=== PATIENT | male | born 1945 | race Caucasian/White ===

== ENCOUNTER 2019-06-15 11:59 | Inpatient (IN) | payer MEDICARE, BC ==
[2019-06-15] MEDS: NS 0.9% 1000 ML** 1,000 ML IV SCH (04:15)
--- OUTSIDE RECORDS SUMMARY | 2019-06-15 14:34 | XMS REPORT | Continuity of Care Document ---
:1945 External Reference #:[id number] Author Name Ji Harding M.D. 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 Onset: 06/02/2019 Social History Type Date Description Comments Sex Unknown ETOH Use Occasionally consumes alcohol Tobacco Use Start: Unknown Patient is a current 2 cigarettes a week smoker, smokes some days Recreational Drug Use Marijuana Licensed for liquid marijuana Smoking Status Reviewed: 05/20/19 Patient is a current 2 cigarettes a week smoker, smokes some days Allergies, Adverse Reactions, Alerts Description No Known Drug Allergies Medications Active Medications SIG Qnty Indications Ordering Date Provider Fluoxetine HCL Take One Tablet Unknown 60mg Tablets By Mouth Every Day Maximum Daily Dose 1 Tablet Tamsulosin HCL Take One Capsule Unknown 0.4mg Capsules By Mouth Every Day Amantadine HCL Take One Capsule Unknown 100mg Capsules By Mouth Every Morning For 1 Week Then Take One Capsule By [place] Morning And Take One Capsule By Mouth Every Day AT N Bupropion Hydrochloride ER Take One Tablet Unknown (SR) By Mouth Every 150mg Tablets ER 12HR Morning Hydrochlorothiazide Take One Capsule Unknown 12.5mg By Mouth Every Capsules Day Vitamin D 1 by mouth every Unknown 2000Unit Capsules day Tecfidera 1 tablet by mouth Unknown 240mg Capsules DR twice a day Magnesium 1 by mouth every Unknown 500mg Capsules day Vitamin B 6 take one by mouth Unknown 50mg Tablets daily. Vitamin E Unknown 200Unit Capsules Baclofen take one tablet Unknown 20mg Tablets by mouth three times a day as needed for muscle spasms, may cause drowsiness Immunizations Description No Information Available Vital Signs Date Vital Result Comment 06/02/2019 3:23pm BP Systolic 127 mmHg BP Diastolic 68 mmHg Body Temperature 98.5 F Heart Rate 94 /min Respiratory Rate 16 /min Height 66 inches 5'6" per pt Weight 193.12 lb BMI (Body Mass Index) 31.2 kg/m2 BSA (Body Surface Area) 1.97 m2 [place] body weight in kilograms 64 kg O2 % BldC Oximetry 95 % Pain Level 0 05/19/2019 2:14pm Body Temperature 97.0 F Heart Rate 95 /min Respiratory Rate 20 /min Height 66 inches 5'6" per pt Weight 199.00 lb BMI (Body Mass Index) 32.1 kg/m2 BSA (Body Surface Area) 2.00 m2 [place] body weight in kilograms 64 kg O2 % BldC Oximetry 97 % Results Description No Information Available Procedures Date Code Description Status 05/19/2019 57912 voiding pressure study vp informatics intra abdominal voiding pressure Completed ap 05/19/2019 34675 emg studies of urethral sphincter, other than needle, any Completed tech 05/19/2019 97877 Cystometrogram complex w/ voiding and urethral pressure Completed studies 05/19/2019 12153 Bladder Catheterization Completed 05/10/2019 58809 Insert Of Temporary Indwelling Bladder Catheter,Simple Completed Medical Devices Description No Information Available Encounters Type Date Location Provider Dx Diagnosis Office Visit 05/10/2019 Urology Harsh Garcia, R33.9 Retention of urine, 11:15a PA unspecified Z87.440 Personal history of urinary (tract) infections G35 Multiple sclerosis Assessments Date Code Description Provider 06/02/2019 R33.9 Retention of urine, unspecified Ji Harding M.D. 05/19/2019 R30.0 Dysuria Ji Harding M.D. 05/19/2019 R39.14 Feeling of incomplete bladder emptying Ji Harding M.D. 05/10/2019 R33.9 Retention of urine, unspecified Harsh Garcia, PA 05/10/2019 Z87.440 Personal history of urinary (tract) Harsh Garcia PA infections 05/10/2019 G35 Multiple sclerosis Harsh Garcia PA 04/28/2019 R45.1 Restlessness and agitation Ellie Waterman NPP, SHOP TAILOR 04/28/2019 R33.9 Retention of urine, unspecified Ji Harding M.D. 04/28/2019 R41.82 Altered mental status, unspecified Ellie Waterman NPP, SHOP TAILOR 04/28/2019 N39.0 Urinary tract infection, site not Ellie Waterman NPP, SHOP TAILOR specified Plan of Treatment Future Appointment(s):06/09/2019 11:15 am - Harsh Garcia PA at Urology Functional Status Description No Information Available Mental Status Description No Information Available Referrals Description No Information Available
--- OUTSIDE RECORDS SUMMARY | 2019-06-15 14:34 | XMS REPORT | Continuity of Care Document ---
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 Onset: 06/02/2019 Social History Type Date Description Comments Sex Unknown ETOH Use Occasionally consumes alcohol Tobacco Use Start: Unknown Patient is a current 2 cigarettes a week smoker, smokes some days Recreational Drug Use Marijuana Licensed for liquid marijuana Smoking Status Reviewed: 06/06/19 Patient is a current 2 cigarettes a [...] Unknown 240mg Capsules DR twice a day Vitamin B 6 take one by mouth Unknown 50mg Tablets daily. Vitamin E Unknown 200Unit Capsules Baclofen take one tablet Unknown 20mg Tablets by mouth three times a day as needed for muscle spasms, may cause drowsiness Immunizations Description No Information Available Vital Signs Date Vital Result Comment 06/09/2019 11:28am BP Systolic 148 mmHg BP Diastolic 79 mmHg Body Temperature 98.0 F Heart Rate 100 /min Respiratory Rate 16 /min Height 66 inches 5'6" per pt [place] body weight in kilograms 64 kg O2 % BldC Oximetry 95 % Pain Level 0 06/02/2019 3:23pm BP Systolic 127 mmHg BP Diastolic 68 mmHg Body Temperature 98.5 F Heart Rate 94 /min Respiratory Rate 16 /min Height 66 inches 5'6" per pt Weight 193.12 lb BMI (Body Mass Index) 31.2 kg/m2 BSA (Body Surface Area) 1.97 m2 [place] body weight in kilograms 64 kg O2 % BldC Oximetry 95 % Pain Level 0 Results Description No Information Available Procedures Date Code Description Status 05/19/2019 97389 voiding pressure study vp information technology intra abdominal voiding pressure Completed ap 05/19/2019 32141 emg studies of urethral sphincter, other than needle, any Completed tech 05/19/2019 33596 Cystometrogram complex w/ voiding and urethral pressure Completed studies 05/19/2019 02966 Bladder Catheterization Completed 05/10/2019 18925 Insert Of Temporary Indwelling Bladder Catheter,Simple Completed Medical Devices Description No Information Available Encounters Type Date Location Provider Dx Diagnosis Office Visit 06/09/2019 Urology Harsh Garcia, R33.9 Retention of urine, 11:15a PA unspecified N39.0 Urinary tract infection, site not specified Office Visit 06/02/2019 3:30p Urology Ji Harding R33.9 Retention of urine, M.D. unspecified Office Visit 05/10/2019 11:15a Urology Harsh Garcia R33.9 Retention of urine, PA unspecified Z87.440 Personal history of urinary (tract) infections G35 Multiple sclerosis Assessments Date Code Description Provider 06/09/2019 R33.9 Retention of urine, unspecified Harsh Garcia PA 06/09/2019 N39.0 Urinary tract infection, site not Harsh Garcia, PA specified 06/02/2019 R33.9 Retention of urine, unspecified Ji Harding M.D. 05/19/2019 R30.0 Dysuria Ji Harding M.D. 05/19/2019 R39.14 Feeling of incomplete bladder emptying Ji Harding M.D. 05/10/2019 R33.9 Retention of urine, unspecified Harsh Garcia PA 05/10/2019 Z87.440 Personal history of urinary (tract) Harsh Garcia PA infections 05/10/2019 G35 Multiple sclerosis Harsh Garcia PA 04/28/2019 R45.1 Restlessness and agitation Ellie Waterman NPP, LYNNE 04/28/2019 R33.9 Retention of urine, unspecified Ji Harding M.D. 04/28/2019 R41.82 Altered mental status, unspecified Ellie Waterman NPP, LYNNE 04/28/2019 N39.0 Urinary tract infection, site not Ellie Waterman NPP, DIRECTOR [employer] specified Plan of Treatment Future Appointment(s):12/08/2019 11:00 am - Harsh Garcia PA at Urology Functional Status Description No Information Available Mental Status Description No Information Available Referrals Description No Information Available
--- OUTSIDE RECORDS SUMMARY | 2019-06-15 14:34 | XMS REPORT | Continuity of Care Document ---
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 Problems Active Problems Provider Date Localized, primary osteoarthritis Onset: 09/19/2003 Social History Type Date Description Comments Sex Unknown Allergies, Adverse Reactions, Alerts Description No Information Available Medications Description No Information Available Immunizations Description No Information Available Vital Signs Description No Information Available Results Description No Information Available Procedures Description No Information Available Medical Devices Description No Information Available Encounters Description No Information Available Assessments Date Code Description Provider 05/10/2019 R33.9 Retention of urine, unspecified Harsh Garcia PA 04/28/2019 R45.1 Restlessness and agitation Ellie Waterman NPP, LYNNE 04/28/2019 R33.9 Retention of urine, unspecified Ji Harding M.D. 04/28/2019 R41.82 Altered mental status, unspecified Ellie Waterman NPP, FNP 04/28/2019 N39.0 Urinary tract infection, site not Ellie Waterman NPP, JAVA SOFTWARE ENGINEER specified Plan of Treatment Future Appointment(s):05/19/2019 2:15 pm - Ji Harding M.D. at Urology Functional Status Description No Information Available Mental Status Description No Information Available Referrals Description No Information Available
[2019-06-15] MEDS ORDERED: NS 0.9% 50 ML* 50 ML ONE (16:13)
[2019-06-15] MEDS: cefTRIAXone(*) 1 GM in NS 0.9% 50 ML* 50 ML IVPB SCH (16:15)
--- NOTE | 2019-06-15 17:53 | CONS ---
NEUROLOGY CONSULTATION NOTE: DATE OF CONSULT: 06/15/19 CONSULTING PROVIDER: Dr. Karissa Barksdale. REASON FOR CONSULT: Sudden onset confusion. CHIEF COMPLAINT: Confusion. HISTORY OF PRESENT ILLNESS: Mr. Malachi Bolton is a 73-year-old man with relapsing- remitting multiple sclerosis, who is followed up closely at [facility] Neurology. The patient was last seen by Shantanu Coleman NP, on 04/07/19. At that time, the patient was complaining of worsening left lower extremity weakness and left footdrop. He had a fall at that time. The patient was using a cane and a quad wheel seated walker. He was complaining of progressive symptoms related to his multiple sclerosis, which are heat intolerance as well as left lower extremity weakness. He had a footdrop reported in March 2019. He is currently taking Tecfidera 240 mg twice a day. He is also on amantadine 100 mg 3 times daily; baclofen, which was increased to 20 mg in the morning, 10 mg in the afternoon and 20 mg at night, just recently increased to that dose; Wellbutrin was increased from 75 to 150 mg recently; and he was kept on fluoxetine as an antidepressant. The patient had an MRI of the brain with and without contrast, and an MRI of the cervical spine with and without contrast that was completed in March 2019 that were ordered to evaluate the patient's left lower extremity weakness. The MRI of the brain noted multiple white matter lesions most consistent with demyelinating plaques, but there was no associated abnormal enhancement to suggest active inflammation and there has been no significant change when compared to a study from 09/30/17. An MRI of the cervical spine was also obtained and showed abnormal cord signal opposite of C4-C5 most consistent with demyelinating plaque, but there is again no associated abnormal enhancement to suggest active inflammation. The appearance is similar to the 09/30/17 examination. The history today was mostly obtained by Beau, the patient's son, who was at bedside. Mr. Bolton was hospitalized at [facility] 2 to 2-1/2 months ago for urinary tract infection. He was hallucinating at that time. He was discharged home the same day, but to come back a day later with worsening hallucinations. The patient was hospitalized eventually for 4 days and had to be discharged to a rehab facility for 2 weeks. Following the rehabilitation period, the patient was able to be discharged home and resumed his activities of daily living. The patient is independent, lives alone, and is able to operate a vehicle. He was driving just approximately 10 days ago. However, over the last 3 to 6 months, the family has noticed deterioration in his gait as well as the left leg weakness. The patient was ambulating with occasionally using a cane 1 year ago , but now he is unable to ambulate without a walker. Last 06/10/19, the patient began developing symptoms of increasing confusion, falls, hallucinations, and irritability. Family members were checking up on him on a daily basis and it was not until Thursday when the patient was forced to go to the ER for further evaluation. He was admitted to [facility] for a urinary tract infection. He was started on ciprofloxacin. Although the urinary tract infection was reported to be improving according to the providers at [facility], the patient's mentation was deteriorating. Today, the patient was last seen normal at 7:30 a.m., during that time he was communicating and conversing with the bedside nurse. At 8 a.m., the patient became suddenly unresponsive. He was not following commands, his eyes were closed, and he was not moving the left lower extremity. The CT machine was apparently malfunctioning at [facility] and the patient instead had a stat MRI of the brain. I personally reviewed the study. There was no evidence of any acute intracranial abnormalities seen. The patient received 2 mg of Ativan for presumed subclinical seizures. Reviewing the records from [facility], the patient has also received risperidone 0.25 mg starting 06/13/19. He received 1 dose that day and 3 different dosages of risperidone on 06/14/19. He was also receiving ciprofloxacin at that time and he was also receiving the home dose of baclofen, Tecfidera, and Prozac. Due to the concern that he may be having subclinical seizures, the patient was accepted to [facility] and was transferred to our facility for further evaluation. Today, the patient is awake, but confused and inappropriate. He is able to recognize that he is in the hospital, family members, as well as nursing staff. He denied any headaches or visual disturbance. He reported intermittent double vision when looking towards either side, but has not experienced that today. He has not had any fevers or chills. I do not see any rash as well as he does not report any rash. According to Beau, the patient was having trouble talking last night, but that was on and off, and it is not unusual for him to have that at night. PAST MEDICAL HISTORY: Multiple sclerosis, depression, right knee arthroscopy, hernia operation, appendectomy, tonsillectomy, left ankle ORIF, benign prostatic hyperplasia. MEDICATIONS: 1. Vitamin E. 2. Vitamin D3. 3. Magnesium. 4. Hydrochlorothiazide 25 mg p.o. daily. 5. Colace 100 mg p.o. b.i.d. 6. Cyanocobalamin 2500 mcg p.o. daily. 7. Risperidone 0.25 mg p.o. b.i.d. 8. Wellbutrin 150 mg p.o. daily. 9. Amantadine 100 mg p.o. at 7 a.m. and 1200. 10. Tamsulosin 0.4 mg p.o. daily. 11. Fluoxetine 60 mg p.o. daily. 12. Baclofen 20 mg p.o. t.i.d. 13. Tecfidera 240 mg p.o. b.i.d. ALLERGIES: No known drug allergies. FAMILY HISTORY: No family history of stroke or seizures. SOCIAL HISTORY: The patient lives independently. He performs all activities of daily living. There is no reported history of alcohol use. REVIEW OF SYSTEMS: The patient is unable to provide an accurate review of systems at this time due to encephalopathy. PHYSICAL EXAM: Vitals: Temperature 98.9, pulse of 71, respiratory rate of 15, oxygen saturation of 96%, blood pressure of 149/74. Ill-appearing frail man, in no acute distress. Head: Atraumatic, normocephalic without any obvious abnormality. Eyes: Conjunctivae/corneas are clear. Neck is supple and symmetrical with no carotid bruits. Cardiovascular: Regular rate and rhythm with normal S1, S2. Respiratory: Clear to auscultation bilaterally with no wheezing or rhonchi. Extremities: Flail left leg. Otherwise, no hammertoes or high arches. Skin: No skin lesions or lacerations. There are some scabs in the lower extremities, specifically on the right medial aspect of the knee. Psych: Flat affect, depressed mood. He does not interact well with the examiner. Neurological Examination: Drowsy, but wakes up to loud voice command. He is alert to self, but not place or time. He did recognize his son. He has mild spastic dysarthria. No aphasia. Cranial Nerves: Pupils are equal, round, and reactive to light. No APD. Normal confrontation testing. Normal sensation in the face. No facial droop. Tongue is symmetrical and midline with no atrophy or fasciculation. The patient has extensive moderate psychomotor slowing and bradykinesia. Motor Examination: He has got flaccid left lower extremity, especially in the distal lower extremity. He is able to lift the right lower extremity above off the bed. He moves both upper limbs, but very bradykinetic. Sensation is intact throughout. Reflexes trace throughout with mute plantar responses bilaterally. Coordination and gait were unable to be assessed as the patient cannot cooperate. DIAGNOSTIC STUDIES/LAB DATA: Labs and imaging studies were not obtained during this visit as of yet. ASSESSMENT AND RECOMMENDATIONS: Mr. Malachi Bolton is a 73-year-old man who has history of relapsing-remitting multiple sclerosis, who has deteriorated over the past 3 months. He was a transfer from [facility] on 06/15/19 due to a sudden onset of reduced alertness and minimally conscious state. Please note that the patient has been in [facility] since 06/11/19, for the treatment of increased agitation, confusion, and hallucination that was thought to be related to urinary tract infection. The patient was treated with ciprofloxacin. He has been receiving risperidone and had received Ativan prior to the transfer today. MRI of the brain was obtained and showed no evidence of acute ischemic infarction. 1. Acute encephalopathy of unclear etiology at this time. Likely cause includes toxic encephalopathy versus seizure with postictal state. Patients with multiple sclerosis have increased risk for seizures. Wellbutrin and ciprofloxacin may both reduce the threshold for seizures. We will evaluate for metabolic encephalopathy. Recommendations: Please check a vitamin B12, TSH, ammonia. Please discontinue ciprofloxacin. Hold the Wellbutrin at this time. Neuro checks every 2 hours for the next 24 hours. Keep his blood pressure at a normotensive range. He has no evidence of fevers, chills, or nuchal rigidity to suspect a central nervous system infection. Obtain an EEG to evaluate for subclinical seizures. If the patient has any clinical symptoms of seizures, treat with 2 mg IV Ativan and then load with levetiracetam 1000 mg IV x1 and continue on a dose of 500 mg twice daily. 2. Hallucinations - most likely related to underlying infection, ciprofloxacin and amantadine. Please reduce amantadine to 100 mg daily. We will have to consider getting him off the amantadine in the near future. 3. Bradykinesia - I suspect this could be related to antipsychotic therapy. Please discontinue the risperidone. If the patient becomes agitated, consider Seroquel 25 mg nightly. 4. Left leg weakness - this could be related to a thoracic lesion or degenerative disc in the lumbosacral region. Hold off on any imaging of the spine until the patient's mentation improves. I do recommend an MRI of the thoracic and lumbar spine during this hospitalization to further evaluate the left leg weakness. We have ruled out any demyelinating lesions in the brain or C-spine from the MRIs that were done in March for the same problem. 5. Multiple sclerosis - continue his home dose of Tecfidera. He has no evidence of progressive multifocal leukoencephalopathy on the MRI study. CRITICAL CARE TIME: 60 minutes, of which more than 50% was spent obtaining history, examining the patient, discussing the treatment plan with the patient and his son, Beau, at bedside. I will continue to follow. [id number]/[facility] #: [id number] [facility]PITALGood
[2019-06-15 17:55] LABS: TSH (Thyroid Stimulating Horm) 1.31 mcIU/mL (0.34-5.60)
--- NOTE | 2019-06-15 19:03 | EEG ---
ELECTROENCEPHALOGRAPHY: DATE OF STUDY: 06/15/19 - ROOM #ICU-09 DATE READ: 06/15/19 ORDERED BY: Dr. Karissa Barksdale. CLINICAL PROBLEM: Mr. Bolton is a 73-year-old man, who comes in with confusion. This EEG was requested to evaluate for epileptiform discharges or electrographic seizures. MEDICATIONS: Ativan recently given this morning. CLINICAL STATE: Awake and drowsy. REPORT: The waking background consisted of a mixed frequency slowing in the delta and theta range with appropriate organization and clearly defined anterior - posterior voltage. There was low voltage, poorly sustained background rhythm of 10 Hz, which was symmetrical and showed normal reactivity. Anteriorly, there was an expected pattern of lower voltage, irregular, mixed faster frequency. Attenuation of the occipital rhythm accompanied drowsiness. Hyperventilation and photic stimulation were not performed. Single electrode EKG showed normal sinus rhythm with a rate of 70 beats per minute. Throughout the recording, there were no epileptiform discharges or electrographic seizures. Throughout the recording, the patient had right leg movements, left hand twitching, mouth movements that did not correlate with any abnormalities on EEG. CLINICAL IMPRESSION: This is an abnormal awake and drowsy EEG due to a poorly sustained posterior dominant rhythm, low voltage alpha, and diffuse slowing. These findings are suggestive of nonspecific mild-moderate diffuse encephalopathy. During the recording, the patient had episode of right and left arm twitching as well as abnormal mouth movements that did not correlate with any EEG abnormalities. [id number]/[facility] #: [id number] MTDD
--- NOTE | 2019-06-15 19:24 | HP ---
CC: Dr. Lund; Dr. Srinivasan * HISTORY AND PHYSICAL: DATE OF ADMISSION: 06/15/19 PRIMARY CARE PROVIDER: Dr. Lund NEUROLOGIST: Dr. Srinivasan. CHIEF COMPLAINT: Unresponsive episode. HISTORY OF PRESENT ILLNESS: Mr. Bolton is a 73-year-old male who has a history of multiple sclerosis and neurogenic bladder as well as depression and anxiety who presented initially to [facility] on 06/11/19 after he was found on the floor at home. He was down for approximately 8 hours. He was diagnosed with rhabdomyolysis and a urinary tract infection and was being treated for both of these conditions. The patient had been improving and stable until the morning of 06/15/19 when he was found unresponsive by the nursing staff. Just prior to being found unresponsive, the patient underwent straight catheterization. He was behaving usually at that time. The patient remained unresponsive for a couple hours. There was concern for ongoing seizure activity or seizure and a postictal state, and therefore, the patient was given Ativan 2 mg IV x1. The patient continued to be unresponsive, at which time I was contacted to accept the patient in transfer from [facility] [place] [facility]. On arrival, the patient was alert and talking. He was generally a poor historian. Reviewing outpatient records indicate that the patient typically is able to hold a full conversation and is alert and oriented. He had been driving just up until a few days prior to his admission at [facility]. He does tell me that he is not having any pain. He denies any shortness of breath. He does not recall the events of the morning. PAST MEDICAL HISTORY: 1. Multiple sclerosis. 2. Neurogenic bladder with urinary retention requiring straight catheterization. 3. Depression and anxiety. MEDICATIONS: 1. Flomax 0.4 mg p.o. q.h.s. 2. Baclofen 20 mg p.o. t.i.d. 3. Prozac 60 mg p.o. daily. 4. Wellbutrin extended release 150 mg p.o. daily. 5. Resinoidal 0.25 mg p.o. twice daily. 6. Amantadine 100 mg p.o. in the morning and at noon. 7. Magnesium chloride 64 mg p.o. daily. 8. Hydrochlorothiazide 25 mg p.o. daily. 9. Colace 100 mg p.o. twice daily. 10. Vitamin B12 2500 mcg p.o. daily. 11. Vitamin D3 1000 units p.o. daily. 12. Vitamin E 400 units p.o. daily. 13. Tecfidera 240 mg p.o. twice daily. ALLERGIES: No known drug allergies. FAMILY HISTORY: Positive for coronary artery disease in his father as well as diabetes. His mom had a history of coronary artery disease. SOCIAL HISTORY: The patient is a former heavy smoker. He smokes very rarely at this time. He does not drink alcohol. He lives with his family and has caregiver help. REVIEW OF SYSTEMS: An attempt at 11-system review of systems is made; however, the patient is unable to answer questions appropriately. PHYSICAL EXAMINATION GENERAL: The patient is a well-developed elderly male who appears older than his stated age, sitting up in the bed, in no acute distress. VITAL SIGNS: Blood pressure 137/85, pulse 70, respirations 25, temp 98.9, O2 sat 95% on room air. HEENT: Pupils are equal and round. Extraocular muscles are intact. Oropharynx is clear. Oral mucosa is dry. There is no submandibular, cervical, or supraclavicular adenopathy. PULMONARY: Lungs are clear to auscultation anteriorly and at the lateral bases. CARDIAC: Normal S1, S2. Regular rate and rhythm. I do not appreciate any murmurs. There is no lower extremity edema. ABDOMEN: Bowel sounds are present. Abdomen is soft, nontender, nondistended. MUSCULOSKELETAL: There is no cyanosis or clubbing of the digits. NEURO: Upper extremity strength is normal. The patient has 0/5 strength on the left. Right lower extremity strength is 4+/5. Sensation is intact throughout. SKIN: Visible areas of skin are warm and dry. There are no rashes. There are abrasions noted to the patient's right knee and right foot. DIAGNOSTIC STUDIES/LAB DATA: WBC 4.3, hemoglobin 11.8, hematocrit 35.2, platelets 219. Glucose 119, BUN 18, creatinine 1.1, sodium 142, potassium 3.9, chloride 102, CO2 of 34, calcium 9.6. ASSESSMENT AND PLAN: Mr. Bolton is a 73-year-old male with a history of multiple sclerosis followed by Dr. Srinivasan who over the last several months has had increased left-sided weakness, now needing to ambulate with a walker when he previously used a cane as well as increasing hallucinations is reported by the patient's son, who was initially admitted to [facility] for concern of fall with subsequent rhabdomyolysis ultimately determined to be secondary to urinary tract infection with Citrobacter freundii, who was transferred to [facility] on 06/15/19 after having an unresponsive episode. 1. Unresponsive episode. My suspicion is this may have been a seizure with prolonged postictal state. EEG was obtained at the time of the patient's arrival to the ICU. At that point, he showed encephalopathic changes on the EEG , but no clear epileptiform discharges. The patient was alert and talking, though not at his baseline. He did receive 2 mg of IV Ativan earlier today and perhaps this is still causing effect. The patient will be monitored in the ICU overnight for any recurrent episodes of unresponsiveness. If he is stable tomorrow, he can likely be transferred to the floor. I am going to change his antibiotic from ciprofloxacin to ceftriaxone as perhaps Cipro reduced his seizure threshold. I will also be discontinuing his Wellbutrin which can also lower the seizure threshold. 2. Multiple sclerosis. The patient will continue on his Tecfidera as well as his baclofen. He may need lumbar spine MRI imaging per Dr. Sexton who was present at the time of the patient's arrival to the ICU. This would be to evaluate for active MS flare. The patient did undergo MRI of the brain and cervical spine in March due to these concerns noted above and those 2 MRIs did not show any active disease. 3. Depression and anxiety. We will continue Prozac. I am going to hold his Risperdal while he is recovering from this unresponsive episode. 4. Neurogenic bladder. We will continue Flomax for BPH and the patient will need straight catheterizing 4 times daily. 5. DVT prophylaxis: According to the Adult Thrombosis Prophylaxis Risk Factor Assessment Guide, the patient has a total risk factor score of 3, making him high risk. Heparin will be utilized as DVT prophylaxis. 4. Code status is full. TIME SPENT: Sixty-five minutes was spent admitting this patient. [id number]/[facility] #: [id number] LISA
[2019-06-15] MEDS: Baclofen TAB* 20 MG PO SCH (21:24)
[2019-06-15] MEDS: DIMETHYL FUMARATE 240 MG PO SCH (21:24)
[2019-06-15] MEDS: Docusate CAP* 100 MG PO SCH (21:25)
[2019-06-15] MEDS: Heparin VIAL(*) 5000 UNITS/ML VIAL (FIVE THOUSAND) SUBCUT SCH (21:25)
[2019-06-15] MEDS: Tamsulosin CAP* 0.4 MG PO SCH (21:25)
[2019-06-16] MEDS: Heparin VIAL(*) 5000 UNITS/ML VIAL (FIVE THOUSAND) SUBCUT SCH ×3 (05:13→20:46)
[2019-06-16] MEDS: NS 0.9% 1000 ML** 1,000 ML IV SCH ×2 (06:09→20:48)
[2019-06-16] MEDS ORDERED: Amantadine CAP* 100 MG PO SCH ×2 (07:00)
[2019-06-16] MEDS ORDERED: BuPROPion XL* 150 MG TAB.XL PO SCH (09:00)
[2019-06-16] MEDS: Vitamin E CAP* 400 UNIT PO SCH (10:19)
[2019-06-16] MEDS: FLUoxetine CAP* 20 MG PO SCH (10:19)
[2019-06-16] MEDS: Cholecalciferol TAB* 1000 UNITS PO SCH (10:20)
[2019-06-16] MEDS: Docusate CAP* 100 MG PO SCH ×2 (10:20→20:46)
[2019-06-16] MEDS: Baclofen TAB* 20 MG PO SCH ×3 (10:21→20:46)
[2019-06-16] MEDS: DIMETHYL FUMARATE 240 MG PO SCH ×2 (10:21→20:47)
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
[2019-06-16] MEDS: Cyanocobalamin TAB* 500 MCG PO SCH (11:28)
--- NOTE | 2019-06-16 13:34 | PN ---
Subjective Date of Service: 06/16/19 Length of Stay: 1 Days Neurology is following for encephalopathy. Interval History: He is awake this morning. He was reported to still be slightly confused and agitated, but was calm when I assessed him. He still has some compulsive behavior and trying to get out of bed. He is easily directed though. He does not recall what happened yesterday. He denied any headaches or visual disturbance. He does not complain of any new weakness. He is incontinence of urine. This is new for him. He has no urgency. He denied any dysuria. Review of Systems: Denied CP, SOB, or palpitations. Objective Active Medications: Amantadine HCl (Symmetrel Cap*) 100 mg PO 0700 [facility] Last Admin: 06/16/19 10:21 Dose: 100 mg Baclofen (Lioresal Tab*) 20 mg PO TID [facility] Last Admin: 06/16/19 10:21 Dose: 20 mg Cholecalciferol (Vitamin D Tab*) 1,000 units PO DAILY [facility] Last Admin: 06/16/19 10:20 Dose: 1,000 units Cyanocobalamin (Vitamin B12 Tab*) 2,500 mcg PO DAILY [facility] Last Admin: 06/16/19 11:28 Dose: 2,500 mcg Dimethyl Fumarate (Tecfidera(Nf)) 240 mg PO BID [facility] Last Admin: 06/16/19 10:21 Dose: 240 mg Docusate Sodium (Colace Cap*) 100 mg PO BID [facility] Last Admin: 06/16/19 10:20 Dose: 100 mg Fluoxetine HCl (Prozac Cap*) 60 mg PO DAILY [facility] Last Admin: 06/16/19 10:19 Dose: 60 mg Heparin Sodium (Porcine) (Heparin Vial(*)) 5,000 units SUBCUT Q8HR [facility] Last Admin: 06/16/19 05:13 Dose: 5,000 units Sodium Chloride (Ns 0.9% 1000 Ml) 1,000 mls @ 75 mls/hr IV PER RATE [facility] Last Admin: 06/16/19 06:09 Dose: 75 mls/hr Ceftriaxone Sodium 1 gm/ (Sodium Chloride) 50 mls @ 100 mls/hr IVPB Q24H [facility] Last Admin: 06/15/19 16:15 Dose: 100 mls/hr Tamsulosin HCl (Flomax Cap*) 0.4 mg PO BEDTIME [facility] Last Admin: 06/15/19 21:25 Dose: 0.4 mg Vitamin E (Vitamin E Cap*) 400 unit PO DAILY [facility] Last Admin: 06/16/19 10:19 Dose: 400 unit Vital Signs 06/16/19 06/16/19 06/16/19 08:02 09:01 10:00 Temperature 98.0 F Pulse Rate 99 103 Respiratory 20 18 Rate Blood Pressure 173/76 (mmHg) O2 Sat by Pulse 95 93 Oximetry 06/16/19 06/16/19 10:01 11:46 Temperature 97.9 F Pulse Rate 92 80 Respiratory 22 16 Rate Blood Pressure 122/73 (mmHg) O2 Sat by Pulse 95 100 Oximetry Intake and Output Last 24 Hours 06/14/19 06/15/19 06/16/19 06/17/19 06:59 06:59 06:59 06:59 Intake Total 1456 659 Output Total 840 800 Balance 616 -141 Weight 186 lb 1.122 oz Intake: IV Fluids 936 459 NS 936 459 IVPB 50 ABX - CEFTRIAXONE 50 Oral 470 200 Output: Urine 90 200 Straight Cath 750 600 Oxygen Devices in Use Now: None Neurology Exam: General: Well nourished, well developed, and in no acute distress HEENT: Normocephelic/atraumatic, sclera anicteric, mucous membranes moist Neck: Supple Chest: Clear to auscultation bilaterally Cardiovascular: Regular rate and rhythm without murmurs, rubs, gallops Abdomen: Soft, non-tender/non-distended Extremities: No clubbing, cyanosis, or edema Neurological Findings: Awake, alert, and oriented to person, place, and time. Speech: mild spastic dysarthria Cranial Nerve: PERRL, EOM intact, VFF, no nystagmus, face symmetric bilaterally Motor: generalized 4/5 weakness on the proximal upper extremity, 3/5 in the right lower and 1-2/5 in the left lower extremity. He has a flail foot on the left. Sensation: reduced sensation at the medial leg on the left Deep Tendon Reflex: trace throughout, absent at the left knee and ankle. Finger to nose, rapid alternating movements intact without tremor, no dysdiadochokinesia Gait: n/a Microbiology and Other Data: Microbiology 06/15/19 14:44 Nasal Screen MRSA (PCR) - Final Nasal Mrsa Not Detected Assessment/Plan 1. Acute encephalopathy- slowly improving. Suspect toxic encephalopathy or seizures with post-ictal confusion. The triggering factors are: the combination of ciprofloxacin, risperidone, Wellbutrin. Ammonia, B12, and TSH. EEG showed no seizures. Recommendations: - Neuro checks every 4 hours - Continue to hold off on Cipro and Resperidone - Agree with transfer to - Continue supportive care - Please consult PT/OT to evaluate and treat - No need for seizure medications as this may have been a provoked event - He has no sign of [employer] infection; no need for an LP at this time 2. Hx of MS: continue Tecfidera 3. Subacute-chronic incontinence and left leg weakness- localized to the lumbar spine. - Obtain an MRI of the L wo contrast and MRI of T spine with and without contrast. Evaluate for cauda equina I will continue to follow. I discussed the care with Beau (son) and Dr. Barksdale.
[2019-06-16] MEDS: cefTRIAXone(*) 1 GM in NS 0.9% 50 ML* 50 ML IVPB SCH (15:29)
[2019-06-16] MEDS ORDERED: Gadoteridol* (CONTRAST) 279.3 MG/ML 10 ML IV ONE (19:42)
[2019-06-16] MEDS: Tamsulosin CAP* 0.4 MG PO SCH (20:46)
[2019-06-17 06:00] LABS: ABS Basophils 0.1 10^3/ul (0-0.2); ABS Eosinophils 0.5 10^3/ul (0-0.6); ABS Lymphocytes 0.6 10^3/ul (1.0-4.8); ABS Monocytes 0.6 10^3/ul (0-0.8); ABS Neutrophils 5.5 10^3/ul (1.5-7.7); Eosinophil % 6.8 %; Hematocrit 37 % (42-52); Hemoglobin 12.5 g/dL (14.0-18.0); Lymphocyte % 8.4 %; Mean Corpuscular HGB Conc 34 g/dL (31-36); Mean Corpuscular Hemoglobin 32 pg (27-31); Mean Corpuscular Volume 96 fL (80-94); Mean Platelet Volume 8.6 fL (7.4-10.4); Platelet Count 223 10^3/uL (150-450); Red Blood Count 3.87 10^6 /uL (4.18-5.48); Red Cell Distribution Width 15 % (10-15); White Blood Count 7.2 10^3/uL (3.5-10.8)
[2019-06-17 06:07] LABS: BUN/Creatinine Ratio 18.7 (8-20); Calcium 9.2 mg/dL (8.6-10.3); EGFR African American 98.8 (>60); EGFR Non-African American 81.7 (>60); Potassium 3.9 mmol/L (3.5-5.0)
[2019-06-17] MEDS: Heparin VIAL(*) 5000 UNITS/ML VIAL (FIVE THOUSAND) SUBCUT SCH ×3 (06:21→22:01)
[2019-06-17] MEDS: Cholecalciferol TAB* 1000 UNITS PO SCH (08:51)
[2019-06-17] MEDS: FLUoxetine CAP* 20 MG PO SCH (08:51)
[2019-06-17] MEDS: Docusate CAP* 100 MG PO SCH ×2 (08:52→21:59)
[2019-06-17] MEDS: Cyanocobalamin TAB* 500 MCG PO SCH (08:52)
[2019-06-17] MEDS: Vitamin E CAP* 400 UNIT PO SCH (08:53)
[2019-06-17] MEDS: Baclofen TAB* 20 MG PO SCH ×3 (08:53→22:00)
[2019-06-17] MEDS: NS 0.9% 1000 ML** 1,000 ML IV SCH (08:54)
[2019-06-17] MEDS: DIMETHYL FUMARATE 240 MG PO SCH ×2 (08:54→22:00)
[2019-06-17] MEDS ORDERED: Thiamine INJ* 100 MG/ML 2 ML VIAL IV ONE (13:31)
--- NOTE | 2019-06-17 13:44 | PN ---
Subjective Date of Service: 06/17/19 Length of Stay: 2 Days Neurology is following for confusion, hallucination, and chronic left leg weakness. Interval History: I was contacted several times by the bedside nurse. The patient's confusion persists and he is now seeing objects in the room. He thinks the hospital is a restaurant and he imagines himself fighting with the waitresses and getting them fired. He stated, " I feel bad they are getting fired." He knows the date , year, time, and the president. He is slightly tremerous this morning. He denied any headache or visual disturbance. He denied any worsening weakness. He is moving the left leg a little more than before. He reported alcohol intake, 2 bottles of wine Workup so far: WBC: 7 Platelet count: 223 B12: 1450 Ammonia: 33 TSH: 1.31 MRI L spine without contrast: advanced multilevel spondylotic changes of the L spine, most pronounced at L3-4 with severe canal narrowing. MRI T Spine: no acute finding MRI Brain done at [facility]: films are in the paper chart. There is no evidence of acute infarction. He has extensive white matter lesions consistent with his MS diagnosis. The study was not done with contrast. EEG done 06/15: mild-moderate encephalopathy. Review of Systems: Denied CP, SOB, or palpitations. Objective Active Medications: Baclofen (Lioresal Tab*) 20 mg PO TID [facility] Last Admin: 06/17/19 08:53 Dose: 20 mg Cholecalciferol (Vitamin D Tab*) 1,000 units PO DAILY [facility] Last Admin: 06/17/19 08:51 Dose: 1,000 units Cyanocobalamin (Vitamin B12 Tab*) 2,500 mcg PO DAILY [facility] Last Admin: 06/17/19 08:52 Dose: 2,500 mcg Dimethyl Fumarate (Tecfidera(Nf)) 240 mg PO BID [facility] Last Admin: 06/17/19 08:54 Dose: 240 mg Docusate Sodium (Colace Cap*) 100 mg PO BID [facility] Last Admin: 06/17/19 08:52 Dose: 100 mg Fluoxetine HCl (Prozac Cap*) 60 mg PO DAILY [facility] Last Admin: 06/17/19 08:51 Dose: 60 mg Heparin Sodium (Porcine) (Heparin Vial(*)) 5,000 units SUBCUT Q8HR [facility] Last Admin: 06/17/19 06:21 Dose: 5,000 units Sodium Chloride (Ns 0.9% 1000 Ml) 1,000 mls @ 75 mls/hr IV PER RATE [facility] Last Admin: 06/17/19 08:54 Dose: 75 mls/hr Ceftriaxone Sodium 1 gm/ (Sodium Chloride) 50 mls @ 100 mls/hr IVPB Q24H [facility] Last Admin: 06/16/19 15:29 Dose: 100 mls/hr Quetiapine Fumarate (Seroquel Tab*) 25 mg PO BID [facility] Tamsulosin HCl (Flomax Cap*) 0.4 mg PO BEDTIME [facility] Last Admin: 06/16/19 20:46 Dose: 0.4 mg Thiamine HCl (Vitamin B1 Inj*) 500 mg IV ONCE ONE Stop: 06/17/19 13:32 Vitamin E (Vitamin E Cap*) 400 unit PO DAILY [facility] Last Admin: 06/17/19 08:53 Dose: 400 unit Vital Signs 06/16/19 06/16/19 06/16/19 15:15 19:15 20:00 Temperature 97.8 F 98.5 F Pulse Rate 76 86 Respiratory 17 17 16 Rate Blood Pressure 151/65 126/57 (mmHg) O2 Sat by Pulse 98 96 Oximetry 06/16/19 06/17/19 06/17/19 23:15 03:15 07:46 Temperature 97.5 F 97.8 F 98.1 F Pulse Rate 93 59 104 Respiratory 18 18 20 Rate Blood Pressure 149/68 150/86 148/63 (mmHg) O2 Sat by Pulse 95 96 96 Oximetry 06/17/19 06/17/19 08:00 11:37 Temperature 97.7 F Pulse Rate 101 Respiratory 20 20 Rate Blood Pressure 153/66 (mmHg) O2 Sat by Pulse 96 Oximetry Intake and Output Last 24 Hours 06/15/19 06/16/19 06/17/19 06/18/19 06:59 06:59 06:59 06:59 Intake Total 1456 1721 Output Total 840 3550 Balance 616 -1829 Weight 186 lb 1.122 oz 186 lb 1.122 oz Intake: IV Fluids 936 1471 NS 936 1471 IVPB 50 50 ABX - CEFTRIAXONE 50 50 Oral 470 200 Output: Urine 90 2200 Straight Cath 750 1350 Other: # Bowel Movements 0 # Voids 2 Oxygen Devices in Use Now: None Neurology Exam: General: Ill appearing man who is pleasantly confused. HEENT: Normocephelic/atraumatic, sclera anicteric, mucous membranes moist Neck: Supple Chest: Clear to auscultation bilaterally Cardiovascular: Regular rate and rhythm without murmurs, rubs, gallops Extremities: No clubbing, cyanosis, or edema Neurological Findings: Awake, alert, and oriented to person, time, president, but not place. He thinks the hospital is a restaurant. Speech: mild spastic dysarthria. Cranial Nerve: PERRL, EOM intact, VFF, no nystagmus, face symmetric bilaterally , facial sensation intact, hearing intact to finger rub bilaterally, palate elevates symmetrically, tongue midline, SCM and Trapezius s/s. Motor: generalized 4/5 weakness on the proximal upper extremity, 3/5 in the right lower and 1-2/5 in the left lower extremity. He is now dorsiflexing the foot 1/5, and plantar flexion 3/5. He has fast tremors in the upper extremities bilaterally. Sensation:reduced sensation to light touch and pinprick on the left leg. Deep Tendon Reflex: trace in the uppers, absent on the left lower, and trace in the right lower extremities. Finger to nose, rapid alternating movements intact without tremor, no dysdiadochokinesia Gait: n/a Result Diagrams: 06/17/19 05:36 06/17/19 05:36 Microbiology and Other Data: Microbiology 06/15/19 14:44 Nasal Screen MRSA (PCR) - Final Nasal Mrsa Not Detected Assessment/Plan 1. Acute encephalopathy- manifesting as delirium with mild agitation, delusional thoughts, and visual hallucination. Suspect toxic encephalopathy or seizures with post-ictal confusion. The triggering factors could be: the combination of ciprofloxacin, risperidone, Wellbutrin therapies. Ammonia, B12 , and TSH are normal. EEG showed no seizures. MRI brain without contrast done at [facility] on 06/15/2019 The patient's worsening hallucinations could be due to hospital related delirium , abrupt discontinuation of antipsychotic therapy, and/or alcohol withdrawal ( less likely). Amantadine can cause visual hallucination; hence, it was discontinued. He has no fevers, chills, or leukocytosis to suspect encephalitis. The episode of unresponsiveness that he had at [facility] has resolved. Recommendations: - Start Seroquel 25 mg twice daily - Consult PT/OT to evaluate and treat - No need for seizure medications as this may have been a provoked event - If the patient's mentation does not improve with antipsychotic therapy, then an MRI with contrast and an LP to assess for underlying new MS lesions or viral encephalitis should be considered. - Give Thiamine 500 mg IV x 1. - Neuro checks every 4 hours - Continue supportive care 2. Hx of MS: continue Tecfidera and Baclofen therapy 3. Subacute-chronic incontinence and left leg weakness due to severe spinal canal narrowing with nerve root compression in the L spine (most pronounced at L3-4). - Consult neurosurgery. Patient may not be a good candidate for surgery at this time, but may be a candidate once his mentation improves. Discussed the case with Dr. Srinivasan who will see the patient this week.
[2019-06-17] MEDS ORDERED: Thiamine IV 500 MG in NS 0.9% 250 ML (Wernicke-Korsakoff) IV ONE (14:00)
--- NOTE | 2019-06-17 15:04 | PN ---
Subjective Date of Service: 06/17/19 Interval History: Pt is feeling well. He notes he has b/l LE weakness that has worsened significantly in the last 1 month. He also notes occasional incontinence of urine. No loss of bowel function. Denies saddle anaesthesia. He continues to have hallucinations, but notes that they are "smaller," giving example that he used to see spiders and now sees ants. Objective Active Medications: Baclofen (Lioresal Tab*) 20 mg PO TID EWELINA Cholecalciferol (Vitamin D Tab*) 1,000 units PO DAILY EWELNIA Cyanocobalamin (Vitamin B12 Tab*) 2,500 mcg PO DAILY EWELINA Dimethyl Fumarate (Tecfidera(Nf)) 240 mg PO BID EWELINA Docusate Sodium (Colace Cap*) 100 mg PO BID EWELINA Fluoxetine HCl (Prozac Cap*) 60 mg PO DAILY EWELINA Heparin Sodium (Porcine) (Heparin Vial(*)) 5,000 units SUBCUT Q8HR EWELINA Sodium Chloride (Ns 0.9% 1000 Ml) 1,000 mls @ 75 mls/hr IV PER RATE EWELINA Ceftriaxone Sodium 1 gm/ (Sodium Chloride) 50 mls @ 100 mls/hr IVPB Q24H EWELINA Quetiapine Fumarate (Seroquel Tab*) 25 mg PO BID EWELINA Tamsulosin HCl (Flomax Cap*) 0.4 mg PO BEDTIME EWELINA Vitamin E (Vitamin E Cap*) 400 unit PO DAILY EWELINA Vital Signs: Temp Pulse Resp BP Pulse Ox 98 F 88 18 143/61 97 06/17/19 15:30 06/17/19 15:30 06/17/19 15:30 06/17/19 15:30 06/17/19 15:30 Oxygen Devices in Use Now: None Appearance: Pt is sitting up in bed, NAD. Eyes: No Scleral Icterus, PERRLA Ears/Nose/Mouth/Throat: NL Teeth, Lips, Gums, Clear Oropharnyx, - - Dry Neck: NL Appearance and Movements; NL JVP, Trachea Midline Respiratory: Symmetrical Chest Expansion and Respiratory Effort, Clear to Auscultation Cardiovascular: NL Sounds; No Murmurs; No JVD, RRR Abdominal: NL Sounds; No Tenderness; No Distention, No Hepatosplenomegaly Extremities: No Clubbing, Cyanosis, - - 1+ edema Neurological: Alert and Oriented x 3, - - 5/5 b/l UE strength. RLE 4/5; pt can lift leg inches off bed, but cannot hold it up; L foot drop Result Diagrams: 06/17/19 05:36 06/17/19 05:36 Microbiology and Other Data: Microbiology 06/15/19 14:44 Nasal Screen MRSA (PCR) - Final Nasal Mrsa Not Detected Assess/Plan/Problems-Billing Mr Bolton is a 73 yo M who has a h/o MS who presented to [place] after being found on the floor and was admitted for treatment of UTI and rhabdomyolysis and subsequently [place] [facility] [place]. - Patient Problems (1) Left-sided weakness Comment: -MRI L spine reveals L3-L4 spondylitic changes with severe canal narrowing -Neurosurgery consulted, notified (2) Unresponsive episode Comment: -Unclear cause. Possible seizure with subsequent post ictal state vs medication induced unresponsiveness (he had 3 doses of risperdal the day before). -Yesterday pt paranoid and confused, but overall improved and able to carry on a conversation. -Tele -Monitor for recurrent unresponsive episodes. -He will likely need STR on discharge. (3) Hallucination Comment: -Pt continues to have episodes of hallucinations; he is aware that these are hallucinations -Possibly due to cipro, risperidone, both of which have been d/c's -Start seroquel 25 BID and monitor (4) Urinary tract infection Comment: -Pt transfered with UTI, previously treated with Cipro, which is suspected to have caused hallucinations -Cipro discontinued -Ceftriaxone day 3 (5) Multiple sclerosis Comment: -Continue baclofen and tecfidera. -Follow up with Dr. Srinivasan after discharge. (6) Neurogenic bladder Comment: -Continue flomax and straighth catheterize 4x daily. (7) Anxiety and depression Comment: -Continue prozac. -Wellbutrin discontinued as it can lower the seizure threshold. (8) DVT prophylaxis Comment: -heparin SQ (9) Full code status Status and Disposition: Inpatient. Discharge when stable.
[2019-06-17] MEDS: cefTRIAXone(*) 1 GM in NS 0.9% 50 ML* 50 ML IVPB SCH (15:57)
[2019-06-17] MEDS: Tamsulosin CAP* 0.4 MG PO SCH (21:58)
[2019-06-17] MEDS: QUEtiapine TAB* 25 MG PO SCH (22:00)
--- NOTE | 2019-06-17 23:06 | CONS ---
CONSULTATION REPORT: DATE OF CONSULT: 06/17/19 HISTORY OF PRESENT ILLNESS: Mr. Bolton is a 73-year-old male with complaint of progressive gait and balance disturbance over the last 6 months. He has noticed progressive weakness in the left lower extremity. He has history of multiple sclerosis. He also complains of axial low-back pain with bilateral lower extremity radicular pain as well. He reports having multiple fall episodes recently. He was previously seen at [facility] for UTI and for low-back pain. He was admitted to [facility], and was seen by Neurology, who noticed the patient had a possible foot drop. MRI studies were completed of the thoracic and lumbar spine, which had normal findings and Neurosurgery was consulted to evaluate the patient. Currently, the patient denies any issues with loss of control of bladder or bowel. He does admit to have chronic issues with urinary retention and does self-catheterization. PAST MEDICAL HISTORY: Significant for hallucinations, urinary tract infection, left-sided weakness, multiple sclerosis, anxiety and depression, neurogenic bladder. PAST SURGICAL HISTORY: Includes right knee replacement. MEDICATIONS: 1. Vitamin E. 2. Flomax. 3. Magnesium chloride EC tab. 4. Hydrochlorothiazide. 5. Fluoxetine. 6. Docusate. 7. Dimethyl fumarate NF. 8. Vitamin D3 1000. 9. Wellbutrin XL. 10. Baclofen. 11. Vitamin B12. 12. Risperdal. 13. Amantadine. SOCIAL HISTORY: The patient reports some occasional alcohol use, 1 to 2 times a week. Also reports tobacco use and reports using some marijuana. OBJECTIVE: Vitals: Temperature is 98.3, heart rate is 91, respiratory rate 18 , O2 saturation 96, blood pressure systolic ranges 143 to 153, diastolic is 61 to 66. General: The patient is lying flat in bed. He is calm, in no acute distress. Neuro: The patient's GCS is 15, alert and oriented x3. EOMs intact. Cranial nerves II through XII are grossly intact, has some tongue fasciculations noted. Mild facial tremor seen as well. Upper extremity motor strength 5/5 bilaterally with elbow flexion and extension, also shoulder abduction and adduction. Handgrip is 5/5 as well. Sensation is intact throughout. Lower extremity motor strength: Right extremity 5/5 with hip flexion and extension, also with plantar flexion 5/5. He has decreased motor strength with EHL, 4/5. Left in lower extremity motor strength 1-2, unable to do flexion or extension of hip. has minimal ability to plantar or dorsiflex foot. Sensation is intact. Negative for clonus or Babinski's. He had inversion of the left foot. IMAGING: MRI completed, 06/16/19, of the thoracic spine. There is severe motion artifact seen, imaging is not clear. Does not appear to have any significant central canal stenosis or foraminal stenosis, but again, imaging is unclear due to marked motion artifact. MRI of the lumbar spine, completed 06/16/19, has significant motion artifact, able to see that there is marked to severe degenerative changes with loss of disk space at L3-L4 with spondylodesis at L4-L5. L2-L3, there is a broad based disk bulge with severe central canal stenosis, bilateral recess stenosis, with severe bilateral foraminal stenosis. L3-L4 broad based disk bulge with bilateral recess stenosis, right greater than left. Moderate central canal stenosis with moderate bilateral foraminal stenosis. L4-L5, there is broad based disk bulge with central disk protrusion, right lateral recess stenosis, bilateral foraminal stenosis, bilateral facet hypertrophy. L5-S1 broad based disk bulge, small central disk protrusion. No central canal stenosis. Moderate bilateral foraminal stenosis. MRI of the C-spine, completed 04/08/19, shows moderate to severe degenerative changes with the most significant degenerative changes at C3-C4. There is some right-sided foraminal stenosis with a right-sided disk bulge with mild central canal stenosis. MRI of the brain completed as well, does not show any midline shift or acute injury. ASSESSMENT: A 73-year-old male with history of multiple sclerosis, with complaint of progressive left lower extremity weakness and gait and balance disturbances, has moderate to severe degenerative changes seen in the lumbar spine, but imaging is less than optimal due to motion artifact. This could possibly be related to stenosis or it could possibly be related to his multiple sclerosis. I would recommend the patient have repeat imaging of the thoracic and lumbar spine to see if we can get better quality for reevaluation. We will follow up once the imaging is complete and see if surgery is indicated at that time. Thank you for allowing me to be a part of this patient's care. JAME SEGURA [id number]/[facility] #: [id number] [facility]ITALGood
[2019-06-18] MEDS: Heparin VIAL(*) 5000 UNITS/ML VIAL (FIVE THOUSAND) SUBCUT SCH ×3 (05:32→21:19)
[2019-06-18] MEDS: NS 0.9% 1000 ML** 1,000 ML IV SCH ×2 (06:01→19:50)
[2019-06-18] MEDS: Cyanocobalamin TAB* 500 MCG PO SCH (09:54)
[2019-06-18] MEDS: FLUoxetine CAP* 20 MG PO SCH (09:54)
[2019-06-18] MEDS: Baclofen TAB* 20 MG PO SCH (09:54)
[2019-06-18] MEDS: QUEtiapine TAB* 25 MG PO SCH ×2 (09:54→21:19)
[2019-06-18] MEDS: Docusate CAP* 100 MG PO SCH ×2 (09:55→21:19)
[2019-06-18] MEDS: DIMETHYL FUMARATE 240 MG PO SCH ×2 (09:55→21:20)
[2019-06-18] MEDS: Cholecalciferol TAB* 1000 UNITS PO SCH (09:55)
[2019-06-18] MEDS: Vitamin E CAP* 400 UNIT PO SCH (09:55)
--- NOTE | 2019-06-18 12:59 | PN ---
Progress Note - Progress Note Date of Service: 06/18/19 Note: Neurosurgery team spoke with Mr. Bolton with his family at bedside this morning, he reports he was able to walk up until about a week ago. There is some question if his current state is related to possible lesions in the brain, cervical and thoracic spine. We spoke with Dr. Srinivasan about this concern, the recommendation was made to get MRI with and with contrast of the brain, Cervical and thoracic spine and repeat MRI of lumbar spine with out contrast. Neurosurgery will follow up imaging.
--- NOTE | 2019-06-18 13:43 | CONS ---
NEUROLOGY CONSULT FOLLOWUP: DATE OF FOLLOWUP: 06/18/19 LOCATION: He is an inpatient in room 437. HOSPITALIST: Dr. Barksdale. CHIEF COMPLAINT: Weakness, hallucinations. INTERVAL HISTORY: Since yesterday, Mr. Bolton feels he is having a good day. His son and daughter-i n-law are present. We went over the history. He has been having hallucinations since at least this past summer. He was hospitalized with a urinary tract infection in April about a month after he was seen in our office in followup for his multiple sclerosis. He may have had hallucinations even befo re that. He sees people and he sometimes sees things that seem to be moving. He sees bugs at times. He gets disoriented as to where he is. Today, he feels pretty lucid, but goes off on telling us so me pretty fantastic stories about what he thinks he sees. He has had progressive weakness of his left leg for at least months. MEDICATIONS: Reviewed and he is on: 1. Baclofen 20 mg p.o. t.i.d., which was increased this past April, I believe at [facility]. 2. Ceftriaxone 1 g IV q.24 hours. 3. Tecfidera 240 mg p.o. b.i.d. 4. Colace 100 mg p.o. b.i.d. 5. Fluoxetine 60 mg p.o. daily. 6. Subcutaneous heparin 5000 units q.8 hours. 7. Seroquel 25 mg p.o. b.i.d. 8. Flomax 0.4 mg p.o. daily. PHYSICAL EXAM: He has been afebrile for over 24 hours, most recently 97.9 orally. Blood pressure is running between about 140 to 150 systolic over 50 to 70 diastolic. Heart rate is in the 80s and regu lar, respiratory rate is 16. Oxygen saturation is 97% on room air. Heart is in a regular rhythm wit hout murmurs. There are no cervical bruits. There are some bruises on his right knee more than his l eft from being on the floor. Neurological Exam: Eye movements are full, but choppy. Visual [place] are full to confrontation. Fa cial musculature is symmetric. Speech is clear. Motor exam reveals mild proximal weakness in the upper extremities. He has barely antigravity weakne ss in the left proximal lower extremity and grade 4 to 4- weakness in the proximal right lower extrem ity. He has grade 4 right ankle dorsiflexor weakness with good plantarflexion. He has less than ant igravity left ankle dorsiflexor weakness. He also has weak plantarflexion on the left in the grade 4 range. Reflexes are trace in the upper extremities and at the knees and absent at the ankles. He has left B abinski sign with a right plantar flexor. He has high frequency sustention tremor in the outstretched hands symmetrically. There is also little multifocal myoclonus in the arms and shoulders. DIAGNOSTIC STUDIES/LAB DATA: Laboratory data is reviewed. Last chemistries from 06/17/19 notable fo r glucose of 108, otherwise unremarkable. He had a normal TSH on 06/15/19 and an elevated vitamin B1 2. Ammonia level on 06/15/19 was normal at 33. CBC is notable for mild anemia with hematocrit of 37 . White blood cell count is normal. Records from [facility] reviewed and he had a Citrobacter urinary tract infecti on, greater than 100,000 colony counts. IMPRESSION AND PLAN: Impression is that of encephalopathy, which has been fluctuating for months and seems to be improved today. He was on amantadine, which can cause hallucinations and that has been stopped. Recommend decreasing his baclofen back to 10 mg 3 times per day and also decreasing his flu oxetine to 40 mg per day as both can cause encephalopathy and myoclonus. He has pretty severe lumbar stenosis on his imaging and I spoke with Dr. Wild. I think his lef t footdrop at least if not other distal lower extremity weakness is probably from his lumbar stenosis and he would benefit from decompressive surgery. He has not had a fever in a while and his white bl ood cell count is normal, so if Anesthesia feels that he is cleared for surgery, I think he can proba ashely have it this coming week. I discussed this all with Malachi and his family and they are in agree ment. I also asked Malachi about his MOLST form and he does not want to be resuscitated if he were t o have a cardiopulmonary arrest and so I will sign that as well. I will continue to follow him along with you. [id number]/[facility] #: [id number]
[2019-06-18] MEDS: Baclofen TAB* 10 MG PO SCH ×2 (14:51→21:19)
--- NOTE | 2019-06-18 16:33 | PN ---
Subjective Date of Service: 06/18/19 Interval History: Pt continues to have hallucinations. He is aware of hallucinations when they are unrealistic, for instance when he sees numerous spiders or ants crawling over a room. He thought he was at a alliance party with nursing staff last night, and was told this was not the case. He is frustrated and feels he is "going crazy. " He continues to have b/l LE weakness, L>R. No other complaints today. Objective Active Medications: Baclofen (Lioresal Tab*) 10 mg PO TID EWELINA Cholecalciferol (Vitamin D Tab*) 1,000 units PO DAILY EWELINA Cyanocobalamin (Vitamin B12 Tab*) 2,500 mcg PO DAILY EWELINA Dimethyl Fumarate (Tecfidera(Nf)) 240 mg PO BID EWELINA Docusate Sodium (Colace Cap*) 100 mg PO BID EWELINA Fluoxetine HCl (Prozac Cap*) 40 mg PO DAILY EWELINA Heparin Sodium (Porcine) (Heparin Vial(*)) 5,000 units SUBCUT Q8HR EWELINA Sodium Chloride (Ns 0.9% 1000 Ml) 1,000 mls @ 75 mls/hr IV PER RATE EWELINA Quetiapine Fumarate (Seroquel Tab*) 25 mg PO BID EWELINA Tamsulosin HCl (Flomax Cap*) 0.4 mg PO BEDTIME EWELINA Vitamin E (Vitamin E Cap*) 400 unit PO DAILY EWELINA Vital Signs: Temp Pulse Resp BP Pulse Ox 98.1 F 75 18 126/55 96 06/18/19 15:35 06/18/19 15:35 06/18/19 15:35 06/18/19 15:35 06/18/19 15:35 Oxygen Devices in Use Now: None Appearance: Pt is sitting in bed, HOB elevated. He has mildly depressed mood and is frustrated. Otherwise in no acute distress. Eyes: No Scleral Icterus, PERRLA Ears/Nose/Mouth/Throat: NL Teeth, Lips, Gums, Clear Oropharnyx, Mucous Membranes Moist Neck: NL Appearance and Movements; NL JVP, Trachea Midline Respiratory: Symmetrical Chest Expansion and Respiratory Effort, Clear to Auscultation Cardiovascular: NL Sounds; No Murmurs; No JVD, RRR, No Edema Abdominal: NL Sounds; No Tenderness; No Distention, No Hepatosplenomegaly Extremities: No Edema, No Clubbing, Cyanosis Neurological: Alert and Oriented x 3, - - B/l UE strength 5/5 and equal. RLE able to lift off bed, resists gravity and some downward force. Pt able to lift LLE only cm off bed for seconds. L foot drop. Result Diagrams: 06/17/19 05:36 06/17/19 05:36 Microbiology and Other Data: Microbiology 06/15/19 14:44 Nasal Screen MRSA (PCR) - Final Nasal Mrsa Not Detected Assess/Plan/Problems-Billing Mr Bolton is a 73 yo M who has a h/o MS who presented to [place] after being found on the floor and was admitted for treatment of UTI and rhabdomyolysis and subsequently transferred to the ICU at [facility] [place] for an unresponsive episode. - Patient Problems (1) Left-sided weakness Comment: -MRI L spine reveals L3-L4 spondylitic changes with severe canal narrowing -Neurosurgery consulted, notified -Repeat MRI T, L spine recommended, ordered -Likely surgical intervention this week for canal stenosis (2) Hallucination Comment: -Pt continues to have episodes of hallucinations; he is aware that these are hallucinations -Possibly due to cipro, risperidone, both of which have been d/c'd -Amantadine d/c'd -Start seroquel 25 BID 06/17/2019 -Decrease baclofen to 10 TID, decrease fluoxetine to 40 today (3) Unresponsive episode Comment: -Unclear cause. Possible seizure with subsequent post ictal state vs medication induced unresponsiveness (he had 3 doses of risperdal the day before). -Pt paranoid and confused at admission; frequent hallucinations; able to carry on conversation and aware of hallucinations most of the time -Tele -Monitor for recurrent unresponsive episodes. -He will likely need STR on discharge. (4) Urinary tract infection Comment: -Pt transfered with UTI, previously treated with Cipro, which is suspected to have caused hallucinations -Cipro discontinued -Received ceftriaxone x3 doses -Resolved (5) Multiple sclerosis Comment: -Continue baclofen and tecfidera. -Follow up with Dr. Srinivasan after discharge. (6) Neurogenic bladder Comment: -Continue flomax and straighth catheterize 4x daily. (7) Anxiety and depression Comment: -Continue prozac at decreased dose -Wellbutrin discontinued as it can lower the seizure threshold. (8) DVT prophylaxis Comment: -heparin SQ (9) Full code status Status and Disposition: Inpatient. Discharge when stable.
[2019-06-18] MEDS: cefTRIAXone(*) 1 GM in NS 0.9% 50 ML* 50 ML IVPB SCH (16:57)
[2019-06-18 18:07] LABS: Urine Appearance Clear; Urine Bilirubin Negative (Negative); Urine Blood Negative (Negative); Urine Color Yellow; Urine Glucose Negative (Negative); Urine Ketones Negative (Negative); Urine Nitrite Negative (Negative); Urine Protein Negative (Negative); Urine Specific Gravity 1.013 (1.010-1.030); Urine Urobilinogen Negative (Negative)
[2019-06-18] MEDS: Tamsulosin CAP* 0.4 MG PO SCH (21:19)
[2019-06-19] MEDS: Heparin VIAL(*) 5000 UNITS/ML VIAL (FIVE THOUSAND) SUBCUT SCH ×3 (05:57→21:38)
[2019-06-19] MEDS: NS 0.9% 1000 ML** 1,000 ML IV SCH (10:09)
[2019-06-19] MEDS: Vitamin E CAP* 400 UNIT PO SCH (10:10)
[2019-06-19] MEDS: Cyanocobalamin TAB* 500 MCG PO SCH (10:10)
[2019-06-19] MEDS: FLUoxetine CAP* 20 MG PO SCH (10:10)
[2019-06-19] MEDS: DIMETHYL FUMARATE 240 MG PO SCH ×2 (10:10→21:38)
[2019-06-19] MEDS: Cholecalciferol TAB* 1000 UNITS PO SCH (10:10)
[2019-06-19] MEDS: QUEtiapine TAB* 25 MG PO SCH ×2 (10:10→21:38)
[2019-06-19] MEDS: Baclofen TAB* 10 MG PO SCH ×3 (10:10→21:38)
[2019-06-19] MEDS: Docusate CAP* 100 MG PO SCH ×2 (10:10→21:38)
--- NOTE | 2019-06-19 14:52 | PN ---
Subjective Date of Service: 06/19/19 Interval History: Patient tells me he feels better from a mental status today. He endorses that he feels more mentally clear. He continues to hallucinate ants in his hospital room, but he tells me this is less frequent and less stressful. His left LE weakness is unchanged. Denies dysuria or hematuria with straight caths. Denies fever/chills, abd pain, chest pain, difficulty breathing. Objective Active Medications: Baclofen (Lioresal Tab*) 10 mg PO TID [facility] Last Admin: 06/19/19 10:10 Dose: 10 mg Cholecalciferol (Vitamin D Tab*) 1,000 units PO DAILY [facility] Last Admin: 06/19/19 10:10 Dose: 1,000 units Cyanocobalamin (Vitamin B12 Tab*) 2,500 mcg PO DAILY [facility] Last Admin: 06/19/19 10:10 Dose: 2,500 mcg Dimethyl Fumarate (Tecfidera(Nf)) 240 mg PO BID [facility] Last Admin: 06/19/19 10:10 Dose: 240 mg Docusate Sodium (Colace Cap*) 100 mg PO BID [facility] Last Admin: 06/19/19 10:10 Dose: 100 mg Fluoxetine HCl (Prozac Cap*) 40 mg PO DAILY [facility] Last Admin: 06/19/19 10:10 Dose: 40 mg Heparin Sodium (Porcine) (Heparin Vial(*)) 5,000 units SUBCUT Q8HR [facility] Last Admin: 06/19/19 05:57 Dose: 5,000 units Quetiapine Fumarate (Seroquel Tab*) 25 mg PO BID [facility] Last Admin: 06/19/19 10:10 Dose: 25 mg Tamsulosin HCl (Flomax Cap*) 0.4 mg PO BEDTIME [facility] Last Admin: 06/18/19 21:19 Dose: 0.4 mg Vitamin E (Vitamin E Cap*) 400 unit PO DAILY [facility] Last Admin: 06/19/19 10:10 Dose: 400 unit Vital Signs - 8 hr 06/19/19 06/19/19 06/19/19 07:52 08:00 11:51 Temperature 98.2 F 98.3 F Pulse Rate 70 64 Respiratory 16 16 16 Rate Blood Pressure 136/61 131/57 (mmHg) O2 Sat by Pulse 97 98 Oximetry Oxygen Devices in Use Now: None Appearance: Elderly male, laying in bed, appearing in NAD Eyes: No Scleral Icterus, PERRLA Ears/Nose/Mouth/Throat: Mucous Membranes Moist Neck: NL Appearance and Movements; NL JVP Respiratory: Symmetrical Chest Expansion and Respiratory Effort, Clear to Auscultation Cardiovascular: NL Sounds; No Murmurs; No JVD, RRR Abdominal: - - abd soft, nontender, nondistended; no suprapubic tenderness Extremities: No Edema Skin: No Rash or Ulcers Neurological: - - alert and oriented x4; left sided foot drop; RLE strength 5/5 ; bilateral UEs strength 5/5 Result Diagrams: 06/17/19 05:36 06/17/19 05:36 Microbiology and Other Data: Microbiology 06/15/19 14:44 Nasal Screen MRSA (PCR) - Final Nasal Mrsa Not Detected Diagnostic Imaging: MRI Lumbar Spine impression: Although examination is markedly limited by motion artifact, there is advanced multilevel spondylotic changes of the lumbar spine, most pronounced at L3-L4 with severe canal narrowing, as detailed above. MRI Thoracic Spine impression: No acute findings. Limited by motion artifact. Assess/Plan/Problems-Billing Mr Bolton is a 73 yo M who has a h/o MS who presented to [facility] after being found on the floor and was admitted for treatment of UTI and rhabdomyolysis. At [facility], he was found to be unresponsive by nursing staff and transferred to [facility] for admission to the ICU. Subsequently, he has been transferred to the medical floor and experiencing LE weakness and hallucinations. - Patient Problems (1) Left leg weakness Current Visit: Yes Status: Acute Code(s): R29.898 - OTH SYMPTOMS AND SIGNS INVOLVING THE MUSCULOSKELETAL SYSTEM SNOMED Code(s): 060131062 Comment: -initially with bilateral LE weakness, R>L. Left sided foot drop -MRIs of thoracic and lumbar spine during this hospitalization as above. MRIs of cervical spine and brain performed in March which effectively ruled out active demyelinating lesions at that time -Neurosurgery is involved and plans for likely surgery this week pending repeat MRIs of spine -continue PT (2) Hallucination Current Visit: Yes Status: Acute Code(s): R44.3 - HALLUCINATIONS, UNSPECIFIED SNOMED Code(s): 5173987 Comment: -Pt continues to have episodes of hallucinations of bugs crawling in his room. He is aware these are hallucinations and is not distressed by this. He tells me this is less frequent today. -Possibly due to cipro, amantadine, or risperidone, all of which have been d/c'd -baclofen and fluoxetine have been decreased as well -Continue seroquel 25 BID 06/17/2019 (3) Unresponsive episode Current Visit: Yes Status: Acute Comment: -No further events since arriving to [facility]. -Unclear cause. Possible seizure with subsequent post ictal state as he was on multiple medications that lower seizure threshold. Medication induced unresponsiveness is also a possibility as he had 3 doses of risperdal the day before event at [facility]. -EEG with nonspecific findings -Tele without abnormalities -Monitor for recurrent unresponsive episodes. Continuing seizure precautions (4) Multiple sclerosis Current Visit: Yes Status: Acute Code(s): G35 - MULTIPLE SCLEROSIS SNOMED Code(s): 79646040 Comment: -Continue baclofen and tecfidera -amantadine discontinued -Follow up with Dr. Srinivasan after discharge (5) Anxiety and depression Current Visit: Yes Status: Acute Code(s): F41.9 - ANXIETY DISORDER, UNSPECIFIED; F32.9 - MAJOR DEPRESSIVE DISORDER, SINGLE EPISODE, UNSPECIFIED SNOMED Code(s): 982613666 Comment: -Continue prozac at decreased dose -Wellbutrin discontinued as it can lower the seizure threshold. (6) Neurogenic bladder Current Visit: Yes Status: Acute Code(s): N31.9 - NEUROMUSCULAR DYSFUNCTION OF BLADDER, UNSPECIFIED SNOMED Code(s): 511501161 Comment: -Continue flomax and straighth catheterize 4x daily. (7) Urinary tract infection Current Visit: Yes Status: Acute Comment: -Pt transfered with UTI, previously treated with Cipro, which is suspected to have caused hallucinations. Cipro discontinued at [facility] -Received ceftriaxone x3 doses -Resolved. Afebrile and without leukocytosis since arrival. UA negative 06/18/19 (8) DVT prophylaxis Current Visit: Yes Status: Acute Code(s): Z29.9 - ENCOUNTER FOR PROPHYLACTIC MEASURES, UNSPECIFIED SNOMED Code(s): 170390030 Comment: -heparin SQ (9) Full code status Current Visit: Yes Status: Acute Code(s): Z78.9 - OTHER SPECIFIED HEALTH STATUS SNOMED Code(s): 502754591 Status and Disposition: Inpatient. Will likely need subacute rehab at discharge.
[2019-06-19] MEDS: Tamsulosin CAP* 0.4 MG PO SCH (21:38)
--- NOTE | 2019-06-20 01:10 | PN ---
Progress Note - Progress Note Date of Service: 06/19/19 Note: Patient seen and examined earlier today No events ON AAOx3 , CN II-XII grossly intact Motor 5/5 UEs, 3-4/5 RLE, 1-2/5 LLE Awaiting MRI brain, C/T/L spine Will plan for surgical decompression if imaging confirms lumbar stenosis as the most possible explanation for patient's LE weakness. Discussed yesterday in extend with Patient and his family, including his son and daughter in law. Appreciate Dr Srinivasan's , care. Hai Wild MD
[2019-06-20] MEDS: Heparin VIAL(*) 5000 UNITS/ML VIAL (FIVE THOUSAND) SUBCUT SCH ×3 (05:26→22:16)
[2019-06-20] MEDS ORDERED: LORazepam INJ* 2 MG/ML 1 ML VIAL IV PUSH ONE ×3 (07:44→21:01)
[2019-06-20] MEDS ORDERED: Lorazepam PYXIS KEY PRN ×2 (07:44→21:01)
[2019-06-20] MEDS: Cyanocobalamin TAB* 500 MCG PO SCH (09:02)
[2019-06-20] MEDS: FLUoxetine CAP* 20 MG PO SCH (09:02)
[2019-06-20] MEDS: QUEtiapine TAB* 25 MG PO SCH ×2 (09:03→22:17)
[2019-06-20] MEDS: Docusate CAP* 100 MG PO SCH ×2 (09:03→22:17)
[2019-06-20] MEDS: Baclofen TAB* 10 MG PO SCH ×3 (09:03→22:17)
[2019-06-20] MEDS: Cholecalciferol TAB* 1000 UNITS PO SCH (09:03)
[2019-06-20] MEDS: DIMETHYL FUMARATE 240 MG PO SCH ×2 (09:04→22:16)
[2019-06-20] MEDS: Vitamin E CAP* 400 UNIT PO SCH (09:04)
--- NOTE | 2019-06-20 16:17 | PN ---
Subjective Date of Service: 06/20/19 Interval History: When I walked into patient room, patient was anxious-appearing. He tells me he was trying to get the attention of the wardrobe specialist because he thought someone was in his room. He told me someone was standing behind him while in bed. Then told me he felt someone tickling his legs. As we discussed this, he tells me he no longer feels this sensation and eventually agrees there is no one else in his room. No longer hallucinating ants in his room today. He denies abd pain, chest pain, difficulty breathing, headache, vision changes. Objective Active Medications: Baclofen (Lioresal Tab*) 10 mg PO TID [facility] Last Admin: 06/20/19 14:40 Dose: 10 mg Cholecalciferol (Vitamin D Tab*) 1,000 units PO DAILY [facility] Last Admin: 06/20/19 09:03 Dose: 1,000 units Cyanocobalamin (Vitamin B12 Tab*) 2,500 mcg PO DAILY [facility] Last Admin: 06/20/19 09:02 Dose: 2,500 mcg Dimethyl Fumarate (Tecfidera(Nf)) 240 mg PO BID [facility] Last Admin: 06/20/19 09:04 Dose: 240 mg Docusate Sodium (Colace Cap*) 100 mg PO BID [facility] Last Admin: 06/20/19 09:03 Dose: 100 mg Fluoxetine HCl (Prozac Cap*) 40 mg PO DAILY [facility] Last Admin: 06/20/19 09:02 Dose: 40 mg Heparin Sodium (Porcine) (Heparin Vial(*)) 5,000 units SUBCUT Q8HR [facility] Last Admin: 06/20/19 14:40 Dose: 5,000 units Lorazepam (Ativan Inj*) 0.5 mg IV PUSH UC ONCE ONE Stop: 06/20/19 17:01 Miscellaneous (Ativan Pyxis Travis) 1 ea N/A .ATIVAN IV TRAVIS PRN PRN Reason: PYXIS TRAVIS Quetiapine Fumarate (Seroquel Tab*) 25 mg PO BID [facility] Last Admin: 06/20/19 09:03 Dose: 25 mg Tamsulosin HCl (Flomax Cap*) 0.4 mg PO BEDTIME [facility] Last Admin: 06/19/19 21:38 Dose: 0.4 mg Vitamin E (Vitamin E Cap*) 400 unit PO DAILY [facility] Last Admin: 06/20/19 09:04 Dose: 400 unit Vital Signs - 8 hr 06/20/19 06/20/19 06/20/19 09:14 12:05 15:20 Temperature 98.4 F 99.5 F Pulse Rate 84 93 Respiratory 21 20 20 Rate Blood Pressure 113/62 142/81 (mmHg) O2 Sat by Pulse 97 96 Oximetry Oxygen Devices in Use Now: None Appearance: Elderly white male, laying upright in hospital bed, appearing anxious Eyes: No Scleral Icterus, PERRLA Ears/Nose/Mouth/Throat: Mucous Membranes Moist Neck: NL Appearance and Movements; NL JVP Respiratory: Symmetrical Chest Expansion and Respiratory Effort, Clear to Auscultation Cardiovascular: NL Sounds; No Murmurs; No JVD, RRR Abdominal: - - abd soft, nontender, nondistended Extremities: No Edema, No Clubbing, Cyanosis Skin: No Rash or Ulcers Neurological: - - alert, oriented to self and time but not location; strength in LLE diminished which is unchanged Result Diagrams: 06/17/19 05:36 06/17/19 05:36 Microbiology and Other Data: Microbiology 06/15/19 14:44 Nasal Screen MRSA (PCR) - Final Nasal Mrsa Not Detected Diagnostic Imaging: MRI Lumbar Spine impression: Although examination is markedly limited by motion artifact, there is advanced multilevel spondylotic changes of the lumbar spine, most pronounced at L3-L4 with severe canal narrowing, as detailed above. MRI Thoracic Spine impression: No acute findings. Limited by motion artifact. Assess/Plan/Problems-Billing Mr Bolton is a 73 yo M who has a h/o MS who presented to [place] after being found on the floor and was admitted for treatment of UTI and rhabdomyolysis. At [facility], he was found to be unresponsive by nursing staff and transferred to [facility] for admission to the ICU. Subsequently, he has been transferred to the medical floor and experiencing LE weakness and hallucinations. - Patient Problems (1) Left leg weakness Current Visit: Yes Status: Acute Code(s): R29.898 - OTH SYMPTOMS AND SIGNS INVOLVING THE MUSCULOSKELETAL SYSTEM SNOMED Code(s): 892957257 Comment: -initially with bilateral LE weakness, R>L. Left sided foot drop -MRIs of thoracic and lumbar spine during this hospitalization as above. Because of artifact, repeating today along with cervical spine MRI and brain MRI w and w/o contrast to investigate new MS lesions -Neurosurgery is involved and plans for likely surgery this week pending repeat MRIs of spine -continue PT (2) Hallucination Current Visit: Yes Status: Acute Code(s): R44.3 - HALLUCINATIONS, UNSPECIFIED SNOMED Code(s): 6561591 Comment: -Possibly due to cipro, amantadine, or risperidone, all of which have been d/c'd -baclofen and fluoxetine have been decreased as well -Continue seroquel 25 BID 06/17/2019 -Pt continues to have varying episodes of hallucinations despite medication changes -it is perhaps a possibility that this may be related to an MS flare though is not typical. Awaiting MRIs today, if no new MS lesions then will consult psychiatry (3) Unresponsive episode Current Visit: Yes Status: Acute Comment: -No further events since arriving to [facility]. -Unclear cause. Possible seizure with subsequent post ictal state as he was on multiple medications that lower seizure threshold. Medication induced unresponsiveness is also a possibility as he had 3 doses of risperdal the day before event at [place]. -EEG with nonspecific findings -Tele without abnormalities -Monitor for recurrent unresponsive episodes. Continuing seizure precautions (4) Multiple sclerosis Current Visit: Yes Status: Acute Code(s): G35 - MULTIPLE SCLEROSIS SNOMED Code(s): 97185816 Comment: -Continue baclofen and tecfidera -amantadine discontinued -Follow up with Dr. Srinivasan after discharge (5) Anxiety and depression Current Visit: Yes Status: Acute Code(s): F41.9 - ANXIETY DISORDER, UNSPECIFIED; F32.9 - MAJOR DEPRESSIVE DISORDER, SINGLE EPISODE, UNSPECIFIED SNOMED Code(s): 686100337 Comment: -Continue prozac at decreased dose -Wellbutrin discontinued as it can lower the seizure threshold. (6) Neurogenic bladder Current Visit: Yes Status: Acute Code(s): N31.9 - NEUROMUSCULAR DYSFUNCTION OF BLADDER, UNSPECIFIED SNOMED Code(s): 095448934 Comment: -Continue flomax and straighth catheterize 4x daily. (7) Urinary tract infection Current Visit: Yes Status: Acute Comment: -Pt transfered with UTI, previously treated with Cipro, which is suspected to have caused hallucinations. Cipro discontinued at [facility] -Received ceftriaxone x3 doses -Resolved per urine on 06/18/19. Afebrile and without leukocytosis since arrival. UA negative 06/18/19 (8) DVT prophylaxis Current Visit: Yes Status: Acute Code(s): Z29.9 - ENCOUNTER FOR PROPHYLACTIC MEASURES, UNSPECIFIED SNOMED Code(s): 008888223 Comment: -heparin SQ (9) Full code status Current Visit: Yes Status: Acute Code(s): Z78.9 - OTHER SPECIFIED HEALTH STATUS SNOMED Code(s): 263433051 Status and Disposition: Inpatient. Will likely need subacute rehab at discharge after neurosurgery.
[2019-06-20] MEDS ORDERED: Gadoteridol* (CONTRAST) 279.3 MG/ML 10 ML IV ONE (20:10)
[2019-06-20] MEDS: Tamsulosin CAP* 0.4 MG PO SCH (22:17)
[2019-06-21 04:10] LABS: Urine Appearance Clear; Urine Bilirubin Negative (Negative); Urine Blood Negative (Negative); Urine Color Yellow; Urine Glucose Negative (Negative); Urine Ketones Negative (Negative); Urine Nitrite Negative (Negative); Urine Protein Negative (Negative); Urine Specific Gravity 1.013 (1.010-1.030); Urine Urobilinogen Negative (Negative)
[2019-06-21] MEDS: Heparin VIAL(*) 5000 UNITS/ML VIAL (FIVE THOUSAND) SUBCUT SCH ×3 (05:38→20:12)
[2019-06-21] MEDS: DIMETHYL FUMARATE 240 MG PO SCH ×2 (09:19→20:12)
[2019-06-21] MEDS: Vitamin E CAP* 400 UNIT PO SCH (09:19)
[2019-06-21] MEDS: Baclofen TAB* 10 MG PO SCH ×3 (09:20→20:12)
[2019-06-21] MEDS: FLUoxetine CAP* 20 MG PO SCH (09:20)
[2019-06-21] MEDS: Docusate CAP* 100 MG PO SCH ×2 (09:20→20:12)
[2019-06-21] MEDS: Cholecalciferol TAB* 1000 UNITS PO SCH (09:20)
[2019-06-21] MEDS: QUEtiapine TAB* 25 MG PO SCH (09:21)
[2019-06-21] MEDS: Cyanocobalamin TAB* 500 MCG PO SCH (09:21)
[2019-06-21] MEDS: Acetaminophen TAB* 325 MG PO PRN (15:17)
--- NOTE | 2019-06-21 16:00 | CONS ---
CONSULTATION REPORT: DATE OF CONSULT: 06/21/19 ATTENDING CLINICIAN: JAME Decker CONSULTING PHYSICIAN: Dr. Michael Quinn REASON FOR CONSULT: Visual hallucinations. SUBJECTIVE HISTORY: The patient is a 73-year-old white male with a history of multiple sclerosis and depression, who was transferred from the [facility] following unresponsiveness. He was briefly transferred to the ICU, but he is now on the [address] [place] [address] telemetry unit. The patient has been experiencing bizarre visual hallucinations that had not resolved despite neuroleptic therapy with quetiapine. Prior to meeting with the patient, I spoke with [address] [place] [address] staff, who are now fairly familiar with the patient given the fact that he has been on their service for close to a week. They note that he tends to have these hallucinations throughout the day, demonstrating some insight in that he will sometimes ask him if visions in his room are real or not. Examples of visual hallucinations include seeing ants on the wall, seeing football games on the television that is actually turned off, and having people come in and tickle his feet at the end of the bed. The patient's hallucinations tend to be fairly benign as he does not become irritable or act out aggressively. When I meet with him, he seems to indicate that these hallucinations are fairly new and his understanding is that several of his medications have been switched to try to alleviate the problem. I understand that his Risperdal was discontinued in favor of low-dose quetiapine, amantadine was discontinued, whereas baclofen and fluoxetine were both reduced in dosage. Despite these interventions, he continues to see odd things from time to time in his room. Currently, he is denying hallucinations. He denies current depressed mood, suicidal or homicidal thoughts. I asked him the nature of his Risperdal prescription and he states that neurologist, Dr. Cam Srinivasan started this as an adjunctive treatment for depression. Later, I was able to speak with Dr. 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 The patient is calm, cooperative, and safe throughout my interaction with him and according to staff he has been adherent with treatment expectations while on the unit. PAST PSYCHIATRIC HISTORY: The patient does endorse depression, for which he takes fluoxetine, this was at 60 mg but was recently reduced to 40. His feeling is that risperidone was added at the dose of 0.25 mg twice daily to help with depression, although this may have actually been started for visual hallucinations. SUBSTANCE ABUSE HISTORY: The patient states that he used to smoke 2 cigarettes a week and drink 2 bottles of wine per week, but gave these up several years ago. He denies any other illicit drug abuse. PAST MEDICAL HISTORY: Significant for multiple sclerosis, neurogenic bladder with urinary retention. MEDICATIONS AT HOME: Include: 1. Vitamin E. 2. Flomax. 3. Magnesium chloride. 4. Hydrochlorothiazide. 5. Prozac. 6. Colace. 7. Tecfidera. 8. Vitamin D3. 9. Wellbutrin XL. 10. Baclofen. 11. Vitamin B12. 12. Risperdal. 13. Amantadine. ALLERGIES: He has no known drug allergies. FAMILY HISTORY: Noncontributory. SOCIAL HISTORY: The patient was born in [place], [place], but raised in [place]. 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 He was for several decades; however, his 18 years ago and he never remarried. He does have 3 children, who all live within an hour of him who are supportive. He has never had any significant legal issues. MENTAL STATUS EXAM: The patient is somewhat overweight, aging white male, who is dressed in a patient gown with IVs placed in his left upper extremity. He is calm, cooperative, easy to establish a rapport with. Speech has a normal rate, tone, and volume. Mood is euthymic with a full affect. Thought process is linear and goal- directed. Thought content is significant for his desire to resolve his hallucinations. He denies suicidal or homicidal ideations. He is endorsing some visual and tactile hallucinations at times, but not currently. He denies auditory hallucinations. Insight and judgment appear to be fair given the fact that he understands that these images are not real. Cognitively , he is awake and alert. He is completely oriented at this time to person, place , time, and situation. DIAGNOSES: Alba 1: Delirium with hallucinations secondary to multiple sclerosis , unspecified depressive disorder by history. Alba 2: Deferred. 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 After discussion with Neurology, it would appear that these symptoms have been going on for longer than the patient is able to endorse in his history. Given the fact that risperidone is a more effective antipsychotic at lower doses than quetiapine, Psychiatry recommends switching back to risperidone therapy. RECOMMENDATIONS TO PRIMARY TEAM: Psychiatry will discontinue quetiapine and resume risperidone at the low dose of 0.25 mg p.o. b.i.d. We will follow up with him tomorrow and if symptoms have not improved, we may consider increasing this to 0.50 mg twice a day. The patient is in no behavioral risk either to himself nor others and does not require extended observation status or hospitalization in the behavioral science unit. Psychiatry will continue to follow. Thank you for the consult. [id number]/[facility] #: [id number] LISA
[2019-06-21] MEDS: Ibuprofen TAB* 600 MG PO PRN (18:04)
--- NOTE | 2019-06-21 18:42 | PN ---
Subjective Date of Service: 06/21/19 Interval History: Yesterday evening, he was paranoid and agitated in the MRI scanner. He reportedly attempted to barricade himself inside the scanner after ativan wore off. Today he tells me he is not having hallucinations of ants crawling around the room anymore. No bowel or bladder incontinence. Denies difficulty breathing, fever/chills, chest pain, abd pain. Objective Active Medications: Acetaminophen (Tylenol Tab*) 650 mg PO Q6H PRN PRN Reason: PAIN - MILD Last Admin: 06/21/19 15:17 Dose: 650 mg Baclofen (Lioresal Tab*) 10 mg PO TID [facility] Last Admin: 06/21/19 15:17 Dose: 10 mg Cholecalciferol (Vitamin D Tab*) 1,000 units PO DAILY [facility] Last Admin: 06/21/19 09:20 Dose: 1,000 units Cyanocobalamin (Vitamin B12 Tab*) 2,500 mcg PO DAILY [facility] Last Admin: 06/21/19 09:21 Dose: 2,500 mcg Dimethyl Fumarate (Tecfidera(Nf)) 240 mg PO BID [facility] Last Admin: 06/21/19 09:19 Dose: 240 mg Docusate Sodium (Colace Cap*) 100 mg PO BID [facility] Last Admin: 06/21/19 09:20 Dose: 100 mg Fluoxetine HCl (Prozac Cap*) 40 mg PO DAILY [facility] Last Admin: 06/21/19 09:20 Dose: 40 mg Heparin Sodium (Porcine) (Heparin Vial(*)) 5,000 units SUBCUT Q8HR [facility] Last Admin: 06/21/19 15:16 Dose: 5,000 units Ibuprofen (Motrin Tab*) 600 mg PO Q8H PRN PRN Reason: PAIN - MILD Last Admin: 06/21/19 18:04 Dose: 600 mg Miscellaneous (Ativan Pyxis Moss) 1 ea N/A .ATIVAN IV MOSS PRN PRN Reason: PYXIS MOSS Nystatin (Nystatin Top Powder*) 1 applic TOPICAL TID [facility] Risperidone (Risperdal) 0.25 mg PO BID [facility] Tamsulosin HCl (Flomax Cap*) 0.4 mg PO BEDTIME [facility] Last Admin: 06/20/19 22:17 Dose: 0.4 mg Vitamin E (Vitamin E Cap*) 400 unit PO DAILY [facility] Last Admin: 06/21/19 09:19 Dose: 400 unit Vital Signs - 8 hr 06/21/19 15:24 Temperature 98.2 F Pulse Rate 87 Respiratory 18 Rate Blood Pressure 129/52 (mmHg) O2 Sat by Pulse 97 Oximetry Oxygen Devices in Use Now: None Appearance: Elderly white male, laying in bed, appearing in NAD Eyes: No Scleral Icterus, PERRLA Ears/Nose/Mouth/Throat: Mucous Membranes Moist Neck: NL Appearance and Movements; NL JVP Respiratory: Symmetrical Chest Expansion and Respiratory Effort, Clear to Auscultation Cardiovascular: NL Sounds; No Murmurs; No JVD, RRR Abdominal: - - abd soft, nontender, nondistended Extremities: No Edema, No Clubbing, Cyanosis Skin: No Rash or Ulcers Neurological: Alert and Oriented x 3, - - left foot drop, continued weakness of LLE; sensation equal in bilateral LEs Result Diagrams: 06/17/19 05:36 06/17/19 05:36 Microbiology and Other Data: Microbiology 06/15/19 14:44 Nasal Screen MRSA (PCR) - Final Nasal Mrsa Not Detected Diagnostic Imaging: MRI Lumbar Spine impression: Although examination is markedly limited by motion artifact, there is advanced multilevel spondylotic changes of the lumbar spine, most pronounced at L3-L4 with severe canal narrowing, as detailed above. MRI Thoracic Spine impression: No acute findings. Limited by motion artifact. Assess/Plan/Problems-Billing Mr Bolton is a 73 yo M who has a h/o MS who presented to [place] after being found on the floor and was admitted for treatment of UTI and rhabdomyolysis. At [facility], he was found to be unresponsive by nursing staff and transferred to [facility] for admission to the ICU. Subsequently, he has been transferred to the medical floor and experiencing LE weakness and hallucinations. - Patient Problems (1) Left leg weakness Current Visit: Yes Status: Acute Code(s): R29.898 - OTH SYMPTOMS AND SIGNS INVOLVING THE MUSCULOSKELETAL SYSTEM SNOMED Code(s): 076790686 Comment: -initially with bilateral LE weakness, R>L. Left sided foot drop -MRIs of brain, cervical spine, and lumbar spine completed and pending input for neurosurgery and neurology teams. Appreciate input. -Neurosurgery is involved and plans for likely surgery this week depending on utility of MRIs yesterday evening despite motion artifact -continue PT (2) Hallucination Current Visit: Yes Status: Acute Code(s): R44.3 - HALLUCINATIONS, UNSPECIFIED SNOMED Code(s): 9046984 Comment: -Possibly due to cipro, amantadine, or risperidone, all of which have been d/c' d previously. Patient's amantadine was stopped at [facility] it appears -baclofen and fluoxetine have been decreased as well -Continue seroquel 25 BID 06/17/2019 -Pt continues to have varying episodes of hallucinations and paranoia despite medication changes -consulted psychiatry, appreciate Dr. Quinn's input. Restarting risperidone per his rec (3) Unresponsive episode Current Visit: Yes Status: Acute Comment: -No further events since arriving to [facility]. -Unclear cause. Possible seizure with subsequent post ictal state as he was on multiple medications that lower seizure threshold. Medication induced unresponsiveness is also a possibility as he had 3 doses of risperdal the day before event at [place]. -EEG with nonspecific findings -Tele without abnormalities -Monitor for recurrent unresponsive episodes. Continuing seizure precautions (4) Multiple sclerosis Current Visit: Yes Status: Acute Code(s): G35 - MULTIPLE SCLEROSIS SNOMED Code(s): 52430374 Comment: -Continue baclofen and tecfidera -amantadine discontinued -Follow up with Dr. Srinivasan after discharge (5) Anxiety and depression Current Visit: Yes Status: Acute Code(s): F41.9 - ANXIETY DISORDER, UNSPECIFIED; F32.9 - MAJOR DEPRESSIVE DISORDER, SINGLE EPISODE, UNSPECIFIED SNOMED Code(s): 753186135 Comment: -Continue prozac at decreased dose -Wellbutrin discontinued as it can lower the seizure threshold. (6) Neurogenic bladder Current Visit: Yes Status: Acute Code(s): N31.9 - NEUROMUSCULAR DYSFUNCTION OF BLADDER, UNSPECIFIED SNOMED Code(s): 449821820 Comment: -Continue flomax and straighth catheterize 4x daily. (7) Urinary tract infection Current Visit: Yes Status: Acute Comment: -Pt transfered with UTI, previously treated with Cipro, which is suspected to have caused hallucinations. Cipro discontinued at [facility] -Received ceftriaxone x3 doses -Resolved per urine on 06/18/19. Afebrile and without leukocytosis since arrival. UA negative 9/21/19 (8) DVT prophylaxis Current Visit: Yes Status: Acute Code(s): Z29.9 - ENCOUNTER FOR PROPHYLACTIC MEASURES, UNSPECIFIED SNOMED Code(s): 027555528 Comment: -heparin SQ (9) Full code status Current Visit: Yes Status: Acute Code(s): Z78.9 - OTHER SPECIFIED HEALTH STATUS SNOMED Code(s): 150635128 Status and Disposition: Inpatient. Will likely need subacute rehab at discharge after neurosurgery.
[2019-06-21] MEDS: Nystatin TOP POWDER* 15 GM BTL TOPICAL SCH (20:12)
[2019-06-21] MEDS: Tamsulosin CAP* 0.4 MG PO SCH (20:12)
[2019-06-22] MEDS: Heparin VIAL(*) 5000 UNITS/ML VIAL (FIVE THOUSAND) SUBCUT SCH ×2 (05:14→14:41)
[2019-06-22 08:25] LABS: BUN/Creatinine Ratio 26.3 (8-20); Calcium 9.1 mg/dL (8.6-10.3); EGFR African American 121.6 (>60); EGFR Non-African American 100.5 (>60); Potassium 3.8 mmol/L (3.5-5.0)
[2019-06-22] MEDS: Docusate CAP* 100 MG PO SCH ×2 (09:27→20:11)
[2019-06-22] MEDS: Baclofen TAB* 10 MG PO SCH ×3 (09:27→20:11)
[2019-06-22] MEDS: Cyanocobalamin TAB* 500 MCG PO SCH (09:28)
[2019-06-22] MEDS: Cholecalciferol TAB* 1000 UNITS PO SCH (09:28)
[2019-06-22] MEDS: DIMETHYL FUMARATE 240 MG PO SCH ×2 (09:30→20:11)
[2019-06-22] MEDS: FLUoxetine CAP* 20 MG PO SCH (09:30)
[2019-06-22] MEDS: Nystatin TOP POWDER* 15 GM BTL TOPICAL SCH ×3 (09:31→20:11)
[2019-06-22] MEDS: Vitamin E CAP* 400 UNIT PO SCH (09:31)
--- NOTE | 2019-06-22 12:04 | CONSULT ---
Identification - Patient Identification Reason for Psychiatric Consultation: Incapacitating Symptoms -: Patient is a 73 year old, M admitted on 06/15/19. - MHU Identification Employment Status: Disabled Hx Psychiatric Hospitalization: No History - Objective HPI: Malachi is seen for psychiatric follow up today on . He remains pleasant and cooperative. The patient continues to experience visual hallucinations. "This morning I saw a man smoking a cigarette in my bathroom." Mr. Bolton understood that this image wasn't real and was not particularly distressed. "I know the hospital wouldn't allow that kind of thing these days so I knew it wasn't the truth." He continues to deny thoughts of harming himself or others. Exam Appearance: Obese Hygiene: Normal Grooming: Fairly Well Kept Psychomotor Activities: Normal Exhibits Abnormal Movement: No Attitude and Relatedness: Cooperative Eye Contact: Good - Speech Quality: Unpressured Latencies: Normal Quantity: Appropriate Patient's Decription of Mood: "Okay" Observed Affect: Fair Affect Consistent with: Euthymia Patient's Thought Process: Coherent Thought Content: No Passive Wish, No Suicidal Planning, No Homicidal Ideation, No Paranoid Ideation Experiencing Hallucinations: Yes Type of Hallucinations: Visual: Yes, Auditory: No, Command: No Level of Consciousness: Alert Orientation: Yes Intact, Yes Orientated to Time, Yes Orientated to Place, Yes Orientated to Person Impulse Control: Intact Insight and Judgement: Good Impression - Impression Clinical Impression: 73 y.o. , white male with a history of multiple sclerosis and depression transferred from [facility] following an episode of losing consciousness and now treated on the 4th floor for complications of MS. 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 Inpatient DSM-V Dx: R44.3 BSU: Problem List - Patient Problems (1) Hallucination Current Visit: Yes Status: Acute Code(s): R44.3 - HALLUCINATIONS, UNSPECIFIED SNOMED Code(s): 8202664 Comment: -Possibly due to cipro, amantadine, or risperidone, all of which have been d/c' d previously. Patient's amantadine was stopped at [facility] it appears -baclofen and fluoxetine have been decreased as well -Continue seroquel 25 BID 06/17/2019 -Pt continues to have varying episodes of hallucinations and paranoia despite medication changes -consulted psychiatry, appreciate Dr. Quinn's input. Restarting risperidone per his rec Plan - Treatment Plan Treatment Plan: We have switched quetiapine back to risperidone. We will increase this from 0.25 to 0.5mg PO BID. Psychiatry will continue to follow. Continued Medication Management: Different Medication Medications: Current Medications Acetaminophen (Tylenol Tab*) 650 mg PO Q6H PRN PRN Reason: PAIN - MILD Last Admin: 06/21/19 15:17 Dose: 650 mg Baclofen (Lioresal Tab*) 10 mg PO TID [facility] Last Admin: 06/22/19 09:27 Dose: 10 mg Cholecalciferol (Vitamin D Tab*) 1,000 units PO DAILY [facility] Last Admin: 06/22/19 09:28 Dose: 1,000 units Cyanocobalamin (Vitamin B12 Tab*) 2,500 mcg PO DAILY [facility] Last Admin: 06/22/19 09:28 Dose: 2,500 mcg Dimethyl Fumarate (Tecfidera(Nf)) 240 mg PO BID [facility] Last Admin: 06/22/19 09:30 Dose: 240 mg Docusate Sodium (Colace Cap*) 100 mg PO BID [facility] Last Admin: 06/22/19 09:27 Dose: 100 mg Fluoxetine HCl (Prozac Cap*) 40 mg PO DAILY [facility] Last Admin: 06/22/19 09:30 Dose: 40 mg Heparin Sodium (Porcine) (Heparin Vial(*)) 5,000 units SUBCUT Q8HR [facility] Last Admin: 06/22/19 05:14 Dose: 5,000 units Ibuprofen (Motrin Tab*) 600 mg PO Q8H PRN PRN Reason: PAIN - MILD Last Admin: 06/21/19 18:04 Dose: 600 mg Miscellaneous (Ativan Pyxis Travis) 1 ea N/A .ATIVAN IV TRAVIS PRN PRN Reason: PYXIS TRAVIS Nystatin (Nystatin Top Powder*) 1 applic TOPICAL TID [facility] Last Admin: 06/22/19 09:31 Dose: 1 applic Tamsulosin HCl (Flomax Cap*) 0.4 mg PO BEDTIME [facility] Last Admin: 06/21/19 20:12 Dose: 0.4 mg Vitamin E (Vitamin E Cap*) 400 unit PO DAILY [facility] Last Admin: 06/22/19 09:31 Dose: 400 unit
--- NOTE | 2019-06-22 14:38 | PN ---
Progress Note - Progress Note Date of Service: 06/22/19 Note: Neurosurgery has reviewed new imaging, we will recommend with proceeding with surgery at this time. We are planing for surgery tomorrow morning, patient needs medical clearance and need all appropriate labs completed. Also need to be NPO after midnight. I have spoken with the medicine team this morning about the plan.
--- NOTE | 2019-06-22 15:32 | PN ---
Subjective Date of Service: 06/22/19 Interval History: Patient reported visual hallucination to Dr. Quinn this morning. Denies them to me this morning. RN Bradley has not observed the patient hallucinating or having paranoid behavior thus far today. Patient tells me he feels well and calm. Denies change in bowel/bladder habits. Denies abd pain, chest pain, difficulty breathing. Objective Active Medications: Acetaminophen (Tylenol Tab*) 650 mg PO Q6H PRN PRN Reason: PAIN - MILD Last Admin: 06/21/19 15:17 Dose: 650 mg Baclofen (Lioresal Tab*) 10 mg PO TID [facility] Last Admin: 06/22/19 14:41 Dose: 10 mg Cholecalciferol (Vitamin D Tab*) 1,000 units PO DAILY [facility] Last Admin: 06/22/19 09:28 Dose: 1,000 units Cyanocobalamin (Vitamin B12 Tab*) 2,500 mcg PO DAILY [facility] Last Admin: 06/22/19 09:28 Dose: 2,500 mcg Dimethyl Fumarate (Tecfidera(Nf)) 240 mg PO BID [facility] Last Admin: 06/22/19 09:30 Dose: 240 mg Docusate Sodium (Colace Cap*) 100 mg PO BID [facility] Last Admin: 06/22/19 09:27 Dose: 100 mg Fluoxetine HCl (Prozac Cap*) 40 mg PO DAILY [facility] Last Admin: 06/22/19 09:30 Dose: 40 mg Heparin Sodium (Porcine) (Heparin Vial(*)) 5,000 units SUBCUT Q8HR [facility] Last Admin: 06/22/19 14:41 Dose: 5,000 units Ibuprofen (Motrin Tab*) 600 mg PO Q8H PRN PRN Reason: PAIN - MILD Last Admin: 06/21/19 18:04 Dose: 600 mg Miscellaneous (Ativan Pyxis Moss) 1 ea N/A .ATIVAN IV MOSS PRN PRN Reason: PYXIS MOSS Nystatin (Nystatin Top Powder*) 1 applic TOPICAL TID [facility] Last Admin: 06/22/19 15:16 Dose: 1 applic Risperidone (Risperdal) 0.5 mg PO BID [facility] Tamsulosin HCl (Flomax Cap*) 0.4 mg PO BEDTIME [facility] Last Admin: 06/21/19 20:12 Dose: 0.4 mg Vitamin E (Vitamin E Cap*) 400 unit PO DAILY [facility] Last Admin: 06/22/19 09:31 Dose: 400 unit Vital Signs - 8 hr 06/22/19 06/22/19 08:00 08:04 Temperature 98.5 F Pulse Rate 81 Respiratory 19 19 Rate Blood Pressure 123/44 (mmHg) O2 Sat by Pulse 95 Oximetry Oxygen Devices in Use Now: None Appearance: Obese, elderly white male, sitting in recliner, appearing in NAD Eyes: No Scleral Icterus, PERRLA Ears/Nose/Mouth/Throat: Mucous Membranes Moist Neck: NL Appearance and Movements; NL JVP Respiratory: Symmetrical Chest Expansion and Respiratory Effort, Clear to Auscultation Cardiovascular: NL Sounds; No Murmurs; No JVD, RRR Abdominal: - - abd soft, nontender, nondistneded Extremities: No Edema, No Clubbing, Cyanosis Skin: No Rash or Ulcers Neurological: Alert and Oriented x 3, - - left foot drop; LE weakness, left worse than right; psych: not responding to internal stimuli Result Diagrams: 06/17/19 05:36 06/22/19 07:50 Microbiology and Other Data: Microbiology 06/15/19 14:44 Nasal Screen MRSA (PCR) - Final Nasal Mrsa Not Detected Diagnostic Imaging: MRI Lumbar Spine impression: Although examination is markedly limited by motion artifact, there is advanced multilevel spondylotic changes of the lumbar spine, most pronounced at L3-L4 with severe canal narrowing, as detailed above. MRI Thoracic Spine impression: No acute findings. Limited by motion artifact. Assess/Plan/Problems-Billing Mr Bolton is a 73 yo M who has a h/o MS who presented to [place] after being found on the floor and was admitted for treatment of UTI and rhabdomyolysis. At [facility], he was found to be unresponsive by nursing staff and transferred to [facility] for admission to the ICU. Subsequently, he has been transferred to the medical floor and experiencing LE weakness and hallucinations. - Patient Problems (1) Left leg weakness Current Visit: Yes Status: Acute Code(s): R29.898 - OTH SYMPTOMS AND SIGNS INVOLVING THE MUSCULOSKELETAL SYSTEM SNOMED Code(s): 830097788 Comment: -initially with bilateral LE weakness, left worse than right. Left sided foot drop -MRI lumbar spine as above -Dr. Srinivasan reviewed MRI brain and does not believe patient has new MS lesion, therefore LE weakness is likely entirely related to lumbar pathology -Neurosurgery planning for surgery tomorrow -Patient is medically optimized for surgery at this point. He has an RCRI risk score of 0, indicating 3.9% 30-day risk of , UT, or cardiac arrest. Per NSQIP surgical risk calculator, patient has a below average risk of cardiac complication (average is 0.3%). EKG reviewed and I have no concerns. The patient is high risk for post-operative delirium, especially considering his ongoing issues with hallucinations. (2) Hallucination Current Visit: Yes Status: Acute Code(s): R44.3 - HALLUCINATIONS, UNSPECIFIED SNOMED Code(s): 6844121 Comment: -Possibly due to cipro, amantadine, or risperidone, all of which have been d/c' d previously. Patient's amantadine was stopped at [facility] it appears -baclofen and fluoxetine have been decreased as well -consulted psychiatry, appreciate Dr. Quinn's input. Discontinuing seroquel and increasing risperidone. -it seems the patient's frequency of hallucinations has diminished today (3) Unresponsive episode Current Visit: Yes Status: Acute Comment: -No further events since arriving to [facility]. -Unclear cause. Possible seizure with subsequent post ictal state as he was on multiple medications that lower seizure threshold. Medication induced unresponsiveness is also a possibility as he had 3 doses of risperdal the day before event at [place]. -EEG with nonspecific findings -Tele without abnormalities -Monitor for recurrent unresponsive episodes. Continuing seizure precautions (4) Multiple sclerosis Current Visit: Yes Status: Acute Code(s): G35 - MULTIPLE SCLEROSIS SNOMED Code(s): 87998833 Comment: -Continue baclofen and tecfidera -amantadine discontinued -Follow up with Dr. Srinivasan after discharge (5) Anxiety and depression Current Visit: Yes Status: Acute Code(s): F41.9 - ANXIETY DISORDER, UNSPECIFIED; F32.9 - MAJOR DEPRESSIVE DISORDER, SINGLE EPISODE, UNSPECIFIED SNOMED Code(s): 455994150 Comment: -Continue prozac at decreased dose -Wellbutrin discontinued as it can lower the seizure threshold. (6) Neurogenic bladder Current Visit: Yes Status: Acute Code(s): N31.9 - NEUROMUSCULAR DYSFUNCTION OF BLADDER, UNSPECIFIED SNOMED Code(s): 365733977 Comment: -Continue flomax and straighth catheterize 4x daily. (7) Urinary tract infection Current Visit: Yes Status: Acute Comment: -Pt transfered with UTI, previously treated with Cipro, which is suspected to have caused hallucinations. Cipro discontinued at [facility] -Received ceftriaxone x3 doses -Resolved per urine on 06/18/19. Afebrile and without leukocytosis since arrival. UA negative 06/18/19 (8) DVT prophylaxis Current Visit: Yes Status: Acute Code(s): Z29.9 - ENCOUNTER FOR PROPHYLACTIC MEASURES, UNSPECIFIED SNOMED Code(s): 751377601 Comment: -heparin SQ (9) Full code status Current Visit: Yes Status: Acute Code(s): Z78.9 - OTHER SPECIFIED HEALTH STATUS SNOMED Code(s): 158725460 Status and Disposition: Inpatient. Will likely need subacute rehab at discharge after neurosurgery.
[2019-06-22] MEDS ORDERED: Buffered Lidocaine 1% SYRIN* 1 ML/SYRINGE INTRADERM ONE (16:03)
--- NOTE | 2019-06-22 20:05 | CONS ---
NEUROLOGY FOLLOWUP CONSULTATION: DATE OF FOLLOWUP: 06/22/19 LOCATION: He is an inpatient, 437. HOSPITALIST: JAME Decker CHIEF COMPLAINT: Multiple sclerosis, weakness, hallucinations. INTERVAL HISTORY: Since last visit, Mr. Bolton saw Dr. Quinn who recommended switching his Seroquel to Risperdal. He noted that Rich could bear Risperdal previously and had been switched to Seroquel and sometimes that could be a trigger for hallucinations. Dr. Wild and his physician assistant inventory manager, Jean Shah, have seen Mr. Bolton and are planning on doing a decompressive lumbar surgery tomorrow. Today, Mr. Bolton states his hallucinations are not as bad as they were yesterday. He has no new symptoms to report. MEDICATIONS: Currently consist of: 1. Risperdal 0.5 mg p.o. b.i.d. 2. Tamsulosin 0.4 mg p.o. q.h.s. 3. Famotidine 20 mg IV daily. 4. Heparin 5000 units subcu q.8 hours. 5. Dimethyl fumarate 240 mg p.o. b.i.d. 6. Baclofen 10 mg p.o. t.i.d. PHYSICAL EXAMINATION: On exam, he is well nourished and well hydrated. Temperature 98.1, blood pressure 145/58, heart rate 70 and regular, respiratory rate is 18, oxygen saturation is 97% on room air. Neurologically, he is alert and cooperative, in good spirits. He states he is not actively hallucinating. He is eating his dinner, so I did not interrupt him further. 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 He is no longer on amantadine and his Seroquel has been switched to Risperdal, which I will agree with. He is scheduled for decompressive lumbar surgery tomorrow and hopefully with that and subsequent rehabilitation, he will be able to get some of his strength back in his legs. He will definitely need some fairly prolonged rehab because of his multiple sclerosis in combination with his recent deconditioning from prolonged bedrest. I will follow him along after the surgery. [id number]/[facility] #: [id number] [facility]
[2019-06-22] MEDS: Tamsulosin CAP* 0.4 MG PO SCH (20:11)
--- NOTE | 2019-06-22 20:53 | PN ---
Progress Note - Progress Note Date of Service: 06/22/19 SOAP: Subjective: [] Patient seen and examined. No events ON. Patient not able to ambulate for more than one week. Prior to that he was using a walker for two months and a cane for the previous several months. Intermitent straight cath. Patient has been having urinary incontinence for three months as he reports. Objective: []VSS AAOx3 , CN II-XII grossly intact Motor 5/5 UEs, RLE 3/5, LLE 1-2 /5 Sensory: Decreased bellow L3 on the left Assessment: []73 yom severe lumbar stenosis, urinary incontinence, profound LE weakness, hx OF MS, UTIs Plan: [] MRI of Brain, Cervical, Thoracic spine do not reveal significant changes. Patient has known cervical spine lesion, possibly MS MRI of L spine reveals severe stenosis in multiple levels. Based on his presentation and MRI imaging surgical intervention for lumbar decompression may be resonable. Discussed with Dr Srinivasan who has kindly reviewed images. No further etiology for patient's symptoms is identified at this time. Discussed in extend with patient regarding possible surgical intervention , expectations, limitation and possible complications with complications including but not limited to bleeding, infection, risk of injury to adjacent structures, coma, paralysis, ,stroke, blindness, cancer, instability, spinal fluid leak, injury to intrabdominal contents, loss of bladder or bowel control, scar formation, postoperative hematoma, need for additional procedures , anesthesia risks. Patient understands that his condition may not improve and in fact may be worsened after surgery and that surgical plan may be modified according to intraoperative findings and conditions and that the case may be aborted or done in more than one stages. He also understands that he may require prolonged rehabilitation, prolonged hospitalization, prolonged ICU stay and possible need for tracheostomy or gastrostomy. The same were discussed at the initial consultation with the patient and his family including his son and daughter in law. Patient understands and would like to proceed with surgery. NPO after midnight. Medical clearance by the IM team. Appreciate , Neurology care. Hai Wild MD
[2019-06-23 05:34] LABS: BUN/Creatinine Ratio 27.5 (8-20); Calcium 9.2 mg/dL (8.6-10.3); EGFR Non-African American 112.4 (>60); Potassium 3.8 mmol/L (3.5-5.0)
[2019-06-23] MEDS: Lactated Ringers 1000 ML Bag* 1,000 ML IV SCH ×3 (05:40→17:35)
[2019-06-23] MEDS ORDERED: Dexamethasone IV* 4 MG/ML 1 ML (4 MG) IV SLOW PU ONE (06:00)
[2019-06-23] MEDS ORDERED: Ondansetron INJ* 2 MG/ML VIAL IV ONE (06:00)
[2019-06-23] MEDS ORDERED: Famotidine IV* 10 MG/ML 2 ML (20 mg) IV ONE (06:00)
[2019-06-23] MEDS ORDERED: Buffered Lidocaine 1% SYRIN* 1 ML/SYRINGE INTRADERM ONE (06:00)
[2019-06-23] MEDS ORDERED: Bupivacaine 0.25% EPI 200,000* 30 ML SDV ONE (06:49)
[2019-06-23] MEDS ORDERED: Thrombin 5,000 UNITS* 1 APPLIC KIT - topical use - TOPICAL ONE (06:49)
[2019-06-23] MEDS ORDERED: Bacitracin INJECTION* 50,000 UNITS ONE ×2 (06:50→11:18)
[2019-06-23] MEDS ORDERED: KETAMINE HCL* 50 MG/ML 10 ML VIAL ONE (07:18)
[2019-06-23] MEDS ORDERED: Midazolam* 1 MG/ML 5 ML VIAL (5 MG) ONE (07:18)
[2019-06-23] MEDS ORDERED: fentaNYL* 50 MCG/ML 2 ML VIAL (100 MCG VIAL) ONE ×2 (07:18→08:30)
[2019-06-23] MEDS ORDERED: Rocuronium* 10 MG/ML VIAL ONE ×2 (07:18→08:30)
[2019-06-23] MEDS ORDERED: ceFAZolin 2 GM PREMIX in ORs 2 GM/50 ML BAG ONE (07:36)
[2019-06-23] MEDS ORDERED: HYDROmorphone INJ1* 1 MG/ML SYRINGE ONE (10:20)
[2019-06-23] MEDS ORDERED: HYDROmorphone INJ1* 1 MG/ML SYRINGE IV PRN (10:24)
[2019-06-23] MEDS ORDERED: fentaNYL* 50 MCG/ML 2 ML VIAL (100 MCG VIAL) IV PRN (10:24)
[2019-06-23] MEDS ORDERED: PROCHLORPERAZINE INJ 5 MG/ML 2 ML VIAL IV PRN (10:24)
[2019-06-23] MEDS ORDERED: DiMENhydriNATE IV* 50 MG/ML VIAL IV PUSH PRN (10:24)
[2019-06-23] MEDS ORDERED: Naloxone* 0.4 MG/ML 1 ML VIAL IV PRN (10:24)
[2019-06-23] MEDS ORDERED: Sugammadex * 200 MG/2 ML VIAL IV PUSH ONE (11:24)
[2019-06-23] MEDS ORDERED: Dexamethasone IV* 4 MG/ML 1 ML (4 MG) ONE (11:24)
[2019-06-23] MEDS ORDERED: Norepinephrine VIAL* 1 MG/ML 4 ML VIAL ONE (11:24)
[2019-06-23] MEDS ORDERED: Lidocaine 2% PF * 5 ML VIAL ONE (11:24)
[2019-06-23] MEDS ORDERED: Ondansetron INJ* 2 MG/ML VIAL ONE (11:24)
[2019-06-23] MEDS ORDERED: Propofol* 10 MG/ML 20 ML BTL ONE (11:24)
[2019-06-23] MEDS ORDERED: Labetalol IV* 5 MG/ML 20 ML VIAL ONE (11:55)
[2019-06-23] MEDS: Vitamin E CAP* 400 UNIT PO SCH ×2 (13:40→15:22)
[2019-06-23] MEDS: Nystatin TOP POWDER* 15 GM BTL TOPICAL SCH ×3 (13:40→20:28)
[2019-06-23] MEDS: Cyanocobalamin TAB* 500 MCG PO SCH ×2 (13:40→15:21)
[2019-06-23] MEDS: Baclofen TAB* 10 MG PO SCH ×3 (13:40→20:27)
[2019-06-23] MEDS: Docusate CAP* 100 MG PO SCH ×3 (13:40→20:27)
[2019-06-23] MEDS: DIMETHYL FUMARATE 240 MG PO SCH ×3 (13:40→20:27)
[2019-06-23] MEDS: FLUoxetine CAP* 20 MG PO SCH ×2 (13:40→15:21)
[2019-06-23] MEDS: Cholecalciferol TAB* 1000 UNITS PO SCH ×2 (13:40→15:21)
--- NOTE | 2019-06-23 14:48 | PN ---
Subjective Date of Service: 06/23/19 Interval History: Pt is seen post-operatively in his room; he states that he feels groggy and his mouth is dry, but otherwise without complaints. ROS attempted, but patient states that he is too groggy to think straight. Family believes that hallucinations have been less frequent recently. Objective Active Medications: Acetaminophen (Tylenol Tab*) 650 mg PO Q6H PRN Baclofen (Lioresal Tab*) 10 mg PO TID [facility] Cholecalciferol (Vitamin D Tab*) 1,000 units PO DAILY@0900 [facility] Cyanocobalamin (Vitamin B12 Tab*) 2,500 mcg PO DAILY@0900 [facility] Dimethyl Fumarate (Tecfidera(Nf)) 240 mg PO BID@0900,2100 [facility] Docusate Sodium (Colace Cap*) 100 mg PO BID@0900,2100 [facility] Fluoxetine HCl (Prozac Cap*) 40 mg PO DAILY@0900 [facility] Lactated Ringer's (Lactated Ringers 1000 Ml Bag*) 1,000 mls @ 125 mls/hr IV PER RATE [facility] Ibuprofen (Motrin Tab*) 600 mg PO Q8H PRN Nystatin (Nystatin Top Powder*) 1 applic TOPICAL TID [facility] Risperidone (Risperdal) 0.5 mg PO BID [facility] Tamsulosin HCl (Flomax Cap*) 0.4 mg PO BEDTIME [facility] Vitamin E (Vitamin E Cap*) 400 unit PO DAILY@0900 [facility] Vital Signs: Temp Pulse Resp BP Pulse Ox 97 F 80 17 125/66 99 06/23/19 13:00 06/23/19 15:00 06/23/19 15:00 06/23/19 15:00 06/23/19 15:00 Oxygen Devices in Use Now: None Appearance: Pt is laying in bed. Appears sleepy, but pleasant, cooperative, appropriate. In no acute distress. Eyes: No Scleral Icterus, PERRLA Ears/Nose/Mouth/Throat: NL Teeth, Lips, Gums, Clear Oropharnyx, - - Dry mucous membranes Neck: NL Appearance and Movements; NL JVP, Trachea Midline Respiratory: Symmetrical Chest Expansion and Respiratory Effort, Clear to Auscultation - anteriorly Cardiovascular: NL Sounds; No Murmurs; No JVD, RRR, No Edema Abdominal: NL Sounds; No Tenderness; No Distention, No Hepatosplenomegaly Extremities: No Edema, No Clubbing, Cyanosis Neurological: Alert and Oriented x 3, - - L drop foot, but able to move toes on b/l feet. Sensation intact to b/l LE with R>L. Result Diagrams: 06/17/19 05:36 06/23/19 04:42 Microbiology and Other Data: Microbiology 06/15/19 14:44 Nasal Screen MRSA (PCR) - Final Nasal Mrsa Not Detected Diagnostic Imaging: MRI Lumbar Spine impression: Although examination is markedly limited by motion artifact, there is advanced multilevel spondylotic changes of the lumbar spine, most pronounced at L3-L4 with severe canal narrowing, as detailed above. MRI Thoracic Spine impression: No acute findings. Limited by motion artifact. Assess/Plan/Problems-Billing Mr Bolton is a 73 yo M who has a h/o MS who presented to [place] after being found on the floor and was admitted for treatment of UTI and rhabdomyolysis. At [facility], he was found to be unresponsive by nursing staff and transferred to [facility] for admission to the [place]. Subsequently, he has been transferred to the medical floor and experiencing LE weakness and hallucinations. - Patient Problems (1) S/P laminectomy Comment: -POD 0 L2-L5 decompressive laminectomy due to spinal stenosis, LLE weakness -Management per neurosurgery (2) Left leg weakness Comment: -initially with bilateral LE weakness, left worse than right, left sided foot drop -MRI lumbar spine: mod to severe narrowing of central canal at L3-L4 -Dr. Srinivasan reviewed MRI brain and does not believe patient has new MS lesion, therefore LE weakness is likely entirely related to lumbar pathology -POD 0 L2-L5 decompressive laminectomy -Patient is medically optimized for surgery at this point. He has an RCRI risk score of 0, indicating 3.9% 30-day risk of , [place], or cardiac arrest. Per NSQIP surgical risk calculator, patient has a below average risk of cardiac complication (average is 0.3%). EKG reviewed and I have no concerns. The patient is high risk for post-operative delirium, especially considering his ongoing issues with hallucinations. (3) Hallucination Comment: -Possibly due to cipro, amantadine, or risperidone, all of which have been d/c' d previously. Patient's amantadine was stopped at [facility] it appears -baclofen and fluoxetine have been decreased as well -consulted psychiatry, appreciate Dr. Quinn's input. Discontinuing seroquel and increasing risperidone. -it seems the patient's frequency of hallucinations has decreased over last 48h (4) Unresponsive episode Comment: -No further events since arriving to [facility]. -Unclear cause. Possible seizure with subsequent post ictal state as he was on multiple medications that lower seizure threshold. Medication induced unresponsiveness is also a possibility as he had 3 doses of risperdal the day before event at [place]. -EEG with nonspecific findings -Tele without abnormalities -Monitor for recurrent unresponsive episodes. Continuing seizure precautions (5) Multiple sclerosis Comment: -Continue baclofen and tecfidera -amantadine discontinued -Follow up with Dr. Srinivasan after discharge (6) Neurogenic bladder Comment: -Continue flomax and straight catheterize 4x daily. (7) Anxiety and depression Comment: -Continue prozac at decreased dose -Wellbutrin discontinued as it can lower the seizure threshold. (8) DVT prophylaxis Comment: -Restart heparin per neurosurgery -SCDs (9) Full code status Status and Disposition: Inpatient. Will likely need subacute rehab at discharge after neurosurgery.
--- NOTE | 2019-06-23 15:19 | OP ---
DATE OF OPERATION: 06/23/19 - ROOM #ICU-11 DATE OF : 45 SURGEON: Aisha Wild MD PROFESSOR OF ENVIRONMENTAL STUDIES: JAME Alfaro. The case was done with the assistance of surgical PA because of the complexity of the case. ANESTHESIA: General. PRE-OP DIAGNOSES: 1. Lumbar stenosis. 2. Urinary incontinence. 3. Degenerative disk disease. POST-OP DIAGNOSES: 1. Lumbar stenosis. 2. Urinary incontinence. 3. Degenerative disk disease. OPERATIVE PROCEDURE: The patient underwent L2 to L5 decompressive laminectomies through left approach with ipsi-contralateral approach. ESTIMATED BLOOD LOSS: 75 cc. COMPLICATIONS: None. SUMMARY: The patient is a very pleasant 73-year-old gentleman with history of MS. The patient had progressive difficulty with ambulation, progressed from not being able to ambulate independently to using the cane for 2 months and then walker for 2 months and was not able to ambulate for approximately 1 week prior to his presentation. The patient was transferred from [facility] because of lower extremity paralysis. He was admitted for urinary tract infection. MRI of the lumbar spine revealed severe stenosis with more profound levels at L3-4 and L4-5. After extensive diagnostic workup, the patient was found to be a candidate for surgical intervention. After explaining expectations, limitations, and possible complications of the procedure to the patient and his family including his two sons and his [id number] with complications included, but not limited to bleeding, infection, risk of injury to adjacent structures, coma, paralysis, , need for additional procedures, anesthesia risks, stroke, blindness, cancer, instability, hardware failure, adjacent level disease, spinal fluid leak, progression of spondylolisthesis, need for additional procedures in the future, loss of bladder or bowel control, possibility of hematoma, scar formation, need for prolonged ICU stay, need for prolonged hospitalization or prolonged rehabilitation, need for tracheostomy or gastrostomy; the patient and his family were agreeable to proceed with surgery and informed consent was obtained. The patient understood that operative plan may be modified according to intraoperative findings and conditions and that the procedure may be aborted or done in more than 1 stages. The patient understood that his condition may not improve and in fact may get worse after surgery and that he may need to have additional procedures in the future. DESCRIPTION OF PROCEDURE: The patient was brought to the operating room and was placed under general anesthesia by the anesthesia team. He was carefully positioned prone on the Manuel frame on the Shaan table and all bony prominences were meticulously padded. His skin was prepped and draped in the standard fashion. After appropriate surgical pause and patient identification, a midline incision over the spinous process of L2 to almost S1 was marked on the skin. The skin incision site was infiltrated with local anesthetic and a # 10 surgical blade was used to incise the skin. The incision was carried down to the dorsal fascia with use of Bovie cautery. Self-retaining retractors were introduced into the field. The dorsal fascia was then divided to the left side of the midline with Bovie cautery and paraspinal musculature was elevated with periosteal elevator and Bovie cautery in subperiosteal fashion. Self-retaining retractors were introduced further into the field and after appropriate level identification with intraoperative fluoroscopic imaging and second time out, the laminectomy part of the procedure was performed. High-speed drill was used under microscopic magnification for ipsi-contralateral laminectomy through the left side approach. The left hemilamina and the ventral part of the right hemilamina of L4, L3, L2 and the superior part of L5 were gently removed with high- speed drill and Kerrison punches and the ligamentum flavum was then removed with use of Kerrison punches. The thecal sac was initially found to be under significant compression, but at the end of the procedure, no compression phenomenon was identified. Foraminotomies were performed also and at the end of the procedure, the thecal sac and neural foramina were found to be extremely patent. After copious irrigation, confirmation of meticulous hemostasis and meticulous inspection, the self-retaining retractors were removed from the field and the wound was closed over a Jp drain, which was tunneled through a separate stab wound incision. 0 interrupted Vicryl suture was used to approximate the dorsal fascia while the subcutaneous tissue was approximated with inverted interrupted 2-0 interrupted Vicryl sutures. The skin was then approximated with #1 Prolene in a running interrupted fashion. At the end of the procedure, all counts were reported to be correct. The patient remained hemodynamically stable throughout the case. The patient was then turned supine , was extubated and was transferred to Recovery in excellent condition. The case was done with the assistance of surgical PA because of the complexity of the case. [id number]/[facility] #: [id number] MTDD
[2019-06-23] MEDS: Tamsulosin CAP* 0.4 MG PO SCH (20:28)
[2019-06-23] MEDS: Acetaminophen TAB* 325 MG PO PRN (21:47)
[2019-06-24] MEDS: Lactated Ringers 1000 ML Bag* 1,000 ML IV SCH (01:39)
[2019-06-24] MEDS ORDERED: Haloperidol INJ IV/IM* 5 MG/ML AMP ONE (02:54)
[2019-06-24] MEDS ORDERED: Haloperidol INJ IV/IM* 5 MG/ML AMP IV SLOW PU ONE (03:00)
[2019-06-24 06:24] LABS: ABS Eosinophils 0.1 10^3/ul (0-0.6); ABS Lymphocytes 0.6 10^3/ul (1.0-4.8); ABS Monocytes 1.3 10^3/ul (0-0.8); ABS Neutrophils 7.4 10^3/ul (1.5-7.7); Eosinophil % 0.8 %; Hematocrit 34 % (42-52); Hemoglobin 11.6 g/dL (14.0-18.0); Lymphocyte % 6.2 %; Mean Corpuscular HGB Conc 34 g/dL (31-36); Mean Corpuscular Hemoglobin 32 pg (27-31); Mean Corpuscular Volume 96 fL (80-94); Mean Platelet Volume 8.7 fL (7.4-10.4); Platelet Count 248 10^3/uL (150-450); Red Cell Distribution Width 14 % (10-15); White Blood Count 9.4 10^3/uL (3.5-10.8)
[2019-06-24 06:40] LABS: BUN/Creatinine Ratio 23.2 (8-20); Calcium 9.2 mg/dL (8.6-10.3); EGFR Non-African American 112.4 (>60); Potassium 4.1 mmol/L (3.5-5.0)
[2019-06-24] MEDS: FLUoxetine CAP* 20 MG PO SCH (07:30)
[2019-06-24] MEDS: Docusate CAP* 100 MG PO SCH ×2 (07:30→21:15)
[2019-06-24] MEDS: Baclofen TAB* 10 MG PO SCH ×3 (07:30→21:15)
[2019-06-24] MEDS: Vitamin E CAP* 400 UNIT PO SCH (07:30)
[2019-06-24] MEDS: Cholecalciferol TAB* 1000 UNITS PO SCH (07:30)
[2019-06-24] MEDS: Nystatin TOP POWDER* 15 GM BTL TOPICAL SCH ×3 (07:31→21:15)
[2019-06-24] MEDS: DIMETHYL FUMARATE 240 MG PO SCH ×2 (07:31→21:14)
[2019-06-24] MEDS: Acetaminophen TAB* 325 MG PO PRN ×2 (07:45→21:15)
[2019-06-24] MEDS: Cyanocobalamin TAB* 500 MCG PO SCH (09:13)
--- NOTE | 2019-06-24 09:26 | PN ---
Subjective Date of Service: 06/24/19 Interval History: Pt continues to have hallucinations, but notes that they are only overnight. He states he did not sleep well, due to hallucinations of people in room. He reports no hallucinations during the day. He states he has minimal back pain, rated at 3-4/10. He has not been out of bed yet. He states he is eating ok, had a BM yesterday. He reports LE muscle and joint pain, which he states is chronic. He continues to have b/l LE weakness, L>R. No other complaints today. Objective Active Medications: Acetaminophen (Tylenol Tab*) 650 mg PO Q6H PRN Baclofen (Lioresal Tab*) 10 mg PO TID [facility] Cholecalciferol (Vitamin D Tab*) 1,000 units PO DAILY@0900 [facility] Cyanocobalamin (Vitamin B12 Tab*) 2,500 mcg PO DAILY@0900 [facility] Dimethyl Fumarate (Tecfidera(Nf)) 240 mg PO BID@0900,2100 [facility] Docusate Sodium (Colace Cap*) 100 mg PO BID@0900,2100 [facility] Fluoxetine HCl (Prozac Cap*) 40 mg PO DAILY@0900 [facility] Lactated Ringer's (Lactated Ringers 1000 Ml Bag*) 1,000 mls @ 125 mls/hr IV PER RATE [facility] Ibuprofen (Motrin Tab*) 600 mg PO Q8H PRN Nystatin (Nystatin Top Powder*) 1 applic TOPICAL TID [facility] Risperidone (Risperdal) 0.5 mg PO BID [facility] Tamsulosin HCl (Flomax Cap*) 0.4 mg PO BEDTIME [facility] Vitamin E (Vitamin E Cap*) 400 unit PO DAILY@0900 [facility] Vital Signs: Temp Pulse Resp BP Pulse Ox 100.1 F 101 18 136/52 99 06/24/19 07:28 06/24/19 08:01 06/24/19 08:01 06/24/19 08:00 06/24/19 08:01 Oxygen Devices in Use Now: None Appearance: Pt is sitting up in bed. He appears somewhat tired. He is in no acute distress. Eyes: No Scleral Icterus, PERRLA Ears/Nose/Mouth/Throat: NL Teeth, Lips, Gums, Clear Oropharnyx, Mucous Membranes Moist Neck: NL Appearance and Movements; NL JVP, Trachea Midline Respiratory: Symmetrical Chest Expansion and Respiratory Effort, Clear to Auscultation Cardiovascular: NL Sounds; No Murmurs; No JVD, RRR, - - Trace b/l pedal edema Abdominal: NL Sounds; No Tenderness; No Distention, No Hepatosplenomegaly Extremities: No Edema, No Clubbing, Cyanosis Neurological: Alert and Oriented x 3, - - CDI dressing in place to left lateral lower spine; ANAND in place with blood-tinged drainage in bulb. Result Diagrams: 06/24/19 06:09 06/24/19 06:09 Microbiology and Other Data: Microbiology 06/15/19 14:44 Nasal Screen MRSA (PCR) - Final Nasal Mrsa Not Detected Diagnostic Imaging: MRI Lumbar Spine impression: Although examination is markedly limited by motion artifact, there is advanced multilevel spondylotic changes of the lumbar spine, most pronounced at L3-L4 with severe canal narrowing, as detailed above. MRI Thoracic Spine impression: No acute findings. Limited by motion artifact. Assess/Plan/Problems-Billing Mr Bolton is a 73 yo M who has a h/o MS who presented to [place] after being found on the floor and was admitted for treatment of UTI and rhabdomyolysis. At [facility], he was found to be unresponsive by nursing staff and transferred to [facility] for admission to the ICU. Subsequently, he has been transferred to the medical floor and experiencing LE weakness and hallucinations. - Patient Problems (1) S/P laminectomy Comment: -POD 1 L2-L5 decompressive laminectomy due to spinal stenosis, LLE weakness -Management per neurosurgery -May transfer from ICU to floor (2) Left leg weakness Comment: -Initially with bilateral LE weakness, left worse than right, left foot drop -MRI lumbar spine: mod to severe narrowing of central canal at L3-L4 -Dr. Srinivasan reviewed MRI brain and does not believe patient has new MS lesion, therefore LE weakness is likely entirely related to lumbar pathology -L2-L5 decompressive laminectomy performed 06/24 (3) Hallucination Comment: -Possibly due to cipro, amantadine, or risperidone, all of which were d/c'd previously; patient's amantadine was stopped at [facility] it appears -baclofen and fluoxetine have been decreased as well -Consulted psychiatry, appreciate Dr. Quinn's input. Discontinuing seroquel and increasing risperidone. -Initially decreased hallucinations; now with hallucinations reported at night only (4) Unresponsive episode Comment: -No further events since arriving to [facility]. -Unclear cause. Possible seizure with subsequent post ictal state as he was on multiple medications that lower seizure threshold. Medication induced unresponsiveness is also a possibility as he had 3 doses of risperdal the day before event at [place]. -EEG with nonspecific findings -Tele without abnormalities -Monitor for recurrent unresponsive episodes. Continuing seizure precautions (5) Multiple sclerosis Comment: -Continue baclofen and tecfidera -amantadine discontinued -Follow up with Dr. Srinivasan after discharge (6) Neurogenic bladder Comment: -Continue flomax and straight catheterize 4x daily. (7) Anxiety and depression Comment: -Continue prozac at decreased dose -Wellbutrin discontinued as it can lower the seizure threshold. (8) DVT prophylaxis Comment: -Restart neurosurgery per neurosurgery -SCDs in the meantime (9) Full code status Status and Disposition: Inpatient. Will likely need subacute rehab at discharge after neurosurgery.
[2019-06-24] MEDS ORDERED: Senna TAB 8.6 mg* TAB PO PRN (10:50)
--- NOTE | 2019-06-24 13:48 | CONSULT ---
Identification - Patient Identification Reason for Psychiatric Consultation: Incapacitating Symptoms -: Patient is a 73 year old, M admitted on 06/15/19. - MHU Identification Employment Status: Disabled Hx Psychiatric Hospitalization: No History - Objective HPI: Malachi is seen for psychiatric follow up today on the [facility] where he is recovering from a back surgery. He remains pleasant and cooperative but continues to endorse visual and auditory hallucinations, now relegated to nighttime only. "It's only happening at night...I couldn't sleep. These men kept coming in and out of my room." He seems upset by this. The patient otherwise is tolerating resumption of risperidone well. He's uncertain about how long he'll be in the hospital but knows he will need subacute rehab before going home. Exam Appearance: Obese Hygiene: Normal Grooming: Fairly Well Kept Psychomotor Activities: Normal Exhibits Abnormal Movement: No Attitude and Relatedness: Cooperative Eye Contact: Good - Speech Quality: Unpressured Latencies: Normal Quantity: Appropriate Patient's Decription of Mood: "Okay" Observed Affect: Fair Affect Consistent with: Euthymia Patient's Thought Process: Coherent Thought Content: No Passive Wish, No Suicidal Planning, No Homicidal Ideation, No Paranoid Ideation Experiencing Hallucinations: Yes Type of Hallucinations: Visual: Yes, Auditory: Yes, Command: No Level of Consciousness: Alert Orientation: Yes Intact, Yes Orientated to Time, Yes Orientated to Place, Yes Orientated to Person Impulse Control: Intact Insight and Judgement: Good Impression - Impression Clinical Impression: 73 y.o. , white male with a history of multiple sclerosis and depression transferred from [facility] following an episode of losing consciousness and now treated on the 4th floor for complications of MS. 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 Inpatient DSM-V Dx: R44.3 BSU: Problem List - Patient Problems (1) Hallucination Current Visit: Yes Status: Acute Code(s): R44.3 - HALLUCINATIONS, UNSPECIFIED SNOMED Code(s): 6939000 Comment: -Possibly due to cipro, amantadine, or risperidone, all of which were d/c'd previously; patient's amantadine was stopped at [facility] it appears -baclofen and fluoxetine have been decreased as well -Consulted psychiatry, appreciate Dr. Quinn's input. Discontinuing seroquel and increasing risperidone. -Initially decreased hallucinations; now with hallucinations reported at night only Plan - Treatment Plan Treatment Plan: We have switched quetiapine back to risperidone. Given the fact that his hallucinations are distressing to him and perhaps affecting his sleep, we will increase risperidone from 0.5 to 0.75mg PO BID. This clinician will be off service for the weekend but will return on June 27 to follow up with Mr. Bolton. Continued Medication Management: Different Medication Medications: Current Medications Acetaminophen (Tylenol Tab*) 650 mg PO Q6H PRN PRN Reason: PAIN - MILD Last Admin: 06/24/19 07:45 Dose: 650 mg Baclofen (Lioresal Tab*) 10 mg PO TID [facility] Last Admin: 06/24/19 07:30 Dose: 10 mg Cholecalciferol (Vitamin D Tab*) 1,000 units PO DAILY@0900 [facility] Last Admin: 06/24/19 07:30 Dose: 1,000 units Cyanocobalamin (Vitamin B12 Tab*) 2,500 mcg PO DAILY@0900 [facility] Last Admin: 06/24/19 09:13 Dose: 2,500 mcg Dimethyl Fumarate (Tecfidera(Nf)) 240 mg PO BID@0900,2100 [facility] Last Admin: 06/24/19 07:31 Dose: 240 mg Docusate Sodium (Colace Cap*) 100 mg PO BID@0900,2100 [facility] Last Admin: 06/24/19 07:30 Dose: 100 mg Fluoxetine HCl (Prozac Cap*) 40 mg PO DAILY@0900 [facility] Last Admin: 06/24/19 07:30 Dose: 40 mg Ibuprofen (Motrin Tab*) 600 mg PO Q8H PRN PRN Reason: PAIN - MILD Last Admin: 06/21/19 18:04 Dose: 600 mg Magnesium Hydroxide (Milk Of Magnesia Liq*) 30 ml PO BID PRN PRN Reason: CONSTIPATION Nystatin (Nystatin Top Powder*) 1 applic TOPICAL TID [facility] Last Admin: 06/24/19 07:31 Dose: 1 applic Polyethylene Glycol/Electrolytes (Miralax*) 17 gm PO DAILY PRN PRN Reason: CONSTIPATION Risperidone (Risperdal) 0.5 mg PO BID [facility] Last Admin: 06/24/19 07:46 Dose: 0.5 mg Senna (Senokot 8.6 Mg Tab*) 1 tab PO BEDTIME PRN PRN Reason: CONSTIPATION Tamsulosin HCl (Flomax Cap*) 0.4 mg PO BEDTIME [facility] Last Admin: 06/23/19 20:28 Dose: 0.4 mg Vitamin E (Vitamin E Cap*) 400 unit PO DAILY@0900 [facility] Last Admin: 06/24/19 07:30 Dose: 400 unit
[2019-06-24] MEDS: Magnesium Hydroxide LIQ* 30 ML UDC PO PRN (14:20)
[2019-06-24] MEDS: Polyethylene Glycol 3350* 17 GM PACKET PO PRN (14:20)
--- NOTE | 2019-06-24 16:44 | PN ---
Progress Note - Progress Note Date of Service: 06/24/19 SOAP: Subjective: [] 73 y/o male post L2-L5 decompression and laminectomies POD #1 patient has some hallucination overnight, which has been his baseline presentation, but otherwise has been stable overnight. He reports that his back has improved since having the surgery. He feels the movement in his left leg has improved. ANAND drain put out 290 ml over night Objective: [] General: Patient laying flat in bed comfortable. Neuro: A&O x 3 CN II -XII intact, EOMS intact, Upper extremity motor strength 5/ 5 through out. Left lower extremity motor strength 1/5 with hip flexion, with plantar flexion. right lower extremity motor strength 5/5. Sensation intact with light touch. Derm: dressings clean, drain intact Assessment: [] 73 y/o male post L2 - L5 decompression POD #1, patient doing well, axial low back pain has improved, his left lower motor strength has not changed. Plan: [] 1) Follow medicine recommendation, Patient can return to regular floor if cleared by medicine team 2) Continue to monitor drain out put 3) pain control as needed 4) Encourage IS use
[2019-06-24] MEDS: Ibuprofen TAB* 600 MG PO PRN (21:15)
[2019-06-24] MEDS: Tamsulosin CAP* 0.4 MG PO SCH (21:15)
[2019-06-25] MEDS: Baclofen TAB* 10 MG PO SCH ×3 (08:54→19:58)
[2019-06-25] MEDS: Cholecalciferol TAB* 1000 UNITS PO SCH (08:54)
[2019-06-25] MEDS: FLUoxetine CAP* 20 MG PO SCH (08:54)
[2019-06-25] MEDS: Ibuprofen TAB* 600 MG PO PRN (08:55)
[2019-06-25] MEDS: Cyanocobalamin TAB* 500 MCG PO SCH (08:56)
[2019-06-25] MEDS: Docusate CAP* 100 MG PO SCH ×2 (08:56→19:58)
[2019-06-25] MEDS: DIMETHYL FUMARATE 240 MG PO SCH ×2 (08:57→19:58)
[2019-06-25] MEDS: Nystatin TOP POWDER* 15 GM BTL TOPICAL SCH ×3 (08:57→19:58)
[2019-06-25] MEDS: Polyethylene Glycol 3350* 17 GM PACKET PO PRN (08:57)
[2019-06-25] MEDS: Vitamin E CAP* 400 UNIT PO SCH (08:57)
[2019-06-25] MEDS: Magnesium Hydroxide LIQ* 30 ML UDC PO PRN (09:58)
--- NOTE | 2019-06-25 10:09 | PN ---
Progress Note - Progress Note Date of Service: 06/25/19 SOAP: Subjective: [] Patient is doing well this morning, he is POD #2. Today he feels well rested , was able to sleep last night and denies any issues with hallucinations. Patient reports that his back pain has improved and feels that he is able to move left leg a little more. He has been working with PT on transferring. He still has not moved is bowels, but has a lot flatulence. His drained was removed by Dr. Wild yesterday. Patient has been stable with no acute event overnight. Objective: [] Vital Signs: Temp Pulse Resp BP Pulse Ox 98.6 F 91 18 139/51 94 06/25/19 07:14 06/25/19 07:14 06/25/19 07:14 06/25/19 07:14 06/25/19 07:14 General: patient sitting up in bed comfortable has finished eating breakfast, NAD Neuro: A&O x3 CN II - XII intact, pupils equal in size, EOMs intact. Upper motor strength 5/5 through out, Lower extremity motor strength 1/5 through out Right lower extremity motor strength 4/5 with hip flexion, decreased EHL 3-4/5. sensation intact. Wound: CDI retention sutures intact no active drainage or swelling seen. Assessment: [] 73 y/o s/p L2 -L5 decompression POD #2 he is recovering well, back pain has improved since surgery, left lower extremity is unchanged. Plan: [] 1) Pain management as needed 2) Continue to work with PT/OT 3) Follow medicine recommendations 4) Pain management as needed
[2019-06-25] MEDS: Acetaminophen TAB* 325 MG PO PRN ×2 (13:01→19:57)
[2019-06-25] MEDS ORDERED: Bisacodyl SUPP* 10 MG SUPP PR ONE (13:36)
--- NOTE | 2019-06-25 15:19 | PN ---
Subjective Date of Service: 06/25/19 Interval History: Pt states that he is feeling pretty well today. He notes that he has less lower back pain than he anticipated. He c/o tingling in b/l LE and weakness in b/l LE, L>R, both of which are chronic. He notes that he had his best night of sleep so far last night. He notes that he has had non-disturbing hallucinations throughout the day and denies paranoia. He has an occasional cough, which is chronic. He complains of constipation. Objective Active Medications: Acetaminophen (Tylenol Tab*) 650 mg PO Q6H PRN Baclofen (Lioresal Tab*) 10 mg PO TID [facility] Cholecalciferol (Vitamin D Tab*) 1,000 units PO DAILY@0900 [facility] Cyanocobalamin (Vitamin B12 Tab*) 2,500 mcg PO DAILY@0900 [facility] Dimethyl Fumarate (Tecfidera(Nf)) 240 mg PO BID@0900,2100 [facility] Docusate Sodium (Colace Cap*) 100 mg PO BID@0900,2100 [facility] Fluoxetine HCl (Prozac Cap*) 40 mg PO DAILY@0900 [facility] Ibuprofen (Motrin Tab*) 600 mg PO Q8H PRN Magnesium Hydroxide (Milk Of [place] Liq*) 30 ml PO BID PRN Nystatin (Nystatin Top Powder*) 1 applic TOPICAL TID [facility] Polyethylene Glycol/Electrolytes (Miralax*) 17 gm PO DAILY PRN Risperidone (Risperdal) 0.75 mg PO BID [facility] Senna (Senokot 8.6 Mg Tab*) 1 tab PO BEDTIME PRN Tamsulosin HCl (Flomax Cap*) 0.4 mg PO BEDTIME [facility] Vitamin E (Vitamin E Cap*) 400 unit PO DAILY@0900 [facility] Vital Signs: Temp Pulse Resp BP Pulse Ox 98.3 F 92 18 116/52 97 06/25/19 10:58 06/25/19 10:58 06/25/19 10:58 06/25/19 10:58 06/25/19 10:58 Oxygen Devices in Use Now: None Appearance: Pt is sitting in chair, LE at ground, family in room. He is in no acute distress, appears well. Eyes: No Scleral Icterus Ears/Nose/Mouth/Throat: NL Teeth, Lips, Gums, Clear Oropharnyx, Mucous Membranes Moist Neck: NL Appearance and Movements; NL JVP, Trachea Midline Respiratory: Symmetrical Chest Expansion and Respiratory Effort, Clear to Auscultation Cardiovascular: NL Sounds; No Murmurs; No JVD, RRR, No Edema Abdominal: NL Sounds; No Tenderness; No Distention, No Hepatosplenomegaly Extremities: No Edema, No Clubbing, Cyanosis, - - B/l LE weakness, L>R: able to move toes on L, and faint movement of LLE. Neurological: Alert and Oriented x 3, - - Low back with CDI dressing in place. Drain has been removed. Result Diagrams: 06/24/19 06:09 06/24/19 06:09 Microbiology and Other Data: Microbiology 06/15/19 14:44 Nasal Screen MRSA (PCR) - Final Nasal Mrsa Not Detected Diagnostic Imaging: MRI Lumbar Spine impression: Although examination is markedly limited by motion artifact, there is advanced multilevel spondylotic changes of the lumbar spine, most pronounced at L3-L4 with severe canal narrowing, as detailed above. MRI Thoracic Spine impression: No acute findings. Limited by motion artifact. Assess/Plan/Problems-Billing Mr Bolton is a 73 yo M who has a h/o MS who presented to [facility] after being found on the floor and was admitted for treatment of UTI and rhabdomyolysis. At [facility], he was found to be unresponsive by nursing staff and transferred to [facility] [place] admission to the ICU. Subsequently, he has been transferred to the medical floor and experiencing LE weakness and hallucinations. - Patient Problems (1) S/P laminectomy Comment: -POD 2 L2-L5 decompressive laminectomy due to spinal stenosis, LLE weakness -Management per neurosurgery (2) Left leg weakness Comment: -Initially with bilateral LE weakness, left worse than right, left foot drop -MRI lumbar spine: mod to severe narrowing of central canal at L3-L4 -Dr. Srinivasan reviewed MRI brain and does not believe patient has new MS lesion, therefore LE weakness is likely entirely related to lumbar pathology -L2-L5 decompressive laminectomy performed 06/23 (3) Hallucination Comment: -Possibly due to cipro, amantadine, or risperidone, all of which were d/c'd previously; patient's amantadine was stopped at [facility] it appears -baclofen and fluoxetine have been decreased as well -Consulted psychiatry, appreciate Dr. Quinn's input. -Discontinuing seroquel and increasing risperidone -Resperidone increased to 0.75 06/24 -Continues to have hallucinations, but reporting less often and less paranoia (4) Unresponsive episode Comment: -No further events since arriving to [facility]. -Unclear cause. Possible seizure with subsequent post ictal state as he was on multiple medications that lower seizure threshold. Medication induced unresponsiveness is also a possibility as he had 3 doses of risperdal the day before event at [place]. -EEG with nonspecific findings -Tele without abnormalities -Monitor for recurrent unresponsive episodes. Continuing seizure precautions (5) Multiple sclerosis Comment: -Continue baclofen and tecfidera -amantadine discontinued -Follow up with Dr. Srinivasan after discharge (6) Neurogenic bladder Comment: -Continue flomax -Remove thompson and return to straight jonh qid (7) Anxiety and depression Comment: -Continue prozac at decreased dose -Wellbutrin discontinued as it can lower the seizure threshold. (8) DVT prophylaxis Comment: -Heparin, SCDs (9) Full code status Status and Disposition: Inpatient. Awaiting [facility] placement.
[2019-06-25 17:23] LABS: Activated Partial Thrombo Time 31.3 seconds (26.0-38.0); INR 1.08 (0.82-1.09)
[2019-06-25 17:34] LABS: EGFR African American 118.1 (>60); EGFR Non-African American 97.6 (>60)
[2019-06-25] MEDS: Tamsulosin CAP* 0.4 MG PO SCH (19:58)
[2019-06-25] MEDS: Heparin VIAL(*) 5000 UNITS/ML VIAL (FIVE THOUSAND) SUBCUT SCH (22:13)
[2019-06-26] MEDS: Acetaminophen TAB* 325 MG PO PRN ×2 (06:10→19:38)
[2019-06-26] MEDS: Heparin VIAL(*) 5000 UNITS/ML VIAL (FIVE THOUSAND) SUBCUT SCH ×3 (06:11→21:41)
--- NOTE | 2019-06-26 09:25 | PN ---
Progress Note - Progress Note Date of Service: 06/26/19 SOAP: Subjective: [] Patient doing well, his back pain is much less since surgery. He feels that he is able to wiggle his left more, but is unable to lift it. He denies having any episodes of hallucinations overnight. Patient has been stable, currently pending evaluation for rehab. Objective: [] General: patient sitting up in bed comfortable has finished eating breakfast, NAD Neuro: A&O x3 CN II - XII intact, pupils equal in size, EOMs intact. Upper motor strength 5/5 through out, Lower extremity motor strength 1/5 through out Right lower extremity motor strength 4/5 with hip flexion, decreased EHL 3-4/5. sensation intact Derm: dressing small amount of discharge/ Assessment: [] 73 y/o male post L2- L5 decompression POD # 3, recovering well, back pain has improved lower extremity weakness unchanged. Plan: [] 1) Pain control as needed 2) Continue to work with rehab 3) Follow medicine recommendations
[2019-06-26] MEDS: Baclofen TAB* 10 MG PO SCH ×3 (09:50→21:48)
[2019-06-26] MEDS: Cholecalciferol TAB* 1000 UNITS PO SCH (09:51)
[2019-06-26] MEDS: Vitamin E CAP* 400 UNIT PO SCH (09:51)
[2019-06-26] MEDS: FLUoxetine CAP* 20 MG PO SCH (09:52)
[2019-06-26] MEDS: Docusate CAP* 100 MG PO SCH ×2 (09:52→21:48)
[2019-06-26] MEDS: Cyanocobalamin TAB* 500 MCG PO SCH (09:53)
[2019-06-26] MEDS: DIMETHYL FUMARATE 240 MG PO SCH ×2 (09:54→21:47)
[2019-06-26] MEDS: Nystatin TOP POWDER* 15 GM BTL TOPICAL SCH ×3 (10:17→21:44)
--- NOTE | 2019-06-26 13:42 | PN ---
Subjective Date of Service: 06/26/19 Interval History: Pt states that he feels tired and notes that he has had poor sleep x3day, but slept better last night. He c/o frontal headache intermittently x2days that is relieved with Tylenol. He also c/o post-nasal drainage and occasional cough due to irritation in the throat. He c/o dry mouth. He had a BM today. He denies hallucinations x2 days. He has no other complaints today. Objective Active Medications: Acetaminophen (Tylenol Tab*) 650 mg PO Q6H PRN Baclofen (Lioresal Tab*) 10 mg PO TID [facility] Cholecalciferol (Vitamin D Tab*) 1,000 units PO DAILY@0900 [facility] Cyanocobalamin (Vitamin B12 Tab*) 2,500 mcg PO DAILY@0900 [facility] Dimethyl Fumarate (Tecfidera(Nf)) 240 mg PO BID@0900,2100 [facility] Docusate Sodium (Colace Cap*) 100 mg PO BID@0900,2100 [facility] Fluoxetine HCl (Prozac Cap*) 40 mg PO DAILY@0900 [facility] Heparin Sodium (Porcine) (Heparin Vial(*)) 5,000 units SUBCUT Q8HR [facility] Ibuprofen (Motrin Tab*) 600 mg PO Q8H PRN Magnesium Hydroxide (Milk Of Magnesia Liq*) 30 ml PO BID PRN Nystatin (Nystatin Top Powder*) 1 applic TOPICAL TID [facility] Polyethylene Glycol/Electrolytes (Miralax*) 17 gm PO DAILY PRN Risperidone (Risperdal) 0.75 mg PO BID [facility] Senna (Senokot 8.6 Mg Tab*) 1 tab PO BEDTIME PRN Tamsulosin HCl (Flomax Cap*) 0.4 mg PO BEDTIME [facility] Vitamin E (Vitamin E Cap*) 400 unit PO DAILY@0900 [facility] Vital Signs: Temp Pulse Resp BP Pulse Ox 98.4 F 80 17 140/61 98 06/26/19 12:33 06/26/19 12:33 06/26/19 12:33 06/26/19 12:33 06/26/19 12:33 Oxygen Devices in Use Now: None Appearance: Pt is sitting in chair, LE at floor. He appears tired, but in no acute distress. Ears/Nose/Mouth/Throat: NL Teeth, Lips, Gums, Clear Oropharnyx, Mucous Membranes Moist, - - Frontal, maxillary area nontender to palpation. Neck: NL Appearance and Movements; NL JVP, Trachea Midline Respiratory: Symmetrical Chest Expansion and Respiratory Effort, Clear to Auscultation Cardiovascular: NL Sounds; No Murmurs; No JVD, RRR, - - Trace LE edema b/l Abdominal: NL Sounds; No Tenderness; No Distention, No Hepatosplenomegaly Extremities: No Clubbing, Cyanosis, - - Pt able to move RLE; LLE with trace movement; able to move toes. Sensation intact. Neurological: Alert and Oriented x 3 Result Diagrams: 06/24/19 06:09 06/25/19 17:09 Microbiology and Other Data: Microbiology 06/15/19 14:44 Nasal Screen MRSA (PCR) - Final Nasal Mrsa Not Detected Diagnostic Imaging: MRI Lumbar Spine impression: Although examination is markedly limited by motion artifact, there is advanced multilevel spondylotic changes of the lumbar spine, most pronounced at L3-L4 with severe canal narrowing, as detailed above. MRI Thoracic Spine impression: No acute findings. Limited by motion artifact. Assess/Plan/Problems-Billing Mr Bolton is a 73 yo M who has a h/o MS who presented to [place] after being found on the floor and was admitted for treatment of UTI and rhabdomyolysis. At [facility], he was found to be unresponsive by nursing staff and transferred to [facility] for admission to the ICU. Subsequently, he has been transferred to the medical floor and experiencing LE weakness and hallucinations. - Patient Problems (1) S/P laminectomy Comment: -POD 3 L2-L5 decompressive laminectomy due to spinal stenosis, LLE weakness -Management per neurosurgery -Continue PT/OT -Awaiting [facility] placement (2) Spinal stenosis Comment: -Initially with bilateral LE weakness, left worse than right, left foot drop -MRI lumbar spine: mod to severe narrowing of central canal at L3-L4 -Dr. Srinivasan reviewed MRI brain and does not believe patient has new MS lesion, therefore LE weakness is likely entirely related to lumbar pathology -L2-L5 decompressive laminectomy performed 06/23 (3) Hallucination Comment: -Possibly due to cipro, amantadine, or risperidone, all of which were d/c'd previously; patient's amantadine was stopped at [facility] it appears -baclofen and fluoxetine have been decreased as well -Consulted psychiatry, appreciate Dr. Quinn's input. -Discontinuing seroquel and increasing risperidone -Resperidone increased to 0.75 06/24 -Pt states no hallucinations in last 2d (4) Headache Comment: -Frontal headache, PND -Suspect viral sinusitis -Offered symptomatic treatment, patient declined -Will order prn (5) Unresponsive episode Comment: -No further events since arriving to [facility]. -Unclear cause. Possible seizure with subsequent post ictal state as he was on multiple medications that lower seizure threshold. Medication induced unresponsiveness is also a possibility as he had 3 doses of risperdal the day before event at [place]. -EEG with nonspecific findings -Tele without abnormalities -Monitor for recurrent unresponsive episodes. Continuing seizure precautions (6) Multiple sclerosis Comment: -Continue baclofen and tecfidera -amantadine discontinued -Follow up with Dr. Srinivasan after discharge (7) Neurogenic bladder Comment: -Continue flomax -Straight cath qid (8) Anxiety and depression Comment: -Continue prozac at decreased dose -Wellbutrin discontinued as it can lower the seizure threshold. (9) DVT prophylaxis Comment: -Heparin, SCDs (10) Full code status Status and Disposition: Inpatient. Awaiting [facility] placement.
[2019-06-26] MEDS ORDERED: Saline NASAL SPRAY 0.65%* BTL BOTH NARES PRN (14:29)
[2019-06-26] MEDS ORDERED: guaiFENesin ER TAB 600 MG PO PRN (14:31)
[2019-06-26] MEDS: Tamsulosin CAP* 0.4 MG PO SCH (21:45)
[2019-06-27] MEDS: Heparin VIAL(*) 5000 UNITS/ML VIAL (FIVE THOUSAND) SUBCUT SCH ×3 (05:45→21:49)
[2019-06-27 05:50] LABS: ABS Basophils 0.1 10^3/ul (0-0.2); ABS Eosinophils 0.5 10^3/ul (0-0.6); ABS Lymphocytes 0.9 10^3/ul (1.0-4.8); ABS Monocytes 0.7 10^3/ul (0-0.8); ABS Neutrophils 6.4 10^3/ul (1.5-7.7); Eosinophil % 5.6 %; Hematocrit 31 % (42-52); Hemoglobin 10.5 g/dL (14.0-18.0); Lymphocyte % 10.6 %; Mean Corpuscular HGB Conc 34 g/dL (31-36); Mean Corpuscular Hemoglobin 33 pg (27-31); Mean Corpuscular Volume 96 fL (80-94); Mean Platelet Volume 8.4 fL (7.4-10.4); Platelet Count 346 10^3/uL (150-450); Red Blood Count 3.19 10^6 /uL (4.18-5.48); Red Cell Distribution Width 14 % (10-15); White Blood Count 8.6 10^3/uL (3.5-10.8)
[2019-06-27 06:02] LABS: BUN/Creatinine Ratio 22.9 (8-20); Calcium 9.1 mg/dL (8.6-10.3); EGFR African American 133.8 (>60); EGFR Non-African American 110.5 (>60); Potassium 3.9 mmol/L (3.5-5.0)
[2019-06-27] MEDS: Docusate CAP* 100 MG PO SCH ×2 (08:11→20:23)
[2019-06-27] MEDS: FLUoxetine CAP* 20 MG PO SCH (08:11)
[2019-06-27] MEDS: Baclofen TAB* 10 MG PO SCH ×3 (08:12→20:23)
[2019-06-27] MEDS: Cholecalciferol TAB* 1000 UNITS PO SCH (08:12)
[2019-06-27] MEDS: Cyanocobalamin TAB* 500 MCG PO SCH (08:12)
[2019-06-27] MEDS: DIMETHYL FUMARATE 240 MG PO SCH ×2 (08:13→20:23)
[2019-06-27] MEDS: Nystatin TOP POWDER* 15 GM BTL TOPICAL SCH ×4 (08:14→21:40)
[2019-06-27] MEDS: Vitamin E CAP* 400 UNIT PO SCH (08:16)
[2019-06-27] MEDS: Acetaminophen TAB* 325 MG PO PRN ×3 (08:19→23:07)
--- NOTE | 2019-06-27 12:18 | CONSULT ---
Identification - Patient Identification Reason for Psychiatric Consultation: Incapacitating Symptoms -: Patient is a 73 year old, M admitted on 06/15/19. - MHU Identification Employment Status: Disabled Hx Psychiatric Hospitalization: No History - Objective HPI: Malachi has now gone 3 days without hallucinations since increasing risperidone to 0.75mg twice daily. He is calm and cooperative and looking forward to subacute rehab placement following his recent back surgery. 3-[facility] nursing staff has no concerns. Exam Appearance: Obese Hygiene: Normal Grooming: Fairly Well Kept Psychomotor Activities: Normal Exhibits Abnormal Movement: No Attitude and Relatedness: Cooperative Eye Contact: Good - Speech Quality: Unpressured Latencies: Normal Quantity: Appropriate Patient's Decription of Mood: "Okay" Observed Affect: Fair Affect Consistent with: Euthymia Patient's Thought Process: Coherent Thought Content: No Passive Wish, No Suicidal Planning, No Homicidal Ideation, No Paranoid Ideation Experiencing Hallucinations: Yes Type of Hallucinations: Visual: No, Auditory: No, Command: No Level of Consciousness: Alert Orientation: Yes Intact, Yes Orientated to Time, Yes Orientated to Place, Yes Orientated to Person Impulse Control: Intact Insight and Judgement: Good Impression - Impression Clinical Impression: 73 y.o. , white male with a history of multiple sclerosis and depression transferred from [facility] following an episode of losing consciousness and now treated on the 4th floor for complications of MS. 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 Inpatient DSM-V Dx: R44.3 Merits Inpatient Hospitalization: No BSU: Problem List - Patient Problems (1) Hallucination Current Visit: Yes Status: Acute Code(s): R44.3 - HALLUCINATIONS, UNSPECIFIED SNOMED Code(s): 8429219 Comment: -Possibly due to cipro, amantadine, or risperidone, all of which were d/c'd previously; patient's amantadine was stopped at [facility] it appears -baclofen and fluoxetine have been decreased as well -Consulted psychiatry, appreciate Dr. Quinn's input. -Discontinuing seroquel and increasing risperidone -Resperidone increased to 0.75 06/24 -Pt states no hallucinations in last 2d Plan - Treatment Plan Treatment Plan: We have switched quetiapine back to risperidone and titrated the dose to efficacy at 0.75mg PO BID. Psychiatry is signing off and the patient can follow up with the outpatient neurology service. Thank you for the consult. Continued Medication Management: Different Medication Medications: Current Medications Acetaminophen (Tylenol Tab*) 650 mg PO Q6H PRN PRN Reason: PAIN - MILD Last Admin: 06/27/19 08:19 Dose: 650 mg Baclofen (Lioresal Tab*) 10 mg PO TID [facility] Last Admin: 06/27/19 08:12 Dose: 10 mg Cholecalciferol (Vitamin D Tab*) 1,000 units PO DAILY@0900 [facility] Last Admin: 06/27/19 08:12 Dose: 1,000 units Cyanocobalamin (Vitamin B12 Tab*) 2,500 mcg PO DAILY@899 [facility] Last Admin: 06/27/19 08:12 Dose: 2,500 mcg Dimethyl Fumarate (Tecfidera(Nf)) 240 mg PO BID@899,2099 [facility] Last Admin: 06/27/19 08:13 Dose: 240 mg Docusate Sodium (Colace Cap*) 100 mg PO BID@899,2099 [facility] Last Admin: 06/27/19 08:11 Dose: 100 mg Fluoxetine HCl (Prozac Cap*) 40 mg PO DAILY@899 [facility] Last Admin: 06/27/19 08:11 Dose: 40 mg Guaifenesin (Mucinex*) 600 mg PO BID PRN PRN Reason: congestion, cough Heparin Sodium (Porcine) (Heparin Vial(*)) 5,000 units SUBCUT Q8HR [facility] Last Admin: 06/27/19 05:45 Dose: 5,000 units Ibuprofen (Motrin Tab*) 600 mg PO Q8H PRN PRN Reason: PAIN - MILD Last Admin: 06/25/19 08:55 Dose: 600 mg Magnesium Hydroxide (Milk Of Magnesia Liq*) 30 ml PO BID PRN PRN Reason: CONSTIPATION Last Admin: 06/25/19 09:58 Dose: 30 ml Nystatin (Nystatin Top Powder*) 1 applic TOPICAL TID [facility] Last Admin: 06/27/19 08:14 Dose: 1 applic Polyethylene Glycol/Electrolytes (Miralax*) 17 gm PO DAILY PRN PRN Reason: CONSTIPATION Last Admin: 06/25/19 08:57 Dose: 17 gm Risperidone (Risperdal) 0.75 mg PO BID [facility] Last Admin: 06/27/19 08:14 Dose: 0.75 mg Senna (Senokot 8.6 Mg Tab*) 1 tab PO BEDTIME PRN PRN Reason: CONSTIPATION Last Admin: 06/24/19 14:20 Dose: 1 tab Sodium Chloride (Sodium Chloride 0.65% Nasal [place]*) 1 spray BOTH NARES Q4H PRN PRN Reason: CONGESTION Tamsulosin HCl (Flomax Cap*) 0.4 mg PO BEDTIME [facility] Last Admin: 06/26/19 21:45 Dose: 0.4 mg Vitamin E (Vitamin E Cap*) 400 unit PO DAILY@0900 [facility] Last Admin: 06/27/19 08:16 Dose: 400 unit
--- NOTE | 2019-06-27 12:58 | PN ---
Subjective Date of Service: 06/27/19 Interval History: Pt feeling tired today. He continues to have frontal/temporal headache that is relieved with tylenol. He denies sneeze, congestion, cough, fevers, chills, sweats. He states he has had no hallucinations in 3 days. Had a BM overnight. Low back pain is 5/10. He has been working with PT. No other complaints. Objective Active Medications: Acetaminophen (Tylenol Tab*) 650 mg PO Q6H PRN Baclofen (Lioresal Tab*) 10 mg PO TID [facility] Cholecalciferol (Vitamin D Tab*) 1,000 units PO DAILY@0900 [facility] Cyanocobalamin (Vitamin B12 Tab*) 2,500 mcg PO DAILY@0900 [facility] Dimethyl Fumarate (Tecfidera(Nf)) 240 mg PO BID@0900,2100 [facility] Docusate Sodium (Colace Cap*) 100 mg PO BID@0900,2100 [facility] Fluoxetine HCl (Prozac Cap*) 40 mg PO DAILY@0900 [facility] Guaifenesin (Mucinex*) 600 mg PO BID PRN Heparin Sodium (Porcine) (Heparin Vial(*)) 5,000 units SUBCUT Q8HR [facility] Ibuprofen (Motrin Tab*) 600 mg PO Q8H PRN Magnesium Hydroxide (Milk Of Magnesia Liq*) 30 ml PO BID PRN Nystatin (Nystatin Top Powder*) 1 applic TOPICAL TID [facility] Polyethylene Glycol/Electrolytes (Miralax*) 17 gm PO DAILY PRN Risperidone (Risperdal) 0.75 mg PO BID [facility] Senna (Senokot 8.6 Mg Tab*) 1 tab PO BEDTIME PRN Sodium Chloride (Sodium Chloride 0.65% Nasal [place]*) 1 spray BOTH NARES Q4H PRN Tamsulosin HCl (Flomax Cap*) 0.4 mg PO BEDTIME [facility] Vitamin E (Vitamin E Cap*) 400 unit PO DAILY@0900 [facility] Vital Signs: Temp Pulse Resp BP Pulse Ox 98.5 F 90 16 155/60 96 06/27/19 11:28 06/27/19 11:28 06/27/19 11:28 06/27/19 11:28 06/27/19 11:28 Oxygen Devices in Use Now: None Appearance: Pt is sitting chair with LE elevated. He appears tired, in no acute distress. Eyes: No Scleral Icterus, PERRLA Ears/Nose/Mouth/Throat: NL Teeth, Lips, Gums, Clear Oropharnyx, - - Mildly dry oral mucosa Neck: NL Appearance and Movements; NL JVP, Trachea Midline Respiratory: Symmetrical Chest Expansion and Respiratory Effort, Clear to Auscultation Cardiovascular: NL Sounds; No Murmurs; No JVD, RRR, - - Trace b/l pedal edema. Abdominal: NL Sounds; No Tenderness; No Distention, No Hepatosplenomegaly Neurological: Alert and Oriented x 3, NL Sensation, - - Pt with trace movements of LLE. Able to lift RLE. Result Diagrams: 06/27/19 05:18 06/27/19 05:18 Microbiology and Other Data: Microbiology 06/15/19 14:44 Nasal Screen MRSA (PCR) - Final Nasal Mrsa Not Detected Diagnostic Imaging: MRI Lumbar Spine impression: Although examination is markedly limited by motion artifact, there is advanced multilevel spondylotic changes of the lumbar spine, most pronounced at L3-L4 with severe canal narrowing, as detailed above. MRI Thoracic Spine impression: No acute findings. Limited by motion artifact. Assess/Plan/Problems-Billing Mr Bolton is a 73 yo M who has a h/o MS who presented to [place] after being found on the floor and was admitted for treatment of UTI and rhabdomyolysis. At [facility], he was found to be unresponsive by nursing staff and transferred to [facility] for admission to the ICU. Subsequently, he has been transferred to the medical floor and experiencing LE weakness and hallucinations. - Patient Problems (1) S/P laminectomy Comment: -POD 4 L2-L5 decompressive laminectomy on 06/23 due to spinal stenosis, LLE weakness -Management per neurosurgery -Continue PT/OT -Awaiting [facility] placement (2) Spinal stenosis Comment: -Initially with bilateral LE weakness, left worse than right, left foot drop -MRI lumbar spine: mod to severe narrowing of central canal at L3-L4 -Dr. Srinivasan reviewed MRI brain and does not believe patient has new MS lesion, therefore LE weakness is likely entirely related to lumbar pathology -L2-L5 decompressive laminectomy performed 06/23 -Pt continuing to work with PT, awaiting [facility] placement -PMRU consult in (3) Headache Comment: -No leukocytosis, afebrile -Frontal headache, PND -Suspect viral sinusitis -Offered symptomatic treatment, patient declined -Will order prn (4) Hallucination Comment: -Possibly due to cipro, amantadine, or risperidone, all of which were d/c'd previously; patient's amantadine was stopped at [facility] it appears -baclofen and fluoxetine have been decreased as well -Consulted psychiatry, appreciate Dr. Quinn's input. -Discontinuing seroquel and increasing risperidone -Appears to have resolved with increase in risperidone to 0.75; pt reports no hallucinations in 3d (5) Unresponsive episode Comment: -No further events since arriving to [facility]. -Unclear cause. Possible seizure with subsequent post ictal state as he was on multiple medications that lower seizure threshold. Medication induced unresponsiveness is also a possibility as he had 3 doses of risperdal the day before event at [place]. -EEG with nonspecific findings -Tele without abnormalities -Monitor for recurrent unresponsive episodes. Continuing seizure precautions (6) Multiple sclerosis Comment: -Continue baclofen and tecfidera -amantadine discontinued -Follow up with Dr. Srinivasan after discharge (7) Neurogenic bladder Comment: -Continue flomax -Straight cath qid (8) Anxiety and depression Comment: -Continue prozac at decreased dose -Wellbutrin discontinued as it can lower the seizure threshold. (9) DVT prophylaxis Comment: -Heparin, SCDs (10) Full code status Status and Disposition: Inpatient. Awaiting [facility] placement.
[2019-06-27] MEDS: Tamsulosin CAP* 0.4 MG PO SCH (20:25)
[2019-06-28] MEDS: Heparin VIAL(*) 5000 UNITS/ML VIAL (FIVE THOUSAND) SUBCUT SCH (05:44)
[2019-06-28 06:27] LABS: ABS Basophils 0.1 10^3/ul (0-0.2); ABS Eosinophils 0.6 10^3/ul (0-0.6); ABS Monocytes 0.7 10^3/ul (0-0.8); ABS Neutrophils 4.4 10^3/ul (1.5-7.7); Eosinophil % 8.8 %; Hematocrit 32 % (42-52); Hematocrit 34 % (42-52); Hemoglobin 11.2 g/dL (14.0-18.0); Mean Corpuscular HGB Conc 34 g/dL (31-36); Mean Corpuscular Hemoglobin 32 pg (27-31); Mean Corpuscular Volume 97 fL (80-94); Mean Platelet Volume 8.8 fL (7.4-10.4); Platelet Count 342 10^3/uL (150-450); Red Blood Count 3.48 10^6 /uL (4.18-5.48); Red Cell Distribution Width 14 % (10-15); White Blood Count 6.8 10^3/uL (3.5-10.8)
[2019-06-28 07:39] VITALS: BP 126/52
[2019-06-28] MEDS: Acetaminophen TAB* 325 MG PO PRN (10:12)
[2019-06-28] MEDS: Baclofen TAB* 10 MG PO SCH (10:12)
[2019-06-28] MEDS: Cyanocobalamin TAB* 500 MCG PO SCH (10:13)
[2019-06-28] MEDS: Docusate CAP* 100 MG PO SCH (10:14)
[2019-06-28] MEDS: FLUoxetine CAP* 20 MG PO SCH (10:14)
[2019-06-28] MEDS: Cholecalciferol TAB* 1000 UNITS PO SCH (10:14)
[2019-06-28] MEDS: DIMETHYL FUMARATE 240 MG PO SCH (10:15)
[2019-06-28] MEDS: Vitamin E CAP* 400 UNIT PO SCH (10:15)
[2019-06-28] MEDS: Nystatin TOP POWDER* 15 GM BTL TOPICAL SCH (11:07)
--- NOTE | 2019-06-28 12:55 | DS ---
CC: Dr. Lund; Dr. Quinn; Dr. Srinivasan; Dr. Wild * DISCHARGE SUMMARY: DATE OF ADMISSION: 06/15/19 DATE OF DISCHARGE: 06/28/19 PROVIDER: JAME Decker ATTENDING PHYSICIAN WHILE IN THE HOSPITAL: Dr. Matias Kennedy * (dictated by JAME Decker) PRIMARY CARE PROVIDER: Dr. Lund. CONSULTING PSYCHIATRIST WHILE IN THE HOSPITAL: Dr. Quinn. CONSULTING NEUROLOGIST: Dr. Srinivasan. CONSULTING NEUROSURGEON: Dr. Wild. PROCEDURES WHILE IN THE HOSPITAL: 06/23/19, L2-L5 decompressive laminectomy with ipsi-contralateral approach with Dr. Wild. STUDIES WHILE IN THE HOSPITAL: Thoracic spine MRI on 06/20/19, limited study. Within limitations of the study, there is no abnormal cord signal or neural foraminal narrowing or central canal stenosis. Lumbar spine MRI on 06/20/19, limited study. Within limitations of study, there is moderate to severe narrowing of the central canal at L3-L4 with neural foraminal narrowing. Cervical spine MRI on 06/20/19, limited study. Within limitations of study, there is stable correlation at C5 consistent with demyelinating, without new cord signal abnormalities, degenerative disk disease and osteoarthritis. There is no appreciable high-grade stenosis. MRI of the brain on 06/20/19, impression: Multifocal elevated T2/FLAIR signal in the periventricular and subcortical white matter consistent with demyelinating given history of multiple sclerosis. There is left frontal periventricular lesion that is not clearly seen on the previous examination concerning for progression of disease. HISTORY OF PRESENT ILLNESS/HOSPITAL COURSE: Malachi Bolton is a 73-year-old male with past medical history significant for neurogenic bladder, multiple sclerosis, depression and anxiety, who presented to emergency department via EMS as a transfer from [facility] on 06/15/19. The patient was initially admitted to [facility] on 06/11/19 due to being found on the floor at home. During his hospital stay at [facility], he was found to be unresponsive and there was a concern for ongoing seizure activity and postictal state and the patient was then transferred to [facility]. During his hospitalization at [facility], he had no further unresponsive episodes. He had an EEG on 06/15/19, which did not correlate with any EEG abnormalities. He was seen in consultation with Dr. Srinivasan, who is also the patient's outpatient neurologist, who also reviewed this EEG. It was believed that the cause of the patient's fall is due to left lower extremity weakness which was persistent throughout his hospital stay, ultimately initiating consultation with neurosurgeon, Dr. Wild. Multiple studies of the spine were needed due to motion, but ultimately the patient was found to have lumbar stenosis and the patient underwent surgery as described on the date above. Dr. Srinivasan reviewed the patient's MRI and did not believe that there was concern for new MS lesion. After the patient's neurosurgical intervention, his left lower extremity weakness did improve and he participated well with physical therapy. Ultimately, he was found to be safe for transfer to [facility] for further rehab. He had good pain control with just Tylenol. Additionally, throughout the patient's hospital stay, he had persistent hallucinations. The patient and his family tells us that he had hallucinations leading up to this hospital stay at home. The patient was previously on Risperdal which was stopped when he came to the hospital due to concern for unresponsive episode. Dr. Quinn saw this patient and believed that his possible hallucinations were further worsening due to sudden cessation of Risperdal, and he restarted the Risperdal. On day of discharge, he is without hallucinations for total of 4 days. Previously, he was on Seroquel which was not helping to suppress his hallucinations. There was also concern that possibly his amantadine was causing his hallucinations, this was also stopped. Additionally, his home wellbutrin was stopped upon arrival to this facility due to concern for lowering seizure threshold. He was initially admitted for UTI which he underwent treatment for and he had no leukocytosis or fevers during his hospital stay. He was initially receiving ciprofloxacin at [facility] which was discontinued at his arrival here with concern for contribution to his hallucinations. He did receive 3 doses of ceftriaxone and his urinalysis was negative on 06/18/19. For the patient's neurogenic bladder, he received 4 times daily straight catheterizations and for his MS, as previously mentioned, his amantadine was discontinued, his baclofen was decreased and his Tecfidera was continued. Regarding the patient's home hydrochlorothiazide, this was stopped during his hospital stay and his blood pressure was normotensive. PHYSICAL EXAM: General: Elderly white male lying in hospital bed, appearing comfortable in no acute distress. Eyes: PERRL. Sclerae anicteric. ENT: Mucous membranes moist. Lungs: Clear to auscultation. Cardio: Regular rate and rhythm without murmurs, rubs, or gallops. Abdomen: Soft, nontender, nondistended. Extremities: No clubbing or cyanosis. Trace pedal edema bilaterally. Neuro: The patient is able to wiggle his toes bilaterally. Strength is diminished on the left lower extremity, approximately 2/5 strength, able to move all extremities otherwise. The patient is alert and oriented x3. Psych: Not responding to internal stimuli. DISCHARGE PLAN: Diet: The patient may have a regular unrestricted diet. Activity: The patient may return to normal activities as tolerated and directed by physical therapy at the [facility]. The patient will be proceeding with therapy as inpatient rehab at [facility] at [facility]. He should return to emergency department if he is experiencing fever, chills, difficulty breathing, loss of bowel or bladder control, paraesthesias, or anesthesias. The patient should follow up with Dr. Wild as well as his outpatient neurologist, Dr. Srinivasan. DISCHARGE MEDICATIONS: Continued Home Medications: 1. Vitamin E cap 400 units p.o. daily. 2. Tamsulosin 0.4 mg p.o. daily. 3. Cyanocobalamin 2500 mcg p.o. daily. 4. Vitamin D 1000 units p.o. daily. 5. Tecfidera 240 mg p.o. b.i.d. New Medications: 1. Risperdal 0.75 mg p.o. b.i.d.(previous home dose was 0.25 mg p.o. b.i.d.) 2. Senna 1 tab p.o. at bedtime p.r.n. constipation. 3. Nystatin 1 application topically t.i.d. 4. Milk of magnesia 30 mL p.o. b.i.d. p.r.n. constipation. 5. Ibuprofen 600 mg p.o. q.8 hours p.r.n. mild pain. 6. Tylenol 650 mg p.o. q.6 hours p.r.n. mild pain. 7. Baclofen 10 mg p.o. t.i.d. (previously home dose was 20 mg p.o. t.i.d.) 8. Fluoxetine 40 mg p.o. daily (previous home dose was 60 mg p.o. daily). CONDITION ON DISCHARGE: Stable. DISPOSITION: PMRU at [facility]. TIME SPENT: Approximately 35 minutes was spent on this discharge, approximately half of this time spent at bedside evaluating the patient and discussing the plan of discharge. JAME DECKER [id number]/[facility] #: [id number] MTDD
--- NOTE | 2019-07-22 23:42 | DS ---
CC: Dr. Lund in [place] * DISCHARGE SUMMARY: DATE OF ADMISSION: 06/28/19 DATE OF DISCHARGE: 07/22/19 DISCHARGE DIAGNOSES: 1. Multiple sclerosis. 2. Spinal stenosis. 3. Depression. 4. Anxiety. 5. Neurogenic bladder. 6. L2 to L5 decompressive laminectomies for lumbar spinal stenosis. HISTORY OF ILLNESS AND HOSPITAL COURSE: For complete history of the events leading up to his rehab stay, please see the history and physical dictated by me on 06/28/19. While on the rehab unit, the patient remained fairly stable from a medical point of view. He had no hallucinations. His risperidone dose was slowly tapered while on the rehab unit. The patient did develop a urinary tract infection while on the rehab unit. He grew out citrobacter and was treated with a 6-day course of Bactrim for this. He was sent home on a daily dose of nitrofurantoin to prevent urinary tract infections in the future. The patient was seen by Physical Therapy and Occupational Therapy and made very good gains with both disciplines. With physical therapy at the time of admission , the patient required max assist to do a transfer. He was unable to ambulate. The patient was max assist for bed mobility. With occupational therapy at the time of admission, the patient was max assist for lower body dressing, max assist for bathing, dependent for toileting, dependent for catheterization. By the time of discharge, the patient was independent with bed mobility, independent in transfers, independent ambulating 150 feet supervision for going up and down 5 steps with 2 rails. He was independent in dressing upper body and lower body, independent in getting his brace on and off, independent in toileting and toilet transfers and independent with bathing. The patient was discharged home on 07/22/19. CONDITION AT DISCHARGE: Stable. DISPOSITION: To home. DISCHARGE DIET: Regular. DISCHARGE MEDICATIONS: 1. Vitamin C 500 mg daily. 2. Macrodantin 50 mg daily. 3. Baclofen 10 mg 3 times a day. 4. Vitamin D 1000 units daily. 5. Vitamin B12 2500 units daily. 6. Voltaren gel topically to both hand 3 times a day as needed. 7. Tecfidera 240 mg twice daily. 8. Prozac 40 mg daily. 9. Motrin 400 mg every 6 hours as needed. 10. Claritin D 10 mg at bedtime. 11. Flomax 0.4 mg at bedtime. SERVICES AFTER DISCHARGE: Through [facility], he will have home physical therapy and a home health aide. Followup will Dr. Lund, his primary care doctor. He will follow up with Dr. Cam Srinivasan, his neurologist, and Dr. Wild who did his back surgery. [id number]/[facility] #: [id number] LISA
== END 2019-06-28 11:25 | DRG 41 ==
LOC: ICU 14:30 → MEDTELE 06-16 11:28 → ICU 06-23 12:28 → SSU 06-24 08:56
PROVIDERS: ADMIT Hospitalist; ATTEND Internal Medicine
PROC: 4A00X4Z Measurement of Central Nervous Electrical Activity, External Approach (ICD-10-PCS; 2019-06-15)
PROC: 01NB0ZZ Release Lumbar Nerve, Open Approach (ICD-10-PCS; principal; 2019-06-23 07:30)
DX: G93.40 Encephalopathy, unspecified (principal); N39.0 Urinary tract infection, site not specified; M47.816 Spondylosis without myelopathy or radiculopathy, lumbar region; R44.1 Visual hallucinations; G35 Multiple sclerosis; F32.9 Major depressive disorder, single episode, unspecified; F41.9 Anxiety disorder, unspecified; N31.9 Neuromuscular dysfunction of bladder, unspecified; M21.372 Foot drop, left foot; R25.8 Other abnormal involuntary movements; Z96.651 Presence of right artificial knee joint; M43.16 Spondylolisthesis, lumbar region; M48.061 Spinal stenosis, lumbar region without neurogenic claudication; N40.1 Benign prostatic hyperplasia with lower urinary tract symptoms; R05 Cough; R33.8 Other retention of urine; R32 Unspecified urinary incontinence; E66.9 Obesity, unspecified; K59.00 Constipation, unspecified; R51 Headache; Z83.3 Family history of diabetes mellitus; Z82.49 Family history of ischemic heart disease and other diseases of the circulatory system; Z87.891 Personal history of nicotine dependence; Z72.89 Other problems related to lifestyle; Z68.32 Body mass index [BMI] 32.0-32.9, adult
CPT/HCPCS: 36415; 70551; 70553; 72141; 72146; 72148; 72156; 72157; 76000; 80048; 81003; 82140; 82565; 82607; 84443; 85014; 85018; 85025; 85610; 85730; 86850; 86900; 86901; 87641; 93005; 95816; A9270-GY; A9579; G8978-GP-CL; G8978-GP-CM; G8979-GP-CI; G8979-GP-CJ; G8987-GO-CL; G8988-GO-CI; J0690; J0696; J1100; J1170; J1630; J1644; J2060; J2250; J2405; J2704; J3010; J3411

== ENCOUNTER 2019-06-28 10:43 | Inpatient (IN) | payer MEDICARE, BC ==
[2019-06-28] MEDS ORDERED: Magnesium Hydroxide LIQ* 30 ML UDC PO PRN (11:46)
[2019-06-28] MEDS: Heparin VIAL(*) 5000 UNITS/ML VIAL (FIVE THOUSAND) SUBCUT SCH ×2 (16:14→21:28)
[2019-06-28] MEDS: Baclofen TAB* 10 MG PO SCH ×2 (16:14→21:27)
--- NOTE | 2019-06-28 16:33 | PN ---
Progress Note - Progress Note Date of Service: 06/28/19 Note: Patient is doing well, he was discharged to [facility] yesterday. He has been working on transferring with PT/OT. He reports that his back pain has improved, but his left leg motor strength has been unchanged since surgery. Overall patient is recovering well has no complaints at this time.
--- NOTE | 2019-06-28 20:49 | HP ---
ADMISSION HISTORY AND PHYSICAL: DATE OF ADMISSION: 06/28/19 REASON FOR ADMISSION: Multiple sclerosis; status post decompressive laminectomies L2 through L5. HISTORY OF PRESENT ILLNESS: Malachi Bolton is a 73-year-old male. He has had relapsing-remitting multiple sclerosis for at least the past 20 years. He is followed by Dr. Srinivasan and normally takes Tecfidera for this. He has had difficulty with left leg weakness for some time and has a brace for his left leg , a left knee-ankle foot orthosis. He was complaining of more left lower extremity weakness over the summer and had fallen. He did have an MRI of his cervical spine with and without contrast in March 2019 as well as an MRI of the brain showing multiple white matter lesions consistent with demyelinating plaques, but no significant change from September 2017. The patient has had trouble with urinary tract infections over the summer as well as hallucinations. He was hospitalized in [facility] over the summer for urinary tract infection as well as hallucinations and has been using risperidone. On 06/10/19, he had increased confusion, falls, hallucinations, and irritability. On Thursday, the patient was brought to the emergency room at [facility] and he was admitted for urinary tract infection and started on ciprofloxacin. His mentation unfortunately got worse. He became unresponsive on 06/15/19. He had a new MRI of his lumbar spine. He was given Ativan 2 mg for probable seizures. He was transferred to [facility] for further evaluation. He was evaluated by Dr. Sexton from Neurology. It was felt that possibly some of this was medication related. The patient had a new EEG study done. The patient had a new MRI of his low back and pretty severe lumbar stenosis was seen. He was noted to have a left footdrop. In the meantime, the patient was still having hallucinations and he saw Dr. Quinn. He had been taken off his risperidone and put on Seroquel, but Dr. Quinn recommended putting him back on risperidone. He was started at 0.25 mg twice a day and slowly increased to 0.75 mg twice daily. His baclofen was cut back from 20 mg 3 times a day to 10 mg 3 times a day. In addition, his ciprofloxacin was stopped as it was felt that that might be contributing to his hallucinations. The patient was seen by Dr. Wild, who advised for him to have decompressive laminectomies. He was taken to the operating room on and underwent decompressive laminectomies from L2 through L5. The patient's strength in his left leg did not improve initially. He was on intermittent catheterization prior to surgery and his Song was removed and this was resumed. The patient was started on heparin for DVT prophylaxis. He was felt to have physical therapy and occupational therapy needs. He is now being admitted for inpatient rehab so that he might return to independent living. PAST MEDICAL HISTORY: Significant for the aforementioned multiple sclerosis as well as spinal stenosis. He has a history of hallucinations over the summer which were felt to be due to his multiple sclerosis. He has a history of depression and anxiety. CURRENT MEDICATIONS: Include: 1. Prozac. 2. He is on baclofen 10 mg 3 times a day. 3. Tecfidera. 4. Risperidone. 5. Flomax. ALLERGIES: The patient has no known drug allergies. SOCIAL HISTORY: He is a nonsmoker, nondrinker. He lives alone with a few steps to enter. Apparently, he was walking with a left KAFO as well as a four- wheeled walker. REVIEW OF SYSTEMS: The patient reports no current shortness of breath or chest pain. PHYSICAL EXAMINATION VITAL SIGNS: The patient's temperature is 98.2, blood pressure is 135/50, pulse 86, respirations 20. HEENT: His extraocular movements were intact. Tongue is midline. NECK: Supple. LUNGS: Sound clear to auscultation bilaterally. HEART: Sounds are regular, S1 and S2 are audible. ABDOMEN: Soft and nontender. EXTREMITIES: His left lower extremity has decreased tone. He may have slightly increased tone in his right lower extremity. NEUROLOGIC: Sensation appears to be slightly diminished in his legs, particularly the left lower extremity. Muscle strength in his upper extremities appears to be close to 5/5, right lower extremity is about 4 to 4+/ 5. Left lower extremity, he has about 2/5 hip flexion, 2/5 quadriceps. Dorsiflexion seems to me trace to 1/5, plantar flexion perhaps 2/5. FUNCTIONAL EXAM: His transfers are dependent at this time. ASSESSMENT: 1. Multiple sclerosis. 2. Left leg weakness with left footdrop, status post decompressive laminectomies from L2 through L5. PLAN: Integrate him into a comprehensive and therapeutic rehab program with the following goals: 1. Physical Therapy will see the patient. They are going to work on functional transfer training, ambulation training with a walker. 2. Occupational Therapy will see the patient, work on his activities of daily living including toileting and toilet transfers. 3. Heparin for DVT prophylaxis. 4. We are going to have Speech Therapy evaluate him and evaluate his cognition. 5. For his multiple sclerosis, we will continue his Tecfidera as well as his baclofen. 6. For his hallucinations, we will continue risperidone. Psychiatry followup is needed. 7. For depression, we will continue Prozac. 8. business services specialist sales will be closely involved to make sure that any services and equipment that the patient requires are in place to prior to discharge. 9. Family training as appropriate. 10. Home with appropriate services. ESTIMATED LENGTH OF STAY: 12 to 14 days. [id number]/[facility] #: [id number] LISA
[2019-06-28] MEDS: PTO:Dimethyl Fumarate(NF) 240 MG CAP PO SCH (21:18)
[2019-06-28] MEDS: Nystatin TOP POWDER* 15 GM BTL TOPICAL SCH (21:26)
[2019-06-28] MEDS: Tamsulosin CAP* 0.4 MG PO SCH (21:27)
[2019-06-28] MEDS: Senna TAB 8.6 mg* TAB PO SCH (21:27)
[2019-06-28] MEDS: Docusate CAP* 100 MG PO SCH (21:27)
[2019-06-29] MEDS: Acetaminophen TAB* 325 MG PO PRN ×3 (00:15→17:50)
[2019-06-29 04:39] LABS: ABS Basophils 0.1 10^3/ul (0-0.2); ABS Eosinophils 0.7 10^3/ul (0-0.6); ABS Lymphocytes 1.1 10^3/ul (1.0-4.8); ABS Monocytes 0.8 10^3/ul (0-0.8); ABS Neutrophils 5.8 10^3/ul (1.5-7.7); Eosinophil % 8.2 %; Hematocrit 30 % (42-52); Hemoglobin 10.2 g/dL (14.0-18.0); Lymphocyte % 12.5 %; Mean Corpuscular HGB Conc 34 g/dL (31-36); Mean Corpuscular Hemoglobin 32 pg (27-31); Mean Corpuscular Volume 95 fL (80-94); Platelet Count 371 10^3/uL (150-450); Red Blood Count 3.15 10^6 /uL (4.18-5.48); Red Cell Distribution Width 14 % (10-15); White Blood Count 8.5 10^3/uL (3.5-10.8)
[2019-06-29 05:10] LABS: BUN/Creatinine Ratio 27.5 (8-20); Calcium 8.7 mg/dL (8.6-10.3); EGFR Non-African American 112.4 (>60); Globulin 3.1 g/dL (2-4); Potassium 3.8 mmol/L (3.5-5.0); Total Bilirubin 0.3 mg/dL (0.2-1.0); Total Protein 6.1 g/dL (6.4-8.9)
[2019-06-29] MEDS: Heparin VIAL(*) 5000 UNITS/ML VIAL (FIVE THOUSAND) SUBCUT SCH ×3 (05:59→22:23)
[2019-06-29] MEDS: Cyanocobalamin TAB* 500 MCG PO SCH (10:20)
[2019-06-29] MEDS: Cholecalciferol TAB* 1000 UNITS PO SCH (10:20)
[2019-06-29] MEDS: Nystatin TOP POWDER* 15 GM BTL TOPICAL SCH ×2 (10:20→22:27)
[2019-06-29] MEDS: Baclofen TAB* 10 MG PO SCH ×3 (10:20→22:18)
[2019-06-29] MEDS: FLUoxetine CAP* 20 MG PO SCH (10:20)
[2019-06-29] MEDS: PTO:Dimethyl Fumarate(NF) 240 MG CAP PO SCH ×2 (10:20→22:20)
[2019-06-29] MEDS: Docusate CAP* 100 MG PO SCH ×2 (10:20→22:17)
[2019-06-29] MEDS: Vitamin E CAP* 400 UNIT PO SCH (10:21)
--- NOTE | 2019-06-29 20:11 | PN ---
Progress Note Date of Service: 06/29/19 Note: RODO VALENTINE was visited. Therapy notes read and reviewed. Patient was able to stand with max assist, unable to progress left leg at this time. In good spirits. Current Medications: Active Medications Generic Name Dose Route Start Last Admin Trade Name Freq PRN Reason Stop Dose Admin Acetaminophen 650 mg 06/28/19 11:46 06/29/19 17:50 Tylenol Tab* PO 650 mg Q6H PRN Administration MILD PAIN or TEMP > 100.4 Baclofen 10 mg 06/28/19 14:00 06/29/19 14:56 Lioresal Tab* PO 10 mg TID EWELINA Administration Cholecalciferol 1,000 units 06/29/19 09:00 06/29/19 10:20 Vitamin D Tab* PO 1,000 units DAILY EWELINA Administration Cyanocobalamin 2,500 mcg 06/29/19 09:00 06/29/19 10:20 Vitamin B12 Tab* PO 2,500 mcg DAILY EWELINA Administration Dimethyl Fumarate 240 mg 06/28/19 21:00 06/29/19 10:20 Tecfidera(Nf) PO 240 mg BID EWELINA Administration Docusate Sodium 100 mg 06/28/19 21:00 06/29/19 10:20 Colace Cap* PO 100 mg BID EWELINA Administration Fluoxetine HCl 40 mg 06/29/19 09:00 06/29/19 10:20 Prozac Cap* PO 40 mg DAILY EWELINA Administration Heparin Sodium (Porcine) 5,000 units 06/28/19 14:00 06/29/19 14:56 Heparin Vial(*) SUBCUT 5,000 units Q8HR EWELINA Administration Magnesium Hydroxide 30 ml 06/28/19 11:46 Milk Of Magnesia Liq* PO Q6H PRN CONSTIPATION Non-Formulary Medication 10 mg 06/29/19 21:00 Claritin D PO BEDTIME EWELINA Nystatin 1 applic 06/28/19 21:00 06/29/19 10:20 Nystatin Top Powder* TOPICAL 1 applic BID EWELINA Administration Risperidone 0.75 mg 06/28/19 21:00 06/29/19 10:21 Risperdal PO 0.75 mg BID EWELINA Administration Senna 2 tab 06/28/19 21:00 06/28/19 21:27 Senokot 8.6 Mg Tab* PO 2 tab BEDTIME EWELINA Administration Tamsulosin HCl 0.4 mg 06/28/19 21:00 06/28/19 21:27 Flomax Cap* PO 0.4 mg BEDTIME EWELINA Administration Vitamin E 400 unit 06/29/19 09:00 06/29/19 10:21 Vitamin E Cap* PO 400 unit DAILY EWELINA Administration Vital Signs: Vital Signs Temp Pulse Resp BP Pulse Ox 98.2 F 88 18 149/62 97 06/29/19 16:00 06/29/19 16:00 06/29/19 18:57 06/29/19 16:00 06/29/19 18:57 Lab Results: Laboratory Results - last 24 hr 06/29/19 06/29/19 04:26 04:26 WBC 8.5 RBC 3.15 L Hgb 10.2 L Hct 30 L MCV 95 H MCH 32 H MCHC 34 RDW 14 Plt Count 371 MPV 8.0 Neut % (Auto) 68.7 Lymph % (Auto) 12.5 [place] % (Auto) 9.4 Eos % (Auto) 8.2 Baso % (Auto) 1.2 Absolute Neuts (auto) 5.8 Absolute Lymphs (auto) 1.1 Absolute Monos (auto) 0.8 Absolute Eos (auto) 0.7 H Absolute Basos (auto) 0.1 Absolute Nucleated RBC 0.0 Nucleated RBC % 0.0 Sodium 140 Potassium 3.8 Chloride 106 Carbon Dioxide 28 Anion Gap 6 BUN 19 Creatinine 0.69 Est GFR ( Amer) 136.0 Est GFR (Non-Af Amer) 112.4 BUN/Creatinine Ratio 27.5 H Glucose 132 H Calcium 8.7 Total Bilirubin 0.30 AST 37 ALT 87 H Alkaline Phosphatase 116 H Total Protein 6.1 L Albumin 3.0 L Globulin 3.1 Albumin/Globulin Ratio 1.0 Exam: GENERAL: In no distress LUNGS: Clear HEART: regular rhythm ABDOMEN: Soft, +BS EXTREMITIES: LLE has decreased tone NEUROLOGIC: alert, oriented. LLE 2/5 strength, DF trace, PF trace. RLE 4/5. Sensation intact Assessment/Plan: 1. Multiple Sclerosis: PT/OT. Tecfidera. Baclofen 2. Decompressive laminectomies, L2-L5: PT/OT. Left leg remains weak 3. Depression: Prozac 4. Hallucinations: none at present. Risperadal 0.75 mg BID 5. DVT Prophylaxis: Heparin S/Q 6. Advance Directives: DNR 06/29/19 20:13 06/29/19 20:14 06/29/19 20:16
[2019-06-29] MEDS: Tamsulosin CAP* 0.4 MG PO SCH (22:18)
[2019-06-29] MEDS: Senna TAB 8.6 mg* TAB PO SCH (22:18)
[2019-06-29] MEDS: [UNRECOGNIZED DRUG - OTHER] PO SCH (22:19)
[2019-06-30] MEDS: Heparin VIAL(*) 5000 UNITS/ML VIAL (FIVE THOUSAND) SUBCUT SCH ×3 (05:59→21:17)
[2019-06-30] MEDS: Vitamin E CAP* 400 UNIT PO SCH (10:32)
[2019-06-30] MEDS: Cyanocobalamin TAB* 500 MCG PO SCH (10:33)
[2019-06-30] MEDS: Baclofen TAB* 10 MG PO SCH ×3 (10:34→19:36)
[2019-06-30] MEDS: FLUoxetine CAP* 20 MG PO SCH (10:34)
[2019-06-30] MEDS: Nystatin TOP POWDER* 15 GM BTL TOPICAL SCH ×2 (10:34→19:33)
[2019-06-30] MEDS: Docusate CAP* 100 MG PO SCH ×2 (10:34→19:36)
[2019-06-30] MEDS: PTO:Dimethyl Fumarate(NF) 240 MG CAP PO SCH ×2 (10:34→19:33)
[2019-06-30] MEDS: Cholecalciferol TAB* 1000 UNITS PO SCH (10:34)
[2019-06-30] MEDS: Acetaminophen TAB* 325 MG PO PRN (16:44)
--- NOTE | 2019-06-30 17:35 | PN ---
Progress Note Date of Service: 06/30/19 Note: RODO VALENTINE was visited. Therapy notes read and reviewed. Working hard but requires substantial help to get up from sitting. Pain is ok, no hallucinations reported Current Medications: Active Medications Generic Name Dose Route Start Last Admin Trade Name Freq PRN Reason Stop Dose Admin Acetaminophen 650 mg 06/28/19 11:46 06/30/19 16:44 Tylenol Tab* PO 650 mg Q6H PRN Administration MILD PAIN or TEMP > 100.4 Baclofen 10 mg 06/28/19 14:00 06/30/19 13:51 Lioresal Tab* PO 10 mg TID EWELINA Administration Cholecalciferol 1,000 units 06/29/19 09:00 06/30/19 10:34 Vitamin D Tab* PO 1,000 units DAILY EWELINA Administration Cyanocobalamin 2,500 mcg 06/29/19 09:00 06/30/19 10:33 Vitamin B12 Tab* PO 2,500 mcg DAILY EWELINA Administration Dimethyl Fumarate 240 mg 06/28/19 21:00 06/30/19 10:34 Tecfidera(Nf) PO 240 mg BID EWELINA Administration Docusate Sodium 100 mg 06/28/19 21:00 06/30/19 10:34 Colace Cap* PO 100 mg BID EWELINA Administration Fluoxetine HCl 40 mg 06/29/19 09:00 06/30/19 10:34 Prozac Cap* PO 40 mg DAILY EWELINA Administration Heparin Sodium (Porcine) 5,000 units 06/28/19 14:00 06/30/19 13:52 Heparin Vial(*) SUBCUT 5,000 units Q8HR EWELINA Administration Magnesium Hydroxide 30 ml 06/28/19 11:46 Milk Of Magnesia Liq* PO Q6H PRN CONSTIPATION Pto:Nft* (Claritin-D 10 mg 06/29/19 21:00 06/29/19 22:19 24 Hour Tablet) PO 10 mg BEDTIME EWELINA Administration Nystatin 1 applic 06/28/19 21:00 06/30/19 10:34 Nystatin Top Powder* TOPICAL 1 applic BID EWELINA Administration Risperidone 0.75 mg 06/28/19 21:00 06/30/19 10:32 Risperdal PO 0.75 mg BID EWELINA Administration Senna 2 tab 06/28/19 21:00 06/29/19 22:18 Senokot 8.6 Mg Tab* PO 2 tab BEDTIME EWELINA Administration Tamsulosin HCl 0.4 mg 06/28/19 21:00 06/29/19 22:18 Flomax Cap* PO 0.4 mg BEDTIME EWELINA Administration Vitamin E 400 unit 06/29/19 09:00 06/30/19 10:32 Vitamin E Cap* PO 400 unit DAILY EWELINA Administration Vital Signs: Vital Signs Temp Pulse Resp BP Pulse Ox 100.1 F 92 18 128/58 97 06/30/19 16:20 06/30/19 16:20 06/30/19 16:20 06/30/19 16:20 06/30/19 16:20 Exam: GENERAL: In no distress LUNGS: Clear HEART: regular rhythm ABDOMEN: Soft, +BS EXTREMITIES: LLE has decreased tone NEUROLOGIC: alert, oriented. LLE 2/5 strength, DF trace, PF trace. RLE 4/5. Sensation intact Assessment/Plan: 1. Multiple Sclerosis: PT/OT. Tecfidera. Baclofen 2. Decompressive laminectomies, L2-L5: PT/OT. Left leg remains weak 3. Depression: Prozac 4. Hallucinations: none at present. Risperadal 0.75 mg BID 5. DVT Prophylaxis: Heparin S/Q 6. Advance Directives: DNR 06/30/19 17:36
[2019-06-30] MEDS: Tamsulosin CAP* 0.4 MG PO SCH (19:34)
[2019-06-30] MEDS: [UNRECOGNIZED DRUG - OTHER] PO SCH (19:36)
[2019-06-30] MEDS: Senna TAB 8.6 mg* TAB PO SCH (19:36)
[2019-07-01] MEDS: Acetaminophen TAB* 325 MG PO PRN ×2 (04:24→10:25)
[2019-07-01] MEDS: Heparin VIAL(*) 5000 UNITS/ML VIAL (FIVE THOUSAND) SUBCUT SCH ×3 (04:25→22:33)
[2019-07-01] MEDS: Cyanocobalamin TAB* 500 MCG PO SCH (10:25)
[2019-07-01] MEDS: Cholecalciferol TAB* 1000 UNITS PO SCH (10:26)
[2019-07-01] MEDS: FLUoxetine CAP* 20 MG PO SCH (10:26)
[2019-07-01] MEDS: Docusate CAP* 100 MG PO SCH ×2 (10:26→20:20)
[2019-07-01] MEDS: PTO:Dimethyl Fumarate(NF) 240 MG CAP PO SCH ×2 (10:27→20:19)
[2019-07-01] MEDS: Baclofen TAB* 10 MG PO SCH ×3 (10:27→20:18)
[2019-07-01] MEDS: Vitamin E CAP* 400 UNIT PO SCH (10:27)
--- NOTE | 2019-07-01 12:43 | PMRUTEAM ---
PMRU: Team Meeting Current Status: Physical Therapy: Current Status Current Rolling Status Substantial/Maximal Current Supine <-> Sit Status Substantial/Maximal Current Sit <-> Stand Status Partial/Moderate Current Bed <-> Chair Status Dependent Transfer/Bed Mobility EZ Stand Recommended Devices Current Car Transfer Status Not attempted Current Ambulation Assistance Dependent Status Current Ambulation Distance 10 Manual Wheelchair Control/ Bilateral UE's Technique Current Wheelchair Propulsion Supervision/Touching Ability Status Wheelchair Distance (ft) 120 Current Stair Climbing Status Not attempted Objective Comments pt able to don/doff leg rests and brakes of w/c with verbal cues. Occupational Therapy: Current Status Current Upper Body Dressing Partial/Moderate Status Current Lower Body Dressing Dependent Status Current Footwear Status Substantial/Maximal Current Bathing Status Dependent Current Grooming Status Setup or Clean-up Assist Current Toileting Status Dependent Current Toilet Transfer Status Dependent Current Eating Status Setup or Clean-up Assist Nursing: Current Status Skin Deviations [Abrasions to Abrasion R knee, L elbow] Skin Deviations [multiple toes Abrasion ] Skin Deviations [Bilateral Rash Groin] Skin Deviations [Midline Back] Incision Skin Deviation Description [ healing Abrasions to R knee, L elbow] Skin Deviation Description [ healing multiple toes] Skin Deviation Description [ nystatin Bilateral Groin] Skin Deviation Description [ drsg in place Midline Back] Rec Therapy: Current Status Summary of Assessment and Pt. was open to conversation - engaged and social Clinical Impression throughout with a sense of humor. Pt. identified with interests and active involvement in most of them prior to admission. Pt. states he has some leisure material in his room. Pt. was open to continued leisure visits and pet therapy while on the unit. Treatment Goals Pt. will engage in leisure activities while on the unit. Treatment Plan Provide recreation therapy services and encourage involvement. Goals: Physical Therapy: Goals Goals to Be Accomplished in ( 21 Days) Goal: Rolling Assistance Independent Goal Supine <-> Sit Status Independent Goal Sit <-> Stand Status Independent Goal Bed <-> Chair Status Independent Transfer/Bed Mobility EZ Stand Recommended Devices Goal: Picking Up Object Independent Goal: Car Transfer Status Setup or Clean-up Assist Goal: Ambulation Assistance Independent Ambulation Assistive Devices Railings Ambulation Distance (ft) 150 Goal: Wheelchair Propulsion Independent Ability Wheelchair Distance (ft) 150 Goal: Stairs Assistance Independent Stairs Recommended Devices Two Rails Number of Stairs 4 Goal: Curb Assistance Independent Occupational Therapy: Goals Goals to be Completed in (Days 21 ) Goal Upper Body Dressing Independent Routine Goal Lower Body Dressing Independent Routine Goal Footwear Status Independent Goal Bathing Routine (OT) Independent Goal Grooming Routine Independent Goal Toilet Hygiene and Independent Clothing Management Routine Goal Toilet Transfer Routine Independent Goal Functional Transfers for Independent ADL Goal Feeding Routine Independent Goal Light Housekeeping Tasks Partial/Moderate Care Plan: Care Plan ADL's - Improve/Maintain Start: 06/28/19 13:51 Freq: [id number] Status: Active Target: 06/29/19 Protocol: Activity Type Activity Date Activity User E-Sign Co-Sign Detail Recorded Client Recorded Date Recorded By Document 06/30/19 16:44 [id number] [id number] 06/30/19 16:44 [id number] 06/30/19 16:44 PMRU Outcome: ADL's/ADL Transfers Orders/Interventions Occupational Therapy Evaluation & Treatment Communication Tool in Patient Room Device Yes Address Deficits Secondary To: L2-5 decompression/ lami and MS exacerbation Patient to receive OT 5x/wk for 60-120 Therex min/day Self Care Management Group Therapy Neuromuscular ReEducation UE/LE ADL's with Assist Yes: independent ADL Transfers with Assist Yes: independent Toileting: Transfers,Clothing Management Yes: ,Hygeine w/Assist independent Light Kitchen/Laundry w/Assist Yes: Dimitrios Other Outcome/Goals Pt participated well in treatment session, able to don knee brace and KAFO for first time since surgery for use in later PT session, but required increased assist and time to complete. Progression Toward Outcome/Goals Progressing Coping/Psych-Improve/Maintain Start: 06/28/19 12:56 Freq: DAILY@ Status: Active Target: 07/12/19 Protocol: Activity Type Activity Date Activity User E-Sign Co-Sign Detail Recorded Client Recorded Date Recorded By Document 07/01/19 03:33 [id number] [email or web address] 07/01/19 03:34 [id number] 07/01/19 03:33 PMRU Outcome: Coping/Psychosocial Current Coping Outcome/Goals Verbalization of Acceptance of Rehab Admit Verbalization of Sense of Control Over Health Status Utilization of Appropriate Problem Solving Techniques Willingness to Participate in Treatment Plan and Basic Needs Progression Toward Outcome/Goals Progressing Current Psychosocial Outcome/Goals Maintain/ Improve Emotional Health Demonstrates Knowledge of Healthy Coping Mechanisms Available Cooperate/ Participate in Plan Progression Toward Outcome/Goals Progressing DVT Prophylaxis- Improve/Maintain Start: 06/28/19 12:56 Freq: [id number] Status: Active Target: 07/12/19 Protocol: Activity Type Activity Date Activity User E-Sign Co-Sign Detail Recorded Client Recorded Date Recorded By Document 07/01/19 03:33 [id number] [id number] 07/01/19 03:34 [id number] 07/01/19 03:33 PMRU Outcome: DVT Prophylaxis Current DVT Outcome/Goals Remains Free of DVT Complies with DVT Prophylaxis /Treatment Demonstrates Knowledge of DVT Prevention/ Treatment TEDS Stockings on Every AM, Off at HS Progression Toward Outcome/Goals Progressing Discharge Planning - Improve/Maintain Start: 06/28/19 12:56 Freq: DAILY@ Status: Active Target: 07/12/19 Protocol: Activity Type Activity Date Activity User E-Sign Co-Sign Detail Recorded Client Recorded Date Recorded By Document 07/01/19 03:33 [id number] [email or web address] 07/01/19 03:34 [id number] 07/01/19 03:33 PMRU Outcome: Discharge Planning Update Patient Family No Current Discharge Planning Outcome/Goals Demonstrates Understanding of Discharge Plan Progression Toward Outcome/Goals Progressing Education-Improve/Maintain Start: 06/28/19 12:56 Freq: DAILY@ Status: Active Target: 07/12/19 Protocol: Activity Type Activity Date Activity User E-Sign Co-Sign Detail Recorded Client Recorded Date Recorded By Document 07/01/19 03:33 [id number] [email or web address] 07/01/19 03:34 [id number] 07/01/19 03:33 PMRU Outcome: Education Current Education Outcome/Goals Demonstrate/ Verbalize Understanding of Written Discharge Instructions Demonstrates Skills Encourage Questions Progression Toward Outcome/Goals Progressing /GI-Improve/Maintain Start: 06/28/19 12:56 Freq: [id number] Status: Active Target: 07/12/19 Protocol: Activity Type Activity Date Activity User E-Sign Co-Sign Detail Recorded Client Recorded Date Recorded By Document 07/01/19 03:33 [id number] 07/01/19 03:34 [id number] 07/01/19 03:33 PMRU Outcome: Genitourinary/ Gastrointestinal Current Gastrointestinal Outcome/Goals Maintain/ Achieve Bowel Regularity in Accordance with Pt's Baseline Remain Free of Emesis Prevent Constipation Bowel Regularity at Home Laxatives as Ordered Progression Toward Outcome/Goals Progressing Current Genitourinary Outcome/Goals Maintain/ Achieve Urinary Continence Maintain/ Achieve Adequate Urinary Output Remain Free of Hospital- Acquired UTI Progression Toward Outcome/Goals Progressing Outcome/Goals Met Comment straight cath q8 Medication Administration Start: 06/28/19 12:56 Freq: DAILY@0700,1900 Status: Active Target: 07/12/19 Protocol: Activity Type Activity Date Activity User E-Sign Co-Sign Detail Recorded Client Recorded Date Recorded By Document 07/01/19 03:33 [id number] [email or web address] 07/01/19 03:34 [id number] 07/01/19 03:33 PMRU Outcome: Medication Administration Assess Patient Knowledge/Teach Med Yes Education for all Meds Current [employer] Practitioner Outcome/Goals Patient Independent with Medication Administration at Home Family/ Caregiver Administer Medications at Home Demonstrates Understanding Progression Towards Outcome/Goals Progressing Is Patient Going Home on Lovenox? No Mobility- Improve/Maintain Start: 06/28/19 18:34 Freq: DAILY@[id number] Status: Active Target: 06/29/19 Protocol: Activity Type Activity Date Activity User E-Sign Co-Sign Detail Recorded Client Recorded Date Recorded By Document 06/30/19 16:32 [id number] [email or web address] 06/30/19 16:32 [id number] 06/30/19 16:32 PMRU Outcome: Mobility Physical Therapy Evaluation and Yes Treatment Activity OOB with Assistance Yes WBAT Yes Device Yes Assistance Yes Patient to be seen 5x/wk for 60-120 min/ Therex day for: Mobility Training Gait Training W/C Mobility Balance Current Mobility Outcome/Goals Maintain/ Achieve Baseline Mobility Status Improve Mobility Status Demonstrates Proper Use of Assistive Devices Free from Complications of Immobility Progression Toward Outcome/Goals Progressing Bed Mobility Yes: independent Transfers Yes: independent with rolling walker. Gait x ft Yes: independent with rolling walker 150' W/C Mobility x ft Yes: independent with BUE to 150 ' Up/Down Stairs Yes: independnet up/ down 5 stairs. Neurological- Improve/Maintain Start: 06/28/19 12:56 Freq: DAILY@0700,1900 Status: Active Target: 07/12/19 Protocol: Activity Type Activity Date Activity User E-Sign Co-Sign Detail Recorded Client Recorded Date Recorded By Document 07/01/19 03:33 [id number] [email or web address] 07/01/19 03:34 [id number] 07/01/19 03:33 PMRU Outcome: Neurological Weakness/Aphasia Weakness Weakness/Aphasia Comment s/p MS Current Neurological Outcome/Goals Maintain/ Achieve Baseline Neurological Status Improve Neurological Status Prevent Avoidable Neurological Decline Demonstrate Knowledge of Prevention/Tx of Neuro Disorders/ Complication Maintain/ Improve Strength/ROM Progression Toward Outcome/Goals Progressing Pain/Comfort- Improve/Maintain Start: 06/28/19 12:56 Freq: DAILY@0700,1900 Status: Active Target: 07/12/19 Protocol: Activity Type Activity Date Activity User E-Sign Co-Sign Detail Recorded Client Recorded Date Recorded By Document 07/01/19 03:33 [id number] 07/01/19 03:34 [id number] 07/01/19 03:33 PMRU Outcome: Pain/Comfort Current Pain/Comfort Outcome/Goals Demonstrates Knowledge and Use of Available Comfort Measures Achieves Acceptable Comfort/Pain Level as Determined by Patient/Condit Maintain Comfort Level Allowing Patient to Fully Participate in Rehab Progression Toward Outcome/Goals Progressing Outcome/Goals Met Comment pt resting Rec Therapy- Improve/Maintain Start: 06/28/19 16:28 Freq: DAILY@0700,1900 Status: Active Target: 07/05/19 Protocol: Activity Type Activity Date Activity User E-Sign Co-Sign Detail Recorded Client Recorded Date Recorded By Document 06/29/19 16:27 [id number] [email or web address] 06/29/19 16:28 [id number] 06/29/19 16:27 PMRU Outcome: Recreation Therapy Current Rec Ther Outcome/Goals Complete Rec Therapy Assessment Meet with Patient Regularly for Support Encourage Leisure Involvement Progression Toward Outcome/Goals Progressing Lack of Progression Comment pt. has been social and engaged in leisure visits, con't to provide RT services. Outcome/Goals Met Complete Rec Therapy Assessment Safety- Improve/Maintain Start: 06/28/19 11:29 Freq: DAILY@0700,1900 Status: Active Target: 07/12/19 Protocol: Activity Type Activity Date Activity User E-Sign Co-Sign Detail Recorded Client Recorded Date Recorded By Document 07/01/19 03:33 [id number] [email or web address] 07/01/19 03:34 [id number] 07/01/19 03:33 PMRU Outcome: Safety Current Safety Outcome/Goals Remain Free of Injury or Harm Cooperates with Safety Measures for Least Restrictive Environment Prevent Falls/ Injury Progression Toward Outcome/Goals Progressing Outcome/Goals Met Comment JIMI armed Skin- Improve/Maintain Start: 06/28/19 12:56 Freq: DAILY@0700,1900 Status: Active Target: 07/12/19 Protocol: Activity Type Activity Date Activity User E-Sign Co-Sign Detail Recorded Client Recorded Date Recorded By Document 07/01/19 03:33 [id number] 07/01/19 03:34 [id number] 07/01/19 03:33 PMRU Outcome: Skin Skin Risk Level Mild Risk Skin Orders Turn/Position q2hr While in Bed Current Skin Outcome/Goals Maintain/ Improve Skin Integrity Free from Pressure Injury Surgical Incisions Healing Progression Toward Outcome/Goals Progressing - Interdisciplinary Staff Present Viner Operator/Social Work Staff Present: Shereen Ospina IMPORT AND EXPORT CLERK Nursing Staff Present: Breanna Hall RN OT Staff Present: Chiquita Davis PT Staff Present: Deirdre Sosa Medicine Note: Length of Stay: 3 weeks Anticipated Discharge Destination: Tentative Discharge Date: 07/22/19 Discharged to: Home
[2019-07-01] MEDS: Nystatin TOP POWDER* 15 GM BTL TOPICAL SCH ×2 (12:51→20:20)
--- NOTE | 2019-07-01 19:54 | PN ---
Progress Note Date of Service: 07/01/19 Note: RODO VALENTINE was visited. Therapy notes read and reviewed. He was discussed in interdisciplinary plan of care rounds. He is quite weak in the left leg. Current Medications: Active Medications Generic Name Dose Route Start Last Admin Trade Name Freq PRN Reason Stop Dose Admin Acetaminophen 650 mg 06/28/19 11:46 07/01/19 10:25 Tylenol Tab* PO 650 mg Q6H PRN Administration MILD PAIN or TEMP > 100.4 Baclofen 10 mg 06/28/19 14:00 07/01/19 14:06 Lioresal Tab* PO 10 mg TID EWELINA Administration Cholecalciferol 1,000 units 06/29/19 09:00 07/01/19 10:26 Vitamin D Tab* PO 1,000 units DAILY EWELINA Administration Cyanocobalamin 2,500 mcg 06/29/19 09:00 07/01/19 10:25 Vitamin B12 Tab* PO 2,500 mcg DAILY EWELINA Administration Dimethyl Fumarate 240 mg 06/28/19 21:00 07/01/19 10:27 Tecfidera(Nf) PO 240 mg BID EWELINA Administration Docusate Sodium 100 mg 06/28/19 21:00 07/01/19 10:26 Colace Cap* PO 100 mg BID EWELINA Administration Fluoxetine HCl 40 mg 06/29/19 09:00 07/01/19 10:26 Prozac Cap* PO 40 mg DAILY EWELINA Administration Heparin Sodium (Porcine) 5,000 units 06/28/19 14:00 07/01/19 14:06 Heparin Vial(*) SUBCUT 5,000 units Q8HR EWELINA Administration Magnesium Hydroxide 30 ml 06/28/19 11:46 Milk Of Magnesia Liq* PO Q6H PRN CONSTIPATION Pto:Nft* (Claritin-D 10 mg 06/29/19 21:00 06/30/19 19:36 24 Hour Tablet) PO 10 mg BEDTIME EWELINA Administration Nystatin 1 applic 06/28/19 21:00 07/01/19 12:51 Nystatin Top Powder* TOPICAL 1 applic BID EWELINA Administration Risperidone 0.75 mg 06/28/19 21:00 07/01/19 10:27 Risperdal PO 0.75 mg BID EWELINA Administration Senna 2 tab 06/28/19 21:00 06/30/19 19:36 Senokot 8.6 Mg Tab* PO 2 tab BEDTIME EWELINA Administration Tamsulosin HCl 0.4 mg 06/28/19 21:00 06/30/19 19:34 Flomax Cap* PO 0.4 mg BEDTIME EWELINA Administration Vitamin E 400 unit 06/29/19 09:00 07/01/19 10:27 Vitamin E Cap* PO 400 unit DAILY EWELINA Administration Vital Signs: Vital Signs Temp Pulse Resp BP Pulse Ox 98.5 F 87 18 154/66 97 07/01/19 18:31 07/01/19 18:31 07/01/19 18:31 07/01/19 18:31 07/01/19 18:31 Exam: GENERAL: In no distress LUNGS: Clear HEART: regular rhythm ABDOMEN: Soft, +BS EXTREMITIES: LLE has decreased tone NEUROLOGIC: alert, oriented. LLE 2/5 strength, DF trace, PF trace. RLE 4/5. Sensation intact Assessment/Plan: 1. Multiple Sclerosis: PT/OT. Tecfidera. Baclofen 2. Decompressive laminectomies, L2-L5: PT/OT. Left leg remains weak 3. Depression: Prozac 4. Hallucinations: none at present. Risperadal 0.75 mg BID 5. DVT Prophylaxis: Heparin S/Q 6. Advance Directives: DNR 07/01/19 19:55
[2019-07-01] MEDS: [UNRECOGNIZED DRUG - OTHER] PO SCH (20:19)
[2019-07-01] MEDS: Senna TAB 8.6 mg* TAB PO SCH (20:21)
[2019-07-01] MEDS: Tamsulosin CAP* 0.4 MG PO SCH (20:22)
[2019-07-02] MEDS: Acetaminophen TAB* 325 MG PO PRN ×2 (03:40→13:00)
[2019-07-02] MEDS: Heparin VIAL(*) 5000 UNITS/ML VIAL (FIVE THOUSAND) SUBCUT SCH ×3 (05:40→22:16)
[2019-07-02] MEDS: Baclofen TAB* 10 MG PO SCH ×3 (10:19→22:04)
[2019-07-02] MEDS: Cholecalciferol TAB* 1000 UNITS PO SCH (10:19)
[2019-07-02] MEDS: Cyanocobalamin TAB* 500 MCG PO SCH (10:19)
[2019-07-02] MEDS: Ibuprofen TAB* 400 MG PO PRN (10:21)
[2019-07-02] MEDS: FLUoxetine CAP* 20 MG PO SCH (10:22)
[2019-07-02] MEDS: Docusate CAP* 100 MG PO SCH ×2 (10:22→22:04)
[2019-07-02] MEDS: Nystatin TOP POWDER* 15 GM BTL TOPICAL SCH ×2 (10:23→22:05)
[2019-07-02] MEDS: PTO:Dimethyl Fumarate(NF) 240 MG CAP PO SCH ×2 (10:24→22:05)
--- NOTE | 2019-07-02 10:24 | PN ---
Progress Note Date of Service: 07/02/19 Note: RODO VALENTINE was visited. Therapy notes read and reviewed. He notes his right hand has some swelling and normally takes ibuprofen. He is ok otherwise Current Medications: Active Medications Generic Name Dose Route Start Last Admin Trade Name Freq PRN Reason Stop Dose Admin Acetaminophen 650 mg 06/28/19 11:46 07/02/19 03:40 Tylenol Tab* PO 650 mg Q6H PRN Administration MILD PAIN or TEMP > 100.4 Acetaminophen/Codeine Phosphate 1 tab 07/02/19 09:38 Tylenol/Codeine 30 Mg Tab* PO Q6H PRN PAIN - MODERATE Baclofen 10 mg 06/28/19 14:00 07/02/19 10:19 Lioresal Tab* PO 10 mg TID EWELINA Administration Cholecalciferol 1,000 units 06/29/19 09:00 07/02/19 10:19 Vitamin D Tab* PO 1,000 units DAILY EWELINA Administration Cyanocobalamin 2,500 mcg 06/29/19 09:00 07/02/19 10:19 Vitamin B12 Tab* PO 2,500 mcg DAILY EWELINA Administration Dimethyl Fumarate 240 mg 06/28/19 21:00 07/01/19 20:19 Tecfidera(Nf) PO 240 mg BID EWELINA Administration Docusate Sodium 100 mg 06/28/19 21:00 07/01/19 20:20 Colace Cap* PO 100 mg BID EWELINA Administration Fluoxetine HCl 40 mg 06/29/19 09:00 07/01/19 10:26 Prozac Cap* PO 40 mg DAILY EWELINA Administration Heparin Sodium (Porcine) 5,000 units 06/28/19 14:00 07/02/19 05:40 Heparin Vial(*) SUBCUT 5,000 units Q8HR EWELINA Administration Ibuprofen 400 mg 07/02/19 09:37 07/02/19 10:21 Motrin Tab* PO 400 mg Q6H PRN Administration PAIN - MILD Magnesium Hydroxide 30 ml 06/28/19 11:46 Milk Of Magnesia Liq* PO Q6H PRN CONSTIPATION Pto:Nft* (Claritin-D 10 mg 06/29/19 21:00 07/01/19 20:19 24 Hour Tablet) PO 10 mg BEDTIME EWELINA Administration Nystatin 1 applic 06/28/19 21:00 07/01/19 20:20 Nystatin Top Powder* TOPICAL 1 applic BID EWELINA Administration Risperidone 0.75 mg 06/28/19 21:00 07/01/19 20:20 Risperdal PO 0.75 mg BID EWELINA Administration Senna 2 tab 06/28/19 21:00 07/01/19 20:21 Senokot 8.6 Mg Tab* PO 2 tab BEDTIME EWELINA Administration Tamsulosin HCl 0.4 mg 06/28/19 21:00 07/01/19 20:22 Flomax Cap* PO 0.4 mg BEDTIME EWELINA Administration Vitamin E 400 unit 06/29/19 09:00 07/01/19 10:27 Vitamin E Cap* PO 400 unit DAILY EWELINA Administration Vital Signs: Vital Signs Temp Pulse Resp BP Pulse Ox 97.7 F 88 20 132/53 95 07/02/19 05:38 07/02/19 05:38 07/02/19 05:40 07/02/19 05:38 07/02/19 05:38 Exam: GENERAL: In no distress LUNGS: Clear HEART: regular rhythm ABDOMEN: Soft, +BS EXTREMITIES: LLE has decreased tone NEUROLOGIC: alert, oriented. LLE 2/5 strength, DF trace, PF trace. RLE 4/5. Sensation intact Assessment/Plan: 1. Multiple Sclerosis: PT/OT. Tecfidera. Baclofen 2. Decompressive laminectomies, L2-L5: PT/OT. Left leg remains weak 3. Depression: Prozac 4. Hallucinations: none at present. Risperadal 0.75 mg BID 5. DVT Prophylaxis: Heparin S/Q 6. Advance Directives: DNR 07/02/19 10:24
[2019-07-02] MEDS: Vitamin E CAP* 400 UNIT PO SCH (10:26)
[2019-07-02] MEDS: Acetaminophen / Codeine* #3 (300 MG/30 MG) TAB PO PRN ×2 (13:00→22:10)
[2019-07-02] MEDS: Senna TAB 8.6 mg* TAB PO SCH (22:03)
[2019-07-02] MEDS: Tamsulosin CAP* 0.4 MG PO SCH (22:04)
[2019-07-02] MEDS: [UNRECOGNIZED DRUG - OTHER] PO SCH (22:05)
[2019-07-03] MEDS: Acetaminophen / Codeine* #3 (300 MG/30 MG) TAB PO PRN (04:20)
[2019-07-03] MEDS: Heparin VIAL(*) 5000 UNITS/ML VIAL (FIVE THOUSAND) SUBCUT SCH ×3 (05:46→21:22)
[2019-07-03] MEDS: Baclofen TAB* 10 MG PO SCH ×3 (08:07→21:19)
[2019-07-03] MEDS: Ibuprofen TAB* 400 MG PO PRN ×3 (08:07→21:19)
[2019-07-03] MEDS: Cyanocobalamin TAB* 500 MCG PO SCH (08:08)
[2019-07-03] MEDS: Cholecalciferol TAB* 1000 UNITS PO SCH (08:08)
[2019-07-03] MEDS: PTO:Dimethyl Fumarate(NF) 240 MG CAP PO SCH ×2 (08:08→21:20)
[2019-07-03] MEDS: FLUoxetine CAP* 20 MG PO SCH (08:09)
[2019-07-03] MEDS: Docusate CAP* 100 MG PO SCH ×2 (08:09→21:20)
[2019-07-03] MEDS: Nystatin TOP POWDER* 15 GM BTL TOPICAL SCH ×2 (08:09→21:20)
[2019-07-03] MEDS: Vitamin E CAP* 400 UNIT PO SCH (08:10)
--- NOTE | 2019-07-03 13:12 | PN ---
Progress Note Date of Service: 07/03/19 Note: RODO VALENTINE was visited. Nursing notes read and reviewed. He has swelling in his right hand he thinks is from OA. On ibuprofen Current Medications: Active Medications Generic Name Dose Route Start Last Admin Trade Name Freq PRN Reason Stop Dose Admin Acetaminophen 650 mg 06/28/19 11:46 07/02/19 13:00 Tylenol Tab* PO 650 mg Q6H PRN Administration MILD PAIN or TEMP > 100.4 Acetaminophen/Codeine Phosphate 1 tab 07/02/19 09:38 07/03/19 04:20 Tylenol/Codeine 30 Mg Tab* PO 1 tab Q6H PRN Administration PAIN - MODERATE Baclofen 10 mg 06/28/19 14:00 07/03/19 08:07 Lioresal Tab* PO 10 mg TID EWELINA Administration Cholecalciferol 1,000 units 06/29/19 09:00 07/03/19 08:08 Vitamin D Tab* PO 1,000 units DAILY EWELINA Administration Cyanocobalamin 2,500 mcg 06/29/19 09:00 07/03/19 08:08 Vitamin B12 Tab* PO 2,500 mcg DAILY EWELINA Administration Dimethyl Fumarate 240 mg 06/28/19 21:00 07/03/19 08:08 Tecfidera(Nf) PO 240 mg BID EWELINA Administration Docusate Sodium 100 mg 06/28/19 21:00 07/03/19 08:09 Colace Cap* PO 100 mg BID WEELINA Administration Fluoxetine HCl 40 mg 06/29/19 09:00 07/03/19 08:09 Prozac Cap* PO 40 mg DAILY EWELINA Administration Heparin Sodium (Porcine) 5,000 units 06/28/19 14:00 07/03/19 05:46 Heparin Vial(*) SUBCUT 5,000 units Q8HR EWELINA Administration Ibuprofen 400 mg 07/02/19 09:37 07/03/19 08:07 Motrin Tab* PO 400 mg Q6H PRN Administration PAIN - MILD Magnesium Hydroxide 30 ml 06/28/19 11:46 Milk Of Magnesia Liq* PO Q6H PRN CONSTIPATION Pto:Nft* (Claritin-D 10 mg 06/29/19 21:00 07/02/19 22:05 24 Hour Tablet) PO 10 mg BEDTIME EWELINA Administration Nystatin 1 applic 06/28/19 21:00 07/03/19 08:09 Nystatin Top Powder* TOPICAL Not Given BID EWELINA Risperidone 0.75 mg 06/28/19 21:00 07/03/19 08:10 Risperdal PO 0.75 mg BID EWELINA Administration Senna 2 tab 06/28/19 21:00 07/02/19 22:03 Senokot 8.6 Mg Tab* PO 2 tab BEDTIME EWELINA Administration Tamsulosin HCl 0.4 mg 06/28/19 21:00 07/02/19 22:04 Flomax Cap* PO 0.4 mg BEDTIME EWELINA Administration Vitamin E 400 unit 06/29/19 09:00 07/03/19 08:10 Vitamin E Cap* PO 400 unit DAILY EWELINA Administration Vital Signs: Vital Signs Temp Pulse Resp BP Pulse Ox 98.5 F 88 18 129/65 94 07/03/19 04:18 07/03/19 04:18 07/03/19 08:00 07/03/19 04:18 07/03/19 08:00 Exam: GENERAL: In no distress LUNGS: Clear HEART: regular rhythm ABDOMEN: Soft, +BS EXTREMITIES: LLE has decreased tone NEUROLOGIC: alert, oriented. LLE 2/5 strength, DF trace, PF trace. RLE 4/5. Sensation intact Assessment/Plan: 1. Multiple Sclerosis: PT/OT. Tecfidera. Baclofen 2. Decompressive laminectomies, L2-L5: PT/OT. Left leg remains weak 3. Depression: Prozac 4. Hallucinations: none at present. Risperadal 0.75 mg BID 5. DVT Prophylaxis: Heparin S/Q 6. Advance Directives: DNR 7. 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
[2019-07-03] MEDS: Senna TAB 8.6 mg* TAB PO SCH (21:17)
[2019-07-03] MEDS: Tamsulosin CAP* 0.4 MG PO SCH (21:18)
[2019-07-03] MEDS: [UNRECOGNIZED DRUG - OTHER] PO SCH (21:20)
[2019-07-04] MEDS: Heparin VIAL(*) 5000 UNITS/ML VIAL (FIVE THOUSAND) SUBCUT SCH ×3 (06:04→21:19)
[2019-07-04] MEDS: Ibuprofen TAB* 400 MG PO PRN ×3 (09:04→22:06)
[2019-07-04] MEDS: Cholecalciferol TAB* 1000 UNITS PO SCH (09:04)
[2019-07-04] MEDS: Vitamin E CAP* 400 UNIT PO SCH (09:04)
[2019-07-04] MEDS: PTO:Dimethyl Fumarate(NF) 240 MG CAP PO SCH ×3 (09:04→21:16)
[2019-07-04] MEDS: FLUoxetine CAP* 20 MG PO SCH (09:04)
[2019-07-04] MEDS: Cyanocobalamin TAB* 500 MCG PO SCH (09:06)
[2019-07-04] MEDS: Docusate CAP* 100 MG PO SCH ×2 (09:06→20:40)
[2019-07-04] MEDS: Baclofen TAB* 10 MG PO SCH ×3 (09:09→21:17)
[2019-07-04] MEDS: Nystatin TOP POWDER* 15 GM BTL TOPICAL SCH ×2 (09:10→21:21)
--- NOTE | 2019-07-04 16:04 | PN ---
Progress Note Date of Service: 07/04/19 Note: RODO VALENTINE was visited. Therapy notes read and reviewed. He had some trouble with diarrhea today. Otherwise no complaints. Current Medications: Active Medications Generic Name Dose Route Start Last Admin Trade Name Freq PRN Reason Stop Dose Admin Acetaminophen 650 mg 06/28/19 11:46 07/02/19 13:00 Tylenol Tab* PO 650 mg Q6H PRN Administration MILD PAIN or TEMP > 100.4 Acetaminophen/Codeine Phosphate 1 tab 07/02/19 09:38 07/03/19 04:20 Tylenol/Codeine 30 Mg Tab* PO 1 tab Q6H PRN Administration PAIN - MODERATE Baclofen 10 mg 06/28/19 14:00 07/04/19 15:27 Lioresal Tab* PO 10 mg TID EWELINA Administration Cholecalciferol 1,000 units 06/29/19 09:00 07/04/19 09:04 Vitamin D Tab* PO 1,000 units DAILY EWELINA Administration Cyanocobalamin 2,500 mcg 06/29/19 09:00 07/04/19 09:06 Vitamin B12 Tab* PO 2,500 mcg DAILY EWELINA Administration Dimethyl Fumarate 240 mg 06/28/19 21:00 07/04/19 09:09 Tecfidera(Nf) PO Not Given BID EWELINA Docusate Sodium 100 mg 06/28/19 21:00 07/04/19 09:06 Colace Cap* PO 100 mg BID EWELINA Administration Fluoxetine HCl 40 mg 06/29/19 09:00 07/04/19 09:04 Prozac Cap* PO 40 mg DAILY EWELINA Administration Heparin Sodium (Porcine) 5,000 units 06/28/19 14:00 07/04/19 15:27 Heparin Vial(*) SUBCUT 5,000 units Q8HR EWELINA Administration Ibuprofen 400 mg 07/02/19 09:37 07/04/19 09:04 Motrin Tab* PO 400 mg Q6H PRN Administration PAIN - MILD Magnesium Hydroxide 30 ml 06/28/19 11:46 Milk Of Magnesia Liq* PO Q6H PRN CONSTIPATION Pto:Nft* (Claritin-D 10 mg 06/29/19 21:00 07/03/19 21:20 24 Hour Tablet) PO Not Given BEDTIME EWELINA Nystatin 1 applic 06/28/19 21:00 07/04/19 09:10 Nystatin Top Powder* TOPICAL Not Given BID EWELINA Risperidone 0.75 mg 06/28/19 21:00 07/04/19 09:06 Risperdal PO 0.75 mg BID EWELINA Administration Senna 2 tab 06/28/19 21:00 07/03/19 21:17 Senokot 8.6 Mg Tab* PO 2 tab BEDTIME EWELINA Administration Tamsulosin HCl 0.4 mg 06/28/19 21:00 07/03/19 21:18 Flomax Cap* PO 0.4 mg BEDTIME EWELINA Administration Vitamin E 400 unit 06/29/19 09:00 07/04/19 09:04 Vitamin E Cap* PO 400 unit DAILY EWELINA Administration Vital Signs: Vital Signs Temp Pulse Resp BP Pulse Ox 97.8 F 86 16 125/64 96 07/04/19 04:38 07/04/19 04:38 07/04/19 12:32 07/04/19 04:38 07/04/19 04:38 Exam: GENERAL: no acute distress. alert and appropriate. LUNGS: clear to auscultation bilaterally. HEART: regular rate and rhythm ABDOMEN: + bowel sounds, soft, non-tender, slightly distended and tympanic. EXTREMITIES: no edema. Left elbow/forearm with still small resolving hematoma at lateral elbow improved from 2 weeks ago. Ecchymoses on legs resolving. NEUROLOGIC: Left facial droop. Motor has some left shoulder shrug, trace adduction, biceps and triceps. LLE motor hip flex 2-3, knee ext 3, DF 4. Right 5/5. Sensation intact. Assessment/Plan: 1. Multiple Sclerosis: PT/OT. Tecfidera. Baclofen 2. Decompressive laminectomies, L2-L5: PT/OT. Left leg remains weak 3. Depression: Prozac 4. Hallucinations: none at present. Risperadal 0.75 mg BID 5. DVT Prophylaxis: Heparin S/Q 6. Advance Directives: DNR 7. 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
[2019-07-04] MEDS: Senna TAB 8.6 mg* TAB PO SCH (20:41)
[2019-07-04] MEDS: Tamsulosin CAP* 0.4 MG PO SCH (21:17)
[2019-07-04] MEDS: [UNRECOGNIZED DRUG - OTHER] PO SCH (21:22)
[2019-07-05] MEDS: Heparin VIAL(*) 5000 UNITS/ML VIAL (FIVE THOUSAND) SUBCUT SCH ×3 (05:22→21:01)
[2019-07-05] MEDS: Ibuprofen TAB* 400 MG PO PRN ×2 (05:22→13:54)
[2019-07-05] MEDS: Docusate CAP* 100 MG PO SCH ×2 (10:10→21:03)
[2019-07-05] MEDS: Cholecalciferol TAB* 1000 UNITS PO SCH (10:10)
[2019-07-05] MEDS: Baclofen TAB* 10 MG PO SCH ×3 (10:10→20:56)
[2019-07-05] MEDS: Cyanocobalamin TAB* 500 MCG PO SCH (10:10)
[2019-07-05] MEDS: PTO:Dimethyl Fumarate(NF) 240 MG CAP PO SCH ×2 (10:10→20:58)
[2019-07-05] MEDS: FLUoxetine CAP* 20 MG PO SCH (10:11)
[2019-07-05] MEDS: Vitamin E CAP* 400 UNIT PO SCH (10:11)
[2019-07-05] MEDS: Nystatin TOP POWDER* 15 GM BTL TOPICAL SCH ×2 (10:12→21:04)
--- NOTE | 2019-07-05 12:42 | PMRUTEAM ---
PMRU: Team Meeting Current Status: Physical Therapy: Current Status Current Rolling Status Partial/Moderate Current Supine <-> Sit Status Partial/Moderate Current Sit <-> Stand Status Partial/Moderate Current Bed <-> Chair Status Dependent Transfer/Bed Mobility Rolling Walker,EZ Stand Recommended Devices Current Car Transfer Status Not attempted Current Ambulation Assistance Dependent Status Ambulation Assistive Device Rolling Walker Current Ambulation Distance 10 Manual Wheelchair Control/ Bilateral UE's Technique Current Wheelchair Propulsion Supervision/Touching Ability Status Wheelchair Distance (ft) 150 Current Stair Climbing Status Not attempted Objective Comments pt able to don/doff leg rests and brakes of w/c with verbal cues. Occupational Therapy: Current Status Current Upper Body Dressing Partial/Moderate Status Current Lower Body Dressing Dependent Status Current Footwear Status Substantial/Maximal Current Bathing Status Dependent Current Grooming Status Setup or Clean-up Assist Current Toileting Status Dependent Current Toilet Transfer Status Dependent Current Eating Status Setup or Clean-up Assist Nursing: Current Status Skin Deviations [Abrasions to Abrasion R knee, L elbow] Skin Deviations [multiple toes Abrasion ] Skin Deviations [Right Hand] Other Skin Deviations [Bilateral Other Groin] Skin Deviations [Midline Back] Incision Skin Deviation Description [ healing Abrasions to R knee, L elbow] Skin Deviation Description [ scabbed multiple toes] Skin Deviation Description [ sweling Right Hand] Skin Deviation Description [ redness Bilateral Groin] Skin Deviation Description [ drsg in place Midline Back] Rec Therapy: Current Status Summary of Assessment and Recreation Therapy Assessment complete and pt. is Clinical Impression aware of services. Pt. has been engaged in leisure visits, pet therapy, and joined recreation group yesterday 07/04/19. Treatment Goals Pt. will engage in leisure activities while on the unit. Treatment Plan Provide recreation therapy services and encourage involvement. Nutrition: Current Status Monitoring 73 yo M admitted to [facility] s/p L2-L5 decompression; hx MS. Maintained on regular unrestricted diet conusming 80-100% at meals. Denies n/v/c/abd pain; noted diarrhea 07/04 per progress note. Last BM . Skin intact. Labs/meds rev'd. Current diet remains appropriate; no nutrition intervention indicated at this time. Will cont to monitor and f /u per facility protocol. Goals: Physical Therapy: Goals Goals to Be Accomplished in ( 21 Days) Goal: Rolling Assistance Independent Goal Supine <-> Sit Status Independent Goal Sit <-> Stand Status Independent Goal Bed <-> Chair Status Independent Transfer/Bed Mobility Rolling Walker Recommended Devices Goal: Picking Up Object Independent Goal: Car Transfer Status Setup or Clean-up Assist Goal: Ambulation Assistance Independent Ambulation Assistive Devices Platform Walker Ambulation Distance (ft) 150 Goal: Wheelchair Propulsion Independent Ability Wheelchair Distance (ft) 150 Goal: Stairs Assistance Independent Stairs Recommended Devices Two Rails Number of Stairs 4 Goal: Curb Assistance Independent Occupational Therapy: Goals Goals to be Completed in (Days 21 ) Goal Upper Body Dressing Independent Routine Goal Lower Body Dressing Independent Routine Goal Footwear Status Independent Goal Bathing Routine (OT) Independent Goal Grooming Routine Independent Goal Toilet Hygiene and Independent Clothing Management Routine Goal Toilet Transfer Routine Independent Goal Functional Transfers for Independent ADL Goal Feeding Routine Independent Goal Light Housekeeping Tasks Partial/Moderate Nutrition: Goals Intervention Goals 1. adequate intake to support hydration and lean body mass without significant wt change 2. regulation of bowel pattern; no c/o constipation (or diarrhea) Care Plan: Care Plan ADL's - Improve/Maintain Start: 06/28/19 13:51 Freq: DAILY@0700,1900 Status: Active Target: 06/29/19 Protocol: Activity Type Activity Date Activity User E-Sign Co-Sign Detail Recorded Client Recorded Date Recorded By Document 07/04/19 15:58 [id number] [id number] 07/04/19 15:58 [id number] 07/04/19 15:58 PMRU Outcome: ADL's/ADL Transfers Orders/Interventions Occupational Therapy Evaluation & Treatment Communication Tool in Patient Room Device Yes Address Deficits Secondary To: L2-5 decompression/ lami and MS exacerbation Patient to receive OT 5x/wk for 60-120 Therex min/day Self Care Management Group Therapy Neuromuscular ReEducation UE/LE ADL's with Assist Yes: independent ADL Transfers with Assist Yes: independent Toileting: Transfers,Clothing Management Yes: ,Hygeine w/Assist independent Light Kitchen/Laundry w/Assist Yes: Dimitrios Other Outcome/Goals Pt participated well in treatment session, slightly limited due to right thumb/ hand pain, pt reports physician is aware, RN in to assess in therapy gym during session, will continue to monitor, ice appears to have helped earlier this am and encouraged pt to continue to elevate and apply ice as able throughout the day, pt/ nursing in agreement. Progression Toward Outcome/Goals Progressing Coping/Psych-Improve/Maintain Start: 06/28/19 12:56 Freq: DAILY@0700,1900 Status: Active Target: 07/12/19 Protocol: Activity Type Activity Date Activity User E-Sign Co-Sign Detail Recorded Client Recorded Date Recorded By Document 07/05/19 07:00 [id number] [id number] 07/05/19 07:55 [id number] 07/05/19 07:00 PMRU Outcome: Coping/Psychosocial Current Coping Outcome/Goals Verbalization of Acceptance of Rehab Admit Verbalization of Sense of Control Over Health Status Utilization of Appropriate Problem Solving Techniques Willingness to Participate in Treatment Plan and Basic Needs Utilization of Available Support Systems Progression Toward Outcome/Goals Progressing Current Psychosocial Outcome/Goals Maintain/ Improve Emotional Health Demonstrates Knowledge of Healthy Coping Mechanisms Available Cooperate/ Participate in Plan Progression Toward Outcome/Goals Progressing DVT Prophylaxis- Improve/Maintain Start: 06/28/19 12:56 Freq: DAILY@0700,1900 Status: Active Target: 07/12/19 Protocol: Activity Type Activity Date Activity User E-Sign Co-Sign Detail Recorded Client Recorded Date Recorded By Document 07/05/19 07:00 [id number] 07/05/19 07:55 [id number] 07/05/19 07:00 PMRU Outcome: DVT Prophylaxis Current DVT Outcome/Goals Remains Free of DVT Complies with DVT Prophylaxis /Treatment Demonstrates Knowledge of DVT Prevention/ Treatment TEDS Stockings on Every AM, Off at HS Progression Toward Outcome/Goals Progressing Discharge Planning - Improve/Maintain Start: 06/28/19 12:56 Freq: DAILY@0700,1900 Status: Active Target: 07/12/19 Protocol: Activity Type Activity Date Activity User E-Sign Co-Sign Detail Recorded Client Recorded Date Recorded By Document 07/05/19 07:00 [id number] 07/05/19 07:55 [id number] 07/05/19 07:00 PMRU Outcome: Discharge Planning Update Patient Family No Current Discharge Planning Outcome/Goals Demonstrates Understanding of Discharge Plan Progression Toward Outcome/Goals Progressing Education-Improve/Maintain Start: 06/28/19 12:56 Freq: DAILY@0700,1900 Status: Active Target: 07/12/19 Protocol: Activity Type Activity Date Activity User E-Sign Co-Sign Detail Recorded Client Recorded Date Recorded By Document 07/05/19 07:00 [id number] [id number] 07/05/19 07:55 [id number] 07/05/19 07:00 PMRU Outcome: Education Current Education Outcome/Goals Demonstrate/ Verbalize Understanding of Written Discharge Instructions Demonstrates Skills Encourage Questions Progression Toward Outcome/Goals Progressing /GI-Improve/Maintain Start: 06/28/19 12:56 Freq: DAILY@699,[id number] Status: Active Target: 07/12/19 Protocol: Activity Type Activity Date Activity User E-Sign Co-Sign Detail Recorded Client Recorded Date Recorded By Document 07/05/19 07:00 [id number] 07/05/19 07:55 [id number] 07/05/19 07:00 PMRU Outcome: Genitourinary/ Gastrointestinal Current Gastrointestinal Outcome/Goals Maintain/ Achieve Bowel Regularity in Accordance with Pt's Baseline Remain Free of Emesis Prevent Constipation Bowel Regularity at Home Laxatives as Ordered Progression Toward Outcome/Goals Progressing Current Genitourinary Outcome/Goals Maintain/ Achieve Adequate Urinary Output Remain Free of Hospital- Acquired UTI Progression Toward Outcome/Goals Progressing Outcome/Goals Met Comment straight catherized Medication Administration Start: 06/28/19 12:56 Freq: DAILY@ Status: Active Target: 07/12/19 Protocol: Activity Type Activity Date Activity User E-Sign Co-Sign Detail Recorded Client Recorded Date Recorded By Document 07/05/19 07:00 [id number] 07/05/19 07:55 [id number] 07/05/19 07:00 PMRU Outcome: Medication Administration Assess Patient Knowledge/Teach Med Yes Education for all Meds Current Bingo Worker Outcome/Goals Patient Independent with Medication Administration at Home Family/ Caregiver Administer Medications at Home Demonstrates Understanding Progression Towards Outcome/Goals Progressing Is Patient Going Home on Lovenox? No Mobility- Improve/Maintain Start: 06/28/19 18:34 Freq: DAILY@699,[id number] Status: Active Target: 06/29/19 Protocol: Activity Type Activity Date Activity User E-Sign Co-Sign Detail Recorded Client Recorded Date Recorded By Document 06/30/19 16:32 [id number] 06/30/19 16:32 [id number] 06/30/19 16:32 PMRU Outcome: Mobility Physical Therapy Evaluation and Yes Treatment Activity OOB with Assistance Yes WBAT Yes Device Yes Assistance Yes Patient to be seen 5x/wk for 60-120 min/ Therex day for: Mobility Training Gait Training W/C Mobility Balance Current Mobility Outcome/Goals Maintain/ Achieve Baseline Mobility Status Improve Mobility Status Demonstrates Proper Use of Assistive Devices Free from Complications of Immobility Progression Toward Outcome/Goals Progressing Bed Mobility Yes: independent Transfers Yes: independent with rolling walker. Gait x ft Yes: independent with rolling walker 150' W/C Mobility x ft Yes: independent with BUE to 150 ' Up/Down Stairs Yes: independnet up/ down 5 stairs. Neurological- Improve/Maintain Start: 06/28/19 12:56 Freq: DAILY@0700,1900 Status: Active Target: 07/12/19 Protocol: Activity Type Activity Date Activity User E-Sign Co-Sign Detail Recorded Client Recorded Date Recorded By Document 07/05/19 07:00 [id number] 07/05/19 07:55 [id number] 07/05/19 07:00 PMRU Outcome: Neurological Weakness/Aphasia Weakness Weakness/Aphasia Comment s/p MS Current Neurological Outcome/Goals Maintain/ Achieve Baseline Neurological Status Improve Neurological Status Prevent Avoidable Neurological Decline Demonstrate Knowledge of Prevention/Tx of Neuro Disorders/ Complication Maintain/ Improve Strength/ROM Progression Toward Outcome/Goals Progressing Pain/Comfort- Improve/Maintain Start: 06/28/19 12:56 Freq: DAILY@0700,1900 Status: Active Target: 07/12/19 Protocol: Activity Type Activity Date Activity User E-Sign Co-Sign Detail Recorded Client Recorded Date Recorded By Document 07/05/19 07:00 [id number] 07/05/19 07:55 [id number] 07/05/19 07:00 PMRU Outcome: Pain/Comfort Current Pain/Comfort Outcome/Goals Demonstrates Knowledge and Use of Available Comfort Measures Achieves Acceptable Comfort/Pain Level as Determined by Patient/Condit Maintain Comfort Level Allowing Patient to Fully Participate in Rehab Progression Toward Outcome/Goals Progressing Outcome/Goals Met Comment ice pack placed Rec Therapy- Improve/Maintain Start: 06/28/19 16:28 Freq: DAILY@0700,1900 Status: Active Target: 07/22/19 Protocol: Activity Type Activity Date Activity User E-Sign Co-Sign Detail Recorded Client Recorded Date Recorded By Document 07/05/19 11:31 [id number] 07/05/19 11:31 [id number] 07/05/19 11:31 PMRU Outcome: Recreation Therapy Current Rec Ther Outcome/Goals Meet with Patient Regularly for Support Encourage Leisure Involvement Progression Toward Outcome/Goals Progressing Lack of Progression Comment pt. joined recreation group yesterday and has been involved in pet therapy. Outcome/Goals Met Meet with Patient Regularly for Support Encourage Leisure Involvement Safety- Improve/Maintain Start: 06/28/19 11:29 Freq: DAILY@0700,1900 Status: Active Target: 07/12/19 Protocol: Activity Type Activity Date Activity User E-Sign Co-Sign Detail Recorded Client Recorded Date Recorded By Document 07/05/19 07:00 [id number] 07/05/19 07:55 [id number] 07/05/19 07:00 PMRU Outcome: Safety Current Safety Outcome/Goals Remain Free of Injury or Harm Cooperates with Safety Measures for Least Restrictive Environment Prevent Falls/ Injury Progression Toward Outcome/Goals Progressing Outcome/Goals Met Comment BA armed Skin- Improve/Maintain Start: 06/28/19 12:56 Freq: DAILY@00,1900 Status: Active Target: 07/12/19 Protocol: Activity Type Activity Date Activity User E-Sign Co-Sign Detail Recorded Client Recorded Date Recorded By Document 07/05/19 07:00 [id number] 07/05/19 07:55 [id number] 07/05/19 07:00 PMRU Outcome: Skin Skin Risk Level Mild Risk Skin Orders Turn/Position q2hr While in Bed Current Skin Outcome/Goals Maintain/ Improve Skin Integrity Free from Pressure Injury Surgical Incisions Healing Progression Toward Outcome/Goals Progressing - Interdisciplinary Staff Present Technical Support Associate/Social Work Staff Present: Shereen Ospina LMSW Nursing Staff Present: Destiny Traylor LPN OT Staff Present: Chiquita Davis PT Staff Present: Rachel Kim Rec Therapy Staff Present: Emiliana Dominguez Medicine Note: Length of Stay: 2 1/2 weeks Anticipated Discharge Destination: Home? Tentative Discharge Date: 07/22/19 Discharged to: Home?
--- NOTE | 2019-07-05 18:17 | PN ---
Progress Note Date of Service: 07/05/19 Note: RODO VALENTINE was visited. Therapy notes read and reviewed. He was discussed in interdisciplinary team rounds. Able to get brace on with some difficulty. Able to stand with PT Current Medications: Active Medications Generic Name Dose Route Start Last Admin Trade Name Freq PRN Reason Stop Dose Admin Acetaminophen 650 mg 06/28/19 11:46 07/02/19 13:00 Tylenol Tab* PO 650 mg Q6H PRN Administration MILD PAIN or TEMP > 100.4 Acetaminophen/Codeine Phosphate 1 tab 07/02/19 09:38 07/03/19 04:20 Tylenol/Codeine 30 Mg Tab* PO 1 tab Q6H PRN Administration PAIN - MODERATE Baclofen 10 mg 06/28/19 14:00 07/05/19 13:54 Lioresal Tab* PO 10 mg TID EWELINA Administration Cholecalciferol 1,000 units 06/29/19 09:00 07/05/19 10:10 Vitamin D Tab* PO 1,000 units DAILY EWELINA Administration Cyanocobalamin 2,500 mcg 06/29/19 09:00 07/05/19 10:10 Vitamin B12 Tab* PO 2,500 mcg DAILY EWELINA Administration Dimethyl Fumarate 240 mg 06/28/19 21:00 07/05/19 10:10 Tecfidera(Nf) PO 240 mg BID EWELINA Administration Docusate Sodium 100 mg 06/28/19 21:00 07/05/19 10:10 Colace Cap* PO 100 mg BID EWELINA Administration Fluoxetine HCl 40 mg 06/29/19 09:00 07/05/19 10:11 Prozac Cap* PO 40 mg DAILY EWELINA Administration Heparin Sodium (Porcine) 5,000 units 06/28/19 14:00 07/05/19 13:54 Heparin Vial(*) SUBCUT 5,000 units Q8HR EWELINA Administration Ibuprofen 400 mg 07/02/19 09:37 07/05/19 13:54 Motrin Tab* PO 400 mg Q6H PRN Administration PAIN - MILD Magnesium Hydroxide 30 ml 06/28/19 11:46 Milk Of Magnesia Liq* PO Q6H PRN CONSTIPATION Pto:Nft* (Claritin-D 10 mg 06/29/19 21:00 07/04/19 21:22 24 Hour Tablet) PO Not Given BEDTIME EWELINA Nystatin 1 applic 06/28/19 21:00 07/05/19 10:12 Nystatin Top Powder* TOPICAL 1 applic BID EWELINA Administration Risperidone 0.75 mg 06/28/19 21:00 07/05/19 10:12 Risperdal PO 0.75 mg BID EWELINA Administration Senna 2 tab 06/28/19 21:00 07/04/19 20:41 Senokot 8.6 Mg Tab* PO Not Given BEDTIME EWELINA Tamsulosin HCl 0.4 mg 06/28/19 21:00 07/04/19 21:17 Flomax Cap* PO 0.4 mg BEDTIME EWELINA Administration Vitamin E 400 unit 06/29/19 09:00 07/05/19 10:11 Vitamin E Cap* PO 400 unit DAILY EWELINA Administration Vital Signs: Vital Signs Temp Pulse Resp BP Pulse Ox 98.6 F 93 20 129/50 96 07/05/19 17:02 07/05/19 17:02 07/05/19 17:02 07/05/19 17:02 07/05/19 17:16 Exam: GENERAL: no acute distress. alert and appropriate. LUNGS: clear to auscultation bilaterally. HEART: regular rate and rhythm ABDOMEN: + bowel sounds, soft, non-tender, slightly distended and tympanic. EXTREMITIES: no edema. Left elbow/forearm with still small resolving hematoma at lateral elbow improved from 2 weeks ago. Ecchymoses on legs resolving. NEUROLOGIC: Left facial droop. Motor has some left shoulder shrug, trace adduction, biceps and triceps. LLE motor hip flex 2-3, knee ext 3, DF 4. Right 5/5. Sensation intact. Assessment/Plan: 1. Multiple Sclerosis: PT/OT. Tecfidera. Baclofen 2. Decompressive laminectomies, L2-L5: PT/OT. Left leg remains weak 3. Depression: Prozac 4. Hallucinations: none at present. Risperadal 0.75 mg BID, may cut back 5. DVT Prophylaxis: Heparin S/Q 6. Advance Directives: DNR 7. 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
[2019-07-05] MEDS: Tamsulosin CAP* 0.4 MG PO SCH (20:56)
[2019-07-05] MEDS: [UNRECOGNIZED DRUG - OTHER] PO SCH (22:16)
[2019-07-05] MEDS: Senna TAB 8.6 mg* TAB PO SCH (22:16)
[2019-07-06] MEDS: Heparin VIAL(*) 5000 UNITS/ML VIAL (FIVE THOUSAND) SUBCUT SCH ×3 (04:52→21:48)
[2019-07-06] MEDS: Ibuprofen TAB* 400 MG PO PRN ×2 (04:55→18:12)
[2019-07-06 05:56] LABS: ABS Basophils 0.1 10^3/ul (0-0.2); ABS Eosinophils 0.5 10^3/ul (0-0.6); ABS Lymphocytes 1.1 10^3/ul (1.0-4.8); ABS Monocytes 0.8 10^3/ul (0-0.8); ABS Neutrophils 7.1 10^3/ul (1.5-7.7); Eosinophil % 5.2 %; Hematocrit 30 % (42-52); Lymphocyte % 11.2 %; Mean Corpuscular HGB Conc 34 g/dL (31-36); Mean Corpuscular Hemoglobin 32 pg (27-31); Mean Corpuscular Volume 95 fL (80-94); Mean Platelet Volume 7.2 fL (7.4-10.4); Platelet Count 540 10^3/uL (150-450); Red Blood Count 3.15 10^6 /uL (4.18-5.48); Red Cell Distribution Width 14 % (10-15); White Blood Count 9.5 10^3/uL (3.5-10.8)
[2019-07-06 06:14] LABS: Albumin 3.1 g/dL (3.2-5.2); BUN/Creatinine Ratio 21.7 (8-20); Calcium 8.9 mg/dL (8.6-10.3); EGFR African American 159.8 (>60); EGFR Non-African American 132.1 (>60); Globulin 3.2 g/dL (2-4); Total Bilirubin 0.3 mg/dL (0.2-1.0); Total Protein 6.3 g/dL (6.4-8.9)
[2019-07-06] MEDS: Nystatin TOP POWDER* 15 GM BTL TOPICAL SCH ×2 (08:43→20:52)
[2019-07-06] MEDS: Cyanocobalamin TAB* 500 MCG PO SCH (08:44)
[2019-07-06] MEDS: Docusate CAP* 100 MG PO SCH ×2 (08:44→20:13)
[2019-07-06] MEDS: FLUoxetine CAP* 20 MG PO SCH (08:44)
[2019-07-06] MEDS: Cholecalciferol TAB* 1000 UNITS PO SCH (08:44)
[2019-07-06] MEDS: Baclofen TAB* 10 MG PO SCH ×3 (08:44→20:13)
[2019-07-06] MEDS: Vitamin E CAP* 400 UNIT PO SCH (08:44)
[2019-07-06] MEDS: PTO:Dimethyl Fumarate(NF) 240 MG CAP PO SCH ×2 (08:45→20:13)
--- NOTE | 2019-07-06 17:47 | PN ---
Progress Note Date of Service: 07/06/19 Note: RODO VALENTINE was visited. Therapy notes read and reviewed. He was able to stand and walk in parallel bars today, with assistance but did it Current Medications: Active Medications Generic Name Dose Route Start Last Admin Trade Name Freq PRN Reason Stop Dose Admin Acetaminophen 650 mg 06/28/19 11:46 07/02/19 13:00 Tylenol Tab* PO 650 mg Q6H PRN Administration MILD PAIN or TEMP > 100.4 Acetaminophen/Codeine Phosphate 1 tab 07/02/19 09:38 07/03/19 04:20 Tylenol/Codeine 30 Mg Tab* PO 1 tab Q6H PRN Administration PAIN - MODERATE Baclofen 10 mg 06/28/19 14:00 07/06/19 14:16 Lioresal Tab* PO 10 mg TID EWELINA Administration Cholecalciferol 1,000 units 06/29/19 09:00 07/06/19 08:44 Vitamin D Tab* PO 1,000 units DAILY EWELINA Administration Cyanocobalamin 2,500 mcg 06/29/19 09:00 07/06/19 08:44 Vitamin B12 Tab* PO 2,500 mcg DAILY EWELINA Administration Dimethyl Fumarate 240 mg 06/28/19 21:00 07/06/19 08:45 Tecfidera(Nf) PO 240 mg BID EWELINA Administration Docusate Sodium 100 mg 06/28/19 21:00 07/06/19 08:44 Colace Cap* PO 100 mg BID EWELINA Administration Fluoxetine HCl 40 mg 06/29/19 09:00 07/06/19 08:44 Prozac Cap* PO 40 mg DAILY EWELINA Administration Heparin Sodium (Porcine) 5,000 units 06/28/19 14:00 07/06/19 14:16 Heparin Vial(*) SUBCUT 5,000 units Q8HR EWELINA Administration Ibuprofen 400 mg 07/02/19 09:37 07/06/19 04:55 Motrin Tab* PO 400 mg Q6H PRN Administration PAIN - MILD Magnesium Hydroxide 30 ml 06/28/19 11:46 Milk Of Magnesia Liq* PO Q6H PRN CONSTIPATION Pto:Nft* (Claritin-D 10 mg 06/29/19 21:00 07/05/19 22:16 24 Hour Tablet) PO Not Given BEDTIME EWELINA Nystatin 1 applic 06/28/19 21:00 07/06/19 08:43 Nystatin Top Powder* TOPICAL 1 applic BID EWELINA Administration Risperidone 0.75 mg 06/28/19 21:00 07/06/19 08:45 Risperdal PO 0.75 mg BID EWELINA Administration Senna 2 tab 06/28/19 21:00 07/05/19 22:16 Senokot 8.6 Mg Tab* PO Not Given BEDTIME EWELINA Tamsulosin HCl 0.4 mg 06/28/19 21:00 07/05/19 20:56 Flomax Cap* PO 0.4 mg BEDTIME EWELINA Administration Vitamin E 400 unit 06/29/19 09:00 07/06/19 08:44 Vitamin E Cap* PO 400 unit DAILY EWELINA Administration Vital Signs: Vital Signs Temp Pulse Resp BP Pulse Ox 98.2 F 86 18 135/54 97 07/06/19 15:49 07/06/19 15:49 07/06/19 15:49 07/06/19 15:49 07/06/19 15:49 Lab Results: Laboratory Results - last 24 hr 07/06/19 07/06/19 05:48 05:50 WBC 9.5 RBC 3.15 L Hgb 10.0 L Hct 30 L MCV 95 H MCH 32 H MCHC 34 RDW 14 Plt Count 540 H D MPV 7.2 L Neut % (Auto) 74.6 Lymph % (Auto) 11.2 [place] % (Auto) 8.3 Eos % (Auto) 5.2 Baso % (Auto) 0.7 Absolute Neuts (auto) 7.1 Absolute Lymphs (auto) 1.1 Absolute Monos (auto) 0.8 Absolute Eos (auto) 0.5 Absolute Basos (auto) 0.1 Absolute Nucleated RBC 0.0 Nucleated RBC % 0.0 Sodium 139 Potassium 4.0 Chloride 106 Carbon Dioxide 27 Anion Gap 6 BUN 13 Creatinine 0.60 L Est GFR ( Amer) 159.8 Est GFR (Non-Af Amer) 132.1 BUN/Creatinine Ratio 21.7 H Glucose 115 H Calcium 8.9 Total Bilirubin 0.30 AST 15 ALT 82 H Alkaline Phosphatase 116 H Total Protein 6.3 L Albumin 3.1 L Globulin 3.2 Albumin/Globulin Ratio 1.0 Exam: GENERAL: In no distress LUNGS: Clear HEART: regular rhythm ABDOMEN: Soft, +BS EXTREMITIES: LLE has decreased tone NEUROLOGIC: alert, oriented. LLE 2/5 strength, DF trace, PF trace. RLE 4/5. Sensation intact Assessment/Plan: 1. Multiple Sclerosis: PT/OT. Tecfidera. Baclofen 2. Decompressive laminectomies, L2-L5: PT/OT. Left leg remains weak 3. Depression: Prozac 4. Hallucinations: none at present. Risperadal 0.75 mg BID, may cut back 5. DVT Prophylaxis: Heparin S/Q 6. Advance Directives: DNR 7. 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
[2019-07-06] MEDS: Tamsulosin CAP* 0.4 MG PO SCH (20:13)
[2019-07-06] MEDS: [UNRECOGNIZED DRUG - OTHER] PO SCH (20:52)
[2019-07-06] MEDS: Senna TAB 8.6 mg* TAB PO SCH (20:53)
[2019-07-07] MEDS: Ibuprofen TAB* 400 MG PO PRN ×3 (05:12→21:16)
[2019-07-07] MEDS: Heparin VIAL(*) 5000 UNITS/ML VIAL (FIVE THOUSAND) SUBCUT SCH ×3 (05:13→21:47)
[2019-07-07] MEDS: Baclofen TAB* 10 MG PO SCH ×3 (08:53→21:15)
[2019-07-07] MEDS: Cholecalciferol TAB* 1000 UNITS PO SCH (08:53)
[2019-07-07] MEDS: Cyanocobalamin TAB* 500 MCG PO SCH (08:54)
[2019-07-07] MEDS: FLUoxetine CAP* 20 MG PO SCH (08:55)
[2019-07-07] MEDS: PTO:Dimethyl Fumarate(NF) 240 MG CAP PO SCH ×2 (08:55→21:16)
[2019-07-07] MEDS: Docusate CAP* 100 MG PO SCH ×2 (08:55→21:16)
[2019-07-07] MEDS: Acetaminophen TAB* 325 MG PO PRN (08:57)
[2019-07-07] MEDS: Vitamin E CAP* 400 UNIT PO SCH (08:59)
[2019-07-07] MEDS: Nystatin TOP POWDER* 15 GM BTL TOPICAL SCH ×2 (09:31→21:15)
--- NOTE | 2019-07-07 15:49 | PN ---
Progress Note Date of Service: 07/07/19 Note: RODO VALENTINE was visited. Therapy notes read and reviewed. He was able to walk with assistance again today. Moving a bit better. Current Medications: Active Medications Generic Name Dose Route Start Last Admin Trade Name Freq PRN Reason Stop Dose Admin Acetaminophen 650 mg 06/28/19 11:46 07/07/19 08:57 Tylenol Tab* PO 650 mg Q6H PRN Administration MILD PAIN or TEMP > 100.4 Acetaminophen/Codeine Phosphate 1 tab 07/02/19 09:38 07/03/19 04:20 Tylenol/Codeine 30 Mg Tab* PO 1 tab Q6H PRN Administration PAIN - MODERATE Baclofen 10 mg 06/28/19 14:00 07/07/19 14:49 Lioresal Tab* PO 10 mg TID EWELINA Administration Cholecalciferol 1,000 units 06/29/19 09:00 07/07/19 08:53 Vitamin D Tab* PO 1,000 units DAILY EWELINA Administration Cyanocobalamin 2,500 mcg 06/29/19 09:00 07/07/19 08:54 Vitamin B12 Tab* PO 2,500 mcg DAILY EWELINA Administration Dimethyl Fumarate 240 mg 06/28/19 21:00 07/07/19 08:55 Tecfidera(Nf) PO 240 mg BID EWELINA Administration Docusate Sodium 100 mg 06/28/19 21:00 07/07/19 08:55 Colace Cap* PO 100 mg BID EWELINA Administration Fluoxetine HCl 40 mg 06/29/19 09:00 07/07/19 08:55 Prozac Cap* PO 40 mg DAILY EWELINA Administration Heparin Sodium (Porcine) 5,000 units 06/28/19 14:00 07/07/19 14:48 Heparin Vial(*) SUBCUT 5,000 units Q8HR EWELINA Administration Ibuprofen 400 mg 07/02/19 09:37 07/07/19 11:23 Motrin Tab* PO 400 mg Q6H PRN Administration PAIN - MILD Magnesium Hydroxide 30 ml 06/28/19 11:46 Milk Of Magnesia Liq* PO Q6H PRN CONSTIPATION Pto:Nft* (Claritin-D 10 mg 06/29/19 21:00 07/06/19 20:52 24 Hour Tablet) PO Not Given BEDTIME EWELINA Nystatin 1 applic 06/28/19 21:00 07/07/19 09:31 Nystatin Top Powder* TOPICAL 1 applic BID EWELINA Administration Risperidone 0.75 mg 06/28/19 21:00 07/07/19 08:55 Risperdal PO 0.75 mg BID EWELINA Administration Senna 2 tab 06/28/19 21:00 07/06/19 20:53 Senokot 8.6 Mg Tab* PO Not Given BEDTIME EWELINA Tamsulosin HCl 0.4 mg 06/28/19 21:00 07/06/19 20:13 Flomax Cap* PO 0.4 mg BEDTIME EWELINA Administration Vitamin E 400 unit 06/29/19 09:00 07/07/19 08:59 Vitamin E Cap* PO 400 unit DAILY EWELINA Administration Vital Signs: Vital Signs Temp Pulse Resp BP Pulse Ox 98.0 F 80 16 124/52 95 07/07/19 04:45 07/07/19 04:45 07/07/19 08:00 07/07/19 04:45 07/07/19 08:00 Exam: GENERAL: In no distress LUNGS: Clear HEART: regular rhythm ABDOMEN: Soft, +BS EXTREMITIES: LLE has decreased tone NEUROLOGIC: alert, oriented. LLE 2/5 strength, DF trace, PF trace. RLE 4/5. Sensation intact Assessment/Plan: 1. Multiple Sclerosis: PT/OT. Tecfidera. Baclofen 2. Decompressive laminectomies, L2-L5: PT/OT. Left leg remains weak 3. Depression: Prozac 4. Hallucinations: none at present. Risperadal 0.75 mg BID, may cut back 5. DVT Prophylaxis: Heparin S/Q 6. Advance Directives: DNR 7. 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
[2019-07-07] MEDS: Tamsulosin CAP* 0.4 MG PO SCH (21:15)
[2019-07-07] MEDS: Senna TAB 8.6 mg* TAB PO SCH (21:16)
[2019-07-07] MEDS: [UNRECOGNIZED DRUG - OTHER] PO SCH (21:16)
[2019-07-08] MEDS: Heparin VIAL(*) 5000 UNITS/ML VIAL (FIVE THOUSAND) SUBCUT SCH ×3 (06:51→21:33)
[2019-07-08] MEDS: Cholecalciferol TAB* 1000 UNITS PO SCH (09:09)
[2019-07-08] MEDS: Baclofen TAB* 10 MG PO SCH ×3 (09:09→20:46)
[2019-07-08] MEDS: Cyanocobalamin TAB* 500 MCG PO SCH (09:10)
[2019-07-08] MEDS: PTO:Dimethyl Fumarate(NF) 240 MG CAP PO SCH ×2 (09:10→20:07)
[2019-07-08] MEDS: Docusate CAP* 100 MG PO SCH ×2 (09:11→20:50)
[2019-07-08] MEDS: FLUoxetine CAP* 20 MG PO SCH (09:11)
[2019-07-08] MEDS: Nystatin TOP POWDER* 15 GM BTL TOPICAL SCH ×2 (09:11→20:07)
[2019-07-08] MEDS: Vitamin E CAP* 400 UNIT PO SCH (09:12)
[2019-07-08] MEDS: Ibuprofen TAB* 400 MG PO PRN ×2 (10:27→20:08)
--- NOTE | 2019-07-08 10:28 | PN ---
Progress Note Date of Service: 07/08/19 Note: RODO VALENTINE was visited. Nursing and therapy notes read and reviewed. No chest pain, shortness of breath or abdominal pain. Was ok'd for shower this morning by Dr. Wild. Current Medications: Active Medications Generic Name Dose Route Start Last Admin Trade Name Freq PRN Reason Stop Dose Admin Acetaminophen 650 mg 06/28/19 11:46 07/07/19 08:57 Tylenol Tab* PO 650 mg Q6H PRN Administration MILD PAIN or TEMP > 100.4 Acetaminophen/Codeine Phosphate 1 tab 07/02/19 09:38 07/03/19 04:20 Tylenol/Codeine 30 Mg Tab* PO 1 tab Q6H PRN Administration PAIN - MODERATE Baclofen 10 mg 06/28/19 14:00 07/08/19 09:09 Lioresal Tab* PO 10 mg TID EWELINA Administration Cholecalciferol 1,000 units 06/29/19 09:00 07/08/19 09:09 Vitamin D Tab* PO 1,000 units DAILY EWELINA Administration Cyanocobalamin 2,500 mcg 06/29/19 09:00 07/08/19 09:10 Vitamin B12 Tab* PO 2,500 mcg DAILY EWELINA Administration Dimethyl Fumarate 240 mg 06/28/19 21:00 07/08/19 09:10 Tecfidera(Nf) PO 240 mg BID EWELINA Administration Docusate Sodium 100 mg 06/28/19 21:00 07/08/19 09:11 Colace Cap* PO 100 mg BID EWELINA Administration Fluoxetine HCl 40 mg 06/29/19 09:00 07/08/19 09:11 Prozac Cap* PO 40 mg DAILY EWELINA Administration Heparin Sodium (Porcine) 5,000 units 06/28/19 14:00 07/08/19 06:51 Heparin Vial(*) SUBCUT 5,000 units Q8HR EWELIAN Administration Ibuprofen 400 mg 07/02/19 09:37 07/07/19 21:16 Motrin Tab* PO 400 mg Q6H PRN Administration PAIN - MILD Magnesium Hydroxide 30 ml 06/28/19 11:46 Milk Of Magnesia Liq* PO Q6H PRN CONSTIPATION Pto:Nft* (Claritin-D 10 mg 06/29/19 21:00 07/07/19 21:16 24 Hour Tablet) PO Not Given BEDTIME EWELINA Nystatin 1 applic 10/01/19 21:00 07/08/19 09:11 Nystatin Top Powder* TOPICAL 1 applic BID EWELINA Administration Risperidone 0.75 mg 06/28/19 21:00 07/08/19 09:11 Risperdal PO 0.75 mg BID EWELINA Administration Senna 2 tab 06/28/19 21:00 07/07/19 21:16 Senokot 8.6 Mg Tab* PO 2 tab BEDTIME EWELINA Administration Tamsulosin HCl 0.4 mg 06/28/19 21:00 07/07/19 21:15 Flomax Cap* PO 0.4 mg BEDTIME EWELINA Administration Vitamin E 400 unit 06/29/19 09:00 07/08/19 09:12 Vitamin E Cap* PO 400 unit DAILY EWELINA Administration Vital Signs: Vital Signs Temp Pulse Resp BP Pulse Ox 98.5 F 81 16 139/57 96 07/08/19 06:57 07/08/19 06:57 07/08/19 06:57 07/08/19 06:57 07/08/19 06:57 Exam: GENERAL: No acute distress. alert and appropriate. LUNGS: Clear to auscultation bilaterally HEART: regular rate and rhythm ABDOMEN: Soft, + bowel sounds, non-tender, non-distended EXTREMITIES: no edema. Left KAFO on. Right hand with OA changes along thumb and 1st CMC, but better per pt and staff. NEUROLOGIC: BUE motor 5/5. LLE motor 2/5 hip flex, knee ext. RLE motor 4/5 throughout. Sensation intact x4. Assessment/Plan: 1. Multiple Sclerosis: PT/OT. Tecfidera. Baclofen 2. Decompressive laminectomies, L2-L5: PT/OT. Left leg remains weaker than right 3. Depression: Prozac 4. Hallucinations: none at present. Risperadal 0.75 mg BID, may cut back 5. DVT Prophylaxis: Heparin S/Q 6. Advance Directives: DNR 7. 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
[2019-07-08] MEDS: Tamsulosin CAP* 0.4 MG PO SCH (20:08)
[2019-07-08] MEDS: [UNRECOGNIZED DRUG - OTHER] PO SCH (20:46)
[2019-07-08] MEDS: Senna TAB 8.6 mg* TAB PO SCH (20:50)
[2019-07-09] MEDS: Heparin VIAL(*) 5000 UNITS/ML VIAL (FIVE THOUSAND) SUBCUT SCH ×3 (05:39→21:10)
[2019-07-09] MEDS: Ibuprofen TAB* 400 MG PO PRN ×2 (08:36→21:06)
[2019-07-09] MEDS: PTO:Dimethyl Fumarate(NF) 240 MG CAP PO SCH ×2 (08:36→21:08)
[2019-07-09] MEDS: Baclofen TAB* 10 MG PO SCH ×3 (08:37→21:06)
[2019-07-09] MEDS: Cyanocobalamin TAB* 500 MCG PO SCH (08:37)
[2019-07-09] MEDS: Cholecalciferol TAB* 1000 UNITS PO SCH (08:37)
[2019-07-09] MEDS: FLUoxetine CAP* 20 MG PO SCH (08:38)
[2019-07-09] MEDS: Vitamin E CAP* 400 UNIT PO SCH (08:38)
[2019-07-09] MEDS: Docusate CAP* 100 MG PO SCH ×2 (08:38→21:10)
[2019-07-09] MEDS: Nystatin TOP POWDER* 15 GM BTL TOPICAL SCH ×2 (10:31→21:12)
--- NOTE | 2019-07-09 10:32 | PN ---
Progress Note Date of Service: 07/09/19 Note: RODO Good BULLMEME was visited. Nursing and therapy notes read and reviewed. No chest pain, shortness of breath or abdominal pain. Has itching in upper back. Current Medications: Active Medications Generic Name Dose Route Start Last Admin Trade Name Freq PRN Reason Stop Dose Admin Acetaminophen 650 mg 06/28/19 11:46 07/07/19 08:57 Tylenol Tab* PO 650 mg Q6H PRN Administration MILD PAIN or TEMP > 100.4 Acetaminophen/Codeine Phosphate 1 tab 07/02/19 09:38 07/03/19 04:20 Tylenol/Codeine 30 Mg Tab* PO 1 tab Q6H PRN Administration PAIN - MODERATE Baclofen 10 mg 06/28/19 14:00 07/09/19 08:37 Lioresal Tab* PO 10 mg TID EWELINA Administration Cholecalciferol 1,000 units 06/29/19 09:00 07/09/19 08:37 Vitamin D Tab* PO 1,000 units DAILY EWELINA Administration Cyanocobalamin 2,500 mcg 06/29/19 09:00 07/09/19 08:37 Vitamin B12 Tab* PO 2,500 mcg DAILY EWELINA Administration Dimethyl Fumarate 240 mg 06/28/19 21:00 07/09/19 08:36 Tecfidera(Nf) PO 240 mg BID EWELINA Administration Docusate Sodium 100 mg 06/28/19 21:00 07/09/19 08:38 Colace Cap* PO 100 mg BID EWELINA Administration Fluoxetine HCl 40 mg 06/29/19 09:00 07/09/19 08:38 Prozac Cap* PO 40 mg DAILY EWELINA Administration Heparin Sodium (Porcine) 5,000 units 06/28/19 14:00 07/09/19 05:39 Heparin Vial(*) SUBCUT 5,000 units Q8HR EWELINA Administration Hydrocortisone 1 applic 07/09/19 09:19 Hytone Cream 1%* TOPICAL QID PRN itching rash Ibuprofen 400 mg 07/02/19 09:37 07/09/19 08:36 Motrin Tab* PO 400 mg Q6H PRN Administration PAIN - MILD Magnesium Hydroxide 30 ml 06/28/19 11:46 Milk Of Magnesia Liq* PO Q6H PRN CONSTIPATION Pto:Nft* (Claritin-D 10 mg 06/29/19 21:00 07/08/19 20:46 24 Hour Tablet) PO Not Given BEDTIME EWELINA Nystatin 1 applic 06/28/19 21:00 07/08/19 20:07 Nystatin Top Powder* TOPICAL 1 applic BID EWELINA Administration Risperidone 0.75 mg 06/28/19 21:00 07/09/19 08:38 Risperdal PO 0.75 mg BID EWELINA Administration Senna 2 tab 06/28/19 21:00 07/08/19 20:50 Senokot 8.6 Mg Tab* PO Not Given BEDTIME EWELINA Tamsulosin HCl 0.4 mg 06/28/19 21:00 07/08/19 20:08 Flomax Cap* PO 0.4 mg BEDTIME EEWLINA Administration Vitamin E 400 unit 06/29/19 09:00 07/09/19 08:38 Vitamin E Cap* PO 400 unit DAILY EWELINA Administration Vital Signs: Vital Signs Temp Pulse Resp BP Pulse Ox 98.1 F 80 16 125/61 94 07/09/19 04:28 07/09/19 04:28 07/09/19 04:28 07/09/19 04:28 07/09/19 08:00 Exam: GENERAL: No acute distress. alert and appropriate. LUNGS: Clear to auscultation bilaterally HEART: regular rate and rhythm ABDOMEN: Soft, + bowel sounds, non-tender, non-distended EXTREMITIES: no edema. Right hand with OA changes along thumb and 1st CMC. NEUROLOGIC: BUE motor 5/5. LLE motor 2/5 hip flex, knee ext. RLE motor 4/5 throughout. Sensation intact x4. SKIN: mild papular rash on upper back. Assessment/Plan: 1. Multiple Sclerosis: PT/OT. Tecfidera. Baclofen 2. Decompressive laminectomies, L2-L5: PT/OT. Left leg remains weaker than right 3. Depression: Prozac 4. Hallucinations: none at present. Risperadal 0.75 mg BID, may cut back 5. DVT Prophylaxis: Heparin S/Q 6. Advance Directives: DNR 7. 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 Rash: hydrocortisone cream prn 07/09/19 10:32
[2019-07-09] MEDS: Senna TAB 8.6 mg* TAB PO SCH (21:05)
[2019-07-09] MEDS: Tamsulosin CAP* 0.4 MG PO SCH (21:05)
[2019-07-09] MEDS: [UNRECOGNIZED DRUG - OTHER] PO SCH (21:07)
[2019-07-10] MEDS: Heparin VIAL(*) 5000 UNITS/ML VIAL (FIVE THOUSAND) SUBCUT SCH ×3 (05:50→21:10)
[2019-07-10] MEDS: Hydrocortisone 1% CREAM* 30 GM TUBE TOPICAL PRN ×2 (08:45→14:32)
[2019-07-10] MEDS: Cholecalciferol TAB* 1000 UNITS PO SCH (09:24)
[2019-07-10] MEDS: Cyanocobalamin TAB* 500 MCG PO SCH (09:25)
[2019-07-10] MEDS: Ibuprofen TAB* 400 MG PO PRN ×2 (09:26→21:01)
[2019-07-10] MEDS: Docusate CAP* 100 MG PO SCH ×2 (09:26→21:00)
[2019-07-10] MEDS: Baclofen TAB* 10 MG PO SCH ×3 (09:26→21:08)
[2019-07-10] MEDS: Vitamin E CAP* 400 UNIT PO SCH (09:27)
[2019-07-10] MEDS: FLUoxetine CAP* 20 MG PO SCH (09:27)
[2019-07-10] MEDS: Nystatin TOP POWDER* 15 GM BTL TOPICAL SCH ×2 (09:28→21:11)
[2019-07-10] MEDS: PTO:Dimethyl Fumarate(NF) 240 MG CAP PO SCH ×2 (09:28→21:04)
--- NOTE | 2019-07-10 10:25 | PN ---
Progress Note Date of Service: 07/10/19 Note: RODO Good ROSEER was visited. Nursing notes read and reviewed. No chest pain, shortness of breath or abdominal pain. Itching less with hydrocortisone cream. Current Medications: Active Medications Generic Name Dose Route Start Last Admin Trade Name Freq PRN Reason Stop Dose Admin Acetaminophen 650 mg 06/28/19 11:46 07/07/19 08:57 Tylenol Tab* PO 650 mg Q6H PRN Administration MILD PAIN or TEMP > 100.4 Acetaminophen/Codeine Phosphate 1 tab 07/02/19 09:38 07/03/19 04:20 Tylenol/Codeine 30 Mg Tab* PO 1 tab Q6H PRN Administration PAIN - MODERATE Baclofen 10 mg 06/28/19 14:00 07/10/19 09:26 Lioresal Tab* PO 10 mg TID EWELINA Administration Cholecalciferol 1,000 units 06/29/19 09:00 07/10/19 09:24 Vitamin D Tab* PO 1,000 units DAILY EWELINA Administration Cyanocobalamin 2,500 mcg 06/29/19 09:00 07/10/19 09:25 Vitamin B12 Tab* PO 2,500 mcg DAILY EWELINA Administration Dimethyl Fumarate 240 mg 06/28/19 21:00 07/10/19 09:28 Tecfidera(Nf) PO 240 mg BID EWELINA Administration Docusate Sodium 100 mg 06/28/19 21:00 07/10/19 09:26 Colace Cap* PO 100 mg BID EWELINA Administration Fluoxetine HCl 40 mg 06/29/19 09:00 07/10/19 09:27 Prozac Cap* PO 40 mg DAILY EWELINA Administration Heparin Sodium (Porcine) 5,000 units 06/28/19 14:00 07/10/19 05:50 Heparin Vial(*) SUBCUT 5,000 units Q8HR EWELINA Administration Hydrocortisone 1 applic 07/09/19 09:19 07/10/19 08:45 Hytone Cream 1%* TOPICAL 1 applic QID PRN Administration itching rash Ibuprofen 400 mg 07/02/19 09:37 07/10/19 09:26 Motrin Tab* PO 400 mg Q6H PRN Administration PAIN - MILD Magnesium Hydroxide 30 ml 06/28/19 11:46 Milk Of Magnesia Liq* PO Q6H PRN CONSTIPATION Pto:Nft* (Claritin-D 10 mg 06/29/19 21:00 07/09/19 21:07 24 Hour Tablet) PO 10 mg BEDTIME EWELINA Administration Nystatin 1 applic 06/28/19 21:00 07/10/19 09:28 Nystatin Top Powder* TOPICAL 1 applic BID EWELINA Administration Risperidone 0.75 mg 06/28/19 21:00 07/10/19 09:27 Risperdal PO 0.75 mg BID EWELINA Administration Senna 2 tab 06/28/19 21:00 07/09/19 21:05 Senokot 8.6 Mg Tab* PO 2 tab BEDTIME EWELINA Administration Tamsulosin HCl 0.4 mg 06/28/19 21:00 07/09/19 21:05 Flomax Cap* PO 0.4 mg BEDTIME EWELINA Administration Vitamin E 400 unit 06/29/19 09:00 07/10/19 09:27 Vitamin E Cap* PO 400 unit DAILY EWELINA Administration Vital Signs: Vital Signs Temp Pulse Resp BP Pulse Ox 97.6 F 86 16 119/60 94 07/10/19 05:51 07/10/19 05:51 07/10/19 08:00 07/10/19 05:51 07/10/19 08:00 Exam: GENERAL: No acute distress. alert and appropriate. LUNGS: Clear to auscultation bilaterally HEART: regular rate and rhythm ABDOMEN: Soft, + bowel sounds, non-tender, non-distended EXTREMITIES: no edema. NEUROLOGIC: BUE motor 5/5. LLE motor 2/5 hip flex, knee ext. RLE motor 4/5 throughout. Sensation intact x4. SKIN: mild papular rash on upper back. Dressing changed with staff. Mild serous drainage stable. Sutures intact. Assessment/Plan: 1. Multiple Sclerosis: PT/OT. Tecfidera. Baclofen 2. Decompressive laminectomies, L2-L5: PT/OT. Left leg remains weaker than right. f/u with neurosurgery. 3. Depression: Prozac 4. Hallucinations: none at present. Risperadal 0.75 mg BID, may cut back 5. DVT Prophylaxis: Heparin S/Q 6. Advance Directives: DNR 7. 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 Rash: hydrocortisone cream prn 07/10/19 10:24
[2019-07-10] MEDS: Tamsulosin CAP* 0.4 MG PO SCH (21:00)
[2019-07-10] MEDS: Senna TAB 8.6 mg* TAB PO SCH (21:00)
[2019-07-10] MEDS: [UNRECOGNIZED DRUG - OTHER] PO SCH (21:05)
[2019-07-11] MEDS: Heparin VIAL(*) 5000 UNITS/ML VIAL (FIVE THOUSAND) SUBCUT SCH ×3 (06:16→21:17)
[2019-07-11] MEDS: Cyanocobalamin TAB* 500 MCG PO SCH (08:09)
[2019-07-11] MEDS: Baclofen TAB* 10 MG PO SCH ×3 (08:09→21:13)
[2019-07-11] MEDS: Cholecalciferol TAB* 1000 UNITS PO SCH (08:09)
[2019-07-11] MEDS: PTO:Dimethyl Fumarate(NF) 240 MG CAP PO SCH ×2 (08:10→21:13)
[2019-07-11] MEDS: Docusate CAP* 100 MG PO SCH ×2 (08:10→21:12)
[2019-07-11] MEDS: FLUoxetine CAP* 20 MG PO SCH (08:10)
[2019-07-11] MEDS: Nystatin TOP POWDER* 15 GM BTL TOPICAL SCH ×2 (08:10→21:17)
[2019-07-11] MEDS: Vitamin E CAP* 400 UNIT PO SCH (08:11)
[2019-07-11] MEDS: Ibuprofen TAB* 400 MG PO PRN ×2 (08:15→19:06)
--- NOTE | 2019-07-11 17:22 | PN ---
Progress Note Date of Service: 07/11/19 Note: RODO VALENTINE was visited. Therapy notes read and reviewed. He was able to walk a little further today but has bilateral thumb (CMC joint) pain from gripping the walker. Current Medications: Active Medications Generic Name Dose Route Start Last Admin Trade Name Freq PRN Reason Stop Dose Admin Acetaminophen 650 mg 06/28/19 11:46 07/07/19 08:57 Tylenol Tab* PO 650 mg Q6H PRN Administration MILD PAIN or TEMP > 100.4 Acetaminophen/Codeine Phosphate 1 tab 07/02/19 09:38 07/03/19 04:20 Tylenol/Codeine 30 Mg Tab* PO 1 tab Q6H PRN Administration PAIN - MODERATE Baclofen 10 mg 06/28/19 14:00 07/11/19 14:02 Lioresal Tab* PO 10 mg TID EWELINA Administration Cholecalciferol 1,000 units 06/29/19 09:00 07/11/19 08:09 Vitamin D Tab* PO 1,000 units DAILY EWELINA Administration Cyanocobalamin 2,500 mcg 06/29/19 09:00 07/11/19 08:09 Vitamin B12 Tab* PO 2,500 mcg DAILY EWELINA Administration Dimethyl Fumarate 240 mg 06/28/19 21:00 07/11/19 08:10 Tecfidera(Nf) PO 240 mg BID EWELINA Administration Docusate Sodium 100 mg 06/28/19 21:00 07/11/19 08:10 Colace Cap* PO 100 mg BID EWELINA Administration Fluoxetine HCl 40 mg 06/29/19 09:00 07/11/19 08:10 Prozac Cap* PO 40 mg DAILY EWELINA Administration Heparin Sodium (Porcine) 5,000 units 06/28/19 14:00 07/11/19 14:07 Heparin Vial(*) SUBCUT 5,000 units Q8HR EWELINA Administration Hydrocortisone 1 applic 07/09/19 09:19 07/10/19 14:32 Hytone Cream 1%* TOPICAL 1 applic QID PRN Administration itching rash Ibuprofen 400 mg 07/02/19 09:37 07/11/19 08:15 Motrin Tab* PO 400 mg Q6H PRN Administration PAIN - MILD Magnesium Hydroxide 30 ml 06/28/19 11:46 Milk Of Magnesia Liq* PO Q6H PRN CONSTIPATION Pto:Nft* (Claritin-D 10 mg 06/29/19 21:00 07/10/19 21:05 24 Hour Tablet) PO 10 mg BEDTIME EWELINA Administration Nystatin 1 applic 06/28/19 21:00 07/11/19 08:10 Nystatin Top Powder* TOPICAL 1 applic BID EWELINA Administration Risperidone 0.75 mg 06/28/19 21:00 07/11/19 08:10 Risperdal PO 0.75 mg BID EWELINA Administration Senna 2 tab 06/28/19 21:00 07/10/19 21:00 Senokot 8.6 Mg Tab* PO 2 tab BEDTIME EWELINA Administration Tamsulosin HCl 0.4 mg 06/28/19 21:00 07/10/19 21:00 Flomax Cap* PO 0.4 mg BEDTIME EWELINA Administration Vitamin E 400 unit 06/29/19 09:00 07/11/19 08:11 Vitamin E Cap* PO 400 unit DAILY EWELINA Administration Vital Signs: Vital Signs Temp Pulse Resp BP Pulse Ox 98.0 F 86 18 140/51 97 07/11/19 16:27 07/11/19 16:27 07/11/19 16:27 07/11/19 16:27 07/11/19 16:27 Exam: GENERAL: No acute distress. alert and appropriate. LUNGS: Clear to auscultation bilaterally HEART: regular rate and rhythm ABDOMEN: Soft, + bowel sounds, non-tender, non-distended EXTREMITIES: no edema. NEUROLOGIC: BUE motor 5/5. LLE motor 2/5 hip flex, knee ext. RLE motor 4/5 throughout. Sensation intact x4. SKIN: mild papular rash on upper back. Assessment/Plan: 1. Multiple Sclerosis: PT/OT. Tecfidera. Baclofen 2. Decompressive laminectomies, L2-L5: PT/OT. Left leg remains weaker than right. f/u with neurosurgery. 3. Depression: Prozac 4. Hallucinations: none at present. Risperadal 0.75 mg BID, may cut back 5. DVT Prophylaxis: Heparin S/Q 6. Advance Directives: DNR 7. 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 Rash: hydrocortisone cream prn 07/11/19 17:23
[2019-07-11 20:56] LABS: Urine Appearance Cloudy; Urine Bacteria Absent (Absent); Urine Bilirubin Negative (Negative); Urine Blood 1+ (Negative); Urine Color Yellow; Urine Glucose Negative (Negative); Urine Ketones Negative (Negative); Urine Nitrite Positive (Negative); Urine Protein Negative (Negative); Urine Red Blood Cell 1+(3-5/hpf) (Absent); Urine Specific Gravity 1.016 (1.010-1.030); Urine Urobilinogen Negative (Negative); Urine White Blood Cell 3+(>20/hpf) (Absent)
[2019-07-11] MEDS: Senna TAB 8.6 mg* TAB PO SCH (21:12)
[2019-07-11] MEDS: [UNRECOGNIZED DRUG - OTHER] PO SCH (21:12)
[2019-07-11] MEDS: Tamsulosin CAP* 0.4 MG PO SCH (21:13)
[2019-07-12] MEDS: Heparin VIAL(*) 5000 UNITS/ML VIAL (FIVE THOUSAND) SUBCUT SCH ×3 (05:32→21:14)
[2019-07-12] MEDS: Nystatin TOP POWDER* 15 GM BTL TOPICAL SCH ×2 (08:53→21:13)
[2019-07-12] MEDS: Docusate CAP* 100 MG PO SCH ×2 (08:58→21:12)
[2019-07-12] MEDS: Cholecalciferol TAB* 1000 UNITS PO SCH (08:58)
[2019-07-12] MEDS: FLUoxetine CAP* 20 MG PO SCH (08:58)
[2019-07-12] MEDS: Cyanocobalamin TAB* 500 MCG PO SCH (08:58)
[2019-07-12] MEDS: Ibuprofen TAB* 400 MG PO PRN ×2 (08:59→21:12)
[2019-07-12] MEDS: Vitamin E CAP* 400 UNIT PO SCH (09:00)
[2019-07-12] MEDS: PTO:Dimethyl Fumarate(NF) 240 MG CAP PO SCH ×2 (09:00→21:15)
[2019-07-12] MEDS: Baclofen TAB* 10 MG PO SCH ×3 (09:04→21:13)
[2019-07-12] MEDS: Hydrocortisone 1% CREAM* 30 GM TUBE TOPICAL PRN ×2 (09:22→21:14)
--- NOTE | 2019-07-12 12:32 | PMRUTEAM ---
PMRU: Team Meeting Current Status: Physical Therapy: Current Status Current Rolling Status Supervision/Touching Current Supine <-> Sit Status Partial/Moderate Current Sit <-> Stand Status Partial/Moderate Current Bed <-> Chair Status Partial/Moderate Transfer/Bed Mobility Rolling Walker,EZ Stand Recommended Devices Current Picking Up Object Partial/Moderate Status Current Car Transfer Status Not attempted Current Ambulation Assistance Partial/Moderate Status Ambulation Assistive Device Rolling Walker Ambulation Conditions Two or More Turns,Uneven Surfaces Current Ambulation Distance 65 Manual Wheelchair Control/ Bilateral UE's Technique Current Wheelchair Propulsion Setup or Clean-up Assist Ability Status Wheelchair Distance (ft) 150 Current Stair Climbing Status Not attempted Objective Comments Pt c/o B thumb pain, with erythema and edema. Nsg / MD aware. Pt reports improvement in pain with rest and ice. Occupational Therapy: Current Status Current Upper Body Dressing Setup or Clean-up Assist Status Current Lower Body Dressing Partial/Moderate Status Current Footwear Status Partial/Moderate Current Bathing Status Partial/Moderate Current Grooming Status Setup or Clean-up Assist Current Toileting Status Substantial/Maximal Current Toilet Transfer Status Partial/Moderate Current Eating Status Independent Nursing: Current Status Skin Deviations [Abrasions to Abrasion R knee, L elbow] Skin Deviations [multiple toes Abrasion ] Skin Deviations [Upper Back] Rash Skin Deviations [Right Hand] Other Skin Deviations [Bilateral Rash Groin] Skin Deviations [Midline Back] Incision Skin Deviation Description [ healing Abrasions to R knee, L elbow] Skin Deviation Description [ healing, scabbed multiple toes] Skin Deviation Description [ hydrocortisone cream Upper Back] Skin Deviation Description [ thumb joint pain Right Hand] Skin Deviation Description [ sl reddened - skin prep/nystatin applied Bilateral Groin] Skin Deviation Description [ drsg in place Midline Back] Rec Therapy: Current Status Summary of Assessment and Recreation Therapy Assessment complete and pt. is Clinical Impression aware of services. Pt. has been very engaged in leisure visits, pet therapy, and recreational activities. Pt. is talkative and future focused. Treatment Goals Pt. will engage in leisure activities while on the unit. Treatment Plan Provide recreation therapy services and encourage involvement. Nutrition: Current Status Monitoring 73 yo M admitted to [facility] s/p L2-L5 decompression; hx MS. Maintained on regular unrestricted diet conusming 80-100% at meals. Denies n/v/c/abd pain; noted diarrhea 07/04 per progress note. Last BM . Skin intact. Labs/meds rev'd. Current diet remains appropriate; no nutrition intervention indicated at this time. Will cont to monitor and f /u per facility protocol. Goals: Physical Therapy: Goals Goals to Be Accomplished in ( 21 Days) Goal: Rolling Assistance Independent Goal Supine <-> Sit Status Independent Goal Sit <-> Stand Status Independent Goal Bed <-> Chair Status Independent Transfer/Bed Mobility Rolling Walker Recommended Devices Goal: Picking Up Object Independent Goal: Car Transfer Status Setup or Clean-up Assist Goal: Ambulation Assistance Independent Ambulation Assistive Devices Rolling Walker Ambulation Distance (ft) 150 Goal: Wheelchair Propulsion Independent Ability Wheelchair Distance (ft) 150 Goal: Stairs Assistance Independent Stairs Recommended Devices Two Rails Number of Stairs 4 Goal: Curb Assistance Independent Goal: Home Exercise Program Independent Assistance Occupational Therapy: Goals Goals to be Completed in (Days 21 ) Goal Upper Body Dressing Independent Routine Goal Lower Body Dressing Independent Routine Goal Footwear Status Independent Goal Bathing Routine (OT) Independent Goal Grooming Routine Independent Goal Toilet Hygiene and Independent Clothing Management Routine Goal Toilet Transfer Routine Independent Goal Functional Transfers for Independent ADL Goal Feeding Routine Independent Goal Light Housekeeping Tasks Partial/Moderate Nutrition: Goals Intervention Goals 1. adequate intake to support hydration and lean body mass without significant wt change 2. regulation of bowel pattern; no c/o constipation (or diarrhea) Care Plan: Care Plan ADL's - Improve/Maintain Start: 06/28/19 13:51 Freq: DAILY@[id number] Status: Active Target: 06/29/19 Protocol: Activity Type Activity Date Activity User E-Sign Co-Sign Detail Recorded Client Recorded Date Recorded By Document 07/11/19 16:03 [id number] [email or web address] 07/11/19 16:04 [id number] 07/11/19 16:03 PMRU Outcome: ADL's/ADL Transfers Orders/Interventions Occupational Therapy Evaluation & Treatment Communication Tool in Patient Room Device Yes Address Deficits Secondary To: L2-5 decompression/ lami and MS exacerbation Patient to receive OT 5x/wk for 60-120 Therex min/day Self Care Management Group Therapy Neuromuscular ReEducation UE/LE ADL's with Assist Yes: independent ADL Transfers with Assist Yes: independent Toileting: Transfers,Clothing Management Yes: ,Hygeine w/Assist independent Light Kitchen/Laundry w/Assist Yes: Dimitrios Other Outcome/Goals Pt participated well in treatment session, knee buckling x 1 in standing during ADL routine without KAFO in place. Progression Toward Outcome/Goals Progressing Coping/Psych-Improve/Maintain Start: 06/28/19 12:56 Freq: [id number] Status: Complete Target: 07/14/19 Protocol: Activity Type Activity Date Activity User E-Sign Co-Sign Detail Recorded Client Recorded Date Recorded By Document 07/10/19 07:00 [id number] 07/10/19 08:15 [id number] 07/10/19 07:00 PMRU Outcome: Coping/Psychosocial Current Coping Outcome/Goals Verbalization of Acceptance of Rehab Admit Verbalization of Sense of Control Over Health Status Utilization of Appropriate Problem Solving Techniques Willingness to Participate in Treatment Plan and Basic Needs Utilization of Available Support Systems Progression Toward Outcome/Goals Goals Met Outcome/Goals Met Demonstrates Understanding of Rehab Admit and Goal Setting Process Starts to Plan for Necessary Lifestyle Role Changes Current Psychosocial Outcome/Goals Maintain/ Improve Emotional Health Demonstrates Knowledge of Healthy Coping Mechanisms Available Cooperate/ Participate in Plan Progression Toward Outcome/Goals Goals Met Outcome/Goals Met Maintain/ Improved Emotional Health Cooperate/ Participated in Plan DVT Prophylaxis- Improve/Maintain Start: 06/28/19 12:56 Freq: [id number] Status: Complete Target: 07/12/19 Protocol: Activity Type Activity Date Activity User E-Sign Co-Sign Detail Recorded Client Recorded Date Recorded By Document 07/06/19 19:00 [id number] [id number] 07/06/19 19:25 [id number] 07/06/19 19:00 PMRU Outcome: DVT Prophylaxis Current DVT Outcome/Goals Remains Free of DVT Complies with DVT Prophylaxis /Treatment Demonstrates Knowledge of DVT Prevention/ Treatment TEDS Stockings on Every AM, Off at HS Progression Toward Outcome/Goals Goals Met Outcome/Goals Met Remains Free of DVT Discharge Planning - Improve/Maintain Start: 06/28/19 12:56 Freq: [id number] Status: Active Target: 07/14/19 Protocol: Activity Type Activity Date Activity User E-Sign Co-Sign Detail Recorded Client Recorded Date Recorded By Document 07/12/19 07:00 [id number] [email or web address] 07/12/19 12:13 [id number] 07/12/19 07:00 PMRU Outcome: Discharge Planning Update Patient Family No Current Discharge Planning Outcome/Goals Demonstrates Understanding of Discharge Plan Progression Toward Outcome/Goals Progressing Education-Improve/Maintain Start: 06/28/19 12:56 Freq: [id number] Status: Active Target: 07/14/19 Protocol: Activity Type Activity Date Activity User E-Sign Co-Sign Detail Recorded Client Recorded Date Recorded By Document 07/12/19 07:00 [id number] 07/12/19 12:13 [id number] 07/12/19 07:00 PMRU Outcome: Education Current Education Outcome/Goals Demonstrate/ Verbalize Understanding of Written Discharge Instructions Demonstrates Skills Encourage Questions Progression Toward Outcome/Goals Progressing /GI-Improve/Maintain Start: 06/28/19 12:56 Freq: [id number] Status: Active Target: 07/14/19 Protocol: Activity Type Activity Date Activity User E-Sign Co-Sign Detail Recorded Client Recorded Date Recorded By Document 07/12/19 07:00 [id number] 07/12/19 12:13 [id number] 07/12/19 07:00 PMRU Outcome: Genitourinary/ Gastrointestinal Current Gastrointestinal Outcome/Goals Maintain/ Achieve Bowel Regularity in Accordance with Pt's Baseline Remain Free of Emesis Prevent Constipation Bowel Regularity at Home Laxatives as Ordered Progression Toward Outcome/Goals Progressing Current Genitourinary Outcome/Goals Maintain/ Achieve Adequate Urinary Output Remain Free of Hospital- Acquired UTI Other Genitourinary Outcome/Goals straight cath q8h Progression Toward Outcome/Goals Progressing Medication Administration Start: 06/28/19 12:56 Freq: [id number] Status: Active Target: 07/14/19 Protocol: Activity Type Activity Date Activity User E-Sign Co-Sign Detail Recorded Client Recorded Date Recorded By Document 07/12/19 07:00 [id number] [email or web address] 07/12/19 12:13 [id number] 07/12/19 07:00 PMRU Outcome: Medication Administration Assess Patient Knowledge/Teach Med Yes Education for all Meds Current Steam Press Tender Outcome/Goals Patient Independent with Medication Administration at Home Demonstrates Understanding Progression Towards Outcome/Goals Progressing Is Patient Going Home on Lovenox? No Mobility- Improve/Maintain Start: 06/28/19 18:34 Freq: DAILY@[id number] Status: Active Target: 06/29/19 Protocol: Activity Type Activity Date Activity User E-Sign Co-Sign Detail Recorded Client Recorded Date Recorded By Document 06/30/19 16:32 [id number] [email or web address] 06/30/19 16:32 [id number] 06/30/19 16:32 PMRU Outcome: Mobility Physical Therapy Evaluation and Yes Treatment Activity OOB with Assistance Yes WBAT Yes Device Yes Assistance Yes Patient to be seen 5x/wk for 60-120 min/ Therex day for: Mobility Training Gait Training W/C Mobility Balance Current Mobility Outcome/Goals Maintain/ Achieve Baseline Mobility Status Improve Mobility Status Demonstrates Proper Use of Assistive Devices Free from Complications of Immobility Progression Toward Outcome/Goals Progressing Bed Mobility Yes: independent Transfers Yes: independent with rolling walker. Gait x ft Yes: independent with rolling walker 150' W/C Mobility x ft Yes: independent with BUE to 150 ' Up/Down Stairs Yes: independnet up/ down 5 stairs. Neurological- Improve/Maintain Start: 06/28/19 12:56 Freq: DAILY@699,0 Status: Active Target: 07/14/19 Protocol: Activity Type Activity Date Activity User E-Sign Co-Sign Detail Recorded Client Recorded Date Recorded By Document 07/12/19 07:00 [id number] 07/12/19 12:13 [id number] 07/12/19 07:00 PMRU Outcome: Neurological Weakness/Aphasia Weakness Weakness/Aphasia Comment s/p MS Current Neurological Outcome/Goals Maintain/ Achieve Baseline Neurological Status Improve Neurological Status Prevent Avoidable Neurological Decline Demonstrate Knowledge of Prevention/Tx of Neuro Disorders/ Complication Maintain/ Improve Strength/ROM Progression Toward Outcome/Goals Progressing Pain/Comfort- Improve/Maintain Start: 06/28/19 12:56 Freq: DAILY@0700,1900 Status: Complete Target: 07/12/19 Protocol: Activity Type Activity Date Activity User E-Sign Co-Sign Detail Recorded Client Recorded Date Recorded By Document 07/06/19 19:00 [id number] [email or web address] 07/06/19 19:25 [id number] 07/06/19 19:00 PMRU Outcome: Pain/Comfort Current Pain/Comfort Outcome/Goals Demonstrates Knowledge and Use of Available Comfort Measures Achieves Acceptable Comfort/Pain Level as Determined by Patient/Condit Maintain Comfort Level Allowing Patient to Fully Participate in Rehab Progression Toward Outcome/Goals Goals Met Outcome/Goals Met Maintain Comfort Level Allowing Patient to Fully Participate in Rehab Rec Therapy- Improve/Maintain Start: 06/28/19 16:28 Freq: DAILY@0700,1900 Status: Active Target: 07/22/19 Protocol: Activity Type Activity Date Activity User E-Sign Co-Sign Detail Recorded Client Recorded Date Recorded By Document 07/11/19 16:25 [id number] [id number] 07/11/19 16:32 [id number] 07/11/19 16:25 PMRU Outcome: Recreation Therapy Current Rec Ther Outcome/Goals Meet with Patient Regularly for Support Encourage Leisure Involvement Progression Toward Outcome/Goals Progressing Lack of Progression Comment pt. has been regularly involved in leisure groups, activities, and visits. 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 Outcome/Goals Met Complete Rec Therapy Assessment Safety- Improve/Maintain Start: 06/28/19 11:29 Freq: DAILY@0700,1900 Status: Active Target: 07/14/19 Protocol: Activity Type Activity Date Activity User E-Sign Co-Sign Detail Recorded Client Recorded Date Recorded By Document 07/12/19 07:00 [id number] 07/12/19 12:13 [id number] 07/12/19 07:00 PMRU Outcome: Safety Current Safety Outcome/Goals Remain Free of Injury or Harm Cooperates with Safety Measures for Least Restrictive Environment Prevent Falls/ Injury Progression Toward Outcome/Goals Progressing Skin- Improve/Maintain Start: 06/28/19 12:56 Freq: DAILY@0700,1900 Status: Active Target: 07/14/19 Protocol: Activity Type Activity Date Activity User E-Sign Co-Sign Detail Recorded Client Recorded Date Recorded By Document 07/12/19 07:00 [id number] [email or web address] 07/12/19 12:13 [id number] 07/12/19 07:00 PMRU Outcome: Skin Skin Risk Level Mild Risk Skin Orders Dressing Change Heels Off Bed Turn/Position q2hr While in Bed Skin Orders Comment dressing changed, area cleansed and pat dry, Yahir dressing and paper tape, dated, timed and initialed, lower back incisionn intact, scant brown drainaged , no foul smell , Current Skin Outcome/Goals Maintain/ Improve Skin Integrity Free from Pressure Injury Surgical Incisions Healing Progression Toward Outcome/Goals Progressing - Interdisciplinary Staff Present Process Stripper/Social Work Staff Present: Shereen Ospina LMSW Nursing Staff Present: Hermann Zamarripa, RN OT Staff Present: Chiquita Davis PT Staff Present: Rachel Kim Rec Therapy Staff Present: Emiliana Dominguez Medicine Note: Length of Stay: 10 days Anticipated Discharge Destination: Home Tentative Discharge Date: 07/22/19 Discharged to: Home
--- NOTE | 2019-07-12 17:21 | PN ---
Progress Note Date of Service: 07/12/19 Note: RODO Good BULLMEME was visited. Therapy notes read and reviewed. He was discussed in interdisciplinary team rounds. He is making progress but may need some additional aide time when he goes home. Thumbs are still painful-will order Voltaren Gel. U/A sent-no bacteria seen, await cultures Current Medications: Active Medications Generic Name Dose Route Start Last Admin Trade Name Freq PRN Reason Stop Dose Admin Acetaminophen 650 mg 06/28/19 11:46 07/07/19 08:57 Tylenol Tab* PO 650 mg Q6H PRN Administration MILD PAIN or TEMP > 100.4 Acetaminophen/Codeine Phosphate 1 tab 07/02/19 09:38 07/03/19 04:20 Tylenol/Codeine 30 Mg Tab* PO 1 tab Q6H PRN Administration PAIN - MODERATE Baclofen 10 mg 06/28/19 14:00 07/12/19 14:32 Lioresal Tab* PO 10 mg TID EWELINA Administration Cholecalciferol 1,000 units 06/29/19 09:00 07/12/19 08:58 Vitamin D Tab* PO 1,000 units DAILY EWELINA Administration Cyanocobalamin 2,500 mcg 06/29/19 09:00 07/12/19 08:58 Vitamin B12 Tab* PO 2,500 mcg DAILY EWELINA Administration Diclofenac Sodium 1 applic 07/12/19 21:00 Voltaren 1% Gel (Nf) TOPICAL TID [facility] Protocol Dimethyl Fumarate 240 mg 06/28/19 21:00 07/12/19 09:00 Tecfidera(Nf) PO 240 mg BID EWELINA Administration Docusate Sodium 100 mg 06/28/19 21:00 07/12/19 08:58 Colace Cap* PO 100 mg BID EWELINA Administration Fluoxetine HCl 40 mg 06/29/19 09:00 07/12/19 08:58 Prozac Cap* PO 40 mg DAILY EWELINA Administration Heparin Sodium (Porcine) 5,000 units 06/28/19 14:00 07/12/19 14:33 Heparin Vial(*) SUBCUT 5,000 units Q8HR EWELINA Administration Hydrocortisone 1 applic 07/09/19 09:19 07/12/19 09:22 Hytone Cream 1%* TOPICAL 1 applic QID PRN Administration itching rash Ibuprofen 400 mg 07/02/19 09:37 07/12/19 08:59 Motrin Tab* PO 400 mg Q6H PRN Administration PAIN - MILD Magnesium Hydroxide 30 ml 06/28/19 11:46 Milk Of Magnapryl Liq* PO Q6H PRN CONSTIPATION Pto:Nft* (Claritin-D 10 mg 06/29/19 21:00 07/11/19 21:12 24 Hour Tablet) PO 10 mg BEDTIME EWELINA Administration Nystatin 1 applic 06/28/19 21:00 07/12/19 08:53 Nystatin Top Powder* TOPICAL 1 applic BID EWELINA Administration Risperidone 0.75 mg 06/28/19 21:00 07/12/19 09:00 Risperdal PO 0.75 mg BID EWELINA Administration Senna 2 tab 06/28/19 21:00 07/11/19 21:12 Senokot 8.6 Mg Tab* PO 2 tab BEDTIME EWELINA Administration Tamsulosin HCl 0.4 mg 06/28/19 21:00 07/11/19 21:13 Flomax Cap* PO 0.4 mg BEDTIME EWELINA Administration Vitamin E 400 unit 06/29/19 09:00 07/12/19 09:00 Vitamin E Cap* PO 400 unit DAILY EWELINA Administration Vital Signs: Vital Signs Temp Pulse Resp BP Pulse Ox 97.6 F 84 14 143/63 97 07/12/19 06:03 07/12/19 06:03 07/12/19 08:00 07/12/19 06:03 07/12/19 08:00 Lab Results: Laboratory Results - last 24 hr 07/11/19 20:00 Urine Color Yellow Urine Appearance Cloudy Urine pH 5.0 Ur Specific [place] 1.016 Urine Protein Negative Urine Ketones Negative Urine Blood 1+ A Urine Nitrate Positive A Urine Bilirubin Negative Urine Urobilinogen Negative Ur Leukocyte Esterase 3+ A Urine WBC (Auto) 3+(>20/hpf) A Urine RBC (Auto) 1+(3-5/hpf) A Urine Bacteria Absent Urine Glucose Negative Exam: GENERAL: No acute distress. alert and appropriate. LUNGS: Clear to auscultation bilaterally HEART: regular rate and rhythm ABDOMEN: Soft, + bowel sounds, non-tender, non-distended EXTREMITIES: no edema. NEUROLOGIC: BUE motor 5/5. LLE motor 2/5 hip flex, knee ext. RLE motor 4/5 throughout. Sensation intact x4. SKIN: mild papular rash on upper back. Assessment/Plan: 1. Multiple Sclerosis: PT/OT. Tecfidera. Baclofen 2. Decompressive laminectomies, L2-L5: PT/OT. Left leg remains weaker than right. f/u with neurosurgery. 3. Depression: Prozac 4. Hallucinations: none at present. Risperadal 0.75 mg BID, may cut back 5. DVT Prophylaxis: Heparin S/Q 6. Advance Directives: DNR 7. 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 Rash: hydrocortisone cream prn 07/12/19 17:21
[2019-07-12] MEDS: CMCS: Diclofenac 1% GEL (NF) 100 GM TUBE TOPICAL SCH (19:03)
[2019-07-12] MEDS: Tamsulosin CAP* 0.4 MG PO SCH (21:12)
[2019-07-12] MEDS: Senna TAB 8.6 mg* TAB PO SCH (21:12)
[2019-07-12] MEDS: [UNRECOGNIZED DRUG - OTHER] PO SCH (21:16)
[2019-07-13 05:11] LABS: ABS Basophils 0.1 10^3/ul (0-0.2); ABS Eosinophils 0.4 10^3/ul (0-0.6); ABS Lymphocytes 1.1 10^3/ul (1.0-4.8); ABS Monocytes 0.9 10^3/ul (0-0.8); Hematocrit 29 % (42-52); Hemoglobin 9.9 g/dL (14.0-18.0); Lymphocyte % 13.4 %; Mean Corpuscular HGB Conc 34 g/dL (31-36); Mean Corpuscular Hemoglobin 32 pg (27-31); Mean Corpuscular Volume 94 fL (80-94); Mean Platelet Volume 7.5 fL (7.4-10.4); Platelet Count 476 10^3/uL (150-450); Red Blood Count 3.06 10^6 /uL (4.18-5.48); Red Cell Distribution Width 14 % (10-15); White Blood Count 8.5 10^3/uL (3.5-10.8)
[2019-07-13 05:28] LABS: Albumin 3.1 g/dL (3.2-5.2); BUN/Creatinine Ratio 24.6 (8-20); EGFR Non-African American 112.4 (>60); Globulin 3.2 g/dL (2-4); Potassium 3.9 mmol/L (3.5-5.0); Total Bilirubin 0.2 mg/dL (0.2-1.0); Total Protein 6.3 g/dL (6.4-8.9)
[2019-07-13] MEDS: Heparin VIAL(*) 5000 UNITS/ML VIAL (FIVE THOUSAND) SUBCUT SCH ×3 (05:41→21:13)
[2019-07-13] MEDS: Baclofen TAB* 10 MG PO SCH ×3 (08:18→20:49)
[2019-07-13] MEDS: Cholecalciferol TAB* 1000 UNITS PO SCH (08:18)
[2019-07-13] MEDS: Cyanocobalamin TAB* 500 MCG PO SCH (08:18)
[2019-07-13] MEDS: FLUoxetine CAP* 20 MG PO SCH (08:20)
[2019-07-13] MEDS: Docusate CAP* 100 MG PO SCH ×2 (08:20→20:56)
[2019-07-13] MEDS: PTO:Dimethyl Fumarate(NF) 240 MG CAP PO SCH ×2 (08:20→20:48)
[2019-07-13] MEDS: Vitamin E CAP* 400 UNIT PO SCH (08:21)
[2019-07-13] MEDS: Ibuprofen TAB* 400 MG PO PRN ×2 (08:22→20:49)
[2019-07-13] MEDS: Hydrocortisone 1% CREAM* 30 GM TUBE TOPICAL PRN (11:39)
[2019-07-13] MEDS: Nystatin TOP POWDER* 15 GM BTL TOPICAL SCH ×2 (11:39→20:56)
[2019-07-13] MEDS: CMCS: Diclofenac 1% GEL (NF) 100 GM TUBE TOPICAL SCH ×3 (11:40→20:56)
--- NOTE | 2019-07-13 16:29 | PN ---
Progress Note Date of Service: 07/13/19 Note: RODO VALENTINE was visited. Therapy notes read and reviewed. Was able to get on regular toilet today and wipe himself. Doing okay otherwise. Left thumb better, right still hurts Current Medications: Active Medications Generic Name Dose Route Start Last Admin Trade Name Freq PRN Reason Stop Dose Admin Acetaminophen 650 mg 06/28/19 11:46 07/07/19 08:57 Tylenol Tab* PO 650 mg Q6H PRN Administration MILD PAIN or TEMP > 100.4 Acetaminophen/Codeine Phosphate 1 tab 07/02/19 09:38 07/03/19 04:20 Tylenol/Codeine 30 Mg Tab* PO 1 tab Q6H PRN Administration PAIN - MODERATE Baclofen 10 mg 06/28/19 14:00 07/13/19 14:10 Lioresal Tab* PO 10 mg TID EWEILNA Administration Cholecalciferol 1,000 units 06/29/19 09:00 07/13/19 08:18 Vitamin D Tab* PO 1,000 units DAILY EWELINA Administration Cyanocobalamin 2,500 mcg 06/29/19 09:00 07/13/19 08:18 Vitamin B12 Tab* PO 2,500 mcg DAILY EWELINA Administration Diclofenac Sodium 1 applic 07/12/19 21:00 07/13/19 14:09 Voltaren 1% Gel (Nf) TOPICAL 1 applic TID EWELINA Administration Protocol Dimethyl Fumarate 240 mg 06/28/19 21:00 07/13/19 08:20 Tecfidera(Nf) PO 240 mg BID EWELINA Administration Docusate Sodium 100 mg 06/28/19 21:00 07/13/19 08:20 Colace Cap* PO 100 mg BID EWELINA Administration Fluoxetine HCl 40 mg 06/29/19 09:00 07/13/19 08:20 Prozac Cap* PO 40 mg DAILY EWELINA Administration Heparin Sodium (Porcine) 5,000 units 06/28/19 14:00 07/13/19 14:10 Heparin Vial(*) SUBCUT 5,000 units Q8HR EWELINA Administration Hydrocortisone 1 applic 07/09/19 09:19 07/13/19 11:39 Hytone Cream 1%* TOPICAL 1 applic QID PRN Administration itching rash Ibuprofen 400 mg 07/02/19 09:37 07/13/19 08:22 Motrin Tab* PO 400 mg Q6H PRN Administration PAIN - MILD Magnesium Hydroxide 30 ml 06/28/19 11:46 Milk Of Magnesia Liq* PO Q6H PRN CONSTIPATION Pto:Nft* (Claritin-D 10 mg 06/29/19 21:00 07/12/19 21:16 24 Hour Tablet) PO 10 mg BEDTIME EWELINA Administration Nystatin 1 applic 06/28/19 21:00 07/13/19 11:39 Nystatin Top Powder* TOPICAL 1 gel BID EWELINA Administration Risperidone 0.75 mg 06/28/19 21:00 07/13/19 08:21 Risperdal PO 0.75 mg BID EWELINA Administration Senna 2 tab 06/28/19 21:00 07/12/19 21:12 Senokot 8.6 Mg Tab* PO 2 tab BEDTIME EWELINA Administration Tamsulosin HCl 0.4 mg 06/28/19 21:00 07/12/19 21:12 Flomax Cap* PO 0.4 mg BEDTIME EWELINA Administration Vitamin E 400 unit 06/29/19 09:00 07/13/19 08:21 Vitamin E Cap* PO 400 unit DAILY EWELINA Administration Vital Signs: Vital Signs Temp Pulse Resp BP Pulse Ox 97.7 F 92 17 125/59 97 07/13/19 15:07 07/13/19 15:07 07/13/19 15:07 07/13/19 15:07 07/13/19 15:43 Lab Results: Laboratory Results - last 24 hr 07/13/19 07/13/19 04:44 04:44 WBC 8.5 RBC 3.06 L Hgb 9.9 L Hct 29 L MCV 94 MCH 32 H MCHC 34 RDW 14 Plt Count 476 H D MPV 7.5 Neut % (Auto) 70.7 Lymph % (Auto) 13.4 [place] % (Auto) 10.2 Eos % (Auto) 5.0 Baso % (Auto) 0.7 Absolute Neuts (auto) 6.0 Absolute Lymphs (auto) 1.1 Absolute Monos (auto) 0.9 H Absolute Eos (auto) 0.4 Absolute Basos (auto) 0.1 Absolute Nucleated RBC 0.0 Nucleated RBC % 0.0 Sodium 138 Potassium 3.9 Chloride 105 Carbon Dioxide 27 Anion Gap 6 BUN 17 Creatinine 0.69 Est GFR ( Amer) 136.0 Est GFR (Non-Af Amer) 112.4 BUN/Creatinine Ratio 24.6 H Glucose 119 H Calcium 9.0 Total Bilirubin 0.20 AST 10 L ALT 16 Alkaline Phosphatase 99 Total Protein 6.3 L Albumin 3.1 L Globulin 3.2 Albumin/Globulin Ratio 1.0 Exam: GENERAL: No acute distress. alert and appropriate. LUNGS: Clear to auscultation bilaterally HEART: regular rate and rhythm ABDOMEN: Soft, + bowel sounds, non-tender, non-distended EXTREMITIES: no edema. NEUROLOGIC: BUE motor 5/5. LLE motor 2/5 hip flex, knee ext. RLE motor 4/5 throughout. Sensation intact x4. SKIN: mild papular rash on upper back. Assessment/Plan: 1. Multiple Sclerosis: PT/OT. Tecfidera. Baclofen 2. Decompressive laminectomies, L2-L5: PT/OT. Left leg remains weaker than right. f/u with neurosurgery. 3. Depression: Prozac 4. Hallucinations: none at present. Risperadal 0.75 mg BID, may cut back 5. DVT Prophylaxis: Heparin S/Q 6. Advance Directives: DNR 7. 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 Rash: hydrocortisone cream prn 07/13/19 16:30
[2019-07-13] MEDS: Tamsulosin CAP* 0.4 MG PO SCH (20:49)
[2019-07-13] MEDS: Senna TAB 8.6 mg* TAB PO SCH (20:49)
[2019-07-13] MEDS: [UNRECOGNIZED DRUG - OTHER] PO SCH (20:50)
[2019-07-14] MEDS: Heparin VIAL(*) 5000 UNITS/ML VIAL (FIVE THOUSAND) SUBCUT SCH ×3 (05:31→21:21)
[2019-07-14] MEDS: Vitamin E CAP* 400 UNIT PO SCH (07:25)
[2019-07-14] MEDS: Baclofen TAB* 10 MG PO SCH ×3 (07:26→21:09)
[2019-07-14] MEDS: Cyanocobalamin TAB* 500 MCG PO SCH (07:26)
[2019-07-14] MEDS: Cholecalciferol TAB* 1000 UNITS PO SCH (07:26)
[2019-07-14] MEDS: PTO:Dimethyl Fumarate(NF) 240 MG CAP PO SCH ×2 (07:26→21:12)
[2019-07-14] MEDS: FLUoxetine CAP* 20 MG PO SCH (07:26)
[2019-07-14] MEDS: Docusate CAP* 100 MG PO SCH ×2 (07:30→21:21)
[2019-07-14] MEDS: Hydrocortisone 1% CREAM* 30 GM TUBE TOPICAL PRN (10:37)
[2019-07-14] MEDS: Nystatin TOP POWDER* 15 GM BTL TOPICAL SCH ×2 (10:39→21:21)
[2019-07-14] MEDS: CMCS: Diclofenac 1% GEL (NF) 100 GM TUBE TOPICAL SCH ×3 (10:39→21:20)
[2019-07-14] MEDS: Ibuprofen TAB* 400 MG PO PRN ×2 (13:48→21:10)
--- NOTE | 2019-07-14 20:01 | PN ---
Progress Note Date of Service: 07/14/19 Note: RODO VALENTINE was visited. Therapy notes read and reviewed. He has no specific complaints. He had a dirty urine which has grown out citrobacter. Will start Bactrim. Current Medications: Active Medications Generic Name Dose Route Start Last Admin Trade Name Freq PRN Reason Stop Dose Admin Acetaminophen 650 mg 06/28/19 11:46 07/07/19 08:57 Tylenol Tab* PO 650 mg Q6H PRN Administration MILD PAIN or TEMP > 100.4 Acetaminophen/Codeine Phosphate 1 tab 07/02/19 09:38 07/03/19 04:20 Tylenol/Codeine 30 Mg Tab* PO 1 tab Q6H PRN Administration PAIN - MODERATE Baclofen 10 mg 06/28/19 14:00 07/14/19 13:48 Lioresal Tab* PO 10 mg TID EWELINA Administration Cholecalciferol 1,000 units 06/29/19 09:00 07/14/19 07:26 Vitamin D Tab* PO 1,000 units DAILY EWELINA Administration Cyanocobalamin 2,500 mcg 06/29/19 09:00 07/14/19 07:26 Vitamin B12 Tab* PO 2,500 mcg DAILY EWELINA Administration Diclofenac Sodium 1 applic 07/12/19 21:00 07/14/19 13:52 Voltaren 1% Gel (Nf) TOPICAL 1 applic TID EWELINA Administration Protocol Dimethyl Fumarate 240 mg 06/28/19 21:00 07/14/19 07:26 Tecfidera(Nf) PO 240 mg BID EWELINA Administration Docusate Sodium 100 mg 06/28/19 21:00 07/14/19 07:30 Colace Cap* PO Not Given BID EWELIAN Fluoxetine HCl 40 mg 06/29/19 09:00 07/14/19 07:26 Prozac Cap* PO 40 mg DAILY EWELINA Administration Heparin Sodium (Porcine) 5,000 units 06/28/19 14:00 07/14/19 13:49 Heparin Vial(*) SUBCUT 5,000 units Q8HR EWELINA Administration Hydrocortisone 1 applic 07/09/19 09:19 07/14/19 10:37 Hytone Cream 1%* TOPICAL 1 applic QID PRN Administration itching rash Ibuprofen 400 mg 07/02/19 09:37 07/14/19 13:48 Motrin Tab* PO 400 mg Q6H PRN Administration PAIN - MILD Magnesium Hydroxide 30 ml 06/28/19 11:46 Milk Of Boyd Liq* PO Q6H PRN CONSTIPATION Pto:Nft* (Claritin-D 10 mg 06/29/19 21:00 07/13/19 20:50 24 Hour Tablet) PO 10 mg BEDTIME EWELINA Administration Nystatin 1 applic 06/28/19 21:00 07/14/19 10:39 Nystatin Top Powder* TOPICAL 1 applic BID EWELINA Administration Risperidone 0.5 mg 07/14/19 21:00 Risperdal PO BID EWELINA Senna 2 tab 06/28/19 21:00 07/13/19 20:49 Senokot 8.6 Mg Tab* PO 2 tab BEDTIME EWELINA Administration Tamsulosin HCl 0.4 mg 06/28/19 21:00 07/13/19 20:49 Flomax Cap* PO 0.4 mg BEDTIME EWELINA Administration Trimethoprim/Sulfamethoxazole 1 tab 07/14/19 21:00 Bactrim Ds 800/160 Tab* PO 07/19/19 23:59 BID EWELINA Vitamin E 400 unit 06/29/19 09:00 07/14/19 07:25 Vitamin E Cap* PO 400 unit DAILY EWELINA Administration Vital Signs: Vital Signs Temp Pulse Resp BP Pulse Ox 98.4 F 90 22 136/50 96 07/14/19 19:20 07/14/19 19:20 07/14/19 19:20 07/14/19 19:20 07/14/19 19:20 Exam: GENERAL: No acute distress. alert and appropriate. LUNGS: Clear to auscultation bilaterally HEART: regular rate and rhythm ABDOMEN: Soft, + bowel sounds, non-tender, non-distended EXTREMITIES: no edema. NEUROLOGIC: BUE motor 5/5. LLE motor 2/5 hip flex, knee ext. RLE motor 4/5 throughout. Sensation intact x4. SKIN: mild papular rash on upper back. Fading Assessment/Plan: 1. Multiple Sclerosis: PT/OT. Tecfidera. Baclofen 2. Decompressive laminectomies, L2-L5: PT/OT. Left leg remains weaker than right. f/u with neurosurgery. 3. Depression: Prozac 4. Hallucinations: none at present. Risperadal 0.75 mg BID, will cut back to 0.5 5. DVT Prophylaxis: Heparin S/Q 6. Advance Directives: DNR 7. 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 Rash: hydrocortisone cream prn 9. Urinary Tract Infection: Bactrim, day 10/0307/14/19 20:01 07/14/19 20:02
[2019-07-14] MEDS: Tamsulosin CAP* 0.4 MG PO SCH (21:08)
[2019-07-14] MEDS: Senna TAB 8.6 mg* TAB PO SCH (21:09)
[2019-07-14] MEDS: Sulfamethox/Trimethoprim DS 800/160* TAB PO SCH (21:09)
[2019-07-14] MEDS: [UNRECOGNIZED DRUG - OTHER] PO SCH (21:11)
[2019-07-15] MEDS: Heparin VIAL(*) 5000 UNITS/ML VIAL (FIVE THOUSAND) SUBCUT SCH ×3 (05:16→22:20)
[2019-07-15] MEDS: Baclofen TAB* 10 MG PO SCH ×3 (08:14→21:06)
[2019-07-15] MEDS: Cholecalciferol TAB* 1000 UNITS PO SCH (08:14)
[2019-07-15] MEDS: PTO:Dimethyl Fumarate(NF) 240 MG CAP PO SCH ×2 (08:15→21:06)
[2019-07-15] MEDS: Cyanocobalamin TAB* 500 MCG PO SCH (08:15)
[2019-07-15] MEDS: FLUoxetine CAP* 20 MG PO SCH (08:16)
[2019-07-15] MEDS: Docusate CAP* 100 MG PO SCH ×2 (08:16→21:55)
[2019-07-15] MEDS: Sulfamethox/Trimethoprim DS 800/160* TAB PO SCH ×2 (08:17→21:05)
[2019-07-15] MEDS: CMCS: Diclofenac 1% GEL (NF) 100 GM TUBE TOPICAL SCH ×3 (08:18→21:57)
[2019-07-15] MEDS: Vitamin E CAP* 400 UNIT PO SCH (08:18)
[2019-07-15] MEDS: Ibuprofen TAB* 400 MG PO PRN (08:18)
[2019-07-15] MEDS: Hydrocortisone 1% CREAM* 30 GM TUBE TOPICAL PRN (10:42)
[2019-07-15] MEDS: Nystatin TOP POWDER* 15 GM BTL TOPICAL SCH ×2 (10:42→21:58)
--- NOTE | 2019-07-15 19:33 | PN ---
Progress Note Date of Service: 07/15/19 Note: RODO VALENTINE was visited. Therapy notes read and reviewed. Moving a little better today. Thumbs feel okay. Current Medications: Active Medications Generic Name Dose Route Start Last Admin Trade Name Freq PRN Reason Stop Dose Admin Acetaminophen 650 mg 06/28/19 11:46 07/07/19 08:57 Tylenol Tab* PO 650 mg Q6H PRN Administration MILD PAIN or TEMP > 100.4 Acetaminophen/Codeine Phosphate 1 tab 07/02/19 09:38 07/03/19 04:20 Tylenol/Codeine 30 Mg Tab* PO 1 tab Q6H PRN Administration PAIN - MODERATE Baclofen 10 mg 06/28/19 14:00 07/15/19 14:46 Lioresal Tab* PO 10 mg TID EWELINA Administration Cholecalciferol 1,000 units 06/29/19 09:00 07/15/19 08:14 Vitamin D Tab* PO 1,000 units DAILY EWELINA Administration Cyanocobalamin 2,500 mcg 06/29/19 09:00 07/15/19 08:15 Vitamin B12 Tab* PO 2,500 mcg DAILY EWELINA Administration Diclofenac Sodium 1 applic 07/12/19 21:00 07/15/19 14:46 Voltaren 1% Gel (Nf) TOPICAL 1 applic TID EWELINA Administration Protocol Dimethyl Fumarate 240 mg 06/28/19 21:00 07/15/19 08:15 Tecfidera(Nf) PO 240 mg BID EWELINA Administration Docusate Sodium 100 mg 06/28/19 21:00 07/15/19 08:16 Colace Cap* PO 100 mg BID EWELINA Administration Fluoxetine HCl 40 mg 06/29/19 09:00 07/15/19 08:16 Prozac Cap* PO 40 mg DAILY EWELINA Administration Heparin Sodium (Porcine) 5,000 units 06/28/19 14:00 07/15/19 14:46 Heparin Vial(*) SUBCUT 5,000 units Q8HR EWELINA Administration Hydrocortisone 1 applic 07/09/19 09:19 07/15/19 10:42 Hytone Cream 1%* TOPICAL 1 applic QID PRN Administration itching rash Ibuprofen 400 mg 07/02/19 09:37 07/15/19 08:18 Motrin Tab* PO 400 mg Q6H PRN Administration PAIN - MILD Magnesium Hydroxide 30 ml 06/28/19 11:46 Milk Of Boyd Liq* PO Q6H PRN CONSTIPATION Pto:Nft* (Claritin-D 10 mg 06/29/19 21:00 07/14/19 21:11 24 Hour Tablet) PO 10 mg BEDTIME EWELINA Administration Nystatin 1 applic 06/28/19 21:00 07/15/19 10:42 Nystatin Top Powder* TOPICAL 1 applic BID EWELINA Administration Risperidone 0.5 mg 07/14/19 21:00 07/15/19 08:16 Risperdal PO 0.5 mg BID EWELINA Administration Senna 2 tab 06/28/19 21:00 07/14/19 21:09 Senokot 8.6 Mg Tab* PO 2 tab BEDTIME EWELINA Administration Tamsulosin HCl 0.4 mg 06/28/19 21:00 07/14/19 21:08 Flomax Cap* PO 0.4 mg BEDTIME EWELINA Administration Trimethoprim/Sulfamethoxazole 1 tab 07/14/19 21:00 07/15/19 08:17 Bactrim Ds 800/160 Tab* PO 07/19/19 23:59 1 tab BID EWELINA Administration Vitamin E 400 unit 06/29/19 09:00 07/15/19 08:18 Vitamin E Cap* PO 400 unit DAILY EWELINA Administration Vital Signs: Vital Signs Temp Pulse Resp BP Pulse Ox 98.2 F 90 20 132/59 97 07/15/19 16:21 07/15/19 16:21 07/15/19 16:21 07/15/19 16:21 07/15/19 16:21 Exam: GENERAL: No acute distress. alert and appropriate. LUNGS: Clear to auscultation bilaterally HEART: regular rate and rhythm ABDOMEN: Soft, + bowel sounds, non-tender, non-distended EXTREMITIES: no edema. NEUROLOGIC: BUE motor 5/5. LLE motor 2/5 hip flex, knee ext. RLE motor 4/5 throughout. Sensation intact x4. SKIN: mild papular rash on upper back. Fading Assessment/Plan: 1. Multiple Sclerosis: PT/OT. Tecfidera. Baclofen 2. Decompressive laminectomies, L2-L5: PT/OT. Left leg remains weaker than right. f/u with neurosurgery. 3. Depression: Prozac 4. Hallucinations: none at present. Risperadal 0.5 mg BID 5. DVT Prophylaxis: Heparin S/Q 6. Advance Directives: DNR 7. 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 Rash: hydrocortisone cream prn 9. Urinary Tract Infection: Bactrim, day 2/6 07/15/19 19:33
[2019-07-15] MEDS: [UNRECOGNIZED DRUG - OTHER] PO SCH (21:06)
[2019-07-15] MEDS: Tamsulosin CAP* 0.4 MG PO SCH (21:55)
[2019-07-15] MEDS: Senna TAB 8.6 mg* TAB PO SCH (21:55)
[2019-07-16] MEDS: Heparin VIAL(*) 5000 UNITS/ML VIAL (FIVE THOUSAND) SUBCUT SCH ×3 (05:52→21:58)
[2019-07-16] MEDS: Baclofen TAB* 10 MG PO SCH ×3 (08:39→21:59)
[2019-07-16] MEDS: Cholecalciferol TAB* 1000 UNITS PO SCH (08:40)
[2019-07-16] MEDS: CMCS: Diclofenac 1% GEL (NF) 100 GM TUBE TOPICAL SCH ×3 (08:41→21:58)
[2019-07-16] MEDS: Cyanocobalamin TAB* 500 MCG PO SCH (08:41)
[2019-07-16] MEDS: Docusate CAP* 100 MG PO SCH ×2 (08:42→21:59)
[2019-07-16] MEDS: FLUoxetine CAP* 20 MG PO SCH (08:42)
[2019-07-16] MEDS: PTO:Dimethyl Fumarate(NF) 240 MG CAP PO SCH ×2 (08:42→21:58)
[2019-07-16] MEDS: Nystatin TOP POWDER* 15 GM BTL TOPICAL SCH ×2 (08:43→22:00)
[2019-07-16] MEDS: Vitamin E CAP* 400 UNIT PO SCH (08:44)
[2019-07-16] MEDS: Sulfamethox/Trimethoprim DS 800/160* TAB PO SCH ×2 (08:44→22:07)
[2019-07-16] MEDS: Hydrocortisone 1% CREAM* 30 GM TUBE TOPICAL PRN ×2 (08:46→21:58)
[2019-07-16] MEDS: Ibuprofen TAB* 400 MG PO PRN ×2 (08:47→21:59)
--- NOTE | 2019-07-16 18:58 | PN ---
Progress Note Date of Service: 07/16/19 Note: RODO VALENTINE was visited. Therapy notes read and reviewed. Thumbs are feeling better. He is a little constipated. Current Medications: Active Medications Generic Name Dose Route Start Last Admin Trade Name Freq PRN Reason Stop Dose Admin Acetaminophen 650 mg 06/28/19 11:46 07/07/19 08:57 Tylenol Tab* PO 650 mg Q6H PRN Administration MILD PAIN or TEMP > 100.4 Acetaminophen/Codeine Phosphate 1 tab 07/02/19 09:38 07/03/19 04:20 Tylenol/Codeine 30 Mg Tab* PO 1 tab Q6H PRN Administration PAIN - MODERATE Baclofen 10 mg 06/28/19 14:00 07/16/19 14:03 Lioresal Tab* PO 10 mg TID EWELINA Administration Cholecalciferol 1,000 units 06/29/19 09:00 07/16/19 08:40 Vitamin D Tab* PO 1,000 units DAILY EWELINA Administration Cyanocobalamin 2,500 mcg 06/29/19 09:00 07/16/19 08:41 Vitamin B12 Tab* PO 2,500 mcg DAILY EWELINA Administration Diclofenac Sodium 1 applic 07/12/19 21:00 07/16/19 14:03 Voltaren 1% Gel (Nf) TOPICAL 1 applic TID EWELINA Administration Protocol Dimethyl Fumarate 240 mg 06/28/19 21:00 07/16/19 08:42 Tecfidera(Nf) PO 240 mg BID EWELINA Administration Docusate Sodium 100 mg 06/28/19 21:00 07/16/19 08:42 Colace Cap* PO 100 mg BID EWELINA Administration Fluoxetine HCl 40 mg 06/29/19 09:00 07/16/19 08:42 Prozac Cap* PO 40 mg DAILY EWELINA Administration Heparin Sodium (Porcine) 5,000 units 06/28/19 14:00 07/16/19 14:04 Heparin Vial(*) SUBCUT 5,000 units Q8HR EWELINA Administration Hydrocortisone 1 applic 07/09/19 09:19 07/16/19 08:46 Hytone Cream 1%* TOPICAL 1 applic QID PRN Administration itching rash Ibuprofen 400 mg 07/02/19 09:37 07/16/19 08:47 Motrin Tab* PO 400 mg Q6H PRN Administration PAIN - MILD Magnesium Hydroxide 30 ml 06/28/19 11:46 Milk Of Boyd Liq* PO Q6H PRN CONSTIPATION Pto:Nft* (Claritin-D 10 mg 06/29/19 21:00 07/15/19 21:06 24 Hour Tablet) PO 10 mg BEDTIME EWELINA Administration Nystatin 1 applic 06/28/19 21:00 07/16/19 08:43 Nystatin Top Powder* TOPICAL 1 applic BID EWELINA Administration Risperidone 0.5 mg 07/14/19 21:00 07/16/19 08:44 Risperdal PO 0.5 mg BID EWELINA Administration Senna 2 tab 06/28/19 21:00 07/15/19 21:55 Senokot 8.6 Mg Tab* PO 2 tab BEDTIME EWELINA Administration Tamsulosin HCl 0.4 mg 06/28/19 21:00 07/15/19 21:55 Flomax Cap* PO 0.4 mg BEDTIME EWELINA Administration Trimethoprim/Sulfamethoxazole 1 tab 07/14/19 21:00 07/16/19 08:44 Bactrim Ds 800/160 Tab* PO 07/19/19 23:59 1 tab BID EWELINA Administration Vitamin E 400 unit 06/29/19 09:00 07/16/19 08:44 Vitamin E Cap* PO 400 unit DAILY EWELINA Administration Vital Signs: Vital Signs Temp Pulse Resp BP Pulse Ox 98.3 F 82 14 118/53 96 07/16/19 16:00 07/16/19 16:00 07/16/19 16:00 07/16/19 16:00 07/16/19 16:00 Exam: GENERAL: No acute distress. alert and appropriate. LUNGS: Clear to auscultation bilaterally HEART: regular rate and rhythm ABDOMEN: Soft, + bowel sounds, non-tender, non-distended EXTREMITIES: no edema. NEUROLOGIC: BUE motor 5/5. LLE motor 2/5 hip flex, knee ext. RLE motor 4/5 throughout. Sensation intact x4. SKIN: mild papular rash on upper back. Fading Assessment/Plan: 1. Multiple Sclerosis: PT/OT. Tecfidera. Baclofen 2. Decompressive laminectomies, L2-L5: PT/OT. Left leg remains weaker than right. f/u with neurosurgery. 3. Depression: Prozac 4. Hallucinations: none at present. Risperadal 0.5 mg BID 5. DVT Prophylaxis: Heparin S/Q 6. Advance Directives: DNR 7. 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 Rash: hydrocortisone cream prn 9. Urinary Tract Infection: Bactrim, day 3/6 07/16/19 18:58
[2019-07-16] MEDS ORDERED: Bisacodyl SUPP* 10 MG SUPP PR PRN (18:59)
[2019-07-16] MEDS: Senna TAB 8.6 mg* TAB PO SCH (21:59)
[2019-07-16] MEDS: Tamsulosin CAP* 0.4 MG PO SCH (21:59)
[2019-07-16] MEDS: [UNRECOGNIZED DRUG - OTHER] PO SCH (22:00)
[2019-07-17] MEDS: Heparin VIAL(*) 5000 UNITS/ML VIAL (FIVE THOUSAND) SUBCUT SCH ×3 (05:03→21:24)
[2019-07-17] MEDS: Ibuprofen TAB* 400 MG PO PRN ×2 (05:03→21:26)
[2019-07-17] MEDS: Sulfamethox/Trimethoprim DS 800/160* TAB PO SCH ×2 (08:48→21:25)
[2019-07-17] MEDS: Docusate CAP* 100 MG PO SCH ×2 (08:48→21:25)
[2019-07-17] MEDS: FLUoxetine CAP* 20 MG PO SCH (08:48)
[2019-07-17] MEDS: Vitamin E CAP* 400 UNIT PO SCH (08:48)
[2019-07-17] MEDS: Cholecalciferol TAB* 1000 UNITS PO SCH (08:48)
[2019-07-17] MEDS: Baclofen TAB* 10 MG PO SCH ×3 (08:49→21:25)
[2019-07-17] MEDS: Cyanocobalamin TAB* 500 MCG PO SCH (08:49)
[2019-07-17] MEDS: PTO:Dimethyl Fumarate(NF) 240 MG CAP PO SCH ×2 (08:49→21:24)
[2019-07-17] MEDS: Hydrocortisone 1% CREAM* 30 GM TUBE TOPICAL PRN ×2 (11:06→21:26)
[2019-07-17] MEDS: CMCS: Diclofenac 1% GEL (NF) 100 GM TUBE TOPICAL SCH ×3 (11:08→21:24)
[2019-07-17] MEDS: Nystatin TOP POWDER* 15 GM BTL TOPICAL SCH ×2 (12:00→21:27)
--- NOTE | 2019-07-17 17:37 | PN ---
Progress Note Date of Service: 07/17/19 Note: RODO VALENTINE was visited. Nursing notes read and reviewed. He has no specific complaints. Hands feeling better Current Medications: Active Medications Generic Name Dose Route Start Last Admin Trade Name Freq PRN Reason Stop Dose Admin Acetaminophen 650 mg 06/28/19 11:46 07/07/19 08:57 Tylenol Tab* PO 650 mg Q6H PRN Administration MILD PAIN or TEMP > 100.4 Acetaminophen/Codeine Phosphate 1 tab 07/02/19 09:38 07/03/19 04:20 Tylenol/Codeine 30 Mg Tab* PO 1 tab Q6H PRN Administration PAIN - MODERATE Baclofen 10 mg 06/28/19 14:00 07/17/19 14:26 Lioresal Tab* PO 10 mg TID EWELINA Administration Bisacodyl 10 mg 07/16/19 18:59 Dulcolax Supp* DE DAILY PRN CONSTIPATION Cholecalciferol 1,000 units 06/29/19 09:00 07/17/19 08:48 Vitamin D Tab* PO 1,000 units DAILY EWELINA Administration Cyanocobalamin 2,500 mcg 06/29/19 09:00 07/17/19 08:49 Vitamin B12 Tab* PO 2,500 mcg DAILY EWELINA Administration Diclofenac Sodium 1 applic 07/12/19 21:00 07/17/19 14:26 Voltaren 1% Gel (Nf) TOPICAL 1 applic TID EWELINA Administration Protocol Dimethyl Fumarate 240 mg 06/28/19 21:00 07/17/19 08:49 Tecfidera(Nf) PO 240 mg BID EWELINA Administration Docusate Sodium 100 mg 06/28/19 21:00 07/17/19 08:48 Colace Cap* PO 100 mg BID EWELINA Administration Fluoxetine HCl 40 mg 06/29/19 09:00 07/17/19 08:48 Prozac Cap* PO 40 mg DAILY EWELINA Administration Heparin Sodium (Porcine) 5,000 units 06/28/19 14:00 07/17/19 14:26 Heparin Vial(*) SUBCUT 5,000 units Q8HR EWELINA Administration Hydrocortisone 1 applic 07/09/19 09:19 07/17/19 11:06 Hytone Cream 1%* TOPICAL 1 applic QID PRN Administration itching rash Ibuprofen 400 mg 07/02/19 09:37 07/17/19 05:03 Motrin Tab* PO 400 mg Q6H PRN Administration PAIN - MILD Magnesium Hydroxide 30 ml 06/28/19 11:46 Milk Of Magnesia Liq* PO Q6H PRN CONSTIPATION Pto:Nft* (Claritin-D 10 mg 06/29/19 21:00 07/16/19 22:00 24 Hour Tablet) PO Not Given BEDTIME EWELINA Nystatin 1 applic 06/28/19 21:00 07/17/19 12:00 Nystatin Top Powder* TOPICAL Not Given BID EWELINA Risperidone 0.5 mg 07/14/19 21:00 07/17/19 08:52 Risperdal PO 0.5 mg BID EWELINA Administration Senna 2 tab 06/28/19 21:00 07/16/19 21:59 Senokot 8.6 Mg Tab* PO 2 tab BEDTIME EWELINA Administration Tamsulosin HCl 0.4 mg 06/28/19 21:00 07/16/19 21:59 Flomax Cap* PO 0.4 mg BEDTIME EWELINA Administration Trimethoprim/Sulfamethoxazole 1 tab 07/14/19 21:00 07/17/19 08:48 Bactrim Ds 800/160 Tab* PO 07/19/19 23:59 1 tab BID EWELINA Administration Vitamin E 400 unit 06/29/19 09:00 07/17/19 08:48 Vitamin E Cap* PO 400 unit DAILY EWELINA Administration Vital Signs: Vital Signs Temp Pulse Resp BP Pulse Ox 97.9 F 84 16 126/61 95 07/17/19 16:03 07/17/19 16:03 07/17/19 17:16 07/17/19 16:03 07/17/19 17:16 Exam: GENERAL: No acute distress. alert and appropriate. LUNGS: Clear to auscultation bilaterally HEART: regular rate and rhythm ABDOMEN: Soft, + bowel sounds, non-tender, non-distended EXTREMITIES: no edema. NEUROLOGIC: BUE motor 5/5. LLE motor 2/5 hip flex, knee ext. RLE motor 4/5 throughout. Sensation intact x4. SKIN: mild papular rash on upper back. Fading Assessment/Plan: 1. Multiple Sclerosis: PT/OT. Tecfidera. Baclofen 2. Decompressive laminectomies, L2-L5: PT/OT. Left leg remains weaker than right. f/u with neurosurgery. 3. Depression: Prozac 4. Hallucinations: none at present. Risperadal 0.5 mg BID 5. DVT Prophylaxis: Heparin S/Q 6. Advance Directives: DNR 7. 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 Rash: hydrocortisone cream prn 9. Urinary Tract Infection: Bactrim, day 4/6 07/17/19 17:38
[2019-07-17] MEDS: Tamsulosin CAP* 0.4 MG PO SCH (21:24)
[2019-07-17] MEDS: [UNRECOGNIZED DRUG - OTHER] PO SCH (21:25)
[2019-07-17] MEDS: Senna TAB 8.6 mg* TAB PO SCH (21:26)
[2019-07-18] MEDS: Heparin VIAL(*) 5000 UNITS/ML VIAL (FIVE THOUSAND) SUBCUT SCH ×3 (05:34→22:23)
[2019-07-18] MEDS: FLUoxetine CAP* 20 MG PO SCH (09:24)
[2019-07-18] MEDS: Cholecalciferol TAB* 1000 UNITS PO SCH (09:25)
[2019-07-18] MEDS: Baclofen TAB* 10 MG PO SCH ×3 (09:25→20:59)
[2019-07-18] MEDS: Docusate CAP* 100 MG PO SCH ×2 (09:25→20:59)
[2019-07-18] MEDS: Cyanocobalamin TAB* 500 MCG PO SCH (09:25)
[2019-07-18] MEDS: Vitamin E CAP* 400 UNIT PO SCH (09:26)
[2019-07-18] MEDS: Hydrocortisone 1% CREAM* 30 GM TUBE TOPICAL PRN ×2 (09:26→10:48)
[2019-07-18] MEDS: Sulfamethox/Trimethoprim DS 800/160* TAB PO SCH ×2 (09:27→20:59)
[2019-07-18] MEDS: PTO:Dimethyl Fumarate(NF) 240 MG CAP PO SCH ×2 (09:29→20:58)
[2019-07-18] MEDS: CMCS: Diclofenac 1% GEL (NF) 100 GM TUBE TOPICAL SCH ×3 (09:30→20:57)
[2019-07-18] MEDS: Nystatin TOP POWDER* 15 GM BTL TOPICAL SCH ×2 (10:44→20:58)
--- NOTE | 2019-07-18 17:44 | PN ---
Progress Note Date of Service: 07/18/19 Note: RODO Good ROSEER was visited. Therapy notes read and reviewed. There is a small area of his wound that has a little drainage. Will ask surgeon to look at. Otherwise he is doing better Current Medications: Active Medications Generic Name Dose Route Start Last Admin Trade Name Freq PRN Reason Stop Dose Admin Acetaminophen 650 mg 06/28/19 11:46 07/07/19 08:57 Tylenol Tab* PO 650 mg Q6H PRN Administration MILD PAIN or TEMP > 100.4 Acetaminophen/Codeine Phosphate 1 tab 07/02/19 09:38 07/03/19 04:20 Tylenol/Codeine 30 Mg Tab* PO 1 tab Q6H PRN Administration PAIN - MODERATE Baclofen 10 mg 06/28/19 14:00 07/18/19 14:01 Lioresal Tab* PO 10 mg TID EWELINA Administration Bisacodyl 10 mg 07/16/19 18:59 Dulcolax Supp* [place] DAILY PRN CONSTIPATION Cholecalciferol 1,000 units 06/29/19 09:00 07/18/19 09:25 Vitamin D Tab* PO 1,000 units DAILY EWELINA Administration Cyanocobalamin 2,500 mcg 06/29/19 09:00 07/18/19 09:25 Vitamin B12 Tab* PO 2,500 mcg DAILY EWELINA Administration Diclofenac Sodium 1 applic 07/12/19 21:00 07/18/19 16:05 Voltaren 1% Gel (Nf) TOPICAL 1 applic TID EWELINA Administration Protocol Dimethyl Fumarate 240 mg 06/28/19 21:00 07/18/19 09:29 Tecfidera(Nf) PO 240 mg BID EWELINA Administration Docusate Sodium 100 mg 06/28/19 21:00 07/18/19 09:25 Colace Cap* PO 100 mg BID EWELINA Administration Fluoxetine HCl 40 mg 06/29/19 09:00 07/18/19 09:24 Prozac Cap* PO 40 mg DAILY EWELINA Administration Heparin Sodium (Porcine) 5,000 units 06/28/19 14:00 07/18/19 14:01 Heparin Vial(*) SUBCUT 5,000 units Q8HR EWELINA Administration Hydrocortisone 1 applic 07/09/19 09:19 07/18/19 10:48 Hytone Cream 1%* TOPICAL 1 applic QID PRN Administration itching rash Ibuprofen 400 mg 07/02/19 09:37 07/17/19 21:26 Motrin Tab* PO 400 mg Q6H PRN Administration PAIN - MILD Magnesium Hydroxide 30 ml 06/28/19 11:46 Milk Of Magnapryl Liq* PO Q6H PRN CONSTIPATION Pto:Nft* (Claritin-D 10 mg 06/29/19 21:00 07/17/19 21:25 24 Hour Tablet) PO Not Given BEDTIME EWELINA Nystatin 1 applic 06/28/19 21:00 07/18/19 10:44 Nystatin Top Powder* TOPICAL 1 applic BID EWELINA Administration Risperidone 0.5 mg 07/14/19 21:00 07/18/19 09:27 Risperdal PO 0.5 mg BID EWELINA Administration Senna 2 tab 06/28/19 21:00 07/17/19 21:26 Senokot 8.6 Mg Tab* PO 2 tab BEDTIME EWELIAN Administration Tamsulosin HCl 0.4 mg 06/28/19 21:00 07/17/19 21:24 Flomax Cap* PO 0.4 mg BEDTIME EWELINA Administration Trimethoprim/Sulfamethoxazole 1 tab 07/14/19 21:00 07/18/19 09:27 Bactrim Ds 800/160 Tab* PO 07/19/19 23:59 1 tab BID EWELINA Administration Vitamin E 400 unit 06/29/19 09:00 07/18/19 09:26 Vitamin E Cap* PO 400 unit DAILY EWELINA Administration Vital Signs: Vital Signs Temp Pulse Resp BP Pulse Ox 98.2 F 88 18 122/55 96 07/18/19 16:28 07/18/19 16:28 07/18/19 16:28 07/18/19 16:28 07/18/19 16:49 Exam: GENERAL: No acute distress. alert and appropriate. LUNGS: Clear to auscultation bilaterally HEART: regular rate and rhythm ABDOMEN: Soft, + bowel sounds, non-tender, non-distended EXTREMITIES: no edema. NEUROLOGIC: BUE motor 5/5. LLE motor 2/5 hip flex, knee ext. RLE motor 4/5 throughout. Sensation intact x4. SKIN: mild papular rash on upper back. Fading Assessment/Plan: 1. Multiple Sclerosis: PT/OT. Tecfidera. Baclofen 2. Decompressive laminectomies, L2-L5: PT/OT. Left leg remains weaker than right. f/u with neurosurgery. 3. Depression: Prozac 4. Hallucinations: none at present. Risperadal 0.5 mg BID, may d/c prior to going home 5. DVT Prophylaxis: Heparin S/Q 6. Advance Directives: DNR 7. 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 Rash: hydrocortisone cream prn 9. Urinary Tract Infection: Bactrim, day 5/6 07/18/19 17:45
[2019-07-18] MEDS: [UNRECOGNIZED DRUG - OTHER] PO SCH (20:58)
[2019-07-18] MEDS: Senna TAB 8.6 mg* TAB PO SCH (20:58)
[2019-07-18] MEDS: Tamsulosin CAP* 0.4 MG PO SCH (20:58)
[2019-07-18] MEDS: Ibuprofen TAB* 400 MG PO PRN (20:58)
[2019-07-19] MEDS: Heparin VIAL(*) 5000 UNITS/ML VIAL (FIVE THOUSAND) SUBCUT SCH ×3 (05:38→21:16)
[2019-07-19] MEDS: Hydrocortisone 1% CREAM* 30 GM TUBE TOPICAL PRN ×2 (08:44→20:11)
[2019-07-19] MEDS: Nystatin TOP POWDER* 15 GM BTL TOPICAL SCH ×2 (08:44→20:18)
[2019-07-19] MEDS: CMCS: Diclofenac 1% GEL (NF) 100 GM TUBE TOPICAL SCH ×3 (08:44→21:17)
[2019-07-19] MEDS: Cholecalciferol TAB* 1000 UNITS PO SCH (09:02)
[2019-07-19] MEDS: Baclofen TAB* 10 MG PO SCH ×3 (09:02→20:06)
[2019-07-19] MEDS: Cyanocobalamin TAB* 500 MCG PO SCH (09:05)
[2019-07-19] MEDS: Sulfamethox/Trimethoprim DS 800/160* TAB PO SCH ×2 (09:06→20:07)
[2019-07-19] MEDS: PTO:Dimethyl Fumarate(NF) 240 MG CAP PO SCH ×2 (09:06→20:05)
[2019-07-19] MEDS: Vitamin E CAP* 400 UNIT PO SCH (09:06)
[2019-07-19] MEDS: Docusate CAP* 100 MG PO SCH ×2 (09:06→20:05)
[2019-07-19] MEDS: FLUoxetine CAP* 20 MG PO SCH (09:06)
--- NOTE | 2019-07-19 12:46 | PMRUTEAM ---
PMRU: Team Meeting Current Status: Physical Therapy: Current Status Current Rolling Status Supervision/Touching Current Supine <-> Sit Status Supervision/Touching Current Sit <-> Stand Status Supervision/Touching Current Bed <-> Chair Status Supervision/Touching Transfer/Bed Mobility Rolling Walker,EZ Stand Recommended Devices Current Picking Up Object Supervision/Touching Status Current Car Transfer Status Not attempted due to Current Ambulation Assistance Supervision/Touching Status Ambulation Assistive Device Rolling Walker Ambulation Conditions Two or More Turns Current Ambulation Distance 150 Manual Wheelchair Control/ Bilateral UE's Technique Current Wheelchair Propulsion Supervision/Touching Ability Status Wheelchair Distance (ft) 150 Current Stair Climbing Status Supervision/Touching Stair Climbing Assistive Left Railing,Right Railing Devices Number of Stairs Climbed 5 Current Curb Assistance Status Not attempted Objective Comments . Occupational Therapy: Current Status Current Upper Body Dressing Setup or Clean-up Assist Status Current Lower Body Dressing Supervision/Touching Status Lower Body Dressing Progress CGA in standing to hike pants Current Footwear Status Setup or Clean-up Assist Current Bathing Status Partial/Moderate Current Grooming Status Setup or Clean-up Assist Current Toileting Status Substantial/Maximal Current Toilet Transfer Status Supervision/Touching Current Eating Status Independent Nursing: Current Status Skin Deviations [bilateral Other thumb joint] Skin Deviations [Abrasions to Abrasion R knee, L elbow] Skin Deviations [multiple toes Abrasion ] Skin Deviations [Upper Back] Rash Skin Deviations [Right Hand] Other Skin Deviations [Bilateral Rash Groin] Skin Deviations [Midline Back] Incision Skin Deviation Description [ pain improving today bilateral thumb joint] Skin Deviation Description [ healing Abrasions to R knee, L elbow] Skin Deviation Description [ scabbed, healing multiple toes] Skin Deviation Description [ Rash is significantly cleared. Patient requested Upper Back] hydrocortisone cream for itching. Skin Deviation Description [ slight swelling Right Hand] Skin Deviation Description [ bilateral groin yeast looking rash is clearing, Bilateral Groin] applied nystatin powder. Area continues to be moist Skin Deviation Description [ midline lumbar incision, dressing removed with Midline Back] small amount of serosanguinous drainage clean dressing applied, incision with large sutures intact middle of incision has area not well approximated, looks soft and appears drainage coming from that area lower quarter of incision has a small area that is not well approximated, also looks soft. Bladder Current Status straight cath - setup required Bowel Current Status receive bowel meds, last bowel movement yesterday Nutrition Current Status 100% for breakfast Medication Current Status pt taking ibuprofen for pain - requesting PRN Rec Therapy: Current Status Summary of Assessment and Recreation Therapy Assessment complete and pt. is Clinical Impression aware of services. Pt. has been very engaged in daily leisure visits, pet therapy, and recreational activities. Pt. is talkative and future focused. Treatment Goals Pt. will engage in leisure activities while on the unit. Treatment Plan Provide recreation therapy services and encourage involvement. Nutrition: Current Status Monitoring pt cont to eat very well w/regular unrestricted diet. No noted GI s/sx, such as n/v/d or constipation. Last BM 07/17. Skin remains intact. Labs 07/13 unremarkable. Current diet remains appropriate; no nutrition intervention indicated at this time, other than weekly monitoring. Goals: Physical Therapy: Goals Goals to Be Accomplished in ( 21 Days) Goal: Rolling Assistance Independent Goal Supine <-> Sit Status Independent Goal Sit <-> Stand Status Independent Goal Bed <-> Chair Status Independent Transfer/Bed Mobility Rolling Walker Recommended Devices Goal: Picking Up Object Independent Goal: Car Transfer Status Setup or Clean-up Assist Goal: Ambulation Assistance Independent Ambulation Assistive Devices Rolling Walker Ambulation Distance (ft) 150 Goal: Wheelchair Propulsion Independent Ability Wheelchair Distance (ft) 150 Goal: Stairs Assistance Independent Stairs Recommended Devices Two Rails Number of Stairs 5 Goal: Curb Assistance Independent Goal: Home Exercise Program Independent Assistance Occupational Therapy: Goals Goals to be Completed in (Days 21 ) Goal Upper Body Dressing Independent Routine Goal Lower Body Dressing Independent Routine Goal Footwear Status Independent Goal Bathing Routine (OT) Independent Goal Grooming Routine Independent Goal Toilet Hygiene and Independent Clothing Management Routine Goal Toilet Transfer Routine Independent Goal Functional Transfers for Independent ADL Goal Feeding Routine Independent Goal Light Housekeeping Tasks Partial/Moderate Nutrition: Goals Intervention Goals 1. adequate intake to support hydration and lean body mass without significant wt change 2. regulation of bowel pattern; no c/o constipation (or diarrhea) Nursing: Goals Bladder Goal independent with straight cath Bowel Goal independent with BM Nutrition Goal eat a nutritious and balance meal independently Medication Goal pt is independent with taking medications at home Care Plan: Care Plan ADL's - Improve/Maintain Start: 06/28/19 13:51 Freq: DAILY@0700,1900 Status: Active Target: 06/29/19 Protocol: Activity Type Activity Date Activity User E-Sign Co-Sign Detail Recorded Client Recorded Date Recorded By Document 07/18/19 15:47 [id number] 07/18/19 15:47 [id number] 07/18/19 15:47 PMRU Outcome: ADL's/ADL Transfers Orders/Interventions Occupational Therapy Evaluation & Treatment Communication Tool in Patient Room Device Yes Address Deficits Secondary To: L2-5 decompression/ lami and MS exacerbation Patient to receive OT 5x/wk for 60-120 Therex min/day Self Care Management Group Therapy Neuromuscular ReEducation UE/LE ADL's with Assist Yes: independent ADL Transfers with Assist Yes: independent Toileting: Transfers,Clothing Management Yes: ,Hygeine w/Assist independent Light Kitchen/Laundry w/Assist Yes: Dimitrios Other Outcome/Goals Pt participated well in treatment session, requires Dimitrios with hiking pants in standing and to get toes into KAFO/shoe on left side. Progression Toward Outcome/Goals Progressing Coping/Psych-Improve/Maintain Start: 06/28/19 12:56 Freq: DAILY@0700,1900 Status: Complete Target: 07/14/19 Protocol: Activity Type Activity Date Activity User E-Sign Co-Sign Detail Recorded Client Recorded Date Recorded By Document 07/17/19 08:00 [id number] 07/17/19 16:03 [id number] 07/17/19 08:00 PMRU Outcome: Coping/Psychosocial Current Coping Outcome/Goals Verbalization of Acceptance of Rehab Admit Willingness to Participate in Treatment Plan and Basic Needs Progression Toward Outcome/Goals Progressing Current Psychosocial Outcome/Goals Maintain/ Improve Emotional Health Demonstrates Knowledge of Healthy Coping Mechanisms Available Cooperate/ Participate in Plan Progression Toward Outcome/Goals Progressing DVT Prophylaxis- Improve/Maintain Start: 06/28/19 12:56 Freq: DAILY@0700,1900 Status: Complete Target: 07/12/19 Protocol: Activity Type Activity Date Activity User E-Sign Co-Sign Detail Recorded Client Recorded Date Recorded By Document 07/06/19 19:00 [id number] [id number] 07/06/19 19:25 [id number] 07/06/19 19:00 PMRU Outcome: DVT Prophylaxis Current DVT Outcome/Goals Remains Free of DVT Complies with DVT Prophylaxis /Treatment Demonstrates Knowledge of DVT Prevention/ Treatment TEDS Stockings on Every AM, Off at HS Progression Toward Outcome/Goals Goals Met Outcome/Goals Met Remains Free of DVT Discharge Planning - Improve/Maintain Start: 06/28/19 12:56 Freq: DAILY@699,[id number] Status: Active Target: 07/20/19 Protocol: Activity Type Activity Date Activity User E-Sign Co-Sign Detail Recorded Client Recorded Date Recorded By Document 07/19/19 07:00 [id number] 07/19/19 08:57 [id number] 07/19/19 07:00 PMRU Outcome: Discharge Planning Update Patient Family No Current Discharge Planning Outcome/Goals Demonstrates Understanding of Discharge Plan Homecare Referral - See Comment Progression Toward Outcome/Goals Progressing Education-Improve/Maintain Start: 06/28/19 12:56 Freq: DAILY@ Status: Active Target: 07/20/19 Protocol: Activity Type Activity Date Activity User E-Sign Co-Sign Detail Recorded Client Recorded Date Recorded By Document 07/19/19 07:00 [id number] 07/19/19 08:57 [id number] 07/19/19 07:00 PMRU Outcome: Education Current Education Outcome/Goals Demonstrate/ Verbalize Understanding of Written Discharge Instructions Demonstrates Skills Encourage Questions Progression Toward Outcome/Goals Progressing /GI-Improve/Maintain Start: 06/28/19 12:56 Freq: DAILY@ Status: Active Target: 07/20/19 Protocol: Activity Type Activity Date Activity User E-Sign Co-Sign Detail Recorded Client Recorded Date Recorded By Document 07/19/19 07:00 [id number] 07/19/19 08:57 [id number] 07/19/19 07:00 PMRU Outcome: Genitourinary/ Gastrointestinal Current Gastrointestinal Outcome/Goals Maintain/ Achieve Bowel Regularity in Accordance with Pt's Baseline Prevent Constipation Laxatives as Ordered Progression Toward Outcome/Goals Progressing Current Genitourinary Outcome/Goals Maintain/ Achieve Urinary Continence Maintain/ Achieve Adequate Urinary Output Remain Free of Hospital- Acquired UTI Progression Toward Outcome/Goals Progressing Medication Administration Start: 06/28/19 12:56 Freq: DAILY@699,1900 Status: Active Target: 07/20/19 Protocol: Activity Type Activity Date Activity User E-Sign Co-Sign Detail Recorded Client Recorded Date Recorded By Document 07/19/19 07:00 [id number] 07/19/19 08:57 [id number] 07/19/19 07:00 PMRU Outcome: Medication Administration Assess Patient Knowledge/Teach Med Yes Education for all Meds Current Burr Picker Outcome/Goals Patient Independent with Medication Administration at Home Demonstrates Understanding Progression Towards Outcome/Goals Progressing Is Patient Going Home on Lovenox? No Mobility- Improve/Maintain Start: 06/28/19 18:34 Freq: DAILY@0700,1900 Status: Active Target: 06/29/19 Protocol: Activity Type Activity Date Activity User E-Sign Co-Sign Detail Recorded Client Recorded Date Recorded By Document 06/30/19 16:32 [id number] 06/30/19 16:32 [id number] 06/30/19 16:32 PMRU Outcome: Mobility Physical Therapy Evaluation and Yes Treatment Activity OOB with Assistance Yes WBAT Yes Device Yes Assistance Yes Patient to be seen 5x/wk for 60-120 min/ Therex day for: Mobility Training Gait Training W/C Mobility Balance Current Mobility Outcome/Goals Maintain/ Achieve Baseline Mobility Status Improve Mobility Status Demonstrates Proper Use of Assistive Devices Free from Complications of Immobility Progression Toward Outcome/Goals Progressing Bed Mobility Yes: independent Transfers Yes: independent with rolling walker. Gait x ft Yes: independent with rolling walker 150' W/C Mobility x ft Yes: independent with BUE to 150 ' Up/Down Stairs Yes: independnet up/ down 5 stairs. Neurological- Improve/Maintain Start: 06/28/19 12:56 Freq: DAILY@0700,1900 Status: Active Target: 07/20/19 Protocol: Activity Type Activity Date Activity User E-Sign Co-Sign Detail Recorded Client Recorded Date Recorded By Document 07/19/19 07:00 [id number] [id number] 07/19/19 08:57 [id number] 07/19/19 07:00 PMRU Outcome: Neurological Weakness/Aphasia Weakness Current Neurological Outcome/Goals Maintain/ Achieve Baseline Neurological Status Improve Neurological Status Prevent Avoidable Neurological Decline Maintain/ Improve Strength/ROM Progression Toward Outcome/Goals Progressing Pain/Comfort- Improve/Maintain Start: 06/28/19 12:56 Freq: DAILY@0700,1900 Status: Active Target: 07/20/19 Protocol: Activity Type Activity Date Activity User E-Sign Co-Sign Detail Recorded Client Recorded Date Recorded By Document 07/19/19 07:00 [id number] 07/19/19 08:57 [id number] 07/19/19 07:00 PMRU Outcome: Pain/Comfort Current Pain/Comfort Outcome/Goals Demonstrates Knowledge and Use of Available Comfort Measures Achieves Acceptable Comfort/Pain Level as Determined by Patient/Condit Maintain Comfort Level Allowing Patient to Fully Participate in Rehab Progression Toward Outcome/Goals Progressing Rec Therapy- Improve/Maintain Start: 06/28/19 16:28 Freq: DAILY@0700,1900 Status: Active Target: 07/22/19 Protocol: Activity Type Activity Date Activity User E-Sign Co-Sign Detail Recorded Client Recorded Date Recorded By Document 07/18/19 16:40 [id number] 07/18/19 16:40 [id number] 07/18/19 16:40 PMRU Outcome: Recreation Therapy Current Rec Ther Outcome/Goals Meet with Patient Regularly for Support Encourage Leisure Involvement Progression Toward Outcome/Goals Progressing Lack of Progression Comment pt. continues to be very social and engaged in leisure activities in the afternoons. Outcome/Goals Met Complete Rec Therapy Assessment Safety- Improve/Maintain Start: 06/28/19 11:29 Freq: DAILY@0700,1900 Status: Active Target: 07/20/19 Protocol: Activity Type Activity Date Activity User E-Sign Co-Sign Detail Recorded Client Recorded Date Recorded By Document 07/19/19 07:00 [id number] 07/19/19 08:57 [id number] 07/19/19 07:00 PMRU Outcome: Safety Current Safety Outcome/Goals Remain Free of Injury or Harm Cooperates with Safety Measures for Least Restrictive Environment Prevent Falls/ Injury Progression Toward Outcome/Goals Progressing Skin- Improve/Maintain Start: 06/28/19 12:56 Freq: DAILY@0700,1900 Status: Active Target: 07/20/19 Protocol: Activity Type Activity Date Activity User E-Sign Co-Sign Detail Recorded Client Recorded Date Recorded By Document 07/19/19 07:00 [id number] 07/19/19 08:57 [id number] 07/19/19 07:00 PMRU Outcome: Skin Skin Risk Level Mild Risk Skin Orders Dressing Change Skin Orders Comment dressing last changed 07/18 Current Skin Outcome/Goals Free from Pressure Injury Surgical Incisions Healing Progression Toward Outcome/Goals Progressing - Interdisciplinary Staff Present Start Up Specialist/Social Work Staff Present: Shereen Ospina LMSW Nursing Staff Present: Destiny Traylor LPN OT Staff Present: Chiquita Davis PT Staff Present: Rachel Kim CHIPPER FEEDER Staff Present: Pravin Tejeda Medicine Note: Length of Stay: 3 days Anticipated Discharge Destination: home Tentative Discharge Date: 07/22/19 Discharged to: Home
[2019-07-19] MEDS: Ibuprofen TAB* 400 MG PO PRN (14:31)
--- NOTE | 2019-07-19 18:36 | PN ---
Progress Note Date of Service: 07/19/19 Note: RODO VALENTINE was visited. Therapy notes read and reviewed. He was discussed in interdisciplinary team rounds. He has been doing a lot better. Dr. Wild was in to see wound. No specific treatment. Current Medications: Active Medications Generic Name Dose Route Start Last Admin Trade Name Freq PRN Reason Stop Dose Admin Acetaminophen 650 mg 06/28/19 11:46 07/07/19 08:57 Tylenol Tab* PO 650 mg Q6H PRN Administration MILD PAIN or TEMP > 100.4 Acetaminophen/Codeine Phosphate 1 tab 07/02/19 09:38 07/03/19 04:20 Tylenol/Codeine 30 Mg Tab* PO 1 tab Q6H PRN Administration PAIN - MODERATE Baclofen 10 mg 06/28/19 14:00 07/19/19 14:31 Lioresal Tab* PO 10 mg TID EWELINA Administration Bisacodyl 10 mg 07/16/19 18:59 Dulcolax Supp* [place] DAILY PRN CONSTIPATION Cholecalciferol 1,000 units 06/29/19 09:00 07/19/19 09:02 Vitamin D Tab* PO 1,000 units DAILY EWELINA Administration Cyanocobalamin 2,500 mcg 06/29/19 09:00 07/19/19 09:05 Vitamin B12 Tab* PO 2,500 mcg DAILY EWELINA Administration Diclofenac Sodium 1 applic 07/12/19 21:00 07/19/19 14:31 Voltaren 1% Gel (Nf) TOPICAL 1 applic TID EWELINA Administration Protocol Dimethyl Fumarate 240 mg 06/28/19 21:00 07/19/19 09:06 Tecfidera(Nf) PO 240 mg BID EWELINA Administration Docusate Sodium 100 mg 06/28/19 21:00 07/19/19 09:06 Colace Cap* PO 100 mg BID EWELINA Administration Fluoxetine HCl 40 mg 06/29/19 09:00 07/19/19 09:06 Prozac Cap* PO 40 mg DAILY EWELINA Administration Heparin Sodium (Porcine) 5,000 units 06/28/19 14:00 07/19/19 14:30 Heparin Vial(*) SUBCUT 5,000 units Q8HR EWELINA Administration Hydrocortisone 1 applic 07/09/19 09:19 07/19/19 08:44 Hytone Cream 1%* TOPICAL 1 applic QID PRN Administration itching rash Ibuprofen 400 mg 07/02/19 09:37 07/19/19 14:31 Motrin Tab* PO 400 mg Q6H PRN Administration PAIN - MILD Magnesium Hydroxide 30 ml 06/28/19 11:46 Milk Of Boyd Liq* PO Q6H PRN CONSTIPATION Pto:Nft* (Claritin-D 10 mg 06/29/19 21:00 07/18/19 20:58 24 Hour Tablet) PO 10 mg BEDTIME EWELINA Administration Nystatin 1 applic 06/28/19 21:00 07/19/19 08:44 Nystatin Top Powder* TOPICAL 1 applic BID EWELINA Administration Risperidone 0.5 mg 07/14/19 21:00 07/19/19 09:06 Risperdal PO 0.5 mg BID EWELINA Administration Senna 2 tab 06/28/19 21:00 07/18/19 20:58 Senokot 8.6 Mg Tab* PO 2 tab BEDTIME EWELINA Administration Tamsulosin HCl 0.4 mg 06/28/19 21:00 07/18/19 20:58 Flomax Cap* PO 0.4 mg BEDTIME EWELINA Administration Trimethoprim/Sulfamethoxazole 1 tab 07/14/19 21:00 07/19/19 09:06 Bactrim Ds 800/160 Tab* PO 07/19/19 23:59 1 tab BID EWELINA Administration Vitamin E 400 unit 06/29/19 09:00 07/19/19 09:06 Vitamin E Cap* PO 400 unit DAILY EWELINA Administration Vital Signs: Vital Signs Temp Pulse Resp BP Pulse Ox 98.1 F 85 18 114/53 96 07/19/19 16:32 07/19/19 16:32 07/19/19 04:00 07/19/19 16:32 07/19/19 16:32 Exam: GENERAL: No acute distress. alert and appropriate. LUNGS: Clear to auscultation bilaterally HEART: regular rate and rhythm ABDOMEN: Soft, + bowel sounds, non-tender, non-distended EXTREMITIES: no edema. NEUROLOGIC: BUE motor 5/5. LLE motor 3/5 hip flex, knee ext. RLE motor 4/5 throughout. Sensation intact x4. SKIN: mild papular rash on upper back. Fading Assessment/Plan: 1. Multiple Sclerosis: PT/OT. Tecfidera. Baclofen 2. Decompressive laminectomies, L2-L5: PT/OT. Left leg remains weaker than right. f/u with neurosurgery. 3. Depression: Prozac 4. Hallucinations: none at present. Risperadal 0.5 mg BID, may d/c prior to going home 5. DVT Prophylaxis: Heparin S/Q 6. Advance Directives: DNR 7. 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 Rash: hydrocortisone cream prn 9. Urinary Tract Infection: Bactrim, day 03/0307/19/19 18:36
[2019-07-19] MEDS: Senna TAB 8.6 mg* TAB PO SCH (20:05)
[2019-07-19] MEDS: Tamsulosin CAP* 0.4 MG PO SCH (20:05)
[2019-07-19] MEDS: [UNRECOGNIZED DRUG - OTHER] PO SCH (20:06)
[2019-07-20 04:36] LABS: ABS Eosinophils 0.6 10^3/ul (0-0.6); ABS Lymphocytes 1.2 10^3/ul (1.0-4.8); ABS Monocytes 0.8 10^3/ul (0-0.8); ABS Neutrophils 5.1 10^3/ul (1.5-7.7); Eosinophil % 7.2 %; Hematocrit 32 % (42-52); Hemoglobin 10.8 g/dL (14.0-18.0); Lymphocyte % 16.1 %; Mean Corpuscular HGB Conc 34 g/dL (31-36); Mean Corpuscular Hemoglobin 32 pg (27-31); Mean Corpuscular Volume 94 fL (80-94); Mean Platelet Volume 7.3 fL (7.4-10.4); Platelet Count 409 10^3/uL (150-450); Red Blood Count 3.38 10^6 /uL (4.18-5.48); Red Cell Distribution Width 14 % (10-15); White Blood Count 7.7 10^3/uL (3.5-10.8)
[2019-07-20 04:54] LABS: Albumin 3.4 g/dL (3.2-5.2); Albumin/Globulin Ratio 0.9 (1-3); BUN/Creatinine Ratio 18.3 (8-20); Calcium 9.3 mg/dL (8.6-10.3); EGFR African American 111.4 (>60); EGFR Non-African American 92.1 (>60); Globulin 3.6 g/dL (2-4); Potassium 4.2 mmol/L (3.5-5.0); Total Bilirubin 0.2 mg/dL (0.2-1.0)
[2019-07-20] MEDS: Heparin VIAL(*) 5000 UNITS/ML VIAL (FIVE THOUSAND) SUBCUT SCH ×3 (06:26→20:58)
[2019-07-20] MEDS: Ibuprofen TAB* 400 MG PO PRN ×2 (06:28→20:00)
[2019-07-20] MEDS: Cyanocobalamin TAB* 500 MCG PO SCH (09:40)
[2019-07-20] MEDS: Baclofen TAB* 10 MG PO SCH ×3 (09:40→19:52)
[2019-07-20] MEDS: Docusate CAP* 100 MG PO SCH ×2 (09:42→19:50)
[2019-07-20] MEDS: FLUoxetine CAP* 20 MG PO SCH (09:43)
[2019-07-20] MEDS: Nystatin TOP POWDER* 15 GM BTL TOPICAL SCH ×2 (09:45→20:59)
[2019-07-20] MEDS: Vitamin E CAP* 400 UNIT PO SCH (09:46)
[2019-07-20] MEDS: PTO:Dimethyl Fumarate(NF) 240 MG CAP PO SCH ×2 (09:46→19:50)
[2019-07-20] MEDS: Cholecalciferol TAB* 1000 UNITS PO SCH (09:50)
[2019-07-20] MEDS: CMCS: Diclofenac 1% GEL (NF) 100 GM TUBE TOPICAL SCH ×3 (09:50→19:53)
[2019-07-20] MEDS ORDERED: Polyethylene Glycol 3350* 17 GM PACKET PO PRN (18:00)
--- NOTE | 2019-07-20 18:02 | PN ---
Progress Note Date of Service: 07/20/19 Note: RODO VALENTINE was visited. Therapy notes read and reviewed. He has no specific complaints. Doing pretty well. Would like his Fibercon back Current Medications: Active Medications Generic Name Dose Route Start Last Admin Trade Name Freq PRN Reason Stop Dose Admin Acetaminophen 650 mg 06/28/19 11:46 07/07/19 08:57 Tylenol Tab* PO 650 mg Q6H PRN Administration MILD PAIN or TEMP > 100.4 Acetaminophen/Codeine Phosphate 1 tab 07/02/19 09:38 07/03/19 04:20 Tylenol/Codeine 30 Mg Tab* PO 1 tab Q6H PRN Administration PAIN - MODERATE Baclofen 10 mg 06/28/19 14:00 07/20/19 14:50 Lioresal Tab* PO 10 mg TID EWELINA Administration Bisacodyl 10 mg 07/16/19 18:59 Dulcolax Supp* NE DAILY PRN CONSTIPATION Calcium Polycarbophil 625 mg 07/20/19 21:00 Fibercon Tab* PO BID EWELINA Cholecalciferol 1,000 units 06/29/19 09:00 07/20/19 09:50 Vitamin D Tab* PO 1,000 units DAILY EWELINA Administration Cyanocobalamin 2,500 mcg 06/29/19 09:00 07/20/19 09:40 Vitamin B12 Tab* PO 2,500 mcg DAILY EWELINA Administration Diclofenac Sodium 1 applic 07/12/19 21:00 07/20/19 14:50 Voltaren 1% Gel (Nf) TOPICAL Not Given TID [facility] Protocol Dimethyl Fumarate 240 mg 06/28/19 21:00 07/20/19 09:46 Tecfidera(Nf) PO 240 mg BID EWELINA Administration Docusate Sodium 100 mg 06/28/19 21:00 07/20/19 09:42 Colace Cap* PO 100 mg BID EWELINA Administration Fluoxetine HCl 40 mg 06/29/19 09:00 07/20/19 09:43 Prozac Cap* PO 40 mg DAILY EWELINA Administration Heparin Sodium (Porcine) 5,000 units 06/28/19 14:00 07/20/19 14:50 Heparin Vial(*) SUBCUT 5,000 units Q8HR EWELINA Administration Hydrocortisone 1 applic 07/09/19 09:19 07/19/19 20:11 Hytone Cream 1%* TOPICAL 1 applic QID PRN Administration itching rash Ibuprofen 400 mg 07/02/19 09:37 07/20/19 06:28 Motrin Tab* PO 400 mg Q6H PRN Administration PAIN - MILD Magnesium Hydroxide 30 ml 06/28/19 11:46 Milk Of Boyd Priceq* PO Q6H PRN CONSTIPATION Pto:Nft* (Claritin-D 10 mg 06/29/19 21:00 07/19/19 20:06 24 Hour Tablet) PO Not Given BEDTIME EWELINA Nystatin 1 applic 06/28/19 21:00 07/20/19 09:45 Nystatin Top Powder* TOPICAL 1 applic BID EWELINA Administration Polyethylene Glycol/Electrolytes 17 gm 07/20/19 18:00 Miralax* PO DAILY PRN CONSTIPATION Risperidone 0.5 mg 07/14/19 21:00 07/20/19 09:45 Risperdal PO 0.5 mg BID EWELINA Administration Senna 2 tab 06/28/19 21:00 07/19/19 20:05 Senokot 8.6 Mg Tab* PO 2 tab BEDTIME EWELINA Administration Tamsulosin HCl 0.4 mg 06/28/19 21:00 07/19/19 20:05 Flomax Cap* PO 0.4 mg BEDTIME EWELINA Administration Vitamin E 400 unit 06/29/19 09:00 07/20/19 09:46 Vitamin E Cap* PO 400 unit DAILY EWELINA Administration Vital Signs: Vital Signs Temp Pulse Resp BP Pulse Ox 98.0 F 88 18 148/63 94 07/20/19 16:54 07/20/19 16:54 07/20/19 16:54 07/20/19 16:54 07/20/19 16:54 Lab Results: Laboratory Results - last 24 hr 07/20/19 07/20/19 04:26 04:26 WBC 7.7 RBC 3.38 L Hgb 10.8 L Hct 32 L MCV 94 MCH 32 H MCHC 34 RDW 14 Plt Count 409 MPV 7.3 L Neut % (Auto) 66.2 Lymph % (Auto) 16.1 [place] % (Auto) 9.9 Eos % (Auto) 7.2 Baso % (Auto) 0.6 Absolute Neuts (auto) 5.1 Absolute Lymphs (auto) 1.2 Absolute Monos (auto) 0.8 Absolute Eos (auto) 0.6 Absolute Basos (auto) 0.0 Absolute Nucleated RBC 0.0 Nucleated RBC % 0.0 Sodium 137 Potassium 4.2 Chloride 104 Carbon Dioxide 25 Anion Gap 8 BUN 15 Creatinine 0.82 Est GFR ( Amer) 111.4 Est GFR (Non-Af Amer) 92.1 BUN/Creatinine Ratio 18.3 Glucose 128 H Calcium 9.3 Total Bilirubin 0.20 AST 12 L ALT 14 Alkaline Phosphatase 100 Total Protein 7.0 Albumin 3.4 Globulin 3.6 Albumin/Globulin Ratio 0.9 L Exam: GENERAL: No acute distress. alert and appropriate. LUNGS: Clear to auscultation bilaterally HEART: regular rate and rhythm ABDOMEN: Soft, + bowel sounds, non-tender, non-distended EXTREMITIES: no edema. NEUROLOGIC: BUE motor 5/5. LLE motor 3/5 hip flex, knee ext. RLE motor 4/5 throughout. Sensation intact x4. SKIN: mild papular rash on upper back. Fading Assessment/Plan: 1. Multiple Sclerosis: PT/OT. Tecfidera. Baclofen 2. Decompressive laminectomies, L2-L5: PT/OT. Left leg remains weaker than right. f/u with neurosurgery. 3. Depression: Prozac 4. Hallucinations: none at present. Risperadal will cut back to 0.25 BID 5. DVT Prophylaxis: Heparin S/Q 6. Advance Directives: DNR 7. 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 8. Rash: hydrocortisone cream prn 9. Urinary Tract Infection: Andres, finishing 07/20/19 18:02
[2019-07-20] MEDS: Senna TAB 8.6 mg* TAB PO SCH (19:50)
[2019-07-20] MEDS: risperiDONE* ODT TAB 0.25 MG TAB PO SCH (19:50)
[2019-07-20] MEDS: Calcium Polycarbophil TAB* 625 MG PO SCH (19:50)
[2019-07-20] MEDS: Tamsulosin CAP* 0.4 MG PO SCH (19:50)
[2019-07-20] MEDS: [UNRECOGNIZED DRUG - OTHER] PO SCH (19:53)
[2019-07-21] MEDS: Heparin VIAL(*) 5000 UNITS/ML VIAL (FIVE THOUSAND) SUBCUT SCH ×3 (06:40→20:59)
[2019-07-21] MEDS: Ascorbic Acid TAB* 500 MG PO SCH (07:47)
[2019-07-21] MEDS: Calcium Polycarbophil TAB* 625 MG PO SCH ×2 (07:47→20:56)
[2019-07-21] MEDS: Baclofen TAB* 10 MG PO SCH ×3 (07:47→20:56)
[2019-07-21] MEDS: Cyanocobalamin TAB* 500 MCG PO SCH (07:48)
[2019-07-21] MEDS: Cholecalciferol TAB* 1000 UNITS PO SCH (07:48)
[2019-07-21] MEDS: PTO:Dimethyl Fumarate(NF) 240 MG CAP PO SCH ×2 (07:50→20:55)
[2019-07-21] MEDS: Docusate CAP* 100 MG PO SCH ×2 (07:50→21:03)
[2019-07-21] MEDS: FLUoxetine CAP* 20 MG PO SCH (07:50)
[2019-07-21] MEDS: Vitamin E CAP* 400 UNIT PO SCH (07:51)
[2019-07-21] MEDS: Ibuprofen TAB* 400 MG PO PRN ×2 (07:52→20:56)
[2019-07-21] MEDS: CMCS: Diclofenac 1% GEL (NF) 100 GM TUBE TOPICAL SCH ×3 (09:05→20:58)
[2019-07-21] MEDS: risperiDONE* ODT TAB 0.25 MG TAB PO SCH ×2 (09:05→20:56)
[2019-07-21] MEDS: Nystatin TOP POWDER* 15 GM BTL TOPICAL SCH ×2 (10:23→21:02)
[2019-07-21] MEDS: Hydrocortisone 1% CREAM* 30 GM TUBE TOPICAL PRN (10:24)
--- NOTE | 2019-07-21 19:51 | PN ---
Progress Note Date of Service: 07/21/19 Note: RODO VALENTINE was visited. Therapy notes read and reviewed. He is doing better and is ready for discharge tomorrow. Current Medications: Active Medications Generic Name Dose Route Start Last Admin Trade Name Freq PRN Reason Stop Dose Admin Acetaminophen 650 mg 06/28/19 11:46 07/07/19 08:57 Tylenol Tab* PO 650 mg Q6H PRN Administration MILD PAIN or TEMP > 100.4 Acetaminophen/Codeine Phosphate 1 tab 07/02/19 09:38 07/03/19 04:20 Tylenol/Codeine 30 Mg Tab* PO 1 tab Q6H PRN Administration PAIN - MODERATE Ascorbic Acid 500 mg 07/21/19 09:00 07/21/19 07:47 Vitamin C Tab* PO 500 mg DAILY EWELINA Administration Baclofen 10 mg 06/28/19 14:00 07/21/19 14:41 Lioresal Tab* PO 10 mg TID EWELINA Administration Bisacodyl 10 mg 07/16/19 18:59 Dulcolax Supp* VT DAILY PRN CONSTIPATION Calcium Polycarbophil 625 mg 07/20/19 21:00 07/21/19 07:47 Fibercon Tab* PO 625 mg BID EWELINA Administration Cholecalciferol 1,000 units 06/29/19 09:00 07/21/19 07:48 Vitamin D Tab* PO 1,000 units DAILY EWELINA Administration Cyanocobalamin 2,500 mcg 06/29/19 09:00 07/21/19 07:48 Vitamin B12 Tab* PO 2,500 mcg DAILY EWELINA Administration Diclofenac Sodium 1 applic 07/12/19 21:00 07/21/19 14:41 Voltaren 1% Gel (Nf) TOPICAL 1 applic TID EWELINA Administration Protocol Dimethyl Fumarate 240 mg 06/28/19 21:00 07/21/19 07:50 Tecfidera(Nf) PO 240 mg BID EWELINA Administration Docusate Sodium 100 mg 06/28/19 21:00 07/21/19 07:50 Colace Cap* PO 100 mg BID EWELINA Administration Fluoxetine HCl 40 mg 06/29/19 09:00 07/21/19 07:50 Prozac Cap* PO 40 mg DAILY EWELINA Administration Heparin Sodium (Porcine) 5,000 units 06/28/19 14:00 07/21/19 14:42 Heparin Vial(*) SUBCUT 5,000 units Q8HR EWELINA Administration Hydrocortisone 1 applic 07/09/19 09:19 07/21/19 10:24 Hytone Cream 1%* TOPICAL 1 applic QID PRN Administration itching rash Ibuprofen 400 mg 07/02/19 09:37 07/21/19 07:52 Motrin Tab* PO 400 mg Q6H PRN Administration PAIN - MILD Magnesium Hydroxide 30 ml 06/28/19 11:46 Milk Of Magnesia Liq* PO Q6H PRN CONSTIPATION Pto:Nft* (Claritin-D 10 mg 06/29/19 21:00 07/20/19 19:53 24 Hour Tablet) PO Not Given BEDTIME EWELINA Nystatin 1 applic 06/28/19 21:00 07/21/19 10:23 Nystatin Top Powder* TOPICAL 1 applic BID EWELINA Administration Polyethylene Glycol/Electrolytes 17 gm 07/20/19 18:00 07/20/19 19:52 Miralax* PO 17 gm DAILY PRN Administration CONSTIPATION Risperidone 0.25 mg 07/20/19 21:00 07/21/19 09:05 Risperidone* Odt PO 0.25 mg BID EWELINA Administration Senna 2 tab 06/28/19 21:00 07/20/19 19:50 Senokot 8.6 Mg Tab* PO 2 tab BEDTIME EWELINA Administration Tamsulosin HCl 0.4 mg 06/28/19 21:00 07/20/19 19:50 Flomax Cap* PO 0.4 mg BEDTIME EWELINA Administration Vitamin E 400 unit 06/29/19 09:00 07/21/19 07:51 Vitamin E Cap* PO 400 unit DAILY EWELINA Administration Vital Signs: Vital Signs Temp Pulse Resp BP Pulse Ox 97.9 F 88 18 139/54 96 07/21/19 15:52 07/21/19 15:52 07/21/19 15:52 07/21/19 15:52 07/21/19 15:52 Exam: GENERAL: No acute distress. alert and appropriate. LUNGS: Clear to auscultation bilaterally HEART: regular rate and rhythm ABDOMEN: Soft, + bowel sounds, non-tender, non-distended EXTREMITIES: no edema. NEUROLOGIC: BUE motor 5/5. LLE motor 3/5 hip flex, knee ext. RLE motor 4/5 throughout. Sensation intact x4. SKIN: mild papular rash on upper back. Fading Assessment/Plan: 1. Multiple Sclerosis: PT/OT. Tecfidera. Baclofen 2. Decompressive laminectomies, L2-L5: PT/OT. Left leg remains weaker than right. f/u with neurosurgery. 3. Depression: Prozac 4. Hallucinations: none at present. Risperadal cut back to 0.25 BID 5. DVT Prophylaxis: Heparin S/Q 6. Advance Directives: DNR 7. Probable OA right hand: Ibuprofen prn, Voltaren gel, son will look for thumb splints at [facility] 8. Rash: hydrocortisone cream prn 07/21/19 19:51 07/21/19 19:52
[2019-07-21] MEDS: Tamsulosin CAP* 0.4 MG PO SCH (20:56)
[2019-07-21] MEDS: Senna TAB 8.6 mg* TAB PO SCH (20:56)
[2019-07-21] MEDS: [UNRECOGNIZED DRUG - OTHER] PO SCH (21:03)
[2019-07-22 05:55] VITALS: BP 137/69
[2019-07-22] MEDS: Heparin VIAL(*) 5000 UNITS/ML VIAL (FIVE THOUSAND) SUBCUT SCH (06:05)
[2019-07-22] MEDS: Hydrocortisone 1% CREAM* 30 GM TUBE TOPICAL PRN (08:05)
[2019-07-22] MEDS: risperiDONE* ODT TAB 0.25 MG TAB PO SCH (08:06)
[2019-07-22] MEDS: Nystatin TOP POWDER* 15 GM BTL TOPICAL SCH (08:06)
[2019-07-22] MEDS: PTO:Dimethyl Fumarate(NF) 240 MG CAP PO SCH (08:06)
[2019-07-22] MEDS: CMCS: Diclofenac 1% GEL (NF) 100 GM TUBE TOPICAL SCH (08:06)
[2019-07-22] MEDS: Calcium Polycarbophil TAB* 625 MG PO SCH (08:07)
[2019-07-22] MEDS: Vitamin E CAP* 400 UNIT PO SCH (08:07)
[2019-07-22] MEDS: FLUoxetine CAP* 20 MG PO SCH (08:07)
[2019-07-22] MEDS: Docusate CAP* 100 MG PO SCH (08:07)
[2019-07-22] MEDS: Cholecalciferol TAB* 1000 UNITS PO SCH (08:07)
[2019-07-22] MEDS: Baclofen TAB* 10 MG PO SCH (08:07)
[2019-07-22] MEDS: Cyanocobalamin TAB* 500 MCG PO SCH (08:08)
[2019-07-22] MEDS: Ascorbic Acid TAB* 500 MG PO SCH (08:08)
--- NOTE | 2019-07-27 03:06 | DS ---
CC: Saran Thomas * DISCHARGE SUMMARY: DATE OF ADMISSION: 06/28/19 DATE OF DISCHARGE: 07/22/19 DISCHARGE DIAGNOSES: 1. Multiple sclerosis. 2. Decompressive laminectomies, L2 through L5. 3. Urinary tract infection. 4. Neurogenic bladder. 5. Osteoarthritis of both hands. 6. Depression. 7. Hallucination secondary to urinary tract infection. HISTORY OF ILLNESS AND HOSPITAL COURSE: For complete history of the events leading up to his rehab stay, please see the history and physical dictated by me on 06/28/19. While on the rehab unit, the patient did have urinary tract infection. He grew out citrobacter and was treated with a week's worth of Bactrim. The patient also had developed a flare-up of the arthritis in his hands particularly his first metacarpophalangeal joints on both hands. This was treated with Voltaren gel. He was treated with heparin for DVT prophylaxis. Otherwise, he was fairly stable from a medical point of view. The patient was seen by both Physical Therapy and Occupational Therapy and made good gains with both disciplines. With physical therapy at the time of admission, the patient required max assist for bed mobility with max assist in order to do a transfer. He was unable to stand up without the use of an easy stand. He was unable to ambulate. With occupational therapy at the time of admission, the patient was dependent for lower body dressing, dependent for bathing, dependent for toileting and toilet transfers. By the time of discharge , the patient was independent in bed mobility, independent in transfers, independent ambulating with a front wheeled walker going 150 feet, supervision going up and down 5 steps with 2 rails, and independent with home exercise program. With occupational therapy, was independent with eating, bathing, dressing, toileting, and toilet transfers. The patient was discharged home on 07/22/19. DISPOSITION: Home. CONDITION AT DISCHARGE: Stable. DISCHARGE DIET: Regular. DISCHARGE MEDICATIONS: 1. Baclofen 10 mg 3 times daily. 2. Fibercon 625 mg twice daily. 3. Vitamin D 1000 units daily. 4. Claritin D 10 mg at bedtime. 5. Vitamin B12 2500 mg orally daily. 6. Tecfidera 240 mg orally twice daily. 7. Prozac 40 mg daily. 8. Ibuprofen 400 mg every 6 hours as needed. 9. Flomax 0.4 mg at bedtime. 10. Voltaren gel to his first MCP joint 3 times a day. PLAN: Services after discharge: Through [facility]. The patient will have home nursing, home physical therapy, and a home health aide. Follow up with Dr. Lund, his primary care doctor in [place], as well as with Dr. Cam Srinivasan, his neurologist, and Dr. Wild, his back surgeon. TIME SPENT: Time for this discharge was approximately 55 minutes, greater than half of that was spent with the patient, explaining post rehabilitation therapies, services, and medications. [id number]/[facility] #: [id number] MTDD
== END 2019-07-22 13:30 | disposition home health service (06) | DRG 560 ==
LOC: PMRU 11:28
PROVIDERS: ADMIT Physical Medicine & Rehabilitation; ATTEND Physical Medicine & Rehabilitation
PROC: F07Z5ZZ Bed Mobility Treatment (ICD-10-PCS; principal; 2019-06-28)
PROC: F07Z9ZZ Gait Training/Functional Ambulation Treatment (ICD-10-PCS; 2019-06-28)
PROC: F07Z8ZZ Transfer Training Treatment (ICD-10-PCS; 2019-06-28)
PROC: F07Z4ZZ Wheelchair Mobility Treatment (ICD-10-PCS; 2019-06-28)
PROC: F08Z0ZZ Bathing/Showering Techniques Treatment (ICD-10-PCS; 2019-06-28)
PROC: F08Z1ZZ Dressing Techniques Treatment (ICD-10-PCS; 2019-06-28)
PROC: F08Z3ZZ Feeding/Eating Treatment (ICD-10-PCS; 2019-06-28)
PROC: F08Z2ZZ Grooming/Personal Hygiene Treatment (ICD-10-PCS; 2019-06-28)
DX: Z47.89 Encounter for other orthopedic aftercare (principal); R44.3 Hallucinations, unspecified; N39.0 Urinary tract infection, site not specified; G35 Multiple sclerosis; M48.061 Spinal stenosis, lumbar region without neurogenic claudication; M21.372 Foot drop, left foot; F32.9 Major depressive disorder, single episode, unspecified; Z66 Do not resuscitate; M19.041 Primary osteoarthritis, right hand; L08.0 Pyoderma; B96.89 Other specified bacterial agents as the cause of diseases classified elsewhere; Z79.899 Other long term (current) drug therapy
CPT/HCPCS: 36415; 80053; 81003; 81015; 85025; 87077; 87086; 87186; A9270-GY; J1644